=== PATIENT | male | born 1950 | race Caucasian/White ===

== ENCOUNTER → 2017-06-07 09:29 | Outpatient (CLI) | payer MEDICARE, SELFPAY ==
[2017-06-07 11:27] LABS: AST(SGOT) 23 U/L (15-37); Alanine Aminotransfer ALT/SGPT 27 U/L (16-61); Albumin, Serum 4.1 g/dL (3.2-5.0); Alkaline Phosphatase 59 U/L (45-117); Bilirubin, Direct 0.15 mg/dL (0.00-0.30); Cholesterol 157 mg/dL (200); Globulin 3.1 g/dL (2.2-4.2); High Density Lipoprotein 59 mg/dL; Protein, Total 7.2 g/dL (6.4-8.2); Triglycerides 84 mg/dL; Very Low Density Lipoprotein 17 mg/dL (5-40)
== END ==
PROVIDERS: Family Provider Family Medicine; PCP Family Medicine; Visit Provider Internal Medicine Cardiovascular Disease
DX: E78.5 Hyperlipidemia, unspecified (principal); Z79.899 Other long term (current) drug therapy
CPT/HCPCS: 36415; 80061; 80076

== ENCOUNTER 2017-08-05 05:12 | Day surgery (SDC) | payer MEDICARE, SELFPAY ==
--- NOTE | 2017-07-19 11:31 | EKG12_ITS ---
Test Reason : PRE-OP Blood Pressure : / mmHG Vent. Rate : 058 BPM Atrial Rate : 058 BPM P-R Int : 192 ms QRS Dur : 092 ms QT Int : 430 ms P-R-T Axes : 051 -01 036 degrees QTc Int : 422 ms Sinus bradycardia Possible Left atrial enlargement Borderline ECG Confirmed by NAUN SCHAEFFER ([id number]), editorial intern CRISTELA GUAMAN ([id number] on 08/01/2017 4:58:41 PM Referred By: Jason Delatorre Confirmed By:NAUN SCHAEFFER
[2017-07-19 11:38] LABS: Hematocrit 44.6 % (40-54); Hemoglobin 15.2 g/dl (13.0-16.5); Mean Corp Hgb Conc 34.1 g/gl (32-36); Mean Corpuscular Hgb 30.5 pg (27.0-32.0); Mean Corpuscular Volume 89.4 fL (80-94); Mean Platelet Vol. 10.2 fl (6.2-12.0); Platelet Count 236 K/mm3 (150-450); RBC Distribution Width CV 12.9 % (11.6-14.6); RBC Distribution Width SD 41.2 fl (35.1-43.9); Red Blood Count 4.99 M/mm3 (4.6-6.2); White Blood Count 6.8 K/mm3 (4.4-11.0)
[2017-07-19 11:46] LABS: Scan Indicated on CBC? Y/N NO
[2017-07-19 12:04] LABS: Anion Gap 8 (5-15); BUN 14 mg/dL (7-18); BUN/Creat Ratio 16.9 RATIO (10-20); Calcium,Total 9.3 mg/dL (8.5-10.1); Chloride 101 mmol/L (98-107); Creatinine, Serum 0.83 mg/dL (0.70-1.30); EST Glomerular Filtration Rate 98 mL/min (>60); Est Glom Filt Rate - Afr Amer 118 mL/min (>60); Glucose 98 mg/dL (74-106); Potassium 4.4 mmol/L (3.5-5.1); Sodium Level 139 mmol/L (136-145)
[2017-08-05] VITALS (8 sets, daily range): BP systolic 123–146; BP diastolic 67–81; PULSE 61–73; RESP 14–16; TEMP 36.5–36.9; O2SAT 93–100; BMI 22.9
--- NOTE | 2017-08-05 07:13 | DCINST_ITS ---
Discharge Diet: Light diet - advance as tolerated - if you have questions about your diet instructions, please talk to you doctor. Discharge Activity: May Not Drive - for 1 week or while taking narcotic pain medicine. May shower in (days): 1 Lifting Restrictions: 10 pounds Call your doctor if your incision/area has: Continuous Slow Oozing, Sudden Increased Bleeding, Increased Pain/ Swelling, Increased Redness, Foul Smelling Discharge Call your doctor if you observe: Fever of 101 or Higher Suture Line Care: Avoid Pulling/Pushing, Avoid Pinching/Bending Additional Dressing/Incision Instructions:: Change or remove dressing in 4 days. Leave steri-strips in place for 1 week. Allergies/Adverse Reactions: Allergies chlorhexidine Allergy (Verified 07/19/17 12:53) Rash atorvastatin [From Lipitor] Adverse Reaction (Severe, Verified 07/19/17 12:53) Myalgias albuterol Adverse Reaction (Verified 07/19/17 12:53) RAPID HEART BEAT Penicillins Adverse Reaction (Verified 07/19/17 12:53) STRANGE SENSATION IN MOUTH AND TEETH Medications to take at Discharge Cinnamon Bark [Cinnamon] 1,000 mg PO DAILY 08/09/16 Gluc June/Chondro June A/Vit C/Mn [Glucosamine-Chondroitin Cap] 1 ea PO DAILY Lisinopril [Prinivil] 10 mg PO DAILY 08/09/16 Magnesium Chloride [Slow-Mag] 64 mg PO DAILY 08/09/16 Multivitamin [Daily Multiple Vitamin] 1 ea PO DAILY 08/09/16 Pravastatin Sodium [Pravachol] 10 mg PO QHS 08/09/16 aspirin 81 mg tablet,delayed release 81 mg PO QDAY tab 04/29/17 Hydrocodone Bitart/Apap 5-325 [[place] 5MG-325MG] 1 tablet PO Q6H PRN PRN 3 Days # 8 tablet 08/05/17 The following prescriptions were given: Hydrocodone Bitart/Apap 5-325 [[place] 5MG-325MG] 1 tablet PO Q6H PRN PRN 3 Days # 8 tablet PRN Reason: Pain Primary Care Physician: Austen Lara [Primary Care Provider] - Please Follow Up With: Jason Delatorre MD - [phone] When: Call to make an appointment to be seen in about 10 days.
[2017-08-05] MEDS: Bupivacaine Mpf 0.5% 30 ML VIAL (07:27)
--- NOTE | 2017-08-05 08:20 | PCM.OPRPT ---
Problem List (1) Left inguinal hernia Status: Acute Report of Operation Date of Procedure: 08/05/17 Pre-Operative Diagnosis: Symptomatic indirect left internal hernia Post-Operative Diagnosis: Same Surgery/Procedure Performed:: Laparoscopic left inguinal herniorrhaphy Description of Surgical Findings:: Timeout and informed consent was obtained. 67-year-old gentleman was taken the operating room. He was placed supine on the table. He underwent general endotracheal intubation anesthesia. Clindamycin 900 mg given intravenous preoperatively. The abdomen was sterilely prepped and draped. 0.5% right Marcaine was used as a local anesthetic. Throughout the procedure total 30 cc was used. Skin sites were pre-anesthetized. A vertical incision was made in the umbilicus sharp dissection varies needle inserted after holding sutures of 0 Vicryl placed. The abdomen was insufflated with CO2 to pressure of 10 mmHg pressure. Albina trocar inserted. 10 lap scope inserted. The abdomen was inspected. There was evidence of her previous Marlex mesh plug repair of a right inguinal hernia. The plug was clearly visible. There was no adherence of bowel. There is evidence of an indirect defect on the left. The 5 mm trochars were placed in the right left lower quadrant. A ileal inguinal nerve block was performed under left scopic visual. The peritoneum was incised superior and then lateral to the internal ring. The peritoneum was completely dissected free. Actually quite a sizable hernia sac was carefully bluntly dissected free and a cord lipoma was dissected free. at that dissection was quite generous. The direct indirect and femoral artery identified. A 3D max light weight mesh large left was selected reference #[id number] lot number [id number] date of excess expiration 04/20/2021. The mesh was nicely placed so as to cover the defect area. It was secured laterally superiorly and medially with secure strap. Excellent coverage was achieved. The peritoneum was approximated to itself with the secure strap and several Hem-o-cony clips. Good positioning was achieved. The abdomen was allowed to deflate of the CO2. The fascia at the umbilicus was approximated interrupted 0 Vicryl figure 8 suture. Skin edges approximated up to 4 Monocryl subdermal stitches. Steri-Strips Telfa and OpSite dressings applied. Sponge instrument and needle counts were reported to the surgeon to be correct. Blood loss was minimal. Specimens none. Drains none. Blood loss minimal. Jason Delatorre M.D., F.A.C.S. Type of Anesthesia:: General Anesthesiologist: Jamil Piña
[2017-08-05] MEDS: HYDROcodone Bitartrate/Apap 5/325 Tablet PO (10:00)
[2017-08-05] MEDS: Lactated Ringers 1,000 ML 15 ML IV (11:15)
--- NOTE | 2017-08-05 11:32 | SUR.PHASEII ---
AT APPROXIMATELY 11:00, PATIENT AMBULATED WITH ASSISTANCE TO THE BATHROOM. STATES VOIDED VERY LITTLE. BLADDER SCANNED FOR 400 CC.
== END 2017-08-05 12:55 | disposition home or self-care (01) ==
LOC: SDC 05:12 → AC 05:14
PROVIDERS: Family Provider Family Medicine; PCP Family Medicine; Visit Provider Surgery
PROC: (CPT 49650; principal; 2017-08-05 06:55)
DX: K40.90 Unilateral inguinal hernia, without obstruction or gangrene, not specified as recurrent (principal); I10 Essential (primary) hypertension; E78.5 Hyperlipidemia, unspecified; M19.90 Unspecified osteoarthritis, unspecified site; Z79.82 Long term (current) use of aspirin; Z79.899 Other long term (current) drug therapy
CPT/HCPCS: 49650; 36415; 80048; 85027; 93005; J7120; J2405

== ENCOUNTER → 2017-11-22 09:36 | Outpatient (CLI) | payer MEDICARE, SELFPAY ==
[2017-11-22 12:26] LABS: AST(SGOT) 26 U/L (15-37); Alanine Aminotransfer ALT/SGPT 28 U/L (16-61); Albumin, Serum 3.9 g/dL (3.2-5.0); Alkaline Phosphatase 65 U/L (45-117); Bilirubin, Direct 0.19 mg/dL (0.00-0.30); Cholesterol 146 mg/dL (200); Globulin 3.1 g/dL (2.2-4.2); High Density Lipoprotein 62 mg/dL; Triglycerides 42 mg/dL; Very Low Density Lipoprotein 8 mg/dL (5-40)
== END ==
LOC: LAB.FUTURE 09:37 → LAB 09:50
PROVIDERS: Family Provider Family Medicine; PCP Family Medicine; Referring Provider Internal Medicine Cardiovascular Disease; Visit Provider Internal Medicine Cardiovascular Disease
DX: E78.5 Hyperlipidemia, unspecified (principal); Z79.899 Other long term (current) drug therapy; Z12.5 Encounter for screening for malignant neoplasm of prostate
CPT/HCPCS: 36415; 80061; 80076

== ENCOUNTER → 2017-12-01 09:04 | Outpatient (CLI) | payer MEDICARE, SELFPAY ==
[2017-12-01 10:07] LABS: PSA,Total - Annual Screen 1.59 ng/mL (0.00-4.00)
== END ==
PROVIDERS: Family Provider Family Medicine; PCP Family Medicine; Referring Provider Urology; Visit Provider Urology
DX: Z12.5 Encounter for screening for malignant neoplasm of prostate (principal)
CPT/HCPCS: 36415; 84153; G0103

== ENCOUNTER → 2018-06-20 09:52 | Outpatient (CLI) | payer MEDICARE, SELFPAY ==
[2017-12-01 10:00] VITALS: BMI 22.1
--- NOTE | 2018-06-20 10:00 | ECHOD_ITS ---
Reason For Study: MVP Procedure This was a 2D Doppler, Color Flow transthoracic echocardiogram. Exam performed in department. Left Ventricle Normal LV size. Left ventricular systolic function is normal. The estimated ejection fraction is 60 %. No evidence for diastolic dysfunction. No regional wall motion abnormalities noted. Right Ventricle Normal RV size. Normal systolic function. Atria Normal left atrium. Normal right atrium. No doppler evidence for ASD. Mitral Valve There is no mitral annular calcification. Moderate diffuse mitral valve thickening. Myxomatous mitral valve. Moderate mitral valve prolapse. Mild (1+) mitral valve insufficiency. Tricuspid Valve Normal tricuspid valve. Trivial tricuspid valve insufficiency. Aortic Valve Trisinus/trileaflet aortic valve. Normal aortic valve. Pulmonic Valve The pulmonic valve is not well visualized. Trivial eccentric pulmonic valve insufficiency. Great Vessels Normal sized aortic root. Pericardium/Pleural Trivial pericardial effusion. There are no echocardiographic indications of cardiac tamponade. MMode/2D Measurements & Calculations LVIDd: 4.6 cm IVSd: 0.87 cm Ao root diam: 2.9 cm LVIDs: 2.6 cm LVPWd: 1.1 cm RVDd: 3.3 cm FS: 43.7 % LAV(MOD-bp): 50.0 ml EDV(MOD-sp4): 93.8 ml EDV(MOD-sp2): 79.0 ml LAV(MOD-bp) Indexed: 26.7 ml/m2 ESV(MOD-sp4): 44.3 ml EF(MOD-sp2): 62.2 % LAV(MOD-sp2): 62.1 ml EF(MOD-sp4): 52.8 % LAV(MOD-sp4): 35.8 ml SV(MOD-sp4): 49.5 ml SV(MOD-sp2): 49.1 ml LA A4 area: 14.3 cm2 LA dimension(2D): 3.6 cm RA A4 area: 14.1 cm2 Doppler Measurements & Calculations MV E max wilman: 62.1 cm/sec Lat Peak E' Wilman: 5.8 cm/sec Med Peak E' Wilman: 6.3 cm/sec MV A max wilman: 69.7 cm/sec E/E' lat: 10.8 E/E' med: 9.8 MV E/A: 0.89 Ao V2 max: 107.9 cm/sec LV V1 max: 96.3 cm/sec PA V2 max: 141.4 cm/sec Ao max P.7 mmHg LV V1 max P.7 mmHg Interpretation Summary Left ventricular systolic function is normal. The estimated ejection fraction is 60 %. Myxomatous mitral valve. Moderate diffuse mitral valve thickening. Moderate mitral valve prolapse. Mild (1+) mitral valve insufficiency. Trivial tricuspid valve insufficiency. Trivial eccentric pulmonic valve insufficiency. Trivial pericardial effusion. There are no echocardiographic indications of cardiac tamponade. No evidence for diastolic dysfunction. Ordering Physician: Mati Webster Referring Physician: Austen Lara Performed By: Zuleima Stanley [facility] [place]
== END ==
PROVIDERS: Family Provider Family Medicine; PCP Family Medicine; Referring Provider Internal Medicine Cardiovascular Disease; Visit Provider Internal Medicine Cardiovascular Disease
DX: I34.1 Nonrheumatic mitral (valve) prolapse (principal); I10 Essential (primary) hypertension; E78.5 Hyperlipidemia, unspecified; R09.89 Other specified symptoms and signs involving the circulatory and respiratory systems
CPT/HCPCS: 93306

== ENCOUNTER → 2018-06-27 08:04 | Outpatient (CLI) | payer MEDICARE, SELFPAY ==
[2017-12-01 10:00] VITALS: BMI 22.1
[2018-06-27 09:03] LABS: Cholesterol 172 mg/dL (200); High Density Lipoprotein 71 mg/dL; Triglycerides 58 mg/dL; Very Low Density Lipoprotein 12 mg/dL (5-40)
== END ==
PROVIDERS: Family Provider Family Medicine; PCP Family Medicine; Referring Provider Internal Medicine Cardiovascular Disease; Visit Provider Internal Medicine Cardiovascular Disease
DX: E78.5 Hyperlipidemia, unspecified (principal); I10 Essential (primary) hypertension; I34.1 Nonrheumatic mitral (valve) prolapse; R09.89 Other specified symptoms and signs involving the circulatory and respiratory systems
CPT/HCPCS: 36415; 80061

== ENCOUNTER → 2018-07-26 07:42 | Outpatient (CLI) | payer MEDICARE, SELFPAY ==
[2018-07-05 15:49] VITALS: BMI 21.3
--- NOTE | 2018-07-26 08:02 | CDU_ITS ---
Reason For Study: Carotid Artery Disease Rt. Velocities/BP Lt. Velocities/BP Prox CCA 114/19 cm/sec. Prox CCA 133/23 cm/sec. Mid CCA 107/24 cm/sec. Mid CCA 115/25 cm/sec. Dist CCA 87/21 cm/sec. Dist CCA 90/22 cm/sec. Prox ICA 74/14 cm/sec. Prox ICA 81/14 cm/sec. Mid ICA 71/21 cm/sec. Mid ICA 84/20 cm/sec. Dist ICA 86/35 cm/sec. Dist ICA 84/31 cm/sec. Rt. ICA/CCA = 0.8. Lt. ICA/CCA = 0.7. Prox ECA 114/9 cm/sec. Prox ECA 98/14 cm/sec. Rt. Vert. 64/12 cm/sec. Lt. Vert. 62/18 cm/sec. Right Extracranial There is heterogeneous, irregular atherosclerotic plaque noted in the right common carotid artery. There is heterogeneous, irregular atherosclerotic plaque noted in the right internal carotid artery. There is heterogeneous, irregular atherosclerotic plaque noted in the right external carotid artery. Antegrade flow is noted in the right vertebral artery. Pre-steal waveform noted Rt Vert A. Left Extracranial There is intimal thickening but no significant atherosclerotic plaque noted in the left common carotid artery. There is heterogeneous, irregular atherosclerotic plaque noted in the left internal carotid artery. There is heterogeneous, irregular atherosclerotic plaque noted in the left external carotid artery. Antegrade flow is noted in the left vertebral artery. Procedure Carotid Duplex [id number]. Exam performed in department. Interpretation Summary Mild (<50%) stenosis right extracranial internal carotid. Mild (<50%) stenosis left extracranial internal carotid. Flow within the vertebral arteries is antegrade bilaterally. Ordering Physician: Mati Webster Referring Physician: Austen Lara Performed By: Luiza Lanier, HILARY, RVT
== END ==
PROVIDERS: Family Provider Family Medicine; PCP Family Medicine; Referring Provider Internal Medicine Cardiovascular Disease; Visit Provider Internal Medicine Cardiovascular Disease
DX: R09.89 Other specified symptoms and signs involving the circulatory and respiratory systems (principal)
CPT/HCPCS: 93880

== ENCOUNTER → 2018-12-05 08:42 | Outpatient (CLI) | payer MEDICARE, SELFPAY ==
[2018-07-05 15:49] VITALS: BMI 21.3
[2018-12-05 10:54] LABS: PSA,Total - Annual Screen 1.43 ng/mL (0.00-4.00)
== END ==
PROVIDERS: Family Provider Family Medicine; PCP Family Medicine; Referring Provider Urology; Visit Provider Urology
DX: Z12.5 Encounter for screening for malignant neoplasm of prostate (principal)
CPT/HCPCS: 36415; 84153; G0103

== ENCOUNTER → 2018-12-27 07:37 | Outpatient (CLI) | payer MEDICARE, SELFPAY ==
[2018-07-05 15:49] VITALS: BMI 21.3
[2018-12-27 08:15] LABS: AST(SGOT) 23 U/L (15-37); Alanine Aminotransfer ALT/SGPT 32 U/L (16-61); Alkaline Phosphatase 63 U/L (45-117); Bilirubin, Direct 0.15 mg/dL (0.00-0.30); Cholesterol 162 mg/dL (200); High Density Lipoprotein 68 mg/dL; Triglycerides 60 mg/dL; Very Low Density Lipoprotein 12 mg/dL (5-40)
== END ==
PROVIDERS: Family Provider Family Medicine; PCP Family Medicine; Referring Provider Internal Medicine Cardiovascular Disease; Visit Provider Internal Medicine Cardiovascular Disease
DX: E78.5 Hyperlipidemia, unspecified (principal)
CPT/HCPCS: 36415; 80061; 80076

== ENCOUNTER → 2019-07-06 08:39 | Outpatient (CLI) | payer MEDICARE, SELFPAY ==
[2019-01-05 09:23] VITALS: BMI 21.7
[2019-07-06 09:43] LABS: AST(SGOT) 23 U/L (15-37); Alanine Aminotransfer ALT/SGPT 30 U/L (16-61); Alkaline Phosphatase 57 U/L (45-117); Bilirubin, Direct 0.19 mg/dL (0.00-0.30); Cholesterol 156 mg/dL (200); High Density Lipoprotein 67 mg/dL; Triglycerides 61 mg/dL; Very Low Density Lipoprotein 12 mg/dL (5-40)
== END ==
PROVIDERS: PCP Family Medicine; Referring Provider Nurse Practitioner Family; Visit Provider Nurse Practitioner Family
DX: E78.5 Hyperlipidemia, unspecified (principal)
CPT/HCPCS: 36415; 80061; 80076

== ENCOUNTER → 2019-12-13 11:46 | Outpatient (CLI) | payer MEDICARE, SELFPAY ==
[2019-09-26 14:20] VITALS: BMI 20.9
[2019-12-13 13:20] LABS: PSA,Total - Annual Screen 1.51 ng/mL (0.00-4.00)
== END ==
PROVIDERS: PCP Family Medicine; Referring Provider Urology; Visit Provider Urology
DX: Z12.5 Encounter for screening for malignant neoplasm of prostate (principal)
CPT/HCPCS: 36415; 84153; G0103

== ENCOUNTER → 2020-01-24 06:57 | Outpatient (CLI) | payer MEDICARE, SELFPAY ==
[2019-09-26 14:20] VITALS: BMI 20.9
[2020-01-24 07:48] LABS: AST(SGOT) 24 U/L (15-37); Alanine Aminotransfer ALT/SGPT 37 U/L (16-61); Albumin, Serum 3.9 g/dL (3.2-5.0); Alkaline Phosphatase 65 U/L (45-117); Bilirubin, Direct 0.14 mg/dL (0.00-0.30); Cholesterol 158 mg/dL (200); Globulin 3.1 g/dL (2.2-4.2); High Density Lipoprotein 68 mg/dL; Triglycerides 71 mg/dL; Very Low Density Lipoprotein 14 mg/dL (5-40)
== END ==
PROVIDERS: PCP Family Medicine; Referring Provider Internal Medicine Cardiovascular Disease; Visit Provider Internal Medicine Cardiovascular Disease
DX: E78.5 Hyperlipidemia, unspecified (principal)
CPT/HCPCS: 36415; 80061; 80076

== ENCOUNTER → 2020-07-01 07:37 | Outpatient (CLI) | payer MEDICARE, SELFPAY ==
[2019-09-26 14:20] VITALS: BMI 20.9
--- NOTE | 2020-07-01 07:39 | ECHOD_ITS ---
Reason For Study: MVP Procedure This was a 2D Doppler, Color Flow transthoracic echocardiogram. Exam performed in department. Left Ventricle Normal LV size. Left ventricular systolic function is normal. The estimated ejection fraction is 65 %. No evidence for diastolic dysfunction. No regional wall motion abnormalities noted. Right Ventricle Normal RV size. Normal systolic function. Atria Normal left atrium. Normal right atrium. No doppler evidence for ASD. Mitral Valve There is no mitral annular calcification. Moderate diffuse mitral valve thickening. Myxomatous mitral valve. Moderate mitral valve prolapse. Mild (1+) mitral valve insufficiency. Tricuspid Valve Normal tricuspid valve. Trivial tricuspid valve insufficiency. Right ventricular systolic pressure estimated to be 23 mmHg. Aortic Valve Trisinus/trileaflet aortic valve. Normal aortic valve. Pulmonic Valve The pulmonic valve is not well visualized. Trivial pulmonic valve insufficiency. Great Vessels Normal sized aortic root. Pericardium/Pleural Trivial pericardial effusion. There are no echocardiographic indications of cardiac tamponade. MMode/2D Measurements & Calculations LVIDd: 5.3 cm IVSd: 0.89 cm Ao root diam: 3.6 cm LVIDs: 2.7 cm LVPWd: 1.0 cm LA dimension: 3.5 cm RVDd: 3.8 cm FS: 49.0 % LAV(MOD-bp): 48.2 ml LA A4 area: 15.4 cm2 RA A4 area: 17.8 cm2 LAV(MOD-bp) Indexed: 25.8 ml/m2 LAV(MOD-sp2): 44.9 ml LAV(MOD-sp4): 43.5 ml Time Measurements MV dec time: 0.27 sec Doppler Measurements & Calculations MV E max wilman: 62.1 cm/sec Lat Peak E' Wilman: 5.0 cm/sec Med Peak E' Wilman: 5.9 cm/sec MV A max wilman: 80.2 cm/sec E/E' lat: 12.3 E/E' med: 10.5 MV E/A: 0.77 MV V2 max: 96.0 cm/sec MV P1/2t max wilman: 79.3 cm/sec Ao V2 max: 102.5 cm/sec MV max P.7 mmHg MV P1/2t: 87.6 msec Ao max P.2 mmHg MV V2 mean: 50.9 cm/sec MV dec slope: 264.9 cm/sec2 MV mean P.2 mmHg MVA(P1/2t): 2.5 cm2 MV V2 VTI: 29.7 cm LV V1 max: 84.4 cm/sec MR max wilman: 594.6 cm/sec PA V2 max: 169.5 cm/sec LV V1 max P.9 mmHg MR max P.4 mmHg MR mean wilman: 498.7 cm/sec MR mean P.0 mmHg MR VTI: 176.7 cm TR max wilman: 224.6 cm/sec TR max P.2 mmHg ECHO/Echo Complete Interpretation Summary Left ventricular systolic function is normal. The estimated ejection fraction is 65 %. Myxomatous mitral valve. Moderate diffuse mitral valve thickening. Moderate mitral valve prolapse. Mild (1+) mitral valve insufficiency. Trivial tricuspid valve insufficiency. Trivial pulmonic valve insufficiency. Trivial pericardial effusion. There are no echocardiographic indications of cardiac tamponade. Right ventricular systolic pressure estimated to be 23 mmHg. No evidence for diastolic dysfunction. Ordering Physician: Mati Webster Referring Physician: Austen Lara Performed By: Gabriel Landon RCS
== END ==
PROVIDERS: PCP Family Medicine; Referring Provider Internal Medicine Cardiovascular Disease; Visit Provider Internal Medicine Cardiovascular Disease
DX: I34.1 Nonrheumatic mitral (valve) prolapse (principal)
CPT/HCPCS: 93306

== ENCOUNTER → 2020-07-23 09:35 | Outpatient (CLI) | payer MEDICARE, SELFPAY ==
[2020-07-07 10:53] VITALS: BMI 21.2
--- NOTE | 2020-07-23 09:36 | CDU_ITS ---
Reason For Study: Bruit Rt. Velocities/BP Lt. Velocities/BP Prox CCA 130/23 cm/sec. Prox CCA 149/29 cm/sec. Mid CCA 130/19 cm/sec. Mid CCA 126/30 cm/sec. Dist CCA 105/21 cm/sec. Dist CCA 108/21 cm/sec. Prox ICA 75/15 cm/sec. Prox ICA 94/10 cm/sec. Mid ICA 67/19 cm/sec. Mid ICA 93/18 cm/sec. Dist ICA 63/19 cm/sec. Dist ICA 93/30 cm/sec. Rt. ICA/CCA = 0.6. Lt. ICA/CCA = 0.7. Prox ECA 130/19 cm/sec. Prox ECA 86/9 cm/sec. Rt. Vert. 52/12 cm/sec. Lt. Vert. 72/16 cm/sec. Right Extracranial There is intimal thickening but no significant atherosclerotic plaque noted in the right common carotid artery. There is heterogeneous, irregular atherosclerotic plaque noted in the right internal carotid artery. There is heterogeneous, irregular atherosclerotic plaque noted in the right external carotid artery. Antegrade flow is noted in the right vertebral artery. Left Extracranial There is intimal thickening but no significant atherosclerotic plaque noted in the left common carotid artery. There is heterogeneous, irregular atherosclerotic plaque noted in the left internal carotid artery. There is heterogeneous, irregular atherosclerotic plaque noted in the left external carotid artery. Antegrade flow is noted in the left vertebral artery. Procedure Carotid Duplex [id number]. This is a Carotid Duplex examination using B-mode, color flow and specral Doppler. Exam performed in department. VL/Carotid Duplex Ultrasound Interpretation Summary Mild (<50%) stenosis right extracranial internal carotid. Mild (<50%) stenosis left extracranial internal carotid. Flow within the vertebral arteries is antegrade bilaterally. Ordering Physician: Mati Webster Referring Physician: Austen Lara Performed By: Luiza Lanier RVT, RDCS and Student
== END ==
PROVIDERS: PCP Family Medicine; Referring Provider Internal Medicine Cardiovascular Disease; Visit Provider Internal Medicine Cardiovascular Disease
DX: R09.89 Other specified symptoms and signs involving the circulatory and respiratory systems (principal)
CPT/HCPCS: 93880

== ENCOUNTER → 2020-08-21 08:49 | Outpatient (CLI) | payer MEDICARE, SELFPAY ==
[2020-07-07 10:53] VITALS: BMI 21.2
[2020-08-21 10:08] LABS: AST(SGOT) 25 U/L (15-37); Alanine Aminotransfer ALT/SGPT 37 U/L (16-61); Alkaline Phosphatase 58 U/L (45-117); Bilirubin, Direct 0.15 mg/dL (0.00-0.30); Cholesterol 167 mg/dL (200); Globulin 3.1 g/dL (2.2-4.2); High Density Lipoprotein 72 mg/dL; Protein, Total 7.1 g/dL (6.4-8.2); Triglycerides 67 mg/dL; Very Low Density Lipoprotein 13 mg/dL (5-40)
== END ==
PROVIDERS: PCP Family Medicine; Referring Provider Internal Medicine Cardiovascular Disease; Visit Provider Internal Medicine Cardiovascular Disease
DX: E78.5 Hyperlipidemia, unspecified (principal)
CPT/HCPCS: 36415; 80061; 80076

== ENCOUNTER → 2020-10-31 16:13 | Outpatient (CLI) | payer MEDICARE, SELFPAY ==
[2020-10-31 17:45] LABS: Anion Gap 3 (5-15); BUN 10 mg/dL (7-18); BUN/Creat Ratio 13.6 RATIO (10-20); Calcium,Total 8.9 mg/dL (8.5-10.1); Chloride 100 mmol/L (98-107); Creatinine, Serum 0.74 mg/dL (0.70-1.30); EST Glomerular Filtration Rate 111 mL/min (>60); Est Glom Filt Rate - Afr Amer 134 mL/min (>60); Glucose 102 mg/dL (74-106); Magnesium 2.1 mg/dL (1.6-2.6); Potassium 4.1 mmol/L (3.5-5.1); Sodium Level 133 mmol/L (136-145); Thyroid Stim Hormone (TSH) 2.07 uIU/mL (0.358-3.74)
== END ==
PROVIDERS: PCP Family Medicine; Visit Provider Nurse Practitioner Family
DX: I10 Essential (primary) hypertension (principal); R00.0 Tachycardia, unspecified; R00.2 Palpitations; R42 Dizziness and giddiness
CPT/HCPCS: 36415; 80048; 83735; 84439; 84443

== ENCOUNTER 2020-11-21 13:12 | Inpatient (IN) | payer MEDICARE, SELFPAY ==
[2020-11-21] VITALS (13 sets, daily range): BP systolic 114–157; BP diastolic 61–99; PULSE 61–89; RESP 15–20; TEMP 36.7–37.2; O2SAT 98–100; BMI 22.1; BMI 21.5
--- NOTE | 2020-11-21 13:21 | EKG12_ITS ---
Test Reason : TACHYCARDIA Blood Pressure : / mmHG Vent. Rate : 090 BPM Atrial Rate : 090 BPM P-R Int : 180 ms QRS Dur : 092 ms QT Int : 370 ms P-R-T Axes : 068 001 056 degrees QTc Int : 452 ms Normal sinus rhythm Normal ECG Confirmed by PANKAJ RODRIGUEZ, DARIUS ([id number]), film editor supervisor HUGO PAVON ([id number]) on 11/24/2020 1:08:39 PM Referred By: ROGERIO Confirmed By:DARIUS LIRA MD
--- NOTE | 2020-11-21 13:21 | RAD_ITS ---
STUDY: X-RAY CHEST REASON FOR EXAM: Male, 70 years old. Chest pain TECHNIQUE: Single AP portable view of the chest. COMPARISON: None. FINDINGS: EKG electrodes are seen. The lungs are clear and expanded. There is no demonstrated pleural abnormality. Normal size heart. Normal mediastinum and hiro. Normal visualized pulmonary arteries. There is atherosclerotic tortuosity of the aortic arch and descending thoracic aorta. There are diffuse degenerative changes of the visualized thoracic spine. Normal visualized ribs, clavicles, and shoulders. There is no demonstrated abnormality of the visualized soft tissue structures of the upper abdomen. RAD/Chest 1 View (Portable) IMPRESSION: No acute abnormality is seen. Electronically Signed: Logan Allen MD at 14:44 EDT , Service support ,
[2020-11-21 13:27] LABS: Absolute Lymphocyte Count 1.71 X10^3/uL (0.83-4.51); Absolute Neutrophil Count 6.3 X10^3/uL (2.0-7.7); Basophil# 0.11 X10^3/uL; Basophil% 1.2 % (0-1); Eosinophil# 0.21 X10^3/uL; Eosinophils% 2.3 % (0-5); Hematocrit 45.1 % (40-54); Hemoglobin 15.3 g/dL (13.0-16.5); Lymphocyte # 1.71 X10^3/ul (0.83-4.51); Lymphocyte % 18.5 % (19-41); Mean Corp Hgb Conc 33.9 g/dL (32-36); Mean Corpuscular Hgb 30.1 pg (27.0-32.0); Mean Corpuscular Volume 88.6 fL (80-94); Mean Platelet Vol. 9.4 fl (6.2-12.0); Monocyte# 0.93 X10^3/uL; NRBC Flagged by Analyzer 0 % (0-5); Neutrophil # 6.26 X10^3/uL (2.7-7.7); Neutrophil % 67.6 % (47-70); Platelet Count 327 K/mm3 (150-450); RBC Distribution Width CV 12.3 % (11.6-14.6); RBC Distribution Width SD 40.1 fl (35.1-43.9); Red Blood Count 5.09 M/mm3 (4.6-6.2); White Blood Count 9.3 K/mm3 (4.4-11.0)
--- NOTE | 2020-11-21 13:28 | EDS_ITS ---
HPI History of Present Illness Chief Complaint: Palpitations Informant: patient Narrative Narrative: Patient sent in by cardiology secondary to abnormal event monitor. Patient states has been having problems with palpitations for the last 15 years or so. They have been under good control but recently are worsening again. He is currently wearing an event monitor. I received a phone call from the ict support and test engineers stating that it appeared the patient may be having runs of V. tach. They asked that we draw blood work and get an EKG when the patient arrives and notify them. Plan would likely be to take him to the [facility] this afternoon. [facility] Medical History Bruit of right carotid artery Essential hypertension Family history of hypertension Family history of ischemic heart disease Hyperlipidemia Hypertension Lightheadedness Long-term use of high-risk medication Nonrheumatic mitral (valve) prolapse Palpitations Right carotid bruit Syncope and collapse Home Medications cinnamon bark 1,000 mg PO DAILY 08/09/16 [History Last Taken Unknown] [id number] C-Mn 1 ea PO DAILY 08/09/16 [History Last Taken Unknown] multivitamin 1 ea PO DAILY 08/09/16 [History Last Taken Unknown] aspirin 81 mg tablet,delayed release 81 mg PO QDAY tab 04/29/17 [History Last Taken 07/29/17] turmeric root extract 500 mg capsule 500 mg PO DAILY 09/26/19 [History Last Taken Unknown] pravastatin 10 mg tablet 10 mg PO QHS #90 tab 01/24/20 [Rx Last Taken Unknown] lisinopril 10 mg tablet 10 mg PO DAILY #90 tab 10/20/20 [Rx Last Taken Unknown] Allergy/AdvReac Type Severity Reaction Status Date / Time chlorhexidine Allergy Rash Verified 11/21/20 13:15 atorvastatin [From Lipitor] AdvReac Severe Myalgias Verified 11/21/20 13:15 albuterol AdvReac RAPID Verified 11/21/20 13:15 HEART BEAT Penicillins AdvReac STRANGE Verified 11/21/20 13:15 SENSATION IN MOUTH AND TEETH Family History Brother CAD (coronary artery disease) Myocardial infarction Hypertension Surgical History History of arthroplasty of right knee History of arthroscopy of shoulder (~06/2017) History of back surgery History of hemorrhoidectomy History of hernia repair History of tonsillectomy and adenoidectomy History of transurethral resection of prostate S/P inguinal hernia repair (~07/2017) Total knee replacement status Social History Smoking Status: Never smoker alcohol intake: current details: occasional substance use type: does not use ROS ROS ED Constitutional Constitutional ED: Denies chills or fever(s) Eyes Eyes: Denies change in vision ENT ENT ED: Denies sore throat Cardiovascular Cardiovascular: Reports chest pain and palpitations Respiratory/Chest Respiratory/Chest: Denies cough or dyspnea Gastrointestinal Gastrointestinal: Denies abdominal pain, diarrhea, nausea or vomiting Genitourinary Genitourinary ED: Denies dysuria Musculoskeletal Musculoskeletal: Denies back pain Integumentary Denies rash Neurologic Neurologic: Denies headache(s) or weakness Psychiatric Psychiatric: Reports anxiety; Denies depression Allergic/Immunologic Allergic/Immunologic ED: Denies urticaria EXAM Physical Exam Const Vital Signs: 11/21/20 13:13 11/21/20 13:16 11/21/20 13:28 Temperature 98.9 F Temperature Source Oral Pulse Rate 89 86 Respiratory Rate 17 15 Respiratory Effort Normal Non-Labored Blood Pressure 154/90 H 157/79 H Blood Pressure Mean 111 105 Pulse Ox 100 100 Oxygen Delivery Method Room Air Room Air Room Air Positive well nourished and well developed General Appearance ED: well developed HEENT Reports normocephalic and head/scalp atraumatic Eyes PERRL and EOMs intact bilaterally Neck supple Chest Wall inspection of chest normal and palpation of chest normal Resp normal respiratory effort and clear to auscultation bilaterally Cardio regular rate and regular rhythm GI normal to inspection, nondistended, normoactive bowel sounds Palpation: soft Extremity normal to inspection Neuro oriented x3 and no sensory deficits noted Sensorium / Orientation: alert Motor Exam: strength 5/5 throughout Psych mental status grossly normal Skin no rashes or lesions noted MDM MDM MDM Narrative Medical decision making narrative: EKG and labs obtained on arrival. Cardiology paged at the time of patient's arrival. Lab Data Attestation: I reviewed the patient's lab results. Labs: Laboratory Results - last 24 hr 11/21/20 11/21/20 11/21/20 13:15 13:15 13:15 WBC 9.3 RBC 5.09 Hgb 15.3 Hct 45.1 MCV 88.6 MCH 30.1 MCHC 33.9 RDW Std Deviation 40.1 RDW Coeff of Nay 12.3 Plt Count 327 MPV 9.4 Immature Gran % (Auto) 0.400 Neut % (Auto) 67.6 Lymph % (Auto) 18.5 L [place] % (Auto) 10.0 Eos % (Auto) 2.3 Baso % (Auto) 1.2 H Absolute Neuts (auto) 6.3 Absolute Lymphs (auto) 1.71 Nucleated RBC % 0 PT 12.1 INR 1.0 Sodium 131 L Potassium 4.0 Chloride 96 L Carbon Dioxide 31.0 Anion Gap 4 L BUN 12 Creatinine 0.83 Estim Creat Clear Calc 79.77 Est GFR (MDRD) Af Amer 117 Est GFR (MDRD) Non-Af 97 BUN/Creatinine Ratio 14.5 Glucose 107 H Calcium 9.5 Troponin I High Sens 12 EKG Initial EKG: Attestation: I personally reviewed and interpreted this EKG as follows: Interpretation: Sinus Rhythm (Sinus at 90 with no acute ischemia.) Treatment and Re-Evaluation Comments:: Dr. Krueger presented to the emergency room to evaluate the patient. Plan will be to take the patient to the [facility] for evaluation. Depending on what these results show patient may then require transfer for EP study. He did asked we contact the hospitalist for admission. Discharge Plan Triage Chief Complaint: Palpitations ED Provider: Liz Metcalf Dx/Rx/DC Orders Clinical Impression: Ventricular tachycardia Prescriptions: No Action aspirin 81 mg tablet,delayed release (DR/EC) 81 mg PO QDAY RF: 0 turmeric root extract 500 mg capsule 500 mg PO DAILY RF: 0 multivitamin 1 EACH tablet 1 ea PO DAILY RF: 0 [id number]-ley C-Mn 1 EACH capsule 1 ea PO DAILY RF: 0 cinnamon bark 500 MG capsule 1,000 mg PO DAILY RF: 0 pravastatin 10 mg tablet 10 mg PO QHS Qty: 90 RF: 3 lisinopril 10 mg tablet 10 mg PO DAILY Qty: 90 RF: 3 Primary Care Provider: Austen Lara Referrals: Austen Lara MD [Primary Care Provider] - Disposition Disposition: Acute Care [facility]
[2020-11-21 13:35] LABS: Prothrombin Time (Protime)PT. 12.1 SECONDS (11.7-14.9)
[2020-11-21 13:41] LABS: Anion Gap 4 (5-15); BUN 12 mg/dL (7-18); BUN/Creat Ratio 14.5 RATIO (10-20); Calcium,Total 9.5 mg/dL (8.5-10.1); Chloride 96 mmol/L (98-107); Creatinine, Serum 0.83 mg/dL (0.70-1.30); EST Glomerular Filtration Rate 97 mL/min (>60); Est Glom Filt Rate - Afr Amer 117 mL/min (>60); Estimated Creatinine Clearance 79.77 ml/min; Glucose 107 mg/dL (74-106); Sodium Level 131 mmol/L (136-145); Troponin-I HS 12 pg/mL (3.0-78.0)
--- NOTE | 2020-11-21 14:14 | HP.PCM.HOS_ITS ---
HPI - General General Date of Admission: 11/21/20 Date of Service: 11/21/20 Chief Complaint: Abnormal Holter results HPI Narrative YUNIOR YANES, is a 70 M who presents with above. Patient has history of hypertension, mitral valve prolapse, hyperlipidemia, palpitation. She was seen in the office a month ago and put on a 30-day event monitor. Patient was going out with his and daughter. He started having palpitations with shortness of breath and feeling of going to pass out. He pressed his event monitor. The cardiology office was called that he had a 35 beat run of NSVT. According to the patient, this lasted for about 3 minutes. By the reading from the monitor showed I was about 15 minutes. Heart rate was in the 230s. Patient was admitted to the ED and he had an emergent cardiac cath that showed nonobstructive coronaries. His vitals remained stable. His admitting blood work was unremarkable aside for sodium of 131, which is close to previous of 133. His initial troponin was 12 with increased to 128 PFSH Medical History Bruit of right carotid artery Essential hypertension Family history of hypertension Family history of ischemic heart disease Hyperlipidemia Hypertension Lightheadedness Long-term use of high-risk medication Nonrheumatic mitral (valve) prolapse NSVT (nonsustained ventricular tachycardia) Palpitations Right carotid bruit Syncope and collapse Home Medications cinnamon bark 1,000 mg PO DAILY 08/09/16 [History Last Taken Unknown] [id number] C-Mn 1 ea PO DAILY 08/09/16 [History Last Taken Unknown] multivitamin 1 ea PO DAILY 08/09/16 [History Last Taken Unknown] aspirin 81 mg tablet,delayed release 81 mg PO QDAY tab 04/29/17 [History Last Taken 07/29/17] turmeric root extract 500 mg capsule 500 mg PO DAILY 09/26/19 [History Last Taken Unknown] pravastatin 10 mg tablet 10 mg PO QHS #90 tab 01/24/20 [Rx Last Taken Unknown] lisinopril 10 mg tablet 10 mg PO DAILY #90 tab 10/20/20 [Rx Last Taken Unknown] Allergy/AdvReac Type Severity Reaction Status Date / Time chlorhexidine Allergy Rash Verified 11/21/20 13:15 atorvastatin [From Lipitor] AdvReac Severe Myalgias Verified 11/21/20 13:15 albuterol AdvReac RAPID Verified 11/21/20 13:15 HEART BEAT Penicillins AdvReac STRANGE Verified 11/21/20 13:15 SENSATION IN MOUTH AND TEETH Family History Brother CAD (coronary artery disease) Myocardial infarction Hypertension Surgical History History of arthroplasty of right knee History of arthroscopy of shoulder (~06/2017) History of back surgery History of hemorrhoidectomy History of hernia repair History of tonsillectomy and adenoidectomy History of transurethral resection of prostate S/P inguinal hernia repair (~07/2017) Total knee replacement status Social History (Updated 11/21/20 @ 18:[address] Kinsey Sanchez MD) household members: spouse Smoking Status: Never smoker alcohol intake: current details: occasional substance use type: does not use ROS ROS Narrative Constitutional: Reports: Fatigue. Denies: Anorexia, Chills, Fever, Night Swe ats, Weight Change Eyes: Denies: Blurred vision, Cataracts, Conjunctivae Inflammation, Pain, Redness, Vision Change HEENT: Denies: Difficulty Hearing, Difficulty Swallowing, Head Aches, Hearing Changes, Sinus Congestion, Sinus Drainage Cardiovascular: See HPI Respiratory: Denies: Cough, Shortness of breath at rest, Sputum production Gastrointestinal: Denies: Abdominal Pain, Nausea, Vomiting Genitourinary: Denies: Dysuria Musculoskeletal: Denies: Joint Pain, Joint stiffness, Joint swelling, Joint Tenderness Skin: Denies: Rash, Wounds Neurological: Denies: Numbness, Tingling, Focal weakness Vital Signs Vital Signs Vital Signs: 11/21/20 13:13 11/21/20 13:16 11/21/20 13:28 Temperature 98.9 F Temperature Source Oral Pulse Rate 89 86 Respiratory Rate 17 15 Respiratory Effort Normal Non-Labored Blood Pressure 154/90 H 157/79 H Blood Pressure Mean 111 105 Pulse Ox 100 100 Oxygen Delivery Method Room Air Room Air Room Air Weight Weight: 70.1 kg Body Mass Index (BMI) 22.1 Physical Exam Narrative Physical exam: General: Alert, Oriented x3, Cooperative, No apparent distress, Well developed, not on oxygen HEENT: Atraumatic Oral: Moist Mucosa Neck: Supple Lungs: Clear to auscultation Cardiovascular: HS I+II, regular, no murmurs Abdomen: Bowel Sounds Present, Soft, Non Tender Extremities: No edema Results Lab / Micro Data Result Diagrams: 11/21/20 13:15 11/21/20 13:15 Labs: Laboratory Results - last 24 hr 11/21/20 13:15: WBC 9.3, RBC 5.09, Hgb 15.3, Hct 45.1, MCV 88.6, MCH 30.1, MCHC 33.9, RDW Std Deviation 40.1, RDW Coeff of Nay 12.3, Plt Count 327, MPV 9.4, Immature Gran % (Auto) 0.400, Neut % (Auto) 67.6, Lymph % (Auto) 18.5 L, [place] % (Auto) 10.0, Eos % (Auto) 2.3, Baso % (Auto) 1.2 H, Absolute Neuts (auto) 6.3, Absolute Lymphs (auto) 1.71, Nucleated RBC % 0 11/21/20 13:15: PT 12.1, INR 1.0 11/21/20 13:15: Sodium 131 L, Potassium 4.0, Chloride 96 L, Carbon Dioxide 31.0, Anion Gap 4 L, BUN 12, Creatinine 0.83, Estim Creat Clear Calc 79.77, Est GFR (MDRD) Af Amer 117, Est GFR (MDRD) Non-Af 97, BUN/Creatinine Ratio 14.5, Glucose 107 H, Calcium 9.5, Troponin I High Sens 12 Assessment & Plan Assessment/Plan (1) Essential hypertension: (2) NSVT (nonsustained ventricular tachycardia): (3) Nonrheumatic mitral (valve) prolapse: (4) Palpitations: PLAN: 1. Acute nonsustained ventricular tachycardia, noted on 30-day event monitor Status post emergent cardiac cath that showed nonobstructive coronaries Magnesium is 2.2 Cardiology consulted and following Patient will be transferred to [facility] for EP study 2. Hypertension/hyperlipidemia/mitral valve prolapse all remained stable Continue aspirin, lisinopril, pravastatin 3. DVT prophylaxis Lovenox subcu Charges/Coding Visit Charges Inpatient E&M: 13811 Init Hosp L3
--- NOTE | 2020-11-21 14:31 | CON.PCM.CA_ITS ---
Documented by User: Sharon TAPIA PA 11/21/20 15:49 Assessment & Plan Assessment/Plan (1) NSVT (nonsustained ventricular tachycardia): (2) Essential hypertension: (3) Nonrheumatic mitral (valve) prolapse: (4) Hyperlipidemia: QUALIFIERS: Hyperlipidemia type: unspecified Qualified Code(s): E78.5 - Hyperlipidemia, unspecified PLAN: * reviewed rhythm from 30 day monitor. Pt had HR of 230 for approx 15 minutes. He was symptomatic with this. Rhythm differential would be monomorphic VT vs. SVT. Pts MVP could be contributing to Rhythm. * plan is to admit pt until PCU until he can be transferred to [facility] for EP study HPI Consult Data Date of Consult: 11/21/20 HPI Narrative HPI Narrative: YUNIOR YANES, is a 70 M who presented to the ER today for NSVT. Pt does have a hx of palpitations, MVP, hyperlipidemia, hypertension and carotid stenosis. Pt had called our office last month with concerns of lightheadedness/dizziness/tachycardia/near syncope. He was placed on 30 day event monitor. Our office was called that he had at least a 35 beat run of NSVT. He was symptomatic with lightheadedness/dizziness/near syncope. He thought the event lasted 3 minutes He does not have any chest pain. He does not have any SOB. He does have some anxiety issues and does have knee pain. Because of the he came to the ER for further evaluation. Rhythm with 30 day event monitor was approx 15 minutes in length. HRs were approx 230, at the end of the episode he had HR did decrease to approx 115. Rhythm differential would be monomanic VT vs SVT Pt underwent a heart cath, heart cath demonstrated normal coronary arteries and normal EF. Case was discussed with Dr. Levy, plan would be to transfer to [facility] for EP study [facility] Medical History (Updated 11/21/20 @ 14:37 by Sharon TAPIA PA) Bruit of right carotid artery Essential hypertension Family history of hypertension Family history of ischemic heart disease Hyperlipidemia Hypertension Lightheadedness Long-term use of high-risk medication Nonrheumatic mitral (valve) prolapse NSVT (nonsustained ventricular tachycardia) Palpitations Right carotid bruit Syncope and collapse Home Medications cinnamon bark 1,000 mg PO DAILY 08/09/16 [History Last Taken Unknown] [id number] C-Mn 1 ea PO DAILY 08/09/16 [History Last Taken Unknown] multivitamin 1 ea PO DAILY 08/09/16 [History Last Taken Unknown] aspirin 81 mg tablet,delayed release 81 mg PO QDAY tab 04/29/17 [History Last Taken 07/29/17] turmeric root extract 500 mg capsule 500 mg PO DAILY 09/26/19 [History Last Taken Unknown] pravastatin 10 mg tablet 10 mg PO QHS #90 tab 01/24/20 [Rx Last Taken Unknown] lisinopril 10 mg tablet 10 mg PO DAILY #90 tab 10/20/20 [Rx Last Taken Unknown] Allergy/AdvReac Type Severity Reaction Status Date / Time chlorhexidine Allergy Rash Verified 11/21/20 13:15 atorvastatin [From Lipitor] AdvReac Severe Myalgias Verified 11/21/20 13:15 albuterol AdvReac RAPID Verified 11/21/20 13:15 HEART BEAT Penicillins AdvReac STRANGE Verified 11/21/20 13:15 SENSATION IN MOUTH AND TEETH Family History Brother CAD (coronary artery disease) Myocardial infarction Hypertension Surgical History History of arthroplasty of right knee History of arthroscopy of shoulder (~06/2017) History of back surgery History of hemorrhoidectomy History of hernia repair History of tonsillectomy and adenoidectomy History of transurethral resection of prostate S/P inguinal hernia repair (~07/2017) Total knee replacement status Social History Smoking Status: Never smoker alcohol intake: current details: occasional substance use type: does not use ROS Constitutional Constitutional: Reports weakness; Denies fatigue, frequent falls, headache(s) or lethargy Eyes Eyes: Reports systems reviewed and no addt'l complaints, except as documented ENT HEENT: Reports dizziness Cardiovascular Cardiovascular: Reports arrhythmia on telemetry, dizziness, lightheadedness and palpitations; Denies abdominal edema, claudication, diaphoresis, dyspnea at rest, dyspnea on exertion, orthopnea, syncope or tachypnea Respiratory/Chest Respiratory/Chest: Reports systems reviewed and no addt'l complaints, except as documented Gastrointestinal Gastrointestinal: Reports systems reviewed and no addt'l complaints, except as documented Musculoskeletal Musculoskeletal: Reports systems reviewed and no addt'l complaints, except as documented Neurologic Neurologic: Reports systems reviewed and no addt'l complaints, except as documented Physical Exam Const alert, oriented x3, no apparent distress, average body habitus, no limitations, healthy appearing and well nourished HEENT normocephalic, head/scalp atraumatic, hearing grossly normal bilaterally, external ears normal and moist oral mucous membranes Eyes PERRL, EOMs intact bilaterally, conjunctivae normal and no scleral icterus Neck full ROM, no lymphadenopathy and no JVD Chest inspection of chest normal and palpation of chest normal Resp normal respiratory effort Cardio Rate: regular rate Rhythm: regular rhythm Heart Sounds: S1 normal, S2 normal, click mid and murmur systolic II/ soft mid GI normal to inspection, nondistended, normoactive bowel sounds, soft to palpation, non-tender and non-distended Neuro oriented x3, CN's II-XII intact bilaterally, moves all extremities, no focal motor deficits and no sensory deficits noted Charges/Coding Visit Charges Office Visits / Consults: 08230 IP Consult L5 Objective Data Vital Signs: Vital Signs Temp Pulse Resp BP Pulse Ox 98.9 F 86 15 157/79 H 100 11/21/20 13:13 11/21/20 13:16 11/21/20 13:16 11/21/20 13:16 11/21/20 13:16 Oxygen Delivery Method Room Air Weight: 154 lb 8.705 oz Body Mass Index (BMI) 22.1 Lab / Micro Data Result Diagrams: 11/21/20 13:15 11/21/20 13:15 Labs: Laboratory Results - last 24 hr 11/21/20 13:15: WBC 9.3, RBC 5.09, Hgb 15.3, Hct 45.1, MCV 88.6, MCH 30.1, MCHC 33.9, RDW Std Deviation 40.1, RDW Coeff of Nay 12.3, Plt Count 327, MPV 9.4, Immature Gran % (Auto) 0.400, Neut % (Auto) 67.6, Lymph % (Auto) 18.5 L, [place] % (Auto) 10.0, Eos % (Auto) 2.3, Baso % (Auto) 1.2 H, Absolute Neuts (auto) 6.3, Absolute Lymphs (auto) 1.71, Nucleated RBC % 0 11/21/20 13:15: PT 12.1, INR 1.0 11/21/20 13:15: Sodium 131 L, Potassium 4.0, Chloride 96 L, Carbon Dioxide 31.0, Anion Gap 4 L, BUN 12, Creatinine 0.83, Estim Creat Clear Calc 79.77, Est GFR (MDRD) Af Amer 117, Est GFR (MDRD) Non-Af 97, BUN/Creatinine Ratio 14.5, Glucose 107 H, Calcium 9.5, Troponin I High Sens 12 Cardiology Labs/Tests 11/21/20 13:15: WBC 9.3, RBC 5.09, Hgb 15.3, Hct 45.1, MCV 88.6, MCH 30.1, MCHC 33.9, Plt Count 327, MPV 9.4, Immature Gran % (Auto) 0.400, Neut % (Auto) 67.6, Lymph % (Auto) 18.5 L, [place] % (Auto) 10.0, Eos % (Auto) 2.3, Baso % (Auto) 1.2 H , Absolute Neuts (auto) 6.3, Nucleated RBC % 0 11/21/20 13:15: PT 12.1, INR 1.0 11/21/20 13:15: Sodium 131 L, Potassium 4.0, Chloride 96 L, Carbon Dioxide 31.0, Anion Gap 4 L, BUN 12, Creatinine 0.83, Est GFR (MDRD) Af Amer 117, Est GFR (MDRD) Non-Af 97, BUN/Creatinine Ratio 14.5, Glucose 107 H, Calcium 9.5 Rhythm: EKG: ECHO 06/2020: Left ventricular systolic function is normal. The estimated ejection fraction is 65 %. Myxomatous mitral valve. Moderate diffuse mitral valve thickening. Moderate mitral valve prolapse. Mild (1+) mitral valve insufficiency. Trivial tricuspid valve insufficiency. Trivial pulmonic valve insufficiency. Trivial pericardial effusion. There are no echocardiographic indications of cardiac tamponade. Right ventricular systolic pressure estimated to be 23 mmHg. No evidence for diastolic dysfunction. Documented by User: Dr. Ronald Krueger MD 11/21/20 17:01 Assessment & Plan Assessment/Plan (1) NSVT (nonsustained ventricular tachycardia): (2) Nonrheumatic mitral (valve) prolapse: (3) Palpitations: PLAN: , family were at bedside at time of evaluation Patient presented with episode of palpitation to the ER a and has abnormal athletic monitor with the event monitor with neuro QRS complex tachycardia converted last for longer duration and converted spontaneously to normal sinus rhythm some of the rhythm strip also showed evidence of wide QRS complex tachycardia Patient with known mitral valve prolapse underwent cardiac catheterization which showed nonobstructive CAD involving the mid LAD 20-30% at the site of the D1 tortuous vessel, CAD circumflex small vessel and normal angiographically, the RCA large dominant normal angiographically, LV systolic function is preserved Episode of narrow QRS complex tachycardia very likely episode of SVT/some rhythm strip also showed wide QRS complex tachycardia converted to sinus rhythm spontaneously I discussed the case with repairer veneer sheet Dr.Emile Levy at [facility] for EP study. Continue current treatment and we added low-dose of beta-stanton metoprolol Primary head trimmer Dr. Webster will resume care post EP study as an outpatient HPI Consult Data Date of Consult: 11/21/20 [facility] Medical History (Updated 11/21/20 @ 14:37 by Sharon TAPIA, PA) Bruit of right carotid artery Essential hypertension Family history of hypertension Family history of ischemic heart disease Hyperlipidemia Hypertension Lightheadedness Long-term use of high-risk medication Nonrheumatic mitral (valve) prolapse NSVT (nonsustained ventricular tachycardia) Palpitations Right carotid bruit Syncope and collapse Home Medications cinnamon bark 1,000 mg PO DAILY 08/09/16 [History Last Taken Unknown] [id number] C-Mn 1 ea PO DAILY 08/09/16 [History Last Taken Unknown] multivitamin 1 ea PO DAILY 08/09/16 [History Last Taken Unknown] aspirin 81 mg tablet,delayed release 81 mg PO QDAY tab 04/29/17 [History Last Taken 07/29/17] turmeric root extract 500 mg capsule 500 mg PO DAILY 09/26/19 [History Last Taken Unknown] pravastatin 10 mg tablet 10 mg PO QHS #90 tab 01/24/20 [Rx Last Taken Unknown] lisinopril 10 mg tablet 10 mg PO DAILY #90 tab 10/20/20 [Rx Last Taken Unknown] Allergy/AdvReac Type Severity Reaction Status Date / Time chlorhexidine Allergy Rash Verified 11/21/20 13:15 atorvastatin [From Lipitor] AdvReac Severe Myalgias Verified 11/21/20 13:15 albuterol AdvReac RAPID Verified 11/21/20 13:15 HEART BEAT Penicillins AdvReac STRANGE Verified 11/21/20 13:15 SENSATION IN MOUTH AND TEETH Family History Brother CAD (coronary artery disease) Myocardial infarction Hypertension Surgical History History of arthroplasty of right knee History of arthroscopy of shoulder (~06/2017) History of back surgery History of hemorrhoidectomy History of hernia repair History of tonsillectomy and adenoidectomy History of transurethral resection of prostate S/P inguinal hernia repair (~07/2017) Total knee replacement status Social History Smoking Status: Never smoker alcohol intake: current details: occasional substance use type: does not use Lab / Micro Data Result Diagrams: 11/21/20 13:15 11/21/20 13:15
[2020-11-21 14:37] LABS: Magnesium 2.2 mg/dL (1.6-2.6)
--- NOTE | 2020-11-21 16:10 | PRO.PCM_ITS ---
Procedure Report Date of Procedure: 11/21/20 Procedures performed; 1. Left heart catheterization 2. Selective left coronary angiography 3. Selective right cholangiography 4. Measurement of LVEDP and left ventriculogram 5. Moderate sedation 6. Placement of TR band to close the right radial artery arteriotomy site. 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 tach on the event monitor. Patient was episode of narrow QRS complex tachycardia which spontaneously converted to sinus rhythm likely episode of SVT There is no flutter or A. fib noted with lightheadedness and dizziness Evidently he was with his daughter but planning to go for lunch and developed the symptoms of palpitation which lasted longer and brought into the ER at [facility]. Patient symptoms mainly palpitation with atypical chest pain. Consent; Risk and benefits of the procedure explained detail to the patient elected to proceed informed consent obtained Moderate sedation; Patient was given intravenous Versed intravenous fentanyl by the nursing staff in the [employer] Supervisor. Access; Right radial artery approach with a 6 Ethiopian sheath placed in the right radial artery Diagnostic catheter used; 1. 5 Ethiopian JL 3.5 2. 5 Ethiopian JR4 3. 5 Ethiopian pigtail catheter. Procedure in detail; Proceed with 5 Ethiopian JL 3.5 advanced ascending aorta cannulated the left main, multiple views of the left coronary system obtained Following this catheter exchanged for 5 Ethiopian JR4 and selective angiography) system were obtained following this catheter exchanged for 5 Ethiopian pigtail catheter and a left ventriculogram obtained in 30 degree LEONARDO projection. Hemodynamics; LV systolic function is within normal With ejection fraction in the range of 55-60% There is no systolic gradient across the aortic valve. There is no significant mitral regurgitation Coronary angiography; 1. Left main coronary is normal angiographically bifurcating into left anterior descending and the left circumflex 2. Left anterior descending is moderate to large size vessel with abundant septal branches and very tortuous mid to distal LAD Midportion of the LAD had nonobstructive atherosclerosis of around 20 to 30% at the site of the large diagonal branch. 3. Left circumflex small size vessel tortuous and normal angiographically 4. Right coronary artery is large dominant RCA bifurcating into posterolateral and RPDA Conclusion; this patient has nonobstructive CAD as described, medical therapy.. Recommendation 2. Patient will need further evaluation by instant print operator due to symptomatic long episode of narrow QRS complex tachycardia documented by the event monitor Patient will need further evaluation by electrophysiology study and I discussed with the instant print operator at [facility]/ROBERT Krueger MD,FACC,[facility] [place]
--- NOTE | 2020-11-21 16:58 | PCS.PANDOC ---
PANDEMIC DOCUMENTATION INITIATED: Date: 11/21/2020 Time: 3627
[2020-11-21] MEDS: 0.9% Normal Saline 1,000 ML 75 ML IV (17:10)
[2020-11-21 17:48] LABS: AST(SGOT) 18 U/L (15-37); Alanine Aminotransfer ALT/SGPT 30 U/L (16-61); Albumin, Serum 3.6 g/dL (3.2-5.0); Alkaline Phosphatase 64 U/L (45-117); Bilirubin, Direct 0.15 mg/dL (0.00-0.30); Globulin 3.3 g/dL (2.2-4.2); Protein, Total 6.9 g/dL (6.4-8.2); Troponin-I HS 128 pg/mL (3.0-78.0)
[2020-11-21 21:08] LABS: Troponin-I HS 130 pg/mL (3.0-78.0)
[2020-11-21] MEDS: Metoprolol Tartrate 25 MG Tablet 12.5 MG PO (21:57)
[2020-11-21] MEDS: Pravastatin 20 MG Tablet 10 MG PO (21:58)
[2020-11-22] VITALS (11 sets, daily range): BP systolic 118–131; BP diastolic 52–74; PULSE 57–83; RESP 14–18; TEMP 36.4–36.8; O2SAT 98–100
[2020-11-22 05:36] LABS: Absolute Lymphocyte Count 1.54 X10^3/uL (0.83-4.51); Absolute Neutrophil Count 3.9 X10^3/uL (2.0-7.7); Basophil# 0.08 X10^3/uL; Basophil% 1.2 % (0-1); Eosinophil# 0.27 X10^3/uL; Hematocrit 41.8 % (40-54); Hemoglobin 14.1 g/dL (13.0-16.5); Lymphocyte # 1.54 X10^3/ul (0.83-4.51); Lymphocyte % 22.7 % (19-41); Mean Corp Hgb Conc 33.7 g/dL (32-36); Mean Corpuscular Hgb 30.5 pg (27.0-32.0); Mean Corpuscular Volume 90.3 fL (80-94); Mean Platelet Vol. 9.5 fl (6.2-12.0); Monocyte# 0.95 X10^3/uL; NRBC Flagged by Analyzer 0 % (0-5); Neutrophil # 3.91 X10^3/uL (2.7-7.7); Neutrophil % 57.8 % (47-70); Platelet Count 270 K/mm3 (150-450); RBC Distribution Width CV 12.6 % (11.6-14.6); RBC Distribution Width SD 41.4 fl (35.1-43.9); Red Blood Count 4.63 M/mm3 (4.6-6.2); White Blood Count 6.8 K/mm3 (4.4-11.0)
[2020-11-22] MEDS: Enoxaparin 40 MG/0.4 ML Syringe SC (05:42)
[2020-11-22 06:12] LABS: ALB/GLOB Ratio 1.1 RATIO (0.9-2.4); AST(SGOT) 19 U/L (15-37); Alanine Aminotransfer ALT/SGPT 28 U/L (16-61); Albumin, Serum 3.3 g/dL (3.2-5.0); Alkaline Phosphatase 60 U/L (45-117); Anion Gap 5 (5-15); BUN 13 mg/dL (7-18); BUN/Creat Ratio 15.2 RATIO (10-20); Calcium,Total 8.8 mg/dL (8.5-10.1); Chloride 100 mmol/L (98-107); Creatinine, Serum 0.85 mg/dL (0.70-1.30); EST Glomerular Filtration Rate 94 mL/min (>60); Est Glom Filt Rate - Afr Amer 113 mL/min (>60); Globulin 3.1 g/dL (2.2-4.2); Glucose 104 mg/dL (74-106); Potassium 4.5 mmol/L (3.5-5.1); Protein, Total 6.4 g/dL (6.4-8.2); Sodium Level 135 mmol/L (136-145)
[2020-11-22] MEDS: Lisinopril 10 MG Tablet PO (08:46)
[2020-11-22] MEDS: Metoprolol Tartrate 25 MG Tablet 12.5 MG PO ×2 (08:46→21:23)
[2020-11-22] MEDS: Aspirin E.C. 81 MG Tablet PO (08:46)
--- NOTE | 2020-11-22 14:39 | PN.CARD_ITS ---
Subjective Subjective Patient seen and evaluated at bedside today along with the nursing staff at bedside at time of evaluation No symptoms reported Objective Data Vital Signs: Vital Signs Temp Pulse Resp BP Pulse Ox 98.1 F 61 18 122/68 H 98 11/22/20 08:45 11/22/20 11:55 11/22/20 08:45 11/22/20 08:46 11/22/20 08:45 Oxygen Delivery Method Room Air Weight: 151 lb 7.321 oz Body Mass Index (BMI) 21.5 Intake & Output: Intake and Output for Last 24 Hours 11/20/20 11/21/20 11/22/20 23:59 23:59 23:59 Intake Total 1360 / 1360 Balance 1360 / 1360 Lab / Micro Data Result Diagrams: 11/22/20 05:15 11/22/20 05:15 Labs: Laboratory Results - last 24 hr 11/21/20 16:50: Total Bilirubin 0.50, Direct Bilirubin 0.15, AST 18, ALT 30, Alkaline Phosphatase 64, Troponin I High Sens 128 H*, Total Protein 6.9, Albumin 3.6, Globulin 3.3 11/21/20 19:34: Troponin I High Sens 130 H* 11/22/20 05:15: WBC 6.8, RBC 4.63, Hgb 14.1, Hct 41.8, MCV 90.3, MCH 30.5, MCHC 33.7, RDW Std Deviation 41.4, RDW Coeff of Nay 12.6, Plt Count 270, MPV 9.5, Immature Gran % (Auto) 0.300, Neut % (Auto) 57.8, Lymph % (Auto) 22.7, [place] % (Auto) 14.0 H, Eos % (Auto) 4.0, Baso % (Auto) 1.2 H, Absolute Neuts (auto) 3.9, Absolute Lymphs (auto) 1.54, Nucleated RBC % 0 11/22/20 05:15: Sodium 135 L, Potassium 4.5, Chloride 100, Carbon Dioxide 30.0, Anion Gap 5, BUN 13, Creatinine 0.85, Estim Creat Clear Calc 75.60, Est GFR (MDRD) Af Amer 113, Est GFR (MDRD) Non-Af 94, BUN/Creatinine Ratio 15.2, Glucose 104, Calcium 8.8, Total Bilirubin 0.50, AST 19, ALT 28, Alkaline Phosphatase 60, Total Protein 6.4, Albumin 3.3, Globulin 3.1, Albumin/Globulin Ratio 1.1 Cardiology Labs/Tests 11/21/20 16:50: Total Bilirubin 0.50, Direct Bilirubin 0.15 11/22/20 05:15: WBC 6.8, RBC 4.63, Hgb 14.1, Hct 41.8, MCV 90.3, MCH 30.5, MCHC 33.7, Plt Count 270, MPV 9.5, Immature Gran % (Auto) 0.300, Neut % (Auto) 57.8, Lymph % (Auto) 22.7, [place] % (Auto) 14.0 H, Eos % (Auto) 4.0, Baso % (Auto) 1.2 H , Absolute Neuts (auto) 3.9, Nucleated RBC % 0 11/22/20 05:15: Sodium 135 L, Potassium 4.5, Chloride 100, Carbon Dioxide 30.0, Anion Gap 5, BUN 13, Creatinine 0.85, Est GFR (MDRD) Af Amer 113, Est GFR (MDRD) Non-Af 94, BUN/Creatinine Ratio 15.2, Glucose 104, Calcium 8.8, Total Bilirubin 0.50 Rhythm: Normal sinus rhythm EKG: Normal sinus rhythm Cardiac catheterization findings; 1. Preserved systolic function 2. Nonobstructive CAD involving the mid LAD of around 30% Radiography Diagnostic Testing: Radiology Impression Chest X-Ray 11/21/20 13:21 IMPRESSION: No acute abnormality is seen. Electronically Signed: Logan Allen MD at 14:44 EDT , Service support , Assessment & Plan Assessment/Plan (1) Essential hypertension: (2) Nonrheumatic mitral (valve) prolapse: (3) Palpitations: PLAN: 70-year-old patient seen and evaluated for episode of palpitation Has event monitor which showed long. Narrow QRS complex tachycardia converted spontaneously to normal sinus rhythm/also noted some episode of wide-complex tachycardia Possible episode of supraventricular tachycardia. Mild elevation of cardiac biomarkers underwent cardiac catheterization which showed nonobstructive CAD/involving the mid LAD of around 30% Cardiac recommendation plan; 1. Patient will be transferred to [facility]/EP service for electrophysiology study. 2. I reviewed and discussed the current medication which include a statin, aspirin, low-dose beta-stanton. 3. Patient had no further episode of palpitation and a cafeteria monitor showed underlying normal sinus rhythm and awaiting for transfer.
--- NOTE | 2020-11-22 14:52 | PCM.PN.HOSP ---
Documented by User: Austen TAPIA 11/22/20 15:04 Subjective Subjective Patient is a 70-year-old male comfortably resting in bed, alert and orient x3. Patient reports that his heart palpitations from admission are currently controlled and denies development of any new symptoms overnight. Denies chest pain, shortness of breath, hemoptysis, sputum production, fever, chills, N/V/D. Objective Data Objective Data Vital Signs: Vital Signs Temp Pulse Resp BP Pulse Ox 98.1 F 61 18 122/68 H 98 11/22/20 08:45 11/22/20 11:55 11/22/20 08:45 11/22/20 08:46 11/22/20 08:45 Oxygen Delivery Method Room Air Weight: 151 lb 7.321 oz Body Mass Index (BMI) 21.5 Intake & Output: Intake and Output for Last 24 Hours 11/20/20 11/21/20 11/22/20 23:59 23:59 23:59 Intake Total 1360 / 1360 Balance 1360 / 1360 Lab / Micro Data Result Diagrams: 11/22/20 05:15 11/22/20 05:15 Labs: Laboratory Results - last 24 hr 11/21/20 16:50: Total Bilirubin 0.50, Direct Bilirubin 0.15, AST 18, ALT 30, Alkaline Phosphatase 64, Troponin I High Sens 128 H*, Total Protein 6.9, Albumin 3.6, Globulin 3.3 11/21/20 19:34: Troponin I High Sens 130 H* 11/22/20 05:15: WBC 6.8, RBC 4.63, Hgb 14.1, Hct 41.8, MCV 90.3, MCH 30.5, MCHC 33.7, RDW Std Deviation 41.4, RDW Coeff of Nay 12.6, Plt Count 270, MPV 9.5, Immature Gran % (Auto) 0.300, Neut % (Auto) 57.8, Lymph % (Auto) 22.7, [place] % (Auto) 14.0 H, Eos % (Auto) 4.0, Baso % (Auto) 1.2 H, Absolute Neuts (auto) 3.9, Absolute Lymphs (auto) 1.54, Nucleated RBC % 0 11/22/20 05:15: Sodium 135 L, Potassium 4.5, Chloride 100, Carbon Dioxide 30.0, Anion Gap 5, BUN 13, Creatinine 0.85, Estim Creat Clear Calc 75.60, Est GFR (MDRD) Af Amer 113, Est GFR (MDRD) Non-Af 94, BUN/Creatinine Ratio 15.2, Glucose 104, Calcium 8.8, Total Bilirubin 0.50, AST 19, ALT 28, Alkaline Phosphatase 60, Total Protein 6.4, Albumin 3.3, Globulin 3.1, Albumin/Globulin Ratio 1.1 Physical Exam Const alert, oriented x3 and no apparent distress HEENT head/scalp atraumatic and moist oral mucous membranes Head and Scalp: normocephalic Eyes PERRL, EOMs intact bilaterally and conjunctivae normal Neck no lymphadenopathy, supple and no JVD Resp normal respiratory effort, no retractions, no use of accessory muscles and clear to auscultation bilaterally Cardio regular rate, regular rhythm, no murmurs and no JVD GI normal to inspection, nondistended, normoactive bowel sounds, soft to palpation and non-tender Extremity normal to inspection, full ROM and no clubbing, cyanosis or edema Skin no rashes or lesions noted, no wounds, skin turgor normal and no jaundice Neuro CN's II-XII intact bilaterally Psych affect normal Assessment & Plan Assessment/Plan (1) NSVT (nonsustained ventricular tachycardia): (2) Nonrheumatic mitral (valve) prolapse: (3) Palpitations: PLAN: Day 1 Discharge planning: Awaiting transfer to [facility] for electrophysiology study. 1) acute nonsustained V. tach Rate is currently stable. Event noted on 30-day event monitor as patient is status post emergent cardiac cath for nonobstructive coronaries prior to admission. Currently awaiting transfer to [facility] as above. 2) HTN Continue lisinopril. 3) hyperlipidemia Continue pravastatin. 4) CAD Continue aspirin. DVT prophylaxis - Lovenox Patient seen by Austen Ndiaye PA-C, under the supervision of Dr. Conte. Documented by User: Dr. Aaron Conte MD 11/22/20 16:59 Objective Data Lab / Micro Data Result Diagrams: 11/22/20 05:15 11/22/20 05:15
--- NOTE | 2020-11-22 15:29 | NURSING ---
report given to COLLINS English at [facility] for transfer.
--- NOTE | 2020-11-22 15:59 | DS.PCM_ITS ---
Documented by User: Austen TAPIA 11/22/20 16:06 Providers Date of Admission: 11/21/20 Primary Care Physician: Dr. Austen Lara MD Consultations 11/21/20 17:11 Consult: Cardiology Routine Consulting Provider: Ronald Krueger Reason for Consult: heart cath EMERGENT Consult: Yes MD Notified: Yes Date Notified: 11/21/20 Time Notified: 15:00 Method of Notification: Verbal Comments:: was told in ed and did heart cath Reason For Visit: V TACH Diagnosis Discharge Diagnosis (1) NSVT (nonsustained ventricular tachycardia): Status: Acute Code(s): I47.2 - Ventricular tachycardia (2) Nonrheumatic mitral (valve) prolapse: Status: Chronic Code(s): I34.1 - Nonrheumatic mitral (valve) prolapse (3) Palpitations: Status: Chronic Code(s): R00.2 - Palpitations Medications at Discharge Home Medications cinnamon bark 1,000 mg PO DAILY 08/09/16 sbwwhgjybde-zcohkghfx-usm C-Mn 1 ea PO DAILY 08/09/16 multivitamin 1 ea PO DAILY 08/09/16 aspirin 81 mg tablet,delayed release 81 mg PO QDAY tab 04/29/17 turmeric root extract 500 mg capsule 500 mg PO DAILY 09/26/19 pravastatin 10 mg tablet 10 mg PO QHS #90 tab 01/24/20 lisinopril 10 mg tablet 10 mg PO DAILY #90 tab 10/20/20 Hospital Course Summary of Care Provided Minutes Spent on Discharge: 35 Hospital Course: Disposition: Patient will be transferred to [facility] for following electrophysiology study. 1) acute nonsustained V. tach Rate is currently stable. Event noted on 30-day event monitor as patient is status post emergent cardiac cath for nonobstructive coronaries prior to admission. Continue metoprolol. Transferring to [facility] as above. 2) HTN Continue lisinopril. 3) hyperlipidemia Continue pravastatin. 4) CAD Continue aspirin. Patient seen by Austen Ndiaye PA-C, under the supervision of Dr. Conte. Physical Exam Narrative Patient is a 70-year-old male comfortably resting in bed, alert and orient x3. Patient reports that his heart palpitations from admission are currently controlled and denies development of any new symptoms overnight. Denies chest pain, shortness of breath, hemoptysis, sputum production, fever, chills, N/V/D. Const alert, oriented x3 and no apparent distress HEENT normocephalic, head/scalp atraumatic, hearing grossly normal bilaterally and moist oral mucous membranes Eyes PERRL, EOMs intact bilaterally and conjunctivae normal Neck no lymphadenopathy, supple and no JVD Resp normal respiratory effort, no retractions, no use of accessory muscles and clear to auscultation bilaterally Cardio regular rate, regular rhythm, no murmurs and no JVD GI normal to inspection, nondistended, normoactive bowel sounds, soft to palpation and non-tender Extremity normal to inspection, full ROM and no clubbing, cyanosis or edema Skin no rashes or lesions noted, no wounds and skin turgor normal Neuro CN's II-XII intact bilaterally Psych affect normal Weight / BMI Weight Weight: 151 lb 7.321 oz Body Mass Index (BMI) 21.5 ABG / Lab / Microbiology Data Result Diagrams: 11/22/20 05:15 11/22/20 05:15 Laboratory: Laboratory Results - last 24 hr 11/21/20 16:50: Total Bilirubin 0.50, Direct Bilirubin 0.15, AST 18, ALT 30, A lkaline Phosphatase 64, Troponin I High Sens 128 H*, Total Protein 6.9, Albumin 3.6, Globulin 3.3 11/21/20 19:34: Troponin I High Sens 130 H* 11/22/20 05:15: WBC 6.8, RBC 4.63, Hgb 14.1, Hct 41.8, MCV 90.3, MCH 30.5, MCHC 33.7, RDW Std Deviation 41.4, RDW Coeff of Nay 12.6, Plt Count 270, MPV 9.5, Immature Gran % (Auto) 0.300, Neut % (Auto) 57.8, Lymph % (Auto) 22.7, [place] % (Auto) 14.0 H, Eos % (Auto) 4.0, Baso % (Auto) 1.2 H, Absolute Neuts (auto) 3.9, Absolute Lymphs (auto) 1.54, Nucleated RBC % 0 11/22/20 05:15: Sodium 135 L, Potassium 4.5, Chloride 100, Carbon Dioxide 30.0, Anion Gap 5, BUN 13, Creatinine 0.85, Estim Creat Clear Calc 75.60, Est GFR (MDRD) Af Amer 113, Est GFR (MDRD) Non-Af 94, BUN/Creatinine Ratio 15.2, Glucose 104, Calcium 8.8, Total Bilirubin 0.50, AST 19, ALT 28, Alkaline Phosphatase 60, Total Protein 6.4, Albumin 3.3, Globulin 3.1, Albumin/Globulin Ratio 1.1 Meaningful Use Info Meaningful Use Diagnoses (Choose all that apply): None applicable Discharge Plan Admission Admit Date/Time: 11/21/20 14:09 Attending Provider: Aaron Conte Primary Care Provider: Austen Lara Consulting Providers: Ronald Krueger Discharge Orders/Prescriptions Prescriptions: No Action aspirin 81 mg tablet,delayed release (DR/EC) 81 mg PO QDAY RF: 0 turmeric root extract 500 mg capsule 500 mg PO DAILY RF: 0 multivitamin 1 EACH tablet 1 ea PO DAILY RF: 0 mwjrenntfst-ufdhpkhxt-ecr C-Mn 1 EACH capsule 1 ea PO DAILY RF: 0 cinnamon bark 500 MG capsule 1,000 mg PO DAILY RF: 0 pravastatin 10 mg tablet 10 mg PO QHS Qty: 90 RF: 3 lisinopril 10 mg tablet 10 mg PO DAILY Qty: 90 RF: 3 Referrals / Follow Up: Austen Lara MD [Primary Care Provider] - Disposition Disposition (needs filled in before D/C Order can be placed): [facility] Documented by User: Dr. Aaron Conte MD 11/22/20 17:03 Providers Date of Admission: 11/21/20 Reason For Visit: V TACH Medications at Discharge Home Medications cinnamon bark 1,000 mg PO DAILY 08/09/16 zpoyjgrysni-ntadbozda-hye C-Mn 1 ea PO DAILY 08/09/16 multivitamin 1 ea PO DAILY 08/09/16 aspirin 81 mg tablet,delayed release 81 mg PO QDAY tab 04/29/17 turmeric root extract 500 mg capsule 500 mg PO DAILY 09/26/19 pravastatin 10 mg tablet 10 mg PO QHS #90 tab 01/24/20 lisinopril 10 mg tablet 10 mg PO DAILY #90 tab 10/20/20 ABG / Lab / Microbiology Data Result Diagrams: 11/22/20 05:15 11/22/20 05:15 Discharge Plan Admission Admit Date/Time: 11/21/20 14:09 Attending Provider: Aaron Conte Primary Care Provider: Austen Lara Consulting Providers: Ronald Krueger Discharge Orders/Prescriptions Prescriptions: No Action aspirin 81 mg tablet,delayed release (DR/EC) 81 mg PO QDAY RF: 0 turmeric root extract 500 mg capsule 500 mg PO DAILY RF: 0 multivitamin 1 EACH tablet 1 ea PO DAILY RF: 0 nwwhlowubwh-ibshweevb-nnf C-Mn 1 EACH capsule 1 ea PO DAILY RF: 0 cinnamon bark 500 MG capsule 1,000 mg PO DAILY RF: 0 pravastatin 10 mg tablet 10 mg PO QHS Qty: 90 RF: 3 lisinopril 10 mg tablet 10 mg PO DAILY Qty: 90 RF: 3 Referrals / Follow Up: Austen Lara MD [Primary Care Provider] - Disposition Disposition (needs filled in before D/C Order can be placed): Acute Care Hospital Charges/Coding Addendum Addendum: Dr. Conte: I personally reviewed the chart and examined the patient, and agree with the ab ove findings. 70-year-old male who is about a 15-year history with palpitations. Initially he thought that it was A. fib his first had A. fib however he did have an event monitor recently that showed a narrow complex cardia which converted spontaneously to normal sinus however some of the epi sodes were also considered a wide-complex tachycardia, as well as a possible episode of significant tach or tachycardia. He did have a cardiac cath on admission which demonstrated nonobstructive CAD and medical therapy was recommended however cardiology also felt that he needed to be evaluated by e lectrophysiology therefore was discussed with [facility] who did accept him in transfer and he was cleared for transfer today down to [facility] for further evaluation. Since admission he is felt fine and denies any further palpitations. The only medication he was started on clear was metoprolol 12.5 mg twice daily. Visit Charges Inpatient E&M: 91124 Disch Hosp
[2020-11-22] MEDS: Pravastatin 20 MG Tablet 10 MG PO (21:23)
== END 2020-11-22 22:05 | disposition short-term general hospital (02) | DRG 287 ==
LOC: ED 14:33 → ACINP 14:35 → PCU 15:33
PROVIDERS: Admitting Provider Internal Medicine; Emergency Provider Emergency Medicine; PCP Family Medicine; Visit Provider Family Medicine
DX: I47.2 Ventricular tachycardia (principal); I25.10 Atherosclerotic heart disease of native coronary artery without angina pectoris; I34.1 Nonrheumatic mitral (valve) prolapse; I34.0 Nonrheumatic mitral (valve) insufficiency; I10 Essential (primary) hypertension; E78.5 Hyperlipidemia, unspecified; F41.9 Anxiety disorder, unspecified; Z79.82 Long term (current) use of aspirin; Z79.899 Other long term (current) drug therapy; Z96.659 Presence of unspecified artificial knee joint
CPT/HCPCS: 36415; 71045; 80048; 80053; 80076; 83735; 84484; 85025; 85610; 93005; 93458; 97802; 99152; 99153; 99251; 99284; J7030; J7040; Q9967; C1769; C1894; G0463

== ENCOUNTER → 2020-12-17 08:00 | Outpatient (CLI) | payer MEDICARE, SELFPAY ==
[2020-12-17 09:18] LABS: PSA,Total - Annual Screen 1.19 ng/mL (0.00-4.00)
== END ==
PROVIDERS: PCP Family Medicine; Referring Provider Urology; Visit Provider Urology
DX: Z12.5 Encounter for screening for malignant neoplasm of prostate (principal)
CPT/HCPCS: 36415; 84153; G0103

== ENCOUNTER → 2021-06-25 | Outpatient (CLI) | payer MEDICARE, SELFPAY ==
[2021-06-25 15:29] LABS: Absolute Lymphocyte Count 1.55 X10^3/uL (0.83-4.51); Basophil# 0.05 X10^3/uL; Basophil% 0.8 % (0-1); Eosinophil# 0.16 X10^3/uL; Eosinophils% 2.5 % (0-5); Hematocrit 43.4 % (40-54); Hemoglobin 14.5 g/dL (13.0-16.5); Lymphocyte # 1.55 X10^3/ul (0.83-4.51); Lymphocyte % 24.2 % (19-41); Mean Corp Hgb Conc 33.4 g/dL (32-36); Mean Corpuscular Hgb 29.9 pg (27.0-32.0); Mean Corpuscular Volume 89.5 fL (80-94); Mean Platelet Vol. 10.1 fl (6.2-12.0); Monocyte# 0.63 X10^3/uL; Monocyte% 9.8 % (0-10); NRBC Flagged by Analyzer 0 % (0-5); Neutrophil % 62.5 % (47-70); Platelet Count 238 K/mm3 (150-450); RBC Distribution Width CV 12.9 % (11.6-14.6); RBC Distribution Width SD 42.5 fl (35.1-43.9); Red Blood Count 4.85 M/mm3 (4.6-6.2); White Blood Count 6.4 K/mm3 (4.4-11.0)
[2021-06-25 15:35] LABS: Erythrocyte Sedimentation Rate 6 mm/hr (0-20)
[2021-06-25 16:11] LABS: CRP < 2.90 mg/L (0.0-3.0)
== END | disposition home or self-care (01) ==
LOC: LAB 15:02
PROVIDERS: PCP Family Medicine; Visit Provider Orthopaedic Surgery
DX: M25.661 Stiffness of right knee, not elsewhere classified (principal); Z96.651 Presence of right artificial knee joint
CPT/HCPCS: 36415; 85025; 85652; 86140

== ENCOUNTER 2021-07-01 14:18 | Outpatient (CLI) | payer MEDICARE, SELFPAY ==
[2021-07-01 15:09] LABS: Synovial Fld Mononuclear WBC # 0.272 10^3/ul; Synovial Fld Mononuclear WBC % 79.5 %; Synovial Fld Polynuclear WBC % 20.5 %
[2021-07-01 15:35] LABS: RBC /Synovial Fluid 0.016 10^6/uL (0)
[2021-07-01 15:47] LABS: AUTO B FLUID DILUENT BKGD CT WBC <0.1 RBC <0.01 (W<.1,R<.01)
[2021-07-01 15:48] LABS: Appearance /Synovial Fluid Cloudy (CLEAR); Body Fluid QC Type(s) BF1Q; Color / Synovial Fluid Red (Pale Yellow); Source / Synovial Fluid RIGHT KNEE; Viscosity / Synovial Fluid Sl. Viscous (HIGH)
[2021-07-01 16:10] LABS: Lymph 40 %; Monocyte /Synovial Fluid 50 %; Neutrophil 10 % (0-25)
[2021-07-03 09:22] LABS: Pathologist Comment Reviewed
== END 2021-07-01 23:59 | disposition home or self-care (01) ==
LOC: LAB 14:19
PROVIDERS: PCP Family Medicine; Referring Provider Orthopaedic Surgery; Visit Provider Orthopaedic Surgery
DX: M25.461 Effusion, right knee (principal)
CPT/HCPCS: 87015; 87070; 87075; 87101; 87116; 87205; 87206; 89050; 89051

== ENCOUNTER → 2021-07-17 | Outpatient (CLI) | payer MEDICARE, SELFPAY ==
[2021-07-17 10:20] LABS: AST(SGOT) 22 U/L (15-37); Alanine Aminotransfer ALT/SGPT 32 U/L (16-61); Albumin, Serum 3.9 g/dL (3.2-5.0); Alkaline Phosphatase 64 U/L (45-117); Bilirubin, Direct 0.18 mg/dL (0.00-0.30); Cholesterol 132 mg/dL (200); Globulin 2.9 g/dL (2.2-4.2); High Density Lipoprotein 63 mg/dL; Protein, Total 6.8 g/dL (6.4-8.2); Triglycerides 69 mg/dL; Very Low Density Lipoprotein 14 mg/dL (5-40)
== END | disposition home or self-care (01) ==
LOC: LAB 08:45
PROVIDERS: PCP Family Medicine; Visit Provider Internal Medicine Cardiovascular Disease
DX: E78.00 Pure hypercholesterolemia, unspecified (principal)
CPT/HCPCS: 36415; 80061; 80076

== ENCOUNTER → 2021-09-09 | Outpatient (CLI) | payer MEDICARE, SELFPAY ==
--- NOTE | 2021-09-09 09:42 | ECHOD_ITS ---
Reason For Study: MVP Procedure This was a 2D Doppler, Color Flow transthoracic echocardiogram. The exam was of good technical quality. Exam performed in department. Left Ventricle Normal LV size. Left ventricular systolic function is normal. The estimated ejection fraction is 65 %. No evidence for diastolic dysfunction. No regional wall motion abnormalities noted. Right Ventricle Normal RV size. Normal systolic function. Atria Normal left atrium. Normal right atrium. No doppler evidence for ASD. Mitral Valve There is no mitral annular calcification. Mild diffuse mitral valve thickening. Myxomatous mitral valve. Moderate mitral valve prolapse. Mild-Moderate (1-2+) mitral valve insufficiency. Tricuspid Valve Normal tricuspid valve. Mild tricuspid valve insufficiency. Right ventricular systolic pressure estimated to be 22 mmHg. Aortic Valve Trisinus/trileaflet aortic valve. Mild diffuse aortic valve thickening. Pulmonic Valve The pulmonic valve is not well visualized. Trivial eccentric pulmonic valve insufficiency. Great Vessels Normal sized aortic root. Pericardium/Pleural Trivial pericardial effusion. There are no echocardiographic indications of cardiac tamponade. MMode/2D Measurements & Calculations LVIDd: 4.5 cm IVSd: 0.94 cm Ao root diam: 3.0 cm LVIDs: 2.9 cm LVPWd: 1.1 cm RVDd: 3.6 cm FS: 34.7 % LAV(MOD-bp): 28.5 ml LVAd ap4: 26.2 cm2 SV(MOD-sp4): 47.5 ml LAV(MOD-bp) Indexed: 15.2 ml/m2 LVLd ap4: 7.7 cm LAV(MOD-sp2): 44.7 ml EDV(MOD-sp4): 72.7 ml LAV(MOD-sp4): 20.2 ml EDV(sp4-el): 75.5 ml LVAs ap4: 13.9 cm2 LVLs ap4: 6.7 cm ESV(MOD-sp4): 25.2 ml ESV(sp4-el): 24.6 ml EF(MOD-sp4): 65.4 % EF(sp4-el): 67.4 % SV(sp4-el): 50.9 ml LA A4 area: 11.2 cm2 LA dimension(2D): 3.3 cm RA A4 area: 12.3 cm2 Doppler Measurements & Calculations MV E max wilman: 62.9 cm/sec Lat Peak E' Wilman: 7.5 cm/sec Med Peak E' Wilman: 5.4 cm/sec MV A max wilman: 68.7 cm/sec E/E' lat: 8.4 E/E' med: 11.6 MV E/A: 0.92 Ao V2 max: 114.0 cm/sec LV V1 max: 92.4 cm/sec PA V2 max: 169.6 cm/sec Ao max P.2 mmHg LV V1 max P.4 mmHg PA V2 mean: 119.3 cm/sec Ao V2 mean: 70.6 cm/sec PA V2 VTI: 35.4 cm Ao mean P.3 mmHg Ao V2 VTI: 21.6 cm TR max wilman: 218.2 cm/sec TR max P.1 mmHg ECHO/Echo Complete Interpretation Summary Left ventricular systolic function is normal. The estimated ejection fraction is 65 %. Myxomatous mitral valve. Mild diffuse mitral valve thickening. Moderate mitral valve prolapse. Mild-Moderate (1-2+) mitral valve insufficiency. Mild tricuspid valve insufficiency. Mild diffuse aortic valve thickening. Trivial eccentric pulmonic valve insufficiency. Trivial pericardial effusion. There are no echocardiographic indications of cardiac tamponade. Right ventricular systolic pressure estimated to be 22 mmHg. No evidence for diastolic dysfunction. Ordering Physician: Mati Webster Referring Physician: Austen Lara Performed By: Luiza Lanier, HILARY, RVT
== END | disposition home or self-care (01) ==
PROVIDERS: PCP Family Medicine; Referring Provider Internal Medicine Cardiovascular Disease; Visit Provider Internal Medicine Cardiovascular Disease
DX: I34.1 Nonrheumatic mitral (valve) prolapse (principal); Z79.899 Other long term (current) drug therapy
CPT/HCPCS: 93306

== ENCOUNTER → 2021-12-31 | Outpatient (CLI) | payer MEDICARE, SELFPAY ==
[2021-12-31 15:47] LABS: AST(SGOT) 27 U/L (15-37); Alanine Aminotransfer ALT/SGPT 56 U/L (16-61); Albumin, Serum 3.8 g/dL (3.2-5.0); Alkaline Phosphatase 58 U/L (45-117); Cholesterol 143 mg/dL (200); Globulin 2.8 g/dL (2.2-4.2); High Density Lipoprotein 71 mg/dL; Protein, Total 6.6 g/dL (6.4-8.2); Triglycerides 90 mg/dL; Very Low Density Lipoprotein 18 mg/dL (5-40)
== END | disposition home or self-care (01) ==
LOC: LAB 14:57
PROVIDERS: Internal Medicine Cardiovascular Disease; PCP Family Medicine; Visit Provider Urology
DX: E78.00 Pure hypercholesterolemia, unspecified (principal); Z12.5 Encounter for screening for malignant neoplasm of prostate
CPT/HCPCS: 80061; 80076; 84153; G0103

== ENCOUNTER → 2022-06-21 | Outpatient (CLI) | payer MEDICARE, SELFPAY ==
[2022-06-21 08:59] LABS: AST(SGOT) 25 U/L (15-37); Alanine Aminotransfer ALT/SGPT 32 U/L (16-61); Albumin, Serum 4.1 g/dL (3.2-5.0); Alkaline Phosphatase 69 U/L (45-117); Cholesterol 138 mg/dL (200); Globulin 3.2 g/dL (2.2-4.2); High Density Lipoprotein 69 mg/dL; Protein, Total 7.3 g/dL (6.4-8.2); Triglycerides 58 mg/dL; Very Low Density Lipoprotein 12 mg/dL (5-40)
== END | disposition home or self-care (01) ==
LOC: LAB 07:40
PROVIDERS: Internal Medicine Cardiovascular Disease; PCP Family Medicine; Referring Provider Physician Assistant Medical; Visit Provider Physician Assistant Medical
DX: E78.00 Pure hypercholesterolemia, unspecified (principal)
CPT/HCPCS: 36415; 80061; 80076

== ENCOUNTER → 2022-12-24 | Outpatient (CLI) | payer MEDICARE, SELFPAY ==
[2022-12-24 10:56] LABS: AST(SGOT) 22 U/L (15-37); Alanine Aminotransfer ALT/SGPT 31 U/L (16-61); Alkaline Phosphatase 56 U/L (45-117); Bilirubin, Direct 0.21 mg/dL (0.00-0.30); Cholesterol 122 mg/dL (200); Globulin 2.9 g/dL (2.2-4.2); High Density Lipoprotein 60 mg/dL; Protein, Total 6.9 g/dL (6.4-8.2); Triglycerides 62 mg/dL; Very Low Density Lipoprotein 12 mg/dL (5-40)
== END | disposition home or self-care (01) ==
LOC: LAB 08:14
PROVIDERS: PCP Family Medicine; Referring Provider Nurse Practitioner Family; Visit Provider Nurse Practitioner Family
DX: E78.00 Pure hypercholesterolemia, unspecified (principal)
CPT/HCPCS: 36415; 80061; 80076

== ENCOUNTER → 2023-06-10 | Outpatient (CLI) | payer MEDICARE, SELFPAY ==
--- NOTE | 2023-06-10 08:38 | ECHOD_ITS ---
Reason For Study: MVP Procedure This was a 2D Doppler, Color Flow transthoracic echocardiogram. Exam performed in department. Left Ventricle Normal LV size. Left ventricular systolic function is normal. The left ventricular ejection fraction is 60 %. No regional wall motion abnormalities noted. Right Ventricle Normal RV size. Normal systolic function. Atria Normal left atrium. Normal right atrium. Mitral Valve Bileaflet diffuse mitral valve thickening. Mild mitral valve prolapse. Mild-Moderate (1-2+) eccentric mitral valve insufficiency. Tricuspid Valve Normal tricuspid valve. Aortic Valve Trisinus/trileaflet aortic valve. Pulmonic Valve Normal pulmonic valve. Great Vessels Normal aortic root. The pulmonary artery is normal size. Normal inferior vena cava. Pericardium/Pleural No pericardial effusion. MMode/2D Measurements & Calculations LVIDd: 5.0 cm IVSd: 0.97 cm Ao root diam: 3.0 cm LVIDs: 3.2 cm LVPWd: 1.3 cm RVDd: 4.2 cm FS: 35.4 % LAV(MOD-bp): 55.5 ml LVAd ap4: 32.2 cm2 SV(MOD-sp4): 61.0 ml LAV(MOD-bp) Indexed: 29.3 ml/m2 LVLd ap4: 8.4 cm LAV(MOD-sp2): 69.0 ml EDV(MOD-sp4): 104.6 ml LAV(MOD-sp4): 39.7 ml EDV(sp4-el): 104.8 ml LVAs ap4: 19.3 cm2 LVLs ap4: 7.2 cm ESV(MOD-sp4): 43.6 ml ESV(sp4-el): 43.7 ml EF(MOD-sp4): 58.3 % EF(sp4-el): 58.3 % SV(sp4-el): 61.1 ml LA A4 area: 15.0 cm2 LA dimension(2D): 3.8 cm RA A4 area: 21.7 cm2 TAPSE: 2.7 cm Time Measurements MV dec time: 0.22 sec Doppler Measurements & Calculations MV E max wilman: 78.1 cm/sec Lat Peak E' Wilman: 6.3 cm/sec Med Peak E' Wilman: 6.6 cm/sec MV A max wilman: 76.5 cm/sec E/E' lat: 12.5 E/E' med: 11.9 MV E/A: 1.0 MV V2 max: 85.0 cm/sec Ao V2 max: 101.8 cm/sec MV max P.9 mmHg MV dec slope: 360.5 cm/sec2 Ao max P.1 mmHg MV V2 mean: 47.4 cm/sec Ao V2 mean: 72.4 cm/sec MV mean P.1 mmHg Ao mean P.4 mmHg MV V2 VTI: 33.7 cm Ao V2 VTI: 23.6 cm AV (velocity ratio): 0.80 LV V1 max: 75.2 cm/sec PA V2 max: 174.8 cm/sec LV V1 max P.3 mmHg PA V2 mean: 132.7 cm/sec LV V1 mean P.2 mmHg LV V1 mean: 51.4 cm/sec LV V1 VTI: 19.0 cm ECHO/Echo Complete Interpretation Summary Normal LV size. Left ventricular systolic function is normal. The left ventricular ejection fraction is 60 %. Bileaflet diffuse mitral valve thickening. Mild mitral valve prolapse. Mild-Moderate (1-2+) eccentric mitral valve insufficiency. Ordering Physician: Sharon Blanco Referring Physician: Sharon Blanco Performed By: Suzi Coleman RCS
== END | disposition home or self-care (01) ==
LOC: CVS 08:37
PROVIDERS: PCP Family Medicine; Referring Provider Physician Assistant Medical; Visit Provider Physician Assistant Medical
DX: I34.1 Nonrheumatic mitral (valve) prolapse (principal); Z79.899 Other long term (current) drug therapy
CPT/HCPCS: 93306

== ENCOUNTER → 2023-06-27 | Outpatient (CLI) | payer MEDICARE, SELFPAY ==
[2023-06-27 08:42] LABS: AST(SGOT) 21 U/L (15-37); Alanine Aminotransfer ALT/SGPT 26 U/L (16-61); Alkaline Phosphatase 49 U/L (45-117); Anion Gap 4 (5-15); BUN 13 mg/dL (7-18); BUN/Creat Ratio 16.5 RATIO (10-20); Bilirubin, Direct 0.17 mg/dL (0.00-0.30); Calcium,Total 8.8 mg/dL (8.5-10.1); Chloride 102 mmol/L (98-107); Cholesterol 130 mg/dL (200); Creatinine, Serum 0.79 mg/dL (0.70-1.30); EST Glomerular Filtration Rate 102 mL/min (>60); Est Glom Filt Rate - Afr Amer 124 mL/min (>60); Globulin 2.8 g/dL (2.2-4.2); Glucose 102 mg/dL (74-106); High Density Lipoprotein 60 mg/dL; PSA,Total - Annual Screen 2.27 ng/mL (0.00-4.00); Potassium 4.1 mmol/L (3.5-5.1); Protein, Total 6.8 g/dL (6.4-8.2); Sodium Level 135 mmol/L (136-145); Triglycerides 50 mg/dL; Very Low Density Lipoprotein 10 mg/dL (5-40)
== END | disposition home or self-care (01) ==
LOC: LAB 07:02
PROVIDERS: Nurse Practitioner Family; PCP Family Medicine; Referring Provider Urology; Visit Provider Urology
DX: Z12.5 Encounter for screening for malignant neoplasm of prostate (principal); Z13.1 Encounter for screening for diabetes mellitus; E78.00 Pure hypercholesterolemia, unspecified
CPT/HCPCS: 36415; 80048; 80061; 80076; 84153; G0103

== ENCOUNTER → 2023-06-28 | Outpatient (CLI) | payer MEDICARE, SELFPAY ==
--- NOTE | 2023-06-28 13:20 | CDU_ITS ---
Reason For Study: carotid bruit Rt. Velocities/BP Lt. Velocities/BP Prox CCA 128.4/11.5 cm/sec. Prox CCA 120.7/16.3 cm/sec. Mid CCA 132.1/20.6 cm/sec. Mid CCA 117.0/22.5 cm/sec. Dist CCA 109.7/12.6 cm/sec. Dist CCA 108.4/18.8 cm/sec. Prox ICA 75.3/18.8 cm/sec. Prox ICA 55.6/16.3 cm/sec. Mid ICA 76.5/20.0 cm/sec. Mid ICA 77.7/23.7 cm/sec. Dist ICA 71.6/18.8 cm/sec. Dist ICA 83.9/24.9 cm/sec. Rt. ICA/CCA = .6. Lt. ICA/CCA = .7. Prox ECA 104.7/7.7 cm/sec. Prox ECA 115.6/13.3 cm/sec. Rt. Vert. 51.9/11.4 cm/sec. Lt. Vert. 67.9/13.9 cm/sec. Right Extracranial There is intimal thickening but no significant atherosclerotic plaque noted in the right common carotid artery. There is heterogeneous, irregular atherosclerotic plaque noted in the right internal carotid artery. There is heterogeneous, irregular atherosclerotic plaque noted in the right external carotid artery. Antegrade flow is noted in the right vertebral artery. Left Extracranial There is intimal thickening but no significant atherosclerotic plaque noted in the left common carotid artery. There is heterogeneous, irregular atherosclerotic plaque noted in the left internal carotid artery. There is heterogeneous, irregular atherosclerotic plaque noted in the left external carotid artery. Antegrade flow is noted in the left vertebral artery. Procedure Carotid Duplex [id number]. This is a Carotid Duplex examination using B-mode, color flow and specral Doppler. The exam was diagnostic. Exam performed in department. VL/Carotid Duplex Ultrasound Interpretation Summary Mild (<50%) stenosis right extracranial internal carotid. Mild (<50%) stenosis left extracranial internal carotid. Patent and antegrade vertebrals bilaterally. Ordering Physician: Sharon Blanco Referring Physician: Sharon Blanco Performed By: Pasquale Gonzalez RVT
== END | disposition home or self-care (01) ==
LOC: CVS 13:19
PROVIDERS: PCP Family Medicine; Referring Provider Physician Assistant Medical; Visit Provider Physician Assistant Medical
DX: R09.89 Other specified symptoms and signs involving the circulatory and respiratory systems (principal)
CPT/HCPCS: 93880

== ENCOUNTER → 2023-08-12 | Outpatient (CLI) | payer MEDICARE, SELFPAY ==
--- NOTE | 2023-08-12 07:21 | EKG12_ITS ---
Test Reason : PRE OP Blood Pressure : / mmHG Vent. Rate : 061 BPM Atrial Rate : 061 BPM P-R Int : 196 ms QRS Dur : 078 ms QT Int : 406 ms P-R-T Axes : 069 031 058 degrees QTc Int : 408 ms Normal sinus rhythm Normal ECG Confirmed by Erick Ricks ([id number]), supervising editor trailer JAN CARBAJAL ([id number]) on 08/15/2023 9:04:52 AM Referred By: Mihai Salazar Confirmed By:Erick Ricks
--- NOTE | 2023-08-12 07:40 | RAD_ITS ---
EXAM: XR CHEST, 2 VIEWS CLINICAL INDICATION: PRE OP TECHNIQUE: Frontal and lateral views of the chest. COMPARISON: 11/21/2020 FINDINGS: LUNGS AND PLEURAL SPACES: Unremarkable. No consolidation or edema. No pneumothorax. No effusion. HEART: Unremarkable. Cardiac silhouette not enlarged. MEDIASTINUM: Central airways and mediastinal contour are unremarkable. BONES/JOINTS: Unremarkable. No acute fracture. SOFT TISSUES: Unremarkable. RAD/Chest PA and Lateral IMPRESSION: No radiographic evidence of acute cardiopulmonary disease. Electronically Signed: Julien Oviedo MD at 23:54 EDT ,
[2023-08-12 08:16] LABS: Absolute Lymphocyte Count 1.21 X10^3/uL (0.83-4.51); Absolute Neutrophil Count 4.1 X10^3/uL (2.0-7.7); Basophil# 0.06 X10^3/uL; Eosinophil# 0.18 X10^3/uL; Eosinophils% 2.9 % (0-5); Hematocrit 48.3 % (40-54); Hemoglobin 16.1 g/dL (13.0-16.5); Lymphocyte # 1.21 X10^3/ul (0.83-4.51); Lymphocyte % 19.8 % (19-41); Mean Corp Hgb Conc 33.3 g/dL (32-36); Mean Corpuscular Volume 92.9 fL (80-94); Mean Platelet Vol. 10.5 fl (6.2-12.0); Monocyte# 0.58 X10^3/uL; Monocyte% 9.5 % (0-10); NRBC Flagged by Analyzer 0 % (0-5); Neutrophil # 4.07 X10^3/uL (2.7-7.7); Neutrophil % 66.6 % (47-70); Platelet Count 227 K/mm3 (150-450); RBC Distribution Width CV 13.1 % (11.6-14.6); RBC Distribution Width SD 44.4 fl (35.1-43.9); White Blood Count 6.1 K/mm3 (4.4-11.0)
[2023-08-12 08:35] LABS: International Normalized Ratio 1.1; Prothrombin Time (Protime)PT. 14.5 SECONDS (11.7-14.9)
[2023-08-12 08:36] LABS: Anion Gap 4 (5-15); BUN 13 mg/dL (7-18); Calcium,Total 9.1 mg/dL (8.5-10.1); Chloride 101 mmol/L (98-107); Creatinine, Serum 0.76 mg/dL (0.70-1.30); EST Glomerular Filtration Rate 105 mL/min (>60); Est Glom Filt Rate - Afr Amer 128 mL/min (>60); Glucose 100 mg/dL (74-106); Potassium 4.3 mmol/L (3.5-5.1); Sodium Level 134 mmol/L (136-145)
== END | disposition home or self-care (01) ==
PROVIDERS: PCP Family Medicine; Referring Provider Orthopaedic Surgery; Visit Provider Orthopaedic Surgery
DX: Z01.818 Encounter for other preprocedural examination (principal); M48.061 Spinal stenosis, lumbar region without neurogenic claudication; M43.16 Spondylolisthesis, lumbar region; M96.1 Postlaminectomy syndrome, not elsewhere classified; M46.96 Unspecified inflammatory spondylopathy, lumbar region; M46.98 Unspecified inflammatory spondylopathy, sacral and sacrococcygeal region; M51.36 Other intervertebral disc degeneration, lumbar region; M41.86 Other forms of scoliosis, lumbar region; Z79.82 Long term (current) use of aspirin; Z79.899 Other long term (current) drug therapy; I10 Essential (primary) hypertension; K21.9 Gastro-esophageal reflux disease without esophagitis; I34.1 Nonrheumatic mitral (valve) prolapse; Z01.812 Encounter for preprocedural laboratory examination; Z01.810 Encounter for preprocedural cardiovascular examination; Z01.811 Encounter for preprocedural respiratory examination; K75.9 Inflammatory liver disease, unspecified
CPT/HCPCS: 36415; 71046; 80048; 85025; 85610; 85730; 93005

== ENCOUNTER 2023-11-17 07:44 | Observation (INO) | payer MEDICARE, SELFPAY ==
[2023-11-07 15:24] LABS: Absolute Lymphocyte Count 1.82 X10^3/uL (0.83-4.51); Absolute Neutrophil Count 4.1 X10^3/uL (2.0-7.7); Basophil# 0.07 X10^3/uL; Eosinophil# 0.29 X10^3/uL; Eosinophils% 4.1 % (0-5); Hematocrit 45.1 % (40-54); Lymphocyte # 1.82 X10^3/ul (0.83-4.51); Lymphocyte % 25.6 % (19-41); Mean Corp Hgb Conc 33.3 g/dL (32-36); Mean Corpuscular Hgb 30.5 pg (27.0-32.0); Mean Corpuscular Volume 91.7 fL (80-94); Mean Platelet Vol. 10.6 fl (6.2-12.0); Monocyte# 0.83 X10^3/uL; Monocyte% 11.7 % (0-10); NRBC Flagged by Analyzer 0 % (0-5); Neutrophil # 4.08 X10^3/uL (2.7-7.7); Neutrophil % 57.3 % (47-70); Platelet Count 229 K/mm3 (150-450); RBC Distribution Width CV 12.3 % (11.6-14.6); RBC Distribution Width SD 40.6 fl (35.1-43.9); Red Blood Count 4.92 M/mm3 (4.6-6.2); White Blood Count 7.1 K/mm3 (4.4-11.0)
[2023-11-07 15:39] LABS: Anion Gap 7 (5-15); BUN 13 mg/dL (7-18); BUN/Creat Ratio 16.3 RATIO (10-20); Chloride 97 mmol/L (98-107); EST Glomerular Filtration Rate 101 mL/min (>60); Est Glom Filt Rate - Afr Amer 122 mL/min (>60); Glucose 95 mg/dL (74-106); Potassium 4.1 mmol/L (3.5-5.1); Sodium Level 132 mmol/L (136-145)
[2023-11-17] VITALS (11 sets, daily range): BP systolic 102–178; BP diastolic 53–86; PULSE 60–79; RESP 15–18; TEMP 36.1–37.1; O2SAT 96–100; BMI 21.5
--- NOTE | 2023-11-17 07:41 | OP.PCM_ITS ---
Report of Operation Date of Procedure: 11/17/23 Description of Surgical Findings:: REPORT OF OPERATION PREOPERATIVE DIAGNOSES: 1. Lumbar stenosis, spondylosis. 2. Chronic back pain POSTOPERATIVE DIAGNOSES: 1. Lumbar stenosis, spondylosis. 2. Chronic back pain PROCEDURE PERFORMED: 1. T9-10 partial bilateral laminectomies. 2. Dorsal column stimulator paddle lead placement. 3. Subcutaneous placement of dorsal column stimulator generator. 4. Neuromonitoring bilateral upper and bilateral lower extremities 5. One hour of complex programming postoperatively. STATEMENT OF MEDICAL NECESSITY: This patient is a 73-year-old male with intractable back and leg pain. The patient has opted for treatment of operative intervention, understanding the risks to include, damage to nerves, arteries and veins, possibility of continued pain, paralysis, need for additional surgery, pulmonary embolism, heart attack, stroke, or . DESCRIPTION OF PROCEDURE: The patient was identified in the preoperative holding area. There, the patient received the preoperative IV antibotics and then transferred to the operating suite. Once in the operating suite, after general endotracheal anesthesia was established, the patient was transferred to the [place] operating table in the prone position. All bony prominences were padded accordingly. The thoracolumbar spine was prepped and draped in standard surgical fashion. Incision was made over the thoracolumbar spine. An incision was centered over the T9-10 interlaminar space, taken down to the thoracic fascia. It was then divided and subperiosteal dissection was taken down to the level of the facet joints. Deep retractors were placed. Partial bilateral laminectomies were performed at the T9-10 interspace, with part of the inferior lamina of T9, and superior lamina of T10. At this point the paddle lead was placed with the tip at T8. It was then anchored to the fascia using standard anchors with a silk suture. A second incision was made in the right posterior iliolumbar region as a battery pocket. Wires from the stimulator were then passed subcutaneously with a passing device to the battery pocket and then connected to a new generator battery which was implanted in the right posterior iliolumbar incision. Both incisions were then irrigated and closed with #1 vicryl for the fascia, 2-0 vicryl for subcutaneous, and 2-0 nylon for skin. Sterile dressing was applied with 4 x 4, ABD, and tape. Sponge, instrument, and needle counts were correct at the end of the case. Neuromonitoring was maintained at baseline throughout the duration of the case. The patient was extubated, taken to PACU without incident. Then one hour was spent with complex programming when the patient recovered Surgeon: Mihai Salazar Type of Anesthesia: General Estimated Blood Loss (mL): 10cc Fluids Replaced: 1400cc Grafts/Implants Used: [employer] Complications None Admit VTE Documentation VTE Present on Admission: No
--- NOTE | 2023-11-17 07:41 | PCM.PN.ORT ---
Subjective Subjective Seen and examined postop. Resting comfortably. No complaints. Pain controlled Objective Data Lab / Micro Data 11/07/23 14:47 11/17/23 07:29 Physical Exam Const alert, oriented x3 and no apparent distress General Appearance: cooperative, comfortable and well kempt HEENT normocephalic and head/scalp atraumatic Eyes EOMs intact bilaterally and conjunctivae normal Neck full ROM General: normal visual inspection Chest inspection of chest normal and palpation of chest normal Resp normal respiratory effort and normal air movement Cardio regular rate, regular rhythm and peripheral pulses 2+ throughout GI soft to palpation, non-tender and non-distended Back/Spine Back/Spine Narrative: Dressings clean dry and intact Cervical Spine: cervical ROM normal Thoracic Spine / Upper Back: normal to inspection Lumbar Spine / Lower Back: normal to inspection Extremity normal to inspection, full ROM, normal capillary refill, no clubbing, cyanosis or edema and no calf tenderness Skin no rashes or lesions noted General Skin Exam: no breakdown Neuro oriented x3, CN's II-XII intact bilaterally, moves all extremities, no focal motor deficits, no sensory deficits noted and deep tendon reflexes 2+ bilaterally Motor Exam: muscle tone normal throughout Assessment & Plan Assessment/Plan (1) Lumbar spondylosis: PLAN: Okay to admit See orders Discharge planning, likely home tomorrow
--- NOTE | 2023-11-17 07:41 | PCM.DC.SUM ---
Providers Date of Admission: 11/17/23 Primary Care Physician: Dr. Austen Lara MD Reason For Visit: THORACIC 9 - THORACIC 10 LAMINECTOM Medications at Discharge Home Medications cinnamon bark 500 mg capsule 1,000 mg PO DAILY 08/09/16 gmumumpkhps-ugzumgvso-caw C-Mn 500 mg-400 mg capsule 1 ea PO DAILY 08/09/16 multivitamin 1 ea PO DAILY 08/09/16 turmeric root extract 500 mg capsule 500 mg PO DAILY 09/26/19 magnesium chloride 64 mg (magnesium chloride) tablet,delayed release 128 mg PO DAILY 12/29/20 rosuvastatin 5 mg tablet 5 mg PO DAILY #90 tabs 03/07/23 lisinopril 10 mg tablet 10 mg PO DAILY #90 tabs 09/01/23 hydrocodone-acetaminophen 5-325mg 5mg-325mg 1 tab PO Q6H 7 days #28 tabs 11/17/23 Hospital Course Operations - (T9-10 laminectomy with implantation of permanent spinal cord stimulator lead and generator) Summary of Care Provided Minutes Spent on Discharge: 15 Hospital Course: The patient is a 73-year-old male who underwent implantation of permanent spinal cord stimulator lead and generator on 11/17/2023. He was subsequently admitted. The hospitalist was consulted for medical management. The patient progressed well. His pain was controlled and he was mobilizing well. No significant medical issues were reported. He was subsequently discharged home on 11/18/2023 to follow-up with Dr. Salazar in 3 weeks Physical Exam Const alert, oriented x3 and no apparent distress General Appearance: cooperative, comfortable and well kempt Neck full ROM General: normal visual inspection Resp normal respiratory effort and normal air movement Effort and Inspection: able to speak in complete sentences Cardio regular rate and peripheral pulses 2+ throughout GI soft to palpation, non-tender and non-distended Back/Spine Back/Spine Narrative: Dressings clean dry and intact. Incisions well-approximated with interrupted sutures in place Cervical Spine: cervical ROM normal Thoracic Spine / Upper Back: normal to inspection Lumbar Spine / Lower Back: normal to inspection Extremity normal to inspection, full ROM, normal capillary refill, no clubbing, cyanosis or edema and no calf tenderness Skin no rashes or lesions noted General Skin Exam: no breakdown Neuro oriented x3, CN's II-XII intact bilaterally, moves all extremities, no focal motor deficits, no sensory deficits noted and deep tendon reflexes 2+ bilaterally Motor Exam: strength 5/5 throughout and muscle tone normal throughout ABG / Lab / Microbiology Data 11/07/23 14:47 11/17/23 07:29 D/C Instructions Discharge Diet: No restrictions Additional Activity Instructions: No repetitive bending twisting or lifting greater than 5 pounds Call your doctor if your incision/area has: Continuous Slow Oozing, Sudden Increased Bleeding, Increased Pain/ Swelling, Increased Redness, Foul Smelling Discharge and Swelling at the incision site Call your doctor if you observe: Fever of 101 or Higher, Coldness, Increased Pain, Numbness or Tingling, Change in Color, Inability to urinate, Inability to have a bowel movement, Using more than 1 pad per hour, Shortness of breath, Dizziness, Fainting spells, Swelling in the ankles, Chest pain, Prolonged hiccupping, Increased palpitations (irregular heartbeat), Calf discomfort and Uncontrolled pain Additional Dressing/Incision Instructions: Change dressings daily with gauze and tape Additional Instructions: 1. During your procedure, you received sedation through your IV. Please follow these instructions for the next 24 hours: Do not drive a motor vehicle, do not drink any alcoholic beverages, and do not sign any legal documents or make personal or business decisions. A responsible adult should stay with you at least 6 hours after the procedure. 2. Keep your surgical site/incision clean and the dressing dry and intact. You may sponge bathe, but no showering or sitting in a bathtub during your trial or for one week after the permanent implant. You may use an ice pack at the surgical site to reduce any swelling or discomfort. 3. Monitor the incision site for any signs or symptoms of infection. Watch for redness, excessive swelling or drainage, or continued pain at the incision site after 3 days. Contact your physician immediately for a fever, chills or a temperature of 101.5? F or greater. 4. Take your medication exactly as prescribed by your physician. Do not attempt to wean yourself off any of your medications even though your pain is improving. This process needs to be carefully monitored by your doctor. Take any antibiotics prescribed exactly as directed and until they are gone. 5. Avoid stretching, bending, pulling, twisting or any sudden movements. Do not bend or twist at the waist. Do not raise your arms above your head; however, you may brush your hair or scratch your head, but nothing higher than that. Any movements higher than that could cause your electrode wires to move from their current position. No not lie on your stomach. Do not bend at the waist to put your shoes on; you must lift your legs up to do this. 6. No lifting greater than 5 pounds. A gallon of milk weighs more than 5 pounds, so you may not lift this. Try to be careful. Any falls could dislodge the leads. 7. Do not operate a motor vehicle, equipment or a power tool while your stimulator is on. If you need to use any equipment, you must turn your stimulator off first. As a passenger in a motor vehicle, you may use your stimulator. 8. Do not have any manipulation done by a chiropractor or any other physician without first consulting with the physician who placed your spinal cord stimulator. 9. Without movement, you may note changes in the intensity of the stimulator. For example, you may notice a different stimulation when you are standing than when you are sitting or lying down. This is normal the first few weeks following the implant and will stabilize over time. 10. Please contact our office if you are even scheduled for a CT scan or an MRI. 11. Please call us if you have any questions, problems or concerns. Please Follow Up With: Mihai Salazar DO When: 3 weeks Meaningful Use Info Meaningful Use Meaningful Use Diagnoses (Choose all that apply): None applicable Ischemic Stroke Statin Dosing Therapy Reference: STATIN DOSE THERAPY REFERENCE: * Patients > 75 years receive moderate or high dose statin therapy. * Patients 75 years or YOUNGER should receive HIGH intensity statin dose unless contraindicated. You will be required to document reason for non-treatment if statin daily dose does not meet guidelines. HIGH DOSE STATIN THERAPY DAILY Atorvastatin > than or = to 40 mg Rosuvastatin > than or = to 20 mg Amlodipine + Atorvastatin > than or = to 2.5/40 mg Ezetimibe + Simvastatin 10/80 mg Simvastatin 80mg Discharge Plan Admission Admit Date/Time: 11/17/23 07:44 Attending Provider: Mihai Salazar Primary Care Provider: Austen Lara Providers: Aaron Conte Discharge Orders/Prescriptions Prescriptions: New hydrocodone-acetaminophen 5-325 mg tablet 1 tab PO Q6H 7 Days Qty: 28 0RF Continued turmeric root extract 500 mg capsule 500 mg PO DAILY magnesium chloride 64 mg tablet,delayed release (DR/EC) 128 mg PO DAILY multivitamin 1 EACH tablet 1 ea PO DAILY fvqvumbjzrm-mljhaglyz-erq C-Mn 1 EACH capsule 1 ea PO DAILY cinnamon bark 500 MG capsule 1,000 mg PO DAILY rosuvastatin 5 mg tablet 5 mg PO DAILY Qty: 90 4RF lisinopril 10 mg tablet 10 mg PO DAILY Qty: 90 3RF Discontinued aspirin 81 mg tablet,delayed release (DR/EC) 81 mg PO QDAY Referrals / Follow Up: Austen Lara MD [Primary Care Provider] - Mihai Salazar DO [Med Staff - Active Staff] - Disposition Disposition (needs filled in before D/C Order can be placed): Home, Self Care
[2023-11-17 08:00] LABS: Anion Gap 4 (5-15); BUN 13 mg/dL (7-18); BUN/Creat Ratio 14.7 RATIO (10-20); Calcium,Total 9.2 mg/dL (8.5-10.1); Chloride 105 mmol/L (98-107); Creatinine, Serum 0.89 mg/dL (0.70-1.30); EST Glomerular Filtration Rate 89 mL/min (>60); Est Glom Filt Rate - Afr Amer 108 mL/min (>60); Glucose 87 mg/dL (74-106); Potassium 4.1 mmol/L (3.5-5.1); Sodium Level 139 mmol/L (136-145)
--- NOTE | 2023-11-17 08:13 | PRE.ANES_ITS ---
ASA Classification* ASA Classification ASA Classification: 3 Assessment & Plan Anesthesia* Anesthesia Assessment Anesthesia Assessment: Discussed sedation and/or anesthesia options, risks, benefits, and alternatives with patient/parents/legal guardian/POA. Questions invited. The patient/parents/legal guardian/POA seems to understand and agrees to proceed with anesthesia plan. Reviewed the physical assessment, medical history, allergy history and patient home medications list prior to surgery/procedure/anesthetic and documented any changes. Performed airway and anesthesia risk assessments. Anesthesia Type Anesthesia Type: General (see written pre anesthesia record for full assessment) Anesthesia Focused Assessment* Airway Assessment Mouth opens: >3 cm Mallampati Score: II Focused Labs Anesthesia Preop lab: CBC WBC 7.1 K/mm3 (4.4-11.0) 11/07/23 14:47 RBC 4.92 M/mm3 (4.6-6.2) 11/07/23 14:47 Hgb 15.0 g/dL (13.0-16.5) 11/07/23 14:47 Hct 45.1 % (40-54) 11/07/23 14:47 Plt Count 229 K/mm3 (150-450) 11/07/23 14:47 CHEMISTRY Potassium 4.1 mmol/L (3.5-5.1) 11/17/23 07:29 Sodium 139 mmol/L (136-145) 11/17/23 07:29 Magnesium 2.2 mg/dL (1.6-2.6) 11/21/20 13:15 BUN 13 mg/dL (7-18) 11/17/23 07:29 Creatinine 0.89 mg/dL (0.70-1.30) 11/17/23 07:29 Glucose 87 mg/dL (74-106) 11/17/23 07:29 TSH 2.07 uIU/mL (0.358-3.74) 10/31/20 16:17 COAG PT 14.5 SECONDS (11.7-14.9) 08/12/23 07:21 Pre-Assessment Diagnosis/Proposed Procedure Planned Operative Procedure(s): THORACIC 9 - THORACIC 10 LAMINECTOMY, IMPLANTATION OF PERMANENT SPINAL CORD STIMULATOR LEAD AND GENERATOR Anesthesia History 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 When Was Last Pacemaker Check QUESTION #4 FULL TEXT: You/Your Family Experience fever (hyperthermia) with Anesthesia Last Oral Intake Last Oral intake: Last Oral Intake NPO since Meds taken in AM with sips of water? Meds patient instructed to take am of surgery PONV PONV - finish production manager: PONV - finish production manager Female No 11/08/23 14:06 HX of Motion Sickness Yes 11/08/23 14:06 HX of N/V After Surgery Yes 11/08/23 14:06 Non-Smoker Yes 11/08/23 14:06 Duration of Surgery greater Yes 11/08/23 14:06 than 60 minutes Number of Risk Factors 4 11/08/23 14:06 PONV Score Severe Risk 11/08/23 14:06 Height & Weight Height & Weight: Anesthesia: Height & Weight Height 5 ft 11 in 06/21/23 08:10 Respiratory Assessment Respiratory Assessment - finish production manager: Respiratory Tract Infection Hx - finish production manager Hx Respiratory Tract Infection No 11/08/23 14:06 STOP Sleep Apnea STOP Sleep Apnea - finish production manager: STOP Sleep Apnea - finish production manager Hx Hypertension Yes: CONTROLLED WITH MED 11/08/23 14:06 Hx Sleep Apnea No 11/08/23 14:06 CPAP BIPAP Do you snore loudly (louder No 11/08/23 14:06 than talking or can be heard Do you often feel tired/ No 11/08/23 14:06 fatigued/ sleepy during daytime? Has anyone observed you stop No 11/08/23 14:06 breathing during sleep? STOP Results Negative 11/08/23 14:06 QUESTION #5 FULL TEXT : Do you snore loudly (louder than talking or can be heard through closed doors)? 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 Specify any problems Hx of Preganancy in last 3 N/A 11/08/23 14:06 Months Nurse Filling Out Transfusion NBUCHER 11/08/23 14:06 & Questions: Date: 11/08/23 11/08/23 14:06 Time: 14:08 11/08/23 14:06 Patient unable to answer at this time (ie. confused, unrespo /Reproduction History /Reproductive History - finish production manager: /Reproductive Hx- finish production manager Hx Now No 11/08/23 14:06 Gestational Age (in weeks): EDC: Hx Hx Para Hx Section SAB No 11/08/23 14:06 Active Medications Active Medications: Current Medications Generic Name Dose Route Start Last Admin Trade Name Freq PRN Reason Stop Dose Admin Acetaminophen 1,000 mg 11/17/23 14:00 Acetaminophen 500 Mg Tablet PO Q8 CALLUM Enteral Nutritional Formula 237 ml 11/17/23 08:00 Ensure Surgery 237 Ml Liquid PO TIDCM [facility] Lactated Ringer's 1,000 mls @ 15 mls/hr 11/17/23 07:45 IV .Q48H CALLUM Lactated Ringer's 1,000 mls @ 100 mls/hr 11/17/23 07:45 IV .Q10H CALLUM Cefazolin Sodium 1 gm in 50 mls @ 100 mls/hr 11/17/23 07:45 IV Q8H [facility] Lisinopril 10 mg 11/17/23 10:00 Lisinopril 10 Mg Tablet PO DAILY [facility] Protocol Magnesium Chloride 128 mg 11/17/23 10:00 Magnesium Chloride 64 Mg Delay Rel.Tablet PO DAILY [facility] Morphine Sulfate 2 - 4 mg 11/17/23 07:41 Morphine 4 Mg/Ml Syringe IV Q2H PRN PRN Pain Score 6-10 Non-Formulary Medication 1,000 mg 11/17/23 10:00 Cinnamon Bark PO DAILY CALLUM Non-Formulary Medication 5 mg 11/17/23 10:00 Rosuvastatin PO DAILY [facility] Oxycodone HCl 2.5 - 5 mg 11/17/23 07:41 Oxycodone 5 Mg Tablet PO Q4H PRN PRN Pain Score 6-10 PFSH Medical History PONV (postoperative nausea and vomiting) Wears glasses Arthritis Prostate disease High cholesterol Heartburn Non-smoker History of echocardiogram Cardiology follow-up encounter SVT (supraventricular tachycardia) NSVT (nonsustained ventricular tachycardia) Lightheadedness Essential hypertension Bruit of right carotid artery Family history of hypertension Family history of ischemic heart disease Syncope and collapse Hyperlipidemia Hypertension Nonrheumatic mitral (valve) prolapse Palpitations Long-term use of high-risk medication Right carotid bruit Home Medications ?Medication ?Instructions ?Recorded ?Last Taken ?Type cinnamon bark 500 mg capsule 1,000 mg PO DAILY 08/09/16 Unknown History fqbxqktmdlf-oukdfmaat-mnz C-Mn 500 1 ea PO DAILY 08/09/16 Unknown History mg-400 mg capsule multivitamin 1 ea PO DAILY 08/09/16 Unknown History aspirin 81 mg tablet,delayed 81 mg PO QDAY 04/29/17 07/29/17 History release turmeric root extract 500 mg 500 mg PO DAILY 09/26/19 Unknown History capsule magnesium chloride 64 mg 128 mg PO DAILY 12/29/20 Unknown History (magnesium chloride) tablet,delayed release rosuvastatin 5 mg tablet 5 mg PO DAILY #90 tabs 03/07/23 Unknown Rx lisinopril 10 mg tablet 10 mg PO DAILY #90 tabs 09/01/23 Unknown Rx Allergy/AdvReac Type Severity Reaction Status Date / Time chlorhexidine Allergy Rash Verified 11/08/23 14:04 Penicillins Allergy STRANGE Verified 11/17/23 08:04 SENSATION IN MOUTH AND TEETH atorvastatin (From Lipitor) AdvReac Severe Myalgias Verified 11/08/23 14:04 albuterol AdvReac RAPID Verified 11/08/23 14:04 HEART BEAT Family History Brother CAD (coronary artery disease) Myocardial infarction Hypertension Surgical History History of radiofrequency ablation (RFA) procedure for cardiac arrhythmia History of total right knee replacement (~08/2020) History of radiofrequency ablation procedure for cardiac arrhythmia (11/26/20) Total knee replacement status History of arthroscopy of shoulder (~06/2017) S/P inguinal hernia repair (~07/2017) History of transurethral resection of prostate History of hemorrhoidectomy History of hernia repair History of tonsillectomy and adenoidectomy History of arthroplasty of right knee History of back surgery Social History household members: spouse Smoking Status: Never smoker alcohol intake: current details: occasional substance use type: does not use Review of Systems (Anesthesia) ROS Narrative System reviewed and no additional complaints, except as documented.
[2023-11-17 08:30] LABS: International Normalized Ratio 1.1; Prothrombin Time (Protime)PT. 14.1 SECONDS (11.7-14.9)
[2023-11-17 08:31] LABS: Partial Thromboplast Time 28.7 Seconds (24.1-36.2)
[2023-11-17] MEDS: Lactated Ringers 1,000 ML 15 ML IV (08:40)
[2023-11-17] MEDS: Clindamycin 600 MG/50 ML BAG 100 MG IV (10:30)
--- NOTE | 2023-11-17 10:40 | RAD_ITS ---
PROCEDURE: Neurostimulator implantation. DATE OF EXAMINATION: November 17, 2023. INDICATION: Male, 73 years old. Back pain. FLUOROSCOPY TIME (if supplied): (12.9 seconds) minutes/seconds. 2.1 mGy.. 4 images were submitted. RAD/Thoracic Spine 2 Views IMPRESSION: Intraoperative fluoroscopic services provided for neurostimulator placement. The tip of the electrodes is at the T7-T8 level. Electronically Signed: Logan Allen MD at 12:58 EDT ,
[2023-11-17] MEDS: THROMBIN (RECOMBINANT) 20,000 UNIT VIAL 20000 UNIT TOPICAL (11:02)
[2023-11-17] MEDS: Bupivacaine 0.25% 30 ML Vial (11:52)
--- NOTE | 2023-11-17 12:45 | PCM.POST.ANE ---
Anesthesia: Postop Eval I Current Vital Signs Temperature: 97 F Pulse Rate: 60 Blood Pressure: 128/72 Respiratory Rate: 16 Pulse Ox: 100 Oxygen Delivery Method: Simple Mask Oxygen Flow Rate (L/min): 6 Assessment Airway patent: Yes Spontaneous unlabored respirations: Yes Mental status: Asleep nausea: No Vomiting: No Anesthesia Complication: No Fluid Hydration Crystalloid volume administer (ml): 1,400 Total IV fluid infused: 1,400 Progress Note Anesthesia document: Postop Eval 1 completed: Yes
--- NOTE | 2023-11-17 14:38 | POSTOPAN2_ITS ---
Anesthesia Postop Eval I Sum Postop Eval Completion status Anesthesia document: Postop Eval 1 completed: Yes Anesthesia Postop Eval I Summary Anesthesia Postop Eval I Summary: Anesthesia Postop Eval I: Assessment Summary Airway patent Yes 11/17/23 12:46 GROVE SUPERINTENDENT.EZIOOBY Spontaneous unlabored Yes 11/17/23 12:46 GROVE SUPERINTENDENT.LISA respirations Mental status Asleep 11/17/23 12:46 GROVE SUPERINTENDENT.EZIOOBLyndsey nausea No 11/17/23 12:46 GROVE SUPERINTENDENT.EZIOOBLyndsey Vomiting No 11/17/23 12:46 GROVE SUPERINTENDENT.EZIOOBLyndsey Anesthesia Postop Eval I: Fluid Summary Crystalloid volume administer 1,400 11/17/23 12:46 GROVE SUPERINTENDENT.EZIOOBY (ml) Colloids volume administered ( ml) Blood Product volume administered (ml) Total IV fluid infused 1,400 11/17/23 12:46 GROVE SUPERINTENDENT.LISA Anesthesia Postop Eval I: Summary Notes Anesthesia Complication No 11/17/23 12:46 GROVE SUPERINTENDENT.LISA Anesthesia Complication Comment: Post-operative progress note Anesthesia: Postop Eval II Evaluation Mental status: Awake and Calm Pain Level: 1 nausea: No Vomiting: No Complications Anesthesia Complication: No
--- NOTE | 2023-11-17 14:38 | PCM.POSTANE2 ---
Anesthesia Postop Eval I Sum Postop Eval Completion status Anesthesia document: Postop Eval 1 completed: Yes Anesthesia Postop Eval I Summary Anesthesia Postop Eval I Summary: Anesthesia Postop Eval I: Assessment Summary Airway patent Yes 11/17/23 12:46 SECURITY SYSTEMS TECHNICIAN.EZIOOBY Spontaneous unlabored Yes 11/17/23 12:46 SECURITY SYSTEMS TECHNICIAN.LISA respirations Mental status Asleep 11/17/23 12:46 SECURITY SYSTEMS TECHNICIAN.EZIOOBLyndsey nausea No 11/17/23 12:46 SECURITY SYSTEMS TECHNICIAN.EZIOOBLyndsey Vomiting No 11/17/23 12:46 SECURITY SYSTEMS TECHNICIAN.EZIOOBLyndsey Anesthesia Postop Eval I: Fluid Summary Crystalloid volume administer 1,400 11/17/23 12:46 SECURITY SYSTEMS TECHNICIAN.ZEIOOBY (ml) Colloids volume administered ( ml) Blood Product volume administered (ml) Total IV fluid infused 1,400 11/17/23 12:46 SECURITY SYSTEMS TECHNICIAN.LISA Anesthesia Postop Eval I: Summary Notes Anesthesia Complication No 11/17/23 12:46 SECURITY SYSTEMS TECHNICIAN.LISA Anesthesia Complication Comment: Post-operative progress note Anesthesia: Postop Eval II Evaluation Mental status: Awake and Calm Pain Level: 1 nausea: No Vomiting: No Complications Anesthesia Complication: No
[2023-11-17] MEDS: Magnesium Chloride 64 MG Delay Rel.Tablet 128 MG PO (15:35)
[2023-11-17] MEDS: Acetaminophen 500 MG Tablet 1000 MG PO ×2 (15:35→22:06)
[2023-11-17] MEDS: oxyCODONE 5 MG Tablet PO ×2 (15:36→22:06)
[2023-11-17] MEDS: Lactated Ringers 1,000 ML 100 ML IV (15:41)
[2023-11-17] MEDS: Cefazolin 1 GM/50 ML BAG IV (18:08)
[2023-11-18] MEDS: 0.9% Saline Lock 10 ML Syringe IV (02:35)
[2023-11-18] MEDS: Cefazolin 1 GM/50 ML BAG IV (02:35)
[2023-11-18 02:42] VITALS: BP 118/61; PULSE 53; RESP 16; TEMP 36.6; O2SAT 100
[2023-11-18] MEDS: Acetaminophen 500 MG Tablet 1000 MG PO (04:43)
[2023-11-18 06:12] VITALS: BP 114/59; PULSE 59; RESP 18; TEMP 36.7; O2SAT 95
[2023-11-18 08:23] LABS: Absolute Lymphocyte Count 0.68 X10^3/uL (0.83-4.51); Absolute Neutrophil Count 12.2 X10^3/uL (2.0-7.7); Basophil# 0.02 X10^3/uL; Basophil% 0.1 % (0-1); Hematocrit 43.1 % (40-54); Hemoglobin 14.5 g/dL (13.0-16.5); Lymphocyte # 0.68 X10^3/ul (0.83-4.51); Lymphocyte % 4.9 % (19-41); Mean Corp Hgb Conc 33.6 g/dL (32-36); Mean Corpuscular Hgb 31.3 pg (27.0-32.0); Mean Corpuscular Volume 92.9 fL (80-94); Mean Platelet Vol. 10.4 fl (6.2-12.0); Monocyte# 1.06 X10^3/uL; Monocyte% 7.6 % (0-10); NRBC Flagged by Analyzer 0 % (0-5); Neutrophil # 12.17 X10^3/uL (2.7-7.7); Neutrophil % 87.1 % (47-70); Platelet Count 199 K/mm3 (150-450); RBC Distribution Width SD 43.9 fl (35.1-43.9); Red Blood Count 4.64 M/mm3 (4.6-6.2)
[2023-11-18 08:46] LABS: Anion Gap 4 (5-15); BUN 11 mg/dL (7-18); BUN/Creat Ratio 13.5 RATIO (10-20); Calcium,Total 9.1 mg/dL (8.5-10.1); Chloride 102 mmol/L (98-107); Creatinine, Serum 0.81 mg/dL (0.70-1.30); EST Glomerular Filtration Rate 98 mL/min (>60); Est Glom Filt Rate - Afr Amer 119 mL/min (>60); Estimated Creatinine Clearance 78.16 ml/min; Glucose 123 mg/dL (74-106); Potassium 4.2 mmol/L (3.5-5.1); Sodium Level 136 mmol/L (136-145)
--- NOTE | 2023-11-18 09:06 | PCM.PN.HOSP ---
Subjective Subjective No issues overnight Objective Data Objective Data Vital Signs: Vital Signs Temp Pulse Resp BP Pulse Ox O2 Del Method O2 Flow Rate 98.0 F 59 L 18 114/59 L 95 Room Air 6 11/18/23 06:12 11/18/23 06:12 11/18/23 06:12 11/18/23 06:12 11/18/23 06:12 11/18/23 06:12 11/17/23 12:46 Oxygen Flow Rate (L/min) 6 Oxygen Delivery Method Room Air Weight: 154 lb 9.6 oz Body Mass Index (BMI) 21.5 Intake & Output: Intake and Output for Last 24 Hours 11/17/23 11/18/23 11/19/23 03:59 03:59 03:59 Intake Total 806.5 / 806.5 . / . Output Total 325 / 325 Balance 481.5 / 481.5 . / Lab / Micro Data 11/18/23 08:13 11/18/23 08:13 Labs: Laboratory Results - last 24 hr 11/18/23 08:13: WBC 14.0 H, RBC 4.64, Hgb 14.5, Hct 43.1, MCV 92.9, MCH 31.3, MCHC 33.6, RDW Std Deviation 43.9, RDW Coeff of Nay 13.0, Plt Count 199, MPV 10.4, Immature Gran % (Auto) 0.300, Neut % (Auto) 87.1 H, Lymph % (Auto) 4.9 L, Roosevelt % (Auto) 7.6, Eos % (Auto) 0.0, Baso % (Auto) 0.1, Absolute Neuts (auto) 12.2 H, Absolute Lymphs (auto) 0.68 L, Nucleated RBC % 0, Sodium 136, Potassium 4.2, Chloride 102, Carbon Dioxide 30.0, Anion Gap 4 L, BUN 11, Creatinine 0.81, Estim Creat Clear Calc 78.16, Est GFR (MDRD) Af Amer 119, Est GFR (MDRD) Non-Af 98, BUN/Creatinine Ratio 13.5, Glucose 123 H, Calcium 9.1 Radiography Diagnostic Testing: Radiology Impression Thoracic Spine X-Ray 11/17/23 10:40 IMPRESSION: Intraoperative fluoroscopic services provided for neurostimulator placement. The tip of the electrodes is at the T7-T8 level. Electronically Signed: Logan Allen MD at 12:58 EDT , Assessment & Plan Assessment/Plan (1) Lumbar spondylosis: PLAN: Plan 1. Lumbar stenosis with spondylosis status post T9-10 bilateral laminectomies with placement of a dorsal column stimulator ? PT/OT ? Pain management per primary ? Appears medically stable for discharge, lab work is unremarkable, he does have a reactive leukocytosis to surgery though no fevers 2. Essential HTN/HLD ? Blood pressures are stable ? Renal function is stable so can he can resume his lisinopril on discharge Will sign off 25 minutes spent reviewing the chart and discussing with nursing staff and reviewing lab work Charges/Coding Visit Charges Inpatient E&M: 65081 Subs Hosp L1
--- NOTE | 2023-11-18 09:11 | CASEMGMT ---
COLLINS TURNER Assessment: Face to Face with pt for initial transition planning/care coordination assessment. COLLINS TURNER introduced self and role at [facility], pt voices understanding and consents to assessment. Pt is A&O x4 and answers all questions appropriately at this time. Pt sitting up in bed in no distress. sitting at bedside, pt agreeable to discussing DC plan with present. Care providers, pharmacy, and demographics verified/updated. Strata: 1 Admitting Dx: Thoracic 9 - Thoracic 10 laminectomy. PCP: Jane Specialists: [facility]; Marie, Orthopedic; Virgil, Urology. Preferred Pharmacy: [facility] Insurance: [facility] Prescription Benefit: yes LNOK: , Rosy; Daughter, Cyn. Living Arrangements: Pt lives with in a bi-level home with 7 steps to enter. ADLs: Pt reports I with ADLs and IADLs. Transportation: Pt drives self and denies concerns with transportation. DME: Walker, Cane, Shower bench. HHC/SNF: Denies Hx of. Pt states no concerns with going home at time of dc. Pt states no further concerns/needs. CM to follow. Advised pt to ask CM if any further question/concerns/needs arise, voices understanding. Pt Goal: Home Plan: Home, Follow plan of care. Sonia GUADALUPE CM
[2023-11-18 10:03] VITALS: BP 117/60; PULSE 64; RESP 16; TEMP 37; O2SAT 100
[2023-11-18] MEDS: oxyCODONE 5 MG Tablet PO (10:51)
--- NOTE | 2023-11-18 11:04 | CPS ---
Pt was given DC instructions for continuing home use
== END 2023-11-18 12:20 | disposition home or self-care (01) ==
LOC: SDC 13:07 → MS3 13:07
PROVIDERS: Family Medicine; Admitting Provider Orthopaedic Surgery; PCP Family Medicine; Referring Provider Orthopaedic Surgery; Visit Provider Orthopaedic Surgery
PROC: (CPT 63655; principal; 2023-11-17 09:30)
DX: Z45.42 Encounter for adjustment and management of neurostimulator (principal); M48.061 Spinal stenosis, lumbar region without neurogenic claudication; M47.816 Spondylosis without myelopathy or radiculopathy, lumbar region; G89.29 Other chronic pain; I10 Essential (primary) hypertension; Z86.19 Personal history of other infectious and parasitic diseases; K21.9 Gastro-esophageal reflux disease without esophagitis; Z79.899 Other long term (current) drug therapy; Z79.82 Long term (current) use of aspirin; R09.89 Other specified symptoms and signs involving the circulatory and respiratory systems; R00.2 Palpitations; E78.5 Hyperlipidemia, unspecified; I47.10 Supraventricular tachycardia, unspecified; Z86.79 Personal history of other diseases of the circulatory system
CPT/HCPCS: 63685; 63655; 00400; 36415; 72070; 76000; 80048; 85025; 85610; 85730; 94668; 96365; 96366; 97116; 97162; 97530; 99221; C1713; C1778; C1820; J7120; A4216; G0378; J2405

== ENCOUNTER → 2024-06-18 | Outpatient (CLI) | payer MEDICARE, SELFPAY ==
[2024-06-18 09:16] LABS: PSA,Total - Annual Screen 1.87 ng/mL (0.02-4.00)
[2024-06-18 09:59] LABS: AST(SGOT) 29 U/L (<=37); Alanine Aminotransfer ALT/SGPT 25 U/L (<=46); Albumin, Serum 4.5 g/dL (3.4-4.8); Alkaline Phosphatase 50 U/L (40-129); Bilirubin, Direct 0.21 mg/dL (0.00-0.30); Cholesterol 139 mg/dL (<=200); Globulin 2.3 g/dL (2.2-4.2); High Density Lipoprotein 58 mg/dL; Low Density Lipoprotein Calc. 69 mg/dL; Protein, Total 6.8 g/dL (5.9-8.4); Total Bilirubin 0.46 mg/dL (0.00-1.30); Triglycerides 64 mg/dL; Very Low Density Lipoprotein 13 mg/dL (5-40); cholesterol:hdl ratio screen 2.41
== END | disposition home or self-care (01) ==
LOC: LAB 07:34
PROVIDERS: Nurse Practitioner Family; PCP Family Medicine; Referring Provider Urology; Visit Provider Urology
DX: Z12.5 Encounter for screening for malignant neoplasm of prostate (principal); E78.00 Pure hypercholesterolemia, unspecified
CPT/HCPCS: 36415; 80061; 80076; 84153; G0103

== ENCOUNTER 2024-12-25 04:46 | Emergency (ER) | payer MEDICARE, SELFPAY ==
[2024-12-25 04:46] VITALS: PULSE 92; RESP 18
[2024-12-25 04:48] VITALS: BP 196/79; PULSE 67; RESP 16; TEMP 36; O2SAT 100; BMI 19.3
--- NOTE | 2024-12-25 05:03 | CT_ITS ---
PROCEDURE: CT/Abdomen/Pelvis W IV Cont ONLY
--- NOTE | 2024-12-25 05:05 | CT_ITS ---
PROCEDURE: CT/Spine Lumbar without Contrast
[2024-12-25] MEDS: 0.9% Normal Saline (500mL Bag) 500 ML 999 ML IV (05:19)
[2024-12-25 05:24] LABS: Hematocrit 41.7 % (40-54); Hemoglobin 14.3 g/dL (13.0-16.5); Immature Granulocytes Count 0.020 X10^3/uL (0.0-0.0); Mean Corp Hgb Conc 34.3 g/dL (32-36); Mean Corpuscular Volume 91.4 fL (80-94); Mean Platelet Vol. 10.0 fl (6.2-12.0); NRBC Flagged by Analyzer 0 % (0-5); Platelet Count 199 K/mm3 (150-450); RBC Distribution Width CV 12.8 % (11.6-14.6); RBC Distribution Width SD 42.7 fl (35.1-43.9); Red Blood Count 4.56 M/mm3 (4.6-6.2); White Blood Count 5.4 K/mm3 (4.4-11.0)
[2024-12-25 05:37] LABS: Prothrombin Time (Protime)PT. 13.8 SECONDS (11.7-14.9)
[2024-12-25 05:38] LABS: Partial Thromboplast Time 26.4 Seconds (24.1-36.2)
--- NOTE | 2024-12-25 05:40 | RAD_ITS ---
PROCEDURE: RAD/Ribs Uni Min 3V w/PA Chest
[2024-12-25 05:45] LABS: BUN 13 mg/dL (4-19); BUN/Creat Ratio 17.3 RATIO (10-20); Calcium,Total 8.9 mg/dL (7.6-11.0); Carbon Dioxide 26.3 mmol/L (21.0-32.0); Chloride 99 mmol/L (98-108); Estimated Creatinine Clearance 69.89 ml/min (50-250); Glucose 111 mg/dL (70-99); Potassium 4.5 mmol/L (3.3-5.1)
[2024-12-25 05:46] LABS: Anion Gap 8 (5-15)
--- NOTE | 2024-12-25 05:46 | EX.ED.DYSGE1 ---
HPI History of Present Illness Chief Complaint: Fall Informant: patient and spouse/S.O. Narrative Narrative: Patient is a 74-year-old male with past medical Struve hypertension and hyperlipidemia. He states roughly 24 hours ago he slipped on the outdoor steps and fell landing on his left side. He denies striking his head or any loss of consciousness. He states he does not take blood thinners nor have a history of bleeding disorder. He states he has had significant pain along the left low back ever since the fall that seems to worsen with motion and will cause spasms. He states he has not noticed any blood in his urine or stool. He reports that he has been taking [id number] medication but the pain has been persistent and severe and secondary to this comes in for evaluation. [facility] Medical History PONV (postoperative nausea and vomiting) Wears glasses Arthritis Prostate disease High cholesterol Heartburn Non-smoker History of echocardiogram Cardiology follow-up encounter SVT (supraventricular tachycardia) NSVT (nonsustained ventricular tachycardia) Lightheadedness Essential hypertension Bruit of right carotid artery Family history of hypertension Family history of ischemic heart disease Syncope and collapse Hyperlipidemia Hypertension Nonrheumatic mitral (valve) prolapse Palpitations Long-term use of high-risk medication Right carotid bruit Home Medications ?Medication ?Instructions ?Recorded ?Last Taken ?Type cinnamon bark 500 mg capsule 1,000 mg PO DAILY 08/09/16 11/10/23 History vynmphleytg-[id number]-fax C-Mn 500 1 ea PO DAILY 08/09/16 11/10/23 History mg-400 mg capsule multivitamin 1 ea PO DAILY 08/09/16 11/10/23 History turmeric root extract 500 mg 500 mg PO DAILY 09/26/19 11/10/23 History capsule magnesium chloride 64 mg 128 mg PO DAILY 12/29/20 11/10/23 History (magnesium chloride) tablet,delayed release rosuvastatin 5 mg tablet 5 mg PO DAILY #90 tabs 04/17/24 Unknown Rx lisinopril 10 mg tablet 10 mg PO DAILY #90 tabs 08/20/24 Unknown Rx Dim BioPerine PO 09/03/24 Unknown History aspirin 81 mg tablet,delayed 81 mg PO QDAY 09/03/24 Unknown History release (Adult Low Dose Aspirin) calcium carb-ergocalciferol (vit 1 tab PO DAILY 12/25/24 Unknown History D2) 600 mg calcium-200 unit tablet diazepam 5 mg tablet (Valium) 5 mg PO TID PRN Muscle pain/spasm 12/25/24 Unknown Rx 5 days #15 tabs meloxicam 7.5 mg tablet 7.5 mg PO BID 12/25/24 Unknown History oxycodone 5 mg tablet 5 mg PO Q6H PRN pain 5 days #20 12/25/24 Unknown Rx tabs Allergy/AdvReac Type Severity Reaction Status Date / Time chlorhexidine Allergy Rash Verified 12/25/24 04:47 Penicillins Allergy STRANGE Verified 12/25/24 04:47 SENSATION IN MOUTH AND TEETH atorvastatin (From Lipitor) AdvReac Severe Myalgias Verified 12/25/24 04:47 albuterol AdvReac RAPID Verified 12/25/24 04:47 HEART BEAT Family History Brother CAD (coronary artery disease) Myocardial infarction Hypertension Surgical History History of radiofrequency ablation (RFA) procedure for cardiac arrhythmia History of total right knee replacement (~08/2020) History of radiofrequency ablation procedure for cardiac arrhythmia (11/26/20) Total knee replacement status History of arthroscopy of shoulder (~06/2017) S/P inguinal hernia repair (~07/2017) History of transurethral resection of prostate History of hemorrhoidectomy History of hernia repair History of tonsillectomy and adenoidectomy History of arthroplasty of right knee History of back surgery Social History household members: spouse Smoking Status: Never smoker alcohol intake: current details: occasional substance use type: does not use ROS ROS ED Constitutional Constitutional ED: Denies chills or fever(s) Eyes Eyes: Denies blurry vision or change in vision ENT ENT ED: Denies sore throat Cardiovascular Cardiovascular: Reports other Details: Negative syncope ; Denies chest pain Respiratory/Chest Respiratory/Chest: Denies cough or dyspnea Gastrointestinal Gastrointestinal: Denies abdominal pain, diarrhea, nausea or vomiting Genitourinary Genitourinary ED: Denies dysuria or hematuria Musculoskeletal Musculoskeletal: Reports back pain and other Details: Positive left posterior rib/low back pain Integumentary Reports other Details: Positive bruising low back Neurologic Neurologic: Denies headache(s), paresthesias or weakness Hematologic/Lymphatic Hematologic/Lymphatic: Denies easy bleeding or easy bruising EXAM Physical Exam Const Vital Signs: 12/25/24 04:46 12/25/24 04:48 12/25/24 04:50 Temperature 96.8 F L Temperature Source Oral Pulse Rate 92 67 Respiratory Rate 18 16 Blood Pressure 196/79 H Blood Pressure Mean 118 Pulse Ox 100 Oxygen Delivery Method Room Air Room Air 12/25/24 07:46 12/25/24 08:31 Temperature 97.8 F Temperature Source Pulse Rate 63 63 Respiratory Rate 16 16 Blood Pressure 152/67 H 152/67 H Blood Pressure Mean 95 95 Pulse Ox 100 100 Oxygen Delivery Method Room Air Positive well nourished and well developed General Appearance ED: well developed HEENT HEENT Narrative: Normocephalic atraumatic No signs of depressed or basilar skull fracture Eyes PERRL and EOMs intact bilaterally General Eye ED: Negative for scleral icterus Neck supple Neck Narrative: No bony deformity or step-off of the cervical spine No midline tenderness to palpation Chest Wall Chest Narrative: There is pain with palpation along the left posterior ribs regions 10-12 without bony deformity or crepitance Resp normal respiratory effort and clear to auscultation bilaterally Cardio regular rate and regular rhythm GI normal to inspection, nondistended, normoactive bowel sounds, non-tender, non-distended and no masses GI Narrative: No voluntary guarding or rigidity or pulsatile mass No overlying abrasions or ecchymosis to the abdominal wall Auscultation: normoactive bowel sounds Palpation: soft Back/Spine Back/Spine Narrative: No bony deformity or step-off of the thoracic or lumbar spine No midline tenderness to palpation There is left paralumbar tenderness and spasm noted as well as ecchymosis along the site Pain worsens with motion Extremity normal to inspection Extremity Narrative: Pelvis is stable there is no shortening or external rotation of either lower extremity No signs of long bone injury such as bony deformity or joint effusion Neuro oriented x3, CN's II-XII intact bilaterally and no sensory deficits noted Sensorium / Orientation: alert Motor Exam: strength 5/5 throughout Psych mental status grossly normal Skin Skin Narrative: Ecchymosis noted along the left low back region as documented above MDM MDM MDM Narrative Medical decision making narrative: Patient presented to the ER hypertensive but has a past medical history of this and is in pain. Other vitals are stable. He reported a mechanical fall and therefore I felt no need for cardiac or syncope workup. He did not strike his head nor does he report blood thinner use or history of bleeding disorder so I have low concern for skull fracture or traumatic subarachnoid or subdural hemorrhage and feel no need for head CT. With bruising along the left low back patient could have potential kidney laceration or intestinal laceration or even splenic laceration and therefore I do feel appropriate ordering a CT scan of the abdomen and pelvis to assess for this. There is no obvious pain along the midline of the lumbar spine but patient could have a potential lumbar compression fracture or spondylolisthesis so a lumbar CT was ordered as well. With pain along the left posterior ribs he could have a potential rib fracture or pneumothorax though rib series was obtained. CT of the abdomen and pelvis as well as lumbar spine did not reveal any acute signs of trauma or active bleeding. The x-ray of the ribs show a left 10th 11th and punctate fracture off the 12th rib which correlates with pain and history. However there is no hemothorax or pneumothorax. Patient also is not hypoxic or in respiratory distress. After provided medication in the ER he has had significant improvement of his pain. Therefore at this time as pain is controlled he does not have a pneumothorax and vitals are stable and there is no findings of internal bleeding there is no need for further intervention and he is otherwise safe for discharge. History & Record Review Discussion w/independent historian: Patient and Significant other Lab Data Attestation: I reviewed the patient's lab results. Labs: Laboratory Results - last 24 hr 12/25/24 05:12 WBC 5.4 RBC 4.56 L Hgb 14.3 Hct 41.7 MCV 91.4 MCH 31.4 MCHC 34.3 RDW Std Deviation 42.7 RDW Coeff of Nay 12.8 Plt Count 199 MPV 10.0 Immature Gran % (Auto) 0.400 Neut % (Auto) 62.6 Lymph % (Auto) 22.1 [place] % (Auto) 10.3 H Eos % (Auto) 3.5 Baso % (Auto) 1.1 H Absolute Neuts (auto) 3.4 Absolute Lymphs (auto) 1.20 Nucleated RBC % 0 PT 13.8 INR 1.0 APTT 26.4 Sodium 133 Potassium 4.5 Chloride 99 Carbon Dioxide 26.3 Anion Gap 8 BUN 13 Creatinine 0.74 Estim Creat Clear Calc 69.89 Est GFR (MDRD) Non-Af 94 BUN/Creatinine Ratio 17.3 Glucose 111 H Calcium 8.9 Radiography Diagnostic Testing: Clinical Impression(s) from Imaging Studies Abdomen/Pelvis CT 12/25/24 05:03 IMPRESSION: Pancreatic duct appears enlarged, measuring 0.5 cm in the head, 0.5 cm in the proximal body. There is no visible pancreatic mass or cyst. Follow-up is recommended. Nondisplaced fractures of the angle of the left 10th and 11th ribs are visible. [facility] 12/25/24 05:05 IMPRESSION: Lumbar levoscoliosis. Mild 12, L1 and L2 retrolisthesis. 1st degree anterolisthesis of L3, L4 and L5 No acute fractures. Lumbar spondylosis with multilevel facet arthropathy and diffuse posterior disc bulges inducing encroachment upon the neural exit foramina. Degenerative changes of the sacroiliac joints. Diffuse reduced bone density. [facility] Ribs w/Chest X-Ray 12/25/24 05:40 IMPRESSION: There is nondisplaced fracture of the proximal aspect of the left 12th rib, with a nondisplaced fracture of the angle of the 10th and 11th ribs. Reading Location: [facility] Left rib series with 1 view chest as interpreted by the emergency medicine physician reveals fractures of the left 10th, 11th and 12th rib without associated hemothorax or pneumothorax. Discharge Plan Triage Chief Complaint: Fall ED Provider: Henry Sharp Dx/Rx/DC Orders Clinical Impression: Fracture of left tenth rib, Fracture of left eleventh rib, Fracture of left twelfth rib, Essential hypertension, Hyperlipidemia, Accidental fall Instructions: ED Rib Fracture Prescriptions: New oxycodone 5 mg tablet 5 mg PO Q6H PRN (Reason: pain) 5 Days Qty: 20 0RF diazepam [Valium] 5 mg tablet 5 mg PO TID PRN (Reason: Muscle pain/spasm) 5 Days Qty: 15 0RF No Action turmeric root extract 500 mg capsule 500 mg PO DAILY magnesium chloride 64 mg tablet,delayed release (DR/EC) 128 mg PO DAILY aspirin [Adult Low Dose Aspirin] 81 mg tablet,delayed release (DR/EC) 81 mg PO QDAY Dim BioPerine PO multivitamin 1 EACH tablet 1 ea PO DAILY [id number]-trqqlhmpk-mzk C-Mn 1 EACH capsule 1 ea PO DAILY cinnamon bark 500 MG capsule 1,000 mg PO DAILY meloxicam 7.5 mg tablet 7.5 mg PO BID calcium carbonate-vitamin D2 600 mg calcium- 200 unit tablet 1 tab PO DAILY rosuvastatin 5 mg tablet 5 mg PO DAILY Qty: 90 4RF lisinopril 10 mg tablet 10 mg PO DAILY Qty: 90 3RF Primary Care Provider: Austen Lara Referrals: Austen Lara MD [Primary Care Provider, Family Practice] Activity Restrictions/Additional Instructions: Your imaging study showed you to have a fracture to the left 10th and 11th rib and a fracture off the tip of the 12th rib. This correlates with your pain and bruising from the fall. However there is no obvious hole in your lung or bleeding. Take the prescribed medications as directed to help control your symptoms. Return to the ER should you have any further concerns. You may also try to help control pain by continuing Tylenol and/or Motrin and using [id number] topical treatments such as lidocaine patches or IcyHot Print Language: Chinese Disposition Disposition: Home, Self Care Discharge Date/Time: 12/25/24 08:32
[2024-12-25 07:46] VITALS: BP 152/67; PULSE 63; RESP 16; O2SAT 100
[2024-12-25 08:31] VITALS: BP 152/67; PULSE 63; RESP 16; TEMP 36.6; O2SAT 100
== END 2024-12-25 08:32 | disposition home or self-care (01) ==
PROVIDERS: Emergency Provider Emergency Medicine; PCP Family Medicine; Visit Provider Emergency Medicine
DX: S22.42XA Multiple fractures of ribs, left side, initial encounter for closed fracture (principal); S30.0XXA Contusion of lower back and pelvis, initial encounter; W10.9XXA Fall (on) (from) unspecified stairs and steps, initial encounter; I10 Essential (primary) hypertension; E78.00 Pure hypercholesterolemia, unspecified; Z79.82 Long term (current) use of aspirin; Z79.899 Other long term (current) drug therapy
CPT/HCPCS: 71101; 72131; 74177; 80048; 85025; 85610; 85730; 96361; 96374; 96375; 99284; Q9967; A4216; J2405

== ENCOUNTER 2024-12-29 10:58 | Emergency (ER) | payer MEDICARE, SELFPAY ==
[2024-12-29 10:59] VITALS: BP 182/76; PULSE 79; RESP 18; TEMP 37.1; O2SAT 98
--- NOTE | 2024-12-29 11:27 | VDLE_ITS ---
Reason For Study Reason For Study: Swelling RIGHT LEFT CFV is compressible, spontaneous, phasic, competent GSV is normal. and demonstrates normal augmentation. CFV is compressible, spontaneous, phasic, competent, Procedure and demonstrates normal augmentation. This is a venous duplex using B-mode, color flow and FV is compressible, spontaneous, phasic, competent spectral Doppler. and demonstrates normal augmentation. Exam performed portable in ED. POP V is compressible, spontaneous, phasic, competent A preliminary report was called and/or faxed to and demonstrates normal augmentation. COLLINS Aranda. T/P Trunk is compressible. PTV is compressible. LT PerV is compressible. VL/Venous Duplex US, Unilateral Interpretation Summary Deep veins of the left lower extremity are patent and compressible segmentally. There is no evidence of left lower extremity deep vein thrombosis. The left great saphenous vein appears patent an d compressible segmentally. Ordering Physician: Bob Parker Referring Physician: Austen Lara MD Performed By: Sherrell Dawson RVT
--- NOTE | 2024-12-29 11:27 | RAD_ITS ---
PROCEDURE: FOOT MIN 3 VIEWS 12/29/2024 REASON FOR EXAM: PAIN 4TH TOE, FOOT SWELLING TECHNIQUE: Procedure Code: RADFO Modality: DX Procedure: FOOT MIN 3 VIEWS Laterality: Left COMPARISON: None. FINDINGS: BONES: No acute fracture or focal osseous lesion. Small achilles tendon insertional enthesophyte. JOINTS: No dislocation. Mild arthritic changes of the 1st metatarsophalangeal joint. SOFT TISSUES: Diffuse swelling of the 4th toe. RAD/Foot min 3 Views IMPRESSION: SOFT TISSUE SWELLING. NO FRACTURE IDENTIFIED. Reading Location: [id number]
--- NOTE | 2024-12-29 11:31 | ED.VIS.LOWEX ---
HPI History of Present Illness Chief Complaint: Lower Extremity Injury Informant: patient and spouse/S.O. Narrative Narrative: Patient is a 74-year-old male presenting with acute onset of left foot swelling and pain. - Noticed swelling in the left foot and ankle today, described as fat foot compared to the right skinny foot. - Reports pain upon palpation of the foot on exam (did not complain of any pain prior to ED arrival). - Denies any previous episodes of similar swelling or pain in the foot. Has not experienced any discoloration or swelling in the toes this week until today; previously noted tightness in the toes along with dark discoloration due to cold response after freezing injury to that foot. - Denies any recent trauma to the foot other than a fall earlier this week, and denies known injury to the foot. - No recent long trips, hospitalizations, or surgeries in the past 1-2 months. No history of blood clots; currently taking baby aspirin for cardiac health. - Denies fevers, chest pain, dyspnea, or syncope in the past few days. - No pain in the groin or calf. - Sustained a fall earlier this week, resulting in three rib fractures; currently on pain medication as needed. - History of frostbite on two left toes, requiring surgery on the left little toe; typically takes medication for this condition in the winter but has not started it yet this year. [facility] Medical History PONV (postoperative nausea and vomiting) Wears glasses Arthritis Prostate disease High cholesterol Heartburn Non-smoker History of echocardiogram Cardiology follow-up encounter SVT (supraventricular tachycardia) NSVT (nonsustained ventricular tachycardia) Lightheadedness Essential hypertension Bruit of right carotid artery Family history of hypertension Family history of ischemic heart disease Syncope and collapse Hyperlipidemia Hypertension Nonrheumatic mitral (valve) prolapse Palpitations Long-term use of high-risk medication Right carotid bruit Home Medications ?Medication ?Instructions ?Recorded ?Last Taken ?Type cinnamon bark 500 mg capsule 1,000 mg PO DAILY 08/09/16 11/10/23 History aucbznamqdz-ilkfxfdeb-hyb C-Mn 500 1 ea PO DAILY 08/09/16 11/10/23 History mg-400 mg capsule multivitamin 1 ea PO DAILY 08/09/16 11/10/23 History turmeric root extract 500 mg 500 mg PO DAILY 09/26/19 11/10/23 History capsule magnesium chloride 64 mg 128 mg PO DAILY 12/29/20 11/10/23 History (magnesium chloride) tablet,delayed release rosuvastatin 5 mg tablet 5 mg PO DAILY #90 tabs 04/17/24 Unknown Rx lisinopril 10 mg tablet 10 mg PO DAILY #90 tabs 08/20/24 Unknown Rx Dim BioPerine PO 09/03/24 Unknown History aspirin 81 mg tablet,delayed 81 mg PO QDAY 09/03/24 Unknown History release (Adult Low Dose Aspirin) calcium carb-ergocalciferol (vit 1 tab PO DAILY 12/25/24 Unknown History D2) 600 mg calcium-200 unit tablet diazepam 5 mg tablet (Valium) 5 mg PO TID PRN Muscle pain/spasm 12/25/24 Unknown Rx 5 days #15 tabs meloxicam 7.5 mg tablet 7.5 mg PO BID 12/25/24 Unknown History oxycodone 5 mg tablet 5 mg PO Q6H PRN pain 5 days #20 12/25/24 Unknown Rx tabs cephalexin 500 mg capsule 500 mg PO Q6 #28 CAPSULES 12/29/24 Unknown Rx Allergy/AdvReac Type Severity Reaction Status Date / Time chlorhexidine Allergy Rash Verified 12/29/24 10:59 Penicillins Allergy STRANGE Verified 12/29/24 10:59 SENSATION IN MOUTH AND TEETH atorvastatin (From Lipitor) AdvReac Severe Myalgias Verified 12/29/24 10:59 albuterol AdvReac RAPID Verified 12/29/24 10:59 HEART BEAT Family History Brother CAD (coronary artery disease) Myocardial infarction Hypertension Surgical History History of radiofrequency ablation (RFA) procedure for cardiac arrhythmia History of total right knee replacement (~08/2020) History of radiofrequency ablation procedure for cardiac arrhythmia (11/26/20) Total knee replacement status History of arthroscopy of shoulder (~06/2017) S/P inguinal hernia repair (~07/2017) History of transurethral resection of prostate History of hemorrhoidectomy History of hernia repair History of tonsillectomy and adenoidectomy History of arthroplasty of right knee History of back surgery Social History household members: spouse Smoking Status: Never smoker alcohol intake: current details: occasional substance use type: does not use ROS ROS ED Constitutional Constitutional ED: Denies chills or fever(s) Cardiovascular Cardiovascular: Reports as per HPI and leg edema; Denies chest pain, dyspnea or syncope Musculoskeletal Musculoskeletal: Reports extremity pain; Denies neck pain Integumentary Denies Abrasions, rash or wounds Neurologic Neurologic: Denies paresthesias or weakness EXAM Physical Exam Const Vital Signs: 12/29/24 10:59 Temperature 98.7 F Temperature Source Oral Pulse Rate 79 Respiratory Rate 18 Blood Pressure 182/76 H Blood Pressure Mean 111 Pulse Ox 98 Oxygen Delivery Method Room Air Positive well nourished and well developed General Appearance ED: well developed and NAD Neck full ROM and supple Back/Spine normal ROM and normal to inspection Extremity Extremity Narrative: Edema mild throughout the left foot and into the distal third of the lower leg but not proximal to that. No calf tenderness no palpable cords. All compartments the lower leg and thigh are soft and nondistended he has full range of motion of the hip knee and ankle without difficulty or limitation. There is no palpable or tender inguinal lymphadenopathy of the left lower extremity. With regards to the toes, there is tenderness at the distal phalanx of the fourth toe and there are several nonruptured, nontense bullae in this area. There appears to possibly be a small amount of ecchymosis at the tip of the toe just distal to the nail, I do not see any abscess or focal areas of cellulitis the plantar aspect of the foot and toes are normal. On the dorsum of all the toes they are hyperemic. The third toe there is a small red papular area at the base of the nail that is nontender but without a bulla. There is no lymphangitis. The rest of the foot is nontender and with a trace amount of edema. Cap refill is 3 seconds pulses are difficult to palpate bilaterally. Right foot is more normal-appearing without any hyperemia or edema. Neuro oriented x3, no focal motor deficits and no sensory deficits noted Sensorium / Orientation: alert Psych mental status grossly normal and thought process normal Skin no wounds Rashes: no rashes MDM MDM MDM Narrative Medical decision making narrative: Assessment: The patient is a 74-year-old male with PMH of remote frostbite injury to the left toes and recent three rib fractures, presenting for acute onset swelling of the left foot and ankle noted today with focal tenderness and bulla formation over the distal phalanx of the left fourth toe. Differential considerations include early cellulitis or friction-related blistering versus recurrent cold-induced injury; deep venous thrombosis is considered but felt unlikely given absence of prior DVT, immobility, recent surgery, or other provoking factors. No systemic signs of infection or venous thromboembolism were elicited. Given the localized pain, edema extending into the lower leg, and cutaneous bullae, early cellulitis of the left fourth toe with secondary lower-extremity edema is the most likely diagnosis. Plan: - Empiric oral antibiotic therapy initiated to cover potential soft-tissue infection. - Provided wound care instructions and advised protective off-loading of left foot. - Discussed low but non-zero DVT risk and rationale for imaging; patient and family verbalized understanding. Three-view x-ray series of the left foot on Maitra rotation are normal radiology in agreement no acute bony abnormality preliminary report from tissue recovery technician indicates that the duplex Doppler is negative for DVT therefore to cover him against possibility of infection as I discussed with him and his and placing him on prescription for Keflex and arranging reevaluation by podiatry in the near future they are to call for appointment, we are treating empirically for possible cellulitis that could be causing this edema as well they are comfortable with that plan. Discharged home with strict return precautions and plan to follow up with primary care physician after weekend or sooner for worsening symptoms. Radiography Diagnostic Testing: Clinical Impression(s) from Imaging Studies Foot X-Ray 12/29/24 11:27 IMPRESSION: SOFT TISSUE SWELLING. NO FRACTURE IDENTIFIED. Reading Location: [facility] Discharge Plan Triage Chief Complaint: Lower Extremity Injury ED Provider: Bob Parker Dx/Rx/DC Orders Clinical Impression: Cellulitis of fourth toe, left, Leg edema, left Instructions: ED Cellulitis Prescriptions: New cephalexin 500 mg capsule 500 mg PO Q6 Qty: 28 0RF No Action turmeric root extract 500 mg capsule 500 mg PO DAILY magnesium chloride 64 mg tablet,delayed release (DR/EC) 128 mg PO DAILY aspirin [Adult Low Dose Aspirin] 81 mg tablet,delayed release (DR/EC) 81 mg PO QDAY Dim BioPerine PO multivitamin 1 EACH tablet 1 ea PO DAILY ncaavumqwbs-iyebqljui-lxi C-Mn 1 EACH capsule 1 ea PO DAILY cinnamon bark 500 MG capsule 1,000 mg PO DAILY meloxicam 7.5 mg tablet 7.5 mg PO BID calcium carbonate-vitamin D2 600 mg calcium- 200 unit tablet 1 tab PO DAILY oxycodone 5 mg tablet 5 mg PO Q6H PRN (Reason: pain) 5 Days Qty: 20 0RF diazepam [Valium] 5 mg tablet 5 mg PO TID PRN (Reason: Muscle pain/spasm) 5 Days Qty: 15 0RF rosuvastatin 5 mg tablet 5 mg PO DAILY Qty: 90 4RF lisinopril 10 mg tablet 10 mg PO DAILY Qty: 90 3RF Primary Care Provider: Austen Lara Referrals: Austen Lara MD [Primary Care Provider, Family Practice] Mihai Odell DPM [Med Staff - Active Staff, Podiatry] - As soon as possible Activity Restrictions/Additional Instructions: - An X-ray of your foot was done today to check for any break, swhich was negative. - A duplex venous ultrasound was performed this morning to rule out a blood clot, which was negative. - You were started on an antibiotic to cover a possible infection?take it as directed and finish the full course. - Follow up with your doctor and/or podiatry as referred after the weekend to reexamine your foot and plan any further care. Print Language: Serbian Disposition Disposition: Home, Self Care
--- OUTSIDE RECORDS SUMMARY | 2024-12-29 11:47 | XMS RPT_ITS | CCD ---
Author Organization [facility] Care Team Providers Care Customer Service Clerk Name Role Phone Mati Webster MD Unavailable Dari Meier Unavailable Unavailable oYon Lyle Unavailable Unavailable WISAM LARA Referring Unavailable WISAM LARA Primary Care Unavailable AIDEN BARON Attending Unavailable REINA RAVI Admitting Unavailable MATI WEBSTER Referring Unavailable JOSE M ESQUIVEL Attending Unavailable CONSULT, CARDIOLOGY - EP Consulting Unavail able Dr. Wisam Lara Primary Care Provider Dr. Wisam Lara Referring Provider Dr. Mati Webster Attending Provider Dr. Wisam Lara Primary Care Provider Dr. Wisam Lara Referring Provider Dr. Mati Webster Attending Provider Wisam Lara MD Unavailable [facility] Unavailable Dr. Everton Carrera MD Unavailable Dr. Redd Cason MD Unavailable Dr. Emiliano Barfield MD ([facility]) Unavailable [phone] Dr. Real Agee MD Unavailable Dr. Luis Delatorre MD Unavailable Reji PENA, Andra Unavailable Dara Sainz LPN Unavailable Unavailable Maude Santos MA Unavailable Unavailable Lisa ECHOLSC, Luambrose E Unavailable Lisa, Concha Ventura Unavailable Unavailable Lars MIRN, Sharon Unavailable Unavailable King VERONICA-C, Tin Phelan Unavailable Yury RN, Naomi Cailin Unavailable Unavaila ble Prince AZEVEDO, Monica Unavailable Unavailable Rudy RN, Francie Y Unavailable Unavailable [place] LABORER MINE, Diana K Unavailable Unavai florian Lee PA-C, Jaci J Unavailable Nielsen, Mable L Unavailable Donnell LABORER MINE, Beronica M Unavailable Unavailab le [place] LABORER MINE, Renée Addison Unavailable Unavailab le Vess LABORER MINE, Nelaxmie L Unavailable Unavailable [place] LABORER MINE, Liz Unavailable Unavailabl e Unavailable Unavailable Dr. Wisam Lara Primary Care Provider Dr. Eleazar Vann Attending Provider Dr. Wisam Lara Referring Provider WILLIE Hopkins Attending Provider Dr. Raymundo Bentley Attending Provider Kristian PENA, Roxanne Unavailable Unavailkym e WISAM LARA Consulting Unavailable SIMIN DELGADO DO Admitting Unavailable SIMIN DELGADO DO Primary Care Unavailable SIMIN DELGADO DO Attending Unavailable PROVIDER, UNKNOWN Consulting Unavailable PROVIDER, UNKNOWN Consulting Unavailable PROVIDER, UNKNOWN Consulting Unavailable Dr. Wisam Lara MD Primary Care Provider Dr. Emiliano Barfield MD Attending Provider Dr. Emiliano Barfield MD Referring Provider [phone] Wisam Anthony Other Provider Dr. Wisam Lara MD Referring Provider Dr. Erick Ricks MD Attending Provider Dr. Wisam Lara MD Referring Provider iWsam Anthony Attending Provider Wisam Lnaier Attending Unavailable Wisam Lara Primary Care Unavailable Wisam Lara Referring Unavailable Emiliano Barfield Referring Unavailable Wisam Lanier Consulting Unavailable Wisam Lara Primary Care Unavailable Emiliano Barfield Attending Unavailable Wisam Lara Primary Care Unavailable [facility] Attending Unavailable Allergies Allergy Classification Reported Allergen(s) Allergy Type Date of Onset Reaction(s) Facility Ch[facility] (2 sources) [facility]; [facility] Penicillin V (2 sources) Penicillin V Drug [facility] (18 sources) albuterol; Translations: [ALBUTEROL] Drug Allergy 07-21-19 13 triggered A-fib, RAPID HEART BEAT [facility] Work Phone: (7 sources) atorvastatin; Translations: [LIPITOR] Drug Allergy 10-03-19 13 myalgias [facility] Work Phone: (20 sources) penicillin Drug Allergy 08-11-19 11 [facility] Work Phone: (10 sources) atorvastatin Drug Allergy 12-30-19 21 Myalgias [facility] (20 sources) Chlorhexidine Drug Allergy 12-30-19 21 Rash [facility] (11 sources) Penicillins; Translations: [Penicillins] Propensity to adverse reactions 12-30-19 21 STRANGE SENSATION IN MOUTH AND TEETH [facility] (20 sources) Albuterol *ANTIASTHMATIC AND BRONCHODILATOR AGENTS* [facility]; [facility] (1 source) Chlorhexidine Drug Allergy [facility] (1 source) Penicillin Drug Allergy [facility] (1 source) atorvastatin Drug Allergy 12-26-19 [facility] (1 source) Chlorhexidine Drug Allergy 12-26-19 [facility] Medications Current Medications Medication Drug Class(es) Dates Sig (Normalized) Sig (Original) aspirin 81 mg delayed release oral tablet (20 sources) Platelet Aggregation Inhibitor, Nonsteroidal Anti-inflammatory Drug Start: 09-03-2024 Aspirin (Adult Low Dose Aspirin) 81 mg tablet,delayed release (DR/EC) Active 81 mg PO daily September 03, 2024 12:00am Start: 04-29-2017 End: 11-17-2023 take 1 tablet by mouth once daily Aspirin 81 mg tablet,delayed release (DR/EC) Discontinued 81 mg PO daily 0 April 29, 2017 1:00am November 17, 2023 10:16am Start: 08-09-2016 End: 08-14-2016 take 1 tablet by mouth once daily Aspirin 81 MG Tab.Chew Discontinued 81 mg PO DAILY@0800 August 09, 2016 12:00am August 14, 2016 8:20am Start: 08-10-2010 take 1 tablet by hortencia th once daily ASPIRIN 81 MG TABS One tablet by mouth daily ASPIRIN [id number] [place] Dewitt Start: 08-10-2010 take 1 tablet by hortencia th once daily ASPIRIN EC 81 MG TBEC One tablet by mouth daily ASPIRIN [id number] Emily Sarmiento RN cinnamon bark 500 mg oral capsule (20 sources) Start: 08-09-2016 take 1000 mg by mouth once daily Cinnamon Bark Active 1000 MG PO DAILY August 09, 2016 12:00am Start: 07-03-2014 take 1 capsule by mo uth once daily Cinnamon Bark 500 MG capsule Active 1000 mg PO DAILY August 09, 2016 12:00am clindamycin 300 mg oral capsule (20 sources) Lincosamide Antibacterial Start: 01-02-2024 clindamycin HCL 300 mg capsule ; 2 (two) Capsule one hour pre dental procedure for 0 days Quantity: 12 {Capsule} Refills: 0 Ordered: 02-Jan-2024 MD Wisam Lara Start: 02-Jan-2024 Start: 01-09-2020 End: 10-15-2020 take 2 capsules by mouth every hour Clindamycin HCl 300 MG Oral Capsule ; 2 (two) Capsule one hour pre dental procedure for 0 days Quantity: 12 {Capsule} Refills: 0 Ordered: 15-Oct-2020 JEAN Mendoza Start: 09-Jan-2020 End: 15-Oct-2020 Status: Inactive Start: 07-05-2018 End: 07-05-2018 take 2 capsules by mouth every hour Clindamycin Hcl 300 mg capsule Discontinued 600 mg PO .COMPLEX July 05, 2018 12:00am July 05, 2018 4:41pm 600 mg PO take 2 caps 1 HR prior to dental procedure; Start: 07-05-2018 End: 07-05-2018 take 2 capsules by mouth every hour Clindamycin Hcl Discontinued 600 MG PO .COMPLEX July 05, 2018 12:00am July 05, 2018 4:41pm 600 mg PO take 2 caps 1 HR prior to dental procedure; Start: 07-20-2012 CLINDAMYCIN HC L 300 MG CAPS Please take 2 pills prior to dental procedures. CLINDAMYCIN HCL [id number] Sharon Blanco PA-C Dim BioPerine (2 sources) Start: 09-03-2024 Dim BioPerine Active PO September 03, 2024 12:00am Glucosamine (20 sources) Glucosamine Rtwoopplfsc-Eofqjzojq-Nhe C- Mn (8 sources) Start: 08-09-2016 Glucosamine-Ch ondroit-Vit C-Mn Active 1 EACH PO DAILY August 09, 2016 10:56am Start: 08-09-2016 Glucosamine-Ch ondroit-Vit C-Mn Active 1 EACH PO DAILY August 08, 2016 11:00pm Start: 08-09-2016 Glucosamine-Ch ondroit-Vit C-Mn Active 1 EACH PO DAILY August 09, 2016 12:00am Dmkwktfymjq-Lgkusqmga-Uec C-Mn 1 EACH capsule (2 sources) Start: 08-09-2016 take 1 capsule by mouth once daily Sihohhrrgcy-Wguutaeee-Qyy C-Mn 1 EACH capsule Active 1 NMA PO DAILY August 09, 2016 12:00am magnesium chloride 535 mg delayed release oral tablet (20 sources) Start: 12-29-2020 take 2 tablets by mouth once daily Magnesium Chloride 64 mg tablet,delayed release (DR/EC) Active 128 mg PO DAILY December 29, 2020 1:00am Start: 12-29-2020 take 128 mg by mouth once daily Magnesium Chloride Active 128 MG PO DAILY December 29, 2020 1:00am Start: 08-09-2016 End: 09-26-2019 Magnesium Chloride 71.5 MG tablet,delayed release (DR/EC) Discontinued 64 mg PO DAILY August 09, 2016 12:00am September 26, 2019 2:24pm Start: 08-09-2016 End: 09-26-2019 take 64 mg by mouth once daily Magnesium Chloride Disc ontinued 64 MG PO DAILY August 09, 2016 12:00am September 26, 2019 2:24pm MAGNESIUM CHLORI DE ER, 535 (64 Mg)MG (Oral Tablet Extended Release) ; (535 (64 Mg) MG) End: 07-06-2024 Mag-Delay End: 06-Jul-2024 S tatus: Inactive Mag-Delay meloxicam 7.5 mg oral tablet (6 sources) Nonsteroidal Anti-inflammatory Drug meloxicam 7.5 mg tablet ; 1 two times daily (7.5 mg) Multivitamin 1 EACH tablet (2 sources) Start: 08-09-2016 Multivitamin 1 EACH tablet Active 1 NMA PO DAILY August 09, 2016 12:00am Multivitamin preparation (8 sources) Start: 08-09-2016 Multivitamin Active 1 EACH PO DAILY August 09, 2016 10:56am Start: 08-09-2016 Multivitamin A ctive 1 EACH PO DAILY August 08, 2016 11:00pm Start: 08-09-2016 Multivitamin A ctive 1 EACH PO DAILY August 09, 2016 12:00am MULTIVITAMINS (Oral Tablet) (20 sources) take 1 tablet by mouth once daily MULTIVITAMINS (Oral Tablet) ; 1 daily Turmeric Curcumin (10 sources) Turmeric Curcumi n Turmeric Root Extract (20 sources) Start: 09-26-2019 take 500 mg by mouth once daily Turmeric Root Extract Active 500 MG PO DAILY September 26, 2019 2:24pm Start: 09-26-2019 take 1 capsule by mo ut once daily Turmeric Root Extract 500 mg capsule Active 500 mg PO DAILY September 26, 2019 12:00am Start: 09-26-2019 take 500 mg by mouth once solomon y Turmeric Root Extract Active 500 MG PO DAILY September 25, 2019 11:00pm Start: 09-26-2019 take 500 mg by mouth once solomon y Turmeric Root Extract Active 500 MG PO DAILY September 26, 2019 12:00am Turmeric Curcumi n Completed/Discontinued Medications Medication Drug Class(es) Dates Sig (Normalized) Sig (Original) acetaminophen 325 mg / HYDROcodone bitartrate 5 mg oral tablet (12 sources) Opioid Agonist Start: 11-17-2023 End: 09-03-2024 Hydrocodone-Acetami nophen 5-325 mg tablet Discontinued 1 {tbl} PO EVERY 6 HOURS 28 7 0 November 17, 2023 September 03, 2024 10:44am 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, lumbar region Start: 08-05-2017 End: 12-01-2017 Hydrocodone-Acetaminophen 1 TABLET tablet Discontinued 1 {tbl} PO EVERY 6 HOURS NEEDED as needed for Pain 8 3 0 August 05, 2017 12:00am December 01, 2017 10:03am Postoperative pain Other acute postprocedural pain Start: 08-05-2017 End: 12-01-2017 take 1 tablet by mouth every six hours as needed Hydrocodone-Acetaminophen Discontinued 1 TABLET PO EVERY 6 HOURS NEEDED 8 3 August 05, 2017 12:00am December 01, 2017 10:03am [id number] 200 actuat albuterol 0.09 mg/actuat metered dose inhaler (20 sources) beta2-Adrenergic Agonist Start: 01-19-2012 End: 06-21-2013 take 2 puff(s) by inhalation every four hours as needed PROAIR HFA, 108 (90 Base)MCG/ACT (Inhalation Aerosol Solution) ; 2 (two) puffs q4hrs, prn for 0 days Quantity: 1 {inhaler} Refills: 0 Ordered: 21-Jun-2013 JEAN Vera Start: 19-Jan-2012 End: 21-Jun-2013 Status: Inactive 24 hr alfuzosin hydrochloride 10 mg extended release oral tablet (20 sources) alpha-Adrenergic Marjan Start: 08-09-2016 End: 06-13-2017 take 1 tablet by mouth every twenty-four hours at bedtime Alfuzosin 10 MG tablet extended release 24 hr Discontinued 10 mg PO AT BEDTIME August 09, 2016 12:00am June 13, 2017 10:41am Start: 01-01-2015 End: 12-08-2016 take 1 tablet by mouth once daily ALFUZOSIN HCL ER 10 MG [id number] One tablet by mouth daily ALFUZOSIN HCL [id number] Sharon Blanco PA-C atorvastatin 20 mg oral tablet (18 sources) HMG-CoA Reductase Inhibitor Start: 07-20-2012 End: 10-02-2012 take 1 tablet by mouth once daily LIPITOR 20 MG TABS One tablet by mouth daily ATORVASTATIN CALCIUM [id number] Mati Webster MD Start: 07-20-2012 [facility] 10 MG TABS One tablet by mouth daily ATORVASTATIN CALCIUM [id number] Sharon Blanco PA-C atropine sulfate 0.025 mg / diphenoxylate hydrochloride 2.5 mg oral tablet (20 sources) Anticholinergic, Cholinergic Muscarinic Antagonist, Antidiarrheal Start: 10-05-2011 End: 06-21-2013 take 1 tablet by mouth every eight hours LOMOTIL, 2.5-0.025MG (Oral Tablet) ; 1 Tablet every eight hours for 0 days Quantity: 20 {Tablet} Refills: 0 Ordered: 21-Jun-2013 JEAN Vera Start: 05-Oct-2011 End: 21-Jun-2013 Status: Inactive azithromycin 250 mg oral tablet (20 sources) Macrolide Antimicrobial Start: 11-22-2022 End: 05-25-2023 azithromycin 250 mg tablet ; 2 (two) Tablet on day one, then one daily until gone for 0 days Quantity: 6 {Tablet} Refills: 0 Ordered: 25-May-2023 JEAN Mendoza Start: 22-Nov-2022 End: 25-May-2023 Status: Inactive Calcium Carbonate / Vitamin D (12 sources) Start: 08-10-2010 take 1 tablet by mouth once daily CALCIUM CARBONATE-VITAMIN D 600-125 MG-UNIT TABS One tablet by mouth daily CALCIUM CARBONATE-VITAMIN D [id number] [place] M Esdras Start: 08-10-2010 End: 01-01-2015 take 1 tablet by mouth once daily CALCIUM CARBONATE-VITAMIN D 600-125 MG-UNIT TABS One tablet by mouth daily CALCIUM CARBONATE-VITAMIN D [id number] Mati Webster MD cefdinir 300 mg oral capsule (20 sources) Cephalosporin Antibacterial Start: 01-13-2022 End: 01-20-2022 take 1 capsule by mouth twice daily Cefdinir 300 MG Oral Capsule ; 1 (one) Capsule twice a day for 7 days Quantity: 14 {Capsule} Refills: 0 Ordered: 13-Jan-2022 CYNTHIA Gonzalez Start: 13-Jan-2022 End: 30-Nov-2022 Status: Inactive celecoxib 200 mg oral capsule (6 sources) Nonsteroidal Anti-inflammatory Drug Start: 12-31-2021 End: 06-21-2023 take 1 capsule by mouth once daily Celecoxib (Celebrex) 200 mg capsule Discontinued 200 mg PO DAILY December 31, 2021 1:00am June 21, 2023 8:22am GLUCOSAMINE-CHONDRO ITIN CAPS (6 sources) Start: 08-10-2010 take 1 tablet by mouth once daily GLUCOSAMINE-CHONDR OITIN CAPS One tablet by mouth daily GLUCOSAMINE-CHONDR OITIN CAPS [id number] [place] Dewitt ciprofloxacin 500 mg oral tablet (20 sources) Quinolone Antimicrobial Start: 08-14-2016 End: 04-29-2017 take 1 tablet by mouth twice daily Ciprofloxacin Hcl 500 MG tablet Discontinued 500 mg PO TWICE A DAY 14 August 14, 2016 12:00am April 29, 2017 1:02pm Start: 01-19-2012 End: 06-21-2013 take 1 tablet by mouth twice daily CIPROFLOXACIN HCL, 500MG (Oral Tablet) ; 1 Tablet two times daily for 0 days Quantity: 20 {Tablet} Refills: 1 Ordered: 21-Jun-2013 JEAN Vera Start: 19-Jan-2012 End: 21-Jun-2013 Status: Inactive diazePAM 5 mg oral tablet (20 sources) Benzodiazepine Start: 01-29-2019 End: 06-29-2021 diazePAM 5 MG Oral Tablet ; 1 (one) Tablet Tablet prn spasm for 0 days Quantity: 90 {Tablet} Refills: 0 Ordered: 29-Jun-2021 JEAN Mendoza Start: 29-Jan-2019 End: 29-Jun-2021 Status: Inactive Comments: Mail order. JAN Comment on above: Mail order. JAN finasteride 5 mg oral tablet (20 sources) 5-alpha Reductase Inhibitor Start: 12-18-2014 End: 10-16-2015 take 1 tablet by mouth once daily Finasteride 5 MG Oral Tablet ; 1 (one) Tablet Tablet daily for 0 days Quantity: 30 {Tablet} Refills: 0 Ordered: 16-Oct-2015 COLLINS Cotton Start: 18-Dec-2014 End: 16-Oct-2015 Status: Inactive Comment on above: Mail order. hydrocortisone acetate 25 mg rectal suppository (20 sources) Corticosteroid Start: 12-27-2013 End: 12-05-2014 ANUSOL-HC, 25MG (Rectal Suppository) ; 1 (one) Suppository two times daily for 0 days Quantity: 30 {Suppository} Refills: 0 Ordered: 05-Dec-2014 JEAN Vera Start: 27-Dec-2013 End: 05-Dec-2014 Status: Inactive lisinopril 10 mg oral tablet (20 sources) Angiotensin Converting Enzyme Inhibitor Start: 08-10-2010 End: 08-20-2024 take 1 tablet by mouth once daily Lisinopril 10 mg tablet Discontinued 10 mg PO DAILY September 01, 2023 12:33pm August 20, 2024 9:43am Comment on above: per cardiology Magnesium (6 sources) Start: 01-01-2015 take 1 tablet by mouth once daily MAGNESIUM CAPS One tablet by mouth daily MAGNESIUM CAPS [id number] Mati Webster MD mefloquine hydrochloride 250 mg oral tablet (20 sources) Antimalarial Start: 10-05-2011 End: 06-21-2013 MEFLOQUINE HCL, 250MG (Oral Tablet) ; 1 Tablet weekly starting one week prior to travel and continuing 4 weeks after return for 0 days Quantity: 8 {Tablet} Refills: 0 Ordered: 21-Jun-2013 JEAN Vera Start: 05-Oct-2011 End: 21-Jun-2013 Status: Inactive MULTIPLE VITAMIN (6 sources) Start: 08-10-2010 take 1 tablet by mouth once daily MULTIVITAMINS TABS One tablet by mouth daily MULTIPLE VITAMIN [id number] [place] Dewitt nirmatrelvir 300 mg (150 mg x2)-ritonavir 100 mg tablet,dose pack (20 sources) Start: 09-23-2023 End: 01-02-2024 nirmatrelvir 300 mg (150 mg x2)-ritonavir 100 mg tablet,dose pack ; 3 (three) tablet bid for 0 days Quantity: 30 {Tablet} Refills: 0 Ordered: 02-Jan-2024 JEAN Mendoza Start: 23-Sep-2023 End: 02-Jan-2024 Status: Inactive Start: 09-23-2023 nirmatrelvir 3 00 mg (150 mg x2)-ritonavir 100 mg tablet,dose pack ; 3 (three) tablet bid for 0 days Quantity: 30 {Tablet} Refills: 0 Ordered: 23-Sep-2023 MD Wisam Lara Start: 23-Sep-2023 Start: 10-16-2022 End: 05-25-2023 nirmatrelvir 300 mg (150 mg x2)-ritonavir 100 mg tablet,dose pack ; 1 (one) tablet take as directed for 0 days Quantity: 1 {Each} Refills: 0 Ordered: 25-May-2023 JEAN Mendoza Start: 16-Oct-2022 End: 25-May-2023 Status: Inactive Comments: 1 dose pack Comment on above: 1 dose pack nystatin [id number] unt/ml oral suspension (9 sources) Polyene Antifungal Start: 01-03-20 End: 01-17-20 24 take 4 mL by mouth four times daily nystatin 100,000 unit/mL oral suspension ; 4 Milliliter four times daily for 14 days Quantity: 224 {Milliliter} Refills: 0 Ordered: 03-Jan-2024 CYNTHIA Gonzalez Start: 03-Jan-2024 End: 17-Jan-2024 Status: Inactive OMEGA-3 FATTY ACIDS CPDR (6 sources) Start: 08-11-19 take 2 tablets by mouth once daily OMEGA 3 CPDR Two tablets by mouth daily OMEGA-3 FATTY ACIDS CPDR [id number] [place] Dewitt Paxlovid 300 mg (150 mg x 2)-100 mg tablets in a dose pack (20 sources) Start: 01-05-20 End: 11-23-19 Paxlovid 300 mg (150 mg x 2)-100 mg tablets in a dose pack ; use as directed per instructions in pack for 0 days Quantity: 1 {Packet} Refills: 0 Ordered: 22-Nov-2022 JEAN Sousa Start: 04-Jan-2022 End: 22-Nov-2022 Status: Inactive pentoxifylline 400 mg extended release oral tablet (20 sources) Blood Viscosity Engine Buildup Mechanic Start: 01-24-20 End: 06-30-19 22 take 1 tablet by mouth three times daily Pentoxifylline ER 400 MG Oral Tablet Extended Release ; 1 (one) Tablet three times daily for 0 days Quantity: 270 {Tablet} Refills: 1 Ordered: 29-Jun-2021 JEAN Mendoza Start: 24-Jan-2020 End: 29-Jun-2021 Status: Inactive Comments: Mail order. Comment on above: Mail order. pravastatin sodium 10 mg oral tablet (20 sources) HMG-CoA Reductase Inhibitor Start: 10-03-19 13 End: 11-28-19 21 take 1 tablet by mouth at bedtime Pravastatin 10 mg tablet Discontinued 10 mg PO AT BEDTIME 90 January 24, 2020 10:41am November 27, 2020 4:46pm red yeast rice 600 mg oral tablet (18 sources) Start: 06-17-19 12 End: 01-27-20 12 take 1 tablet by mouth once daily RED YEAST RICE 600 MG TABS 1 tablet by mouth every day RED YEAST RICE EXTRACT [id number] Mati Webster MD Start: 08-10-2010 take 1 tablet by hortencia th every other day RED YEAST RICE 600 MG TABS 1 tablet by mouth every other day RED YEAST RICE EXTRACT [id number] [place] Dewitt rosuvastatin calcium 5 mg oral tablet (20 sources) HMG-CoA Reductase Inhibitor Start: 11-27-2020 End: 04-17-2024 take 1 tablet by mouth once daily Rosuvastatin 5 mg tablet Discontinued 5 mg PO DAILY 90 March 07, 2023 3:07pm April 17, 2024 4:37pm SAW PALMETTO (SERENOA REPENS) (12 sources) Start: 08-10-2010 End: 07-03-2014 take 1 g by mouth once daily SAW PALMETTO 1000 MG CAPS 1 gm - One tablet by mouth daily SAW PALMETTO (SERENOA REPENS) [id number] Sharon Blanco PA-C Start: 08-10-2010 take 1 g by mouth once daily S AW PALMETTO 1000 MG CAPS 1 gm - One tablet by mouth daily SAW PALMETTO (SERENOA REPENS) [id number] [place] Dewitt tamsulosin hydrochloride 0.4 mg oral capsule (20 sources) alpha-Adrenergic Marjan Start: 07-09-2013 End: 10-16-2015 take 1 capsule by mouth once daily Tamsulosin HCl 0.4 MG Oral Capsule ; 1 (one) Capsule Capsule daily for 0 days Quantity: 90 {Capsule} Refills: 3 Ordered: 16-Oct-2015 COLLINS Cotton Start: 29-Apr-2014 End: 16-Oct-2015 Status: Inactive Comment on above: Mail order. Problems Active Problems Problem Classification Problem Date Documented Da te Episodic/Chronic Abdominal hernia (20 sources) Left inguinal hernia ; Translations: [Unilateral inguinal hernia, without obstruction or gangrene, not specified as recurrent] 08-05-2017 Episodic Abdominal pain (20 sources) Abdominal pain; Translations: [Unspecified abdominal pain] 09-15-2017 Episodic Administrative/social admission (20 sources) Patient encounter status; Translations: [Encounter for health counseling related to travel] 09-26-2013 Episodic Anal and rectal conditions (20 sources) Rectum finding; Translations: [Anal spasm] 01-29-2019 Episodic Cardiac dysrhythmias (20 sources) Supraventricular tachycardia; Translations: [Supraventricular tachycardia] Onset: Chronic Conditions associated with dizziness or vertigo (10 sources) Lightheadedness; Translations: [Dizziness and giddiness] 10-31-2020 Episodic Disorders of lipid metabolism (20 sources) Hyperlipidemia; Translations: [Hyperlipidemia, unspecified] Onset: 08-10-2010 Chronic Comment on above: cardiology rosuvasta tin Essential hypertension (20 sources) Hypertensive disorder; Translations: [Essential hypertension] Onset: 08-10-2010 Chronic Comment on above: cardiology lisinopri l Heart valve disorders (20 sources) Mitral valve prolapse; Translations: [Nonrheumatic mitral (valve) prolapse] Onset: 08-10-2010 Chronic Hemorrhoids (20 sources) Hemorrhoids; Translations: [Unspecified hemorrhoids] 11-22-2022 Episodic Hyperplasia of prostate (20 sources) Benign prostatic hyperplasia; Translations: [Benign prostatic hyperplasia without lower urinary tract symptoms] 11-22-2022 Chronic Immunizations and screening for infectious disease (20 sources) Needs influenza immunization; Translations: [Encounter for immunization] 12-08-2015 Episodic Mycoses (18 sources) Candidiasis of mouth; Translations: [Candidal stomatitis] 01-03-2024 Episodic Nutritional deficiencies (20 sources) Deficiency of macronutrients; Translations: [Unspecified protein-calorie malnutrition] 06-17-2015 Chronic Osteoarthritis (10 sources) Osteoarthrosis of the carpometacarpal joint of the thumb; Translations: [Osteoarthritis of first carpometacarpal joint, unspecified] 07-06-2024 Chronic Other aftercare (10 sources) H/O: high risk medication; Translations: [Other termite inspector (current) drug therapy] 08-05-2017 Episodic Other and unspecified benign neoplasm (20 sources) Lipoma of upper limb; Translations: [Benign lipomatous neoplasm of skin and subcutaneous tissue of unspecified limb] 06-21-2013 Episodic Other circulatory disease (20 sources) Carotid bruit; Translations: [Other specified symptoms and signs involving the circulatory and respiratory systems] Onset: 12-08-2016 Episodic Other circulatory disease (3 sources) Other specified symptoms and signs involving the circulatory and respiratory systems; Translations: [Other symptoms involving cardiovascular system] Episodic Other ear and sense organ disorders (20 sources) Impacted cerumen of bilateral ears; Translations: [Impacted cerumen, bilateral] 11-22-2022 Episodic Other ear and sense organ disorders (20 sources) Impacted cerumen in left ear; Translations: [Impacted cerumen, left ear] 11-22-2022 Episodic Other fractures (1 source) Fracture of one rib, left side, initial encounter for closed fracture; Translations: [Fracture of one rib, left side, initial encounter for closed fracture] Onset: Episodic Other gastrointestinal disorders (20 sources) History of hemorrhoid; Translations: [Personal history of other diseases of the digestive system] 11-22-2022 Episodic Other nervous system disorders (10 sources) Moderate cognitive impairment; Translations: [Other symptoms and signs involving cognitive functions and awareness] 07-06-2024 Episodic Other nutritional; endocrine; and metabolic disorders (20 sources) Weight loss; Translations: [Abnormal weight loss] 06-17-2015 Episodic Other nutritional; endocrine; and metabolic disorders (8 sources) Weight decreased; Translations: [Abnormal weight loss] 06-17-2015 Episodic Other upper respiratory infections (20 sources) Sinusitis; Translations: [Chronic sinusitis, unspecified] 01-19-2012 Chronic Otitis media and related conditions (20 sources) Otitis media; Translations: [Otitis media, unspecified, unspecified ear] 11-22-2022 Episodic Residual codes; unclassified (20 sources) Family history of ischemic heart disease; Translations: [FH: Hypertension] Onset: 1 08-10-2010 Episodic Residual codes; unclassified (20 sources) Body mass index 20-24 - normal; Translations: [Body mass index (BMI) 22.0-22.9, adult] 12-09-2016 Episodic Residual codes; unclassified (20 sources) History of vaccination; Translations: [Personal history of other drug therapy] 11-22-2022 Episodic Residual codes; unclassified (20 sources) H/O: injury; Translations: [Other specified personal risk factors, not elsewhere classified] Onset: 0 11-22-2022 Episodic Residual codes; unclassified (20 sources) Up-to-date with immunizations; Translations: [Personal history of other drug therapy] 11-22-2022 Episodic Residual codes; unclassified (20 sources) Other specified conditions influencing health status 11-23-2011 Episodic Residual codes; unclassified (20 sources) Social and personal history finding; Translations: [Other specified health status] 09-23-2023 Episodic Spondylosis; intervertebral disc disorders; other back problems (2 sources) Lumbar spondylosis; Translations: [Spondylosis without myelopathy or radiculopathy, lumbar region] 11-17-2023 Chronic Spondylosis; intervertebral disc disorders; other back problems (20 sources) Neck pain; Translations: [Cervicalgia] 12-24-2009 Episodic Comment on above: ortho Superficial injury; contusion (20 sources) Foreign body - finger; Translations: [Superficial foreign body of unspecified finger, initial encounter] 09-01-2019 Episodic Unclassified (6 sources) Long-term drug therapy; Translations: [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 06-22-2023 Unclassified (20 sources) Pre-operative clearance - Note for Pre-operative clearance: -Getting stimulator in back by Dr Delgado. n He was already cleared by cardiology. The surgery date is pending. 06-22-2023 Unclassified (20 sources) MCR Well Adult - In general the patient feels well with no complaints, has good energy level and is sleeping poorly. The patient has a balanced diet and takes supplemental vitamins. The patient exercises 3 - 4 times per week and sleeps 7 hours per night. The patient denies having trouble with bathing, dressing/grooming, toileting, preparing meals and ambulating. The patient denies having trouble with grocery shopping, driving, use of telephone, housework, laundry, preparing/taking medications and finances. The patient has a Healthcare Power of Qa Lead. Note for [facility] Well Adult: -Specialists: Cardiology in May 2023, urology and ortho both June 2023.Is awaiting neurostimulator implant surgery. 07-13-2023 Unclassified (20 sources) [ADDITIONAL REASON] Well adult male - The patient feels well with no complaints, has good energy level and is sleeping well. The patient takes no supplemental vitamins & iron. The patient exercises 3 - 4 times per week. The patient sleeps 7 hours per night. 07-13-2023 Unclassified (3 sources) Well adult male - The patient feels well with no complaints, has good energy level and is sleeping well. The patient takes no supplemental vitamins & iron. The patient exercises 3 - 4 times per week. The patient sleeps 7 hours per night. 07-13-2023 Unclassified (3 sources) [ADDITIONAL REASON] MCR Well Adult - In general the patient feels well with no complaints, has good energy level and is sleeping poorly. The patient has a balanced diet and takes supplemental vitamins. The patient exercises 3 - 4 times per week and sleeps 7 hours per night. The patient denies having trouble with bathing, dressing/grooming, toileting, preparing meals and ambulating. The patient denies having trouble with grocery shopping, driving, use of telephone, housework, laundry, preparing/taking medications and finances. The patient has a Healthcare Power of Qa Lead. Note for [facility] Well Adult: -Specialists: Cardiology in May 2023, urology and ortho both June 2023.Is awaiting neurostimulator implant surgery. 07-13-2023 Viral infection (20 sources) Disease caused by 2019-nCoV; Translations: [COVID-19] 11-22-2022 Episodic Past or Other Problems Problem Classification Problem Date Documented Date Episodic/Chronic Cardiac dysrhythmias (20 sources) Palpitations; Translations: [Palpitations] Onset: 08-10-2010 08-10-2010 Episodic Malaise and fatigue (6 sources) Fatigue; Translations: [Other fatigue] Onset: 07-20-2012 07-20-2012 Episodic Other screening for suspected conditions (not mental disorders or infectious disease) (20 sources) Electrocardiogram abnormal; Translations: [Patient encounter status] Onset: 08-10-2010 08-10-2010 Episodic Residual codes; unclassified (3 sources) Family history of ischemic heart disease and other diseases of the circulatory system; Translations: [Family history of ischemic heart disease and other diseases of the circulatory system] 07-09-2013 Episodic Residual codes; unclassified (3 sources) FH: Hypertension; Translations: [Family history of ischemic heart disease and other diseases of the circulatory system] 07-09-2013 Episodic Residual codes; unclassified (10 sources) History of radiofrequency ablation operation for arrhythmia; Translations: [Other specified postprocedural states] Onset: 11-21-2020 11-27-2020 Episodic Residual codes; unclassified (2 sources) Other specified postprocedural states; Translations: [Personal history of surgery to heart and great vessels, presenting hazards to health] Onset: 11-21-2020 Episodic Syncope (6 sources) Syncope and collapse; Translations: [Syncope and collapse] Onset: 08-10-2010 08-10-2010 Episodic Unclassified (20 sources) Ear pain - The onset of the pain has been gradual and has been occurring in a persistent pattern for 3 weeks. The course has been constant. The pain is described as a mild plugged. The pain is described as being located in the inner ear. The pain is felt in the right ear. The symptoms have been associated with decreased hearing, inability to 'pop' ear drum and tinnitus. 11-22-2022 Unclassified (20 sources) Ear pain - The onset of the pain has been sudden and has been occurring in an intermittent pattern for 2 weeks. The course has been recurrent. The pain is described as a moderate plugged. The pain is described as being located in the inner ear. The pain is felt in the right ear. The symptoms have been associated with inability to 'pop' ear drum and tinnitus, while the symptoms have not been associated with decreased hearing, fever, purulent discharge from ear, sore throat, runny nose or cough. Medical History does not include ear infections, seasonal allergies or recurrent sinusitis. Note for Ear pain: Pt. had covid 12 days ago 01-13-2022 Unclassified (20 sources) [facility] Well Adult - In general the patient feels well with no complaints, has good energy level and is sleeping poorly. The patient has a balanced diet and takes supplemental vitamins. The patient exercises 3 - 4 times per week and sleeps 7 hours per night. The patient denies having trouble with bathing, dressing/grooming, toileting, preparing meals and ambulating. The patient denies having trouble with grocery shopping, driving, use of telephone, housework, laundry, preparing/taking medications and finances. The patient has a Healthcare Power of Qa Lead. 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 06-29-2021 Unclassified (20 sources) MCR Well Adult - In general the patient feels well with no complaints, has good energy level and is sleeping poorly. The patient has a balanced diet and takes supplemental vitamins. The patient exercises 3 - 4 times per week and sleeps 7 hours per night. The patient denies having trouble with bathing, dressing/grooming, toileting, preparing meals and ambulating. The patient denies having trouble with grocery shopping, driving, use of telephone, housework, laundry, preparing/taking medications and finances. The patient has a Healthcare Power of Qa Lead. 01-09-2020 Unclassified (20 sources) Ear pain - The onset of the pain has been gradual and has been occurring in a persistent pattern for months. The pain is described as a pressure and plugged. The pain is felt in both ears. 10-19-2019 Unclassified (20 sources) Retained thorn - Three weeks ago got a thorn in left thumb and a portion was retained. Continues with tenderness. 09-01-2019 Unclassified (20 sources) Abdominal pain - The onset of the abdominal pain has been gradual and has been occurring in a persistent pattern for 2 weeks. The pain is described as a moderate dull ache, pressure sensation and fullness. The pain is located in the epigastrium. Note for Abdominal pain: -Onset after laproscopic left side inguinal hernia surgery. It is worse in the PM and after activity. His appetite is not affected. 09-06-2017 Unclassified (20 sources) r/o hernia - left groin, occasionally feels a bulge, has a hot, burning sensation with exertion-tennis, walking over 2 miles or vigorous yard work, at rest the burning goes away.He also recently developed burning with urination on occasion. 06-09-2017 Unclassified (20 sources) MCR Well Adult - In general the patient feels well with no complaints, has good energy level and is sleeping poorly (wakes up 3 times a night to urinate). The patient has a balanced diet. The patient exercises 3 - 4 times per week and sleeps 7 hours per night. The patient denies having trouble with bathing, dressing/grooming, toileting, preparing meals and ambulating. The patient denies having trouble with grocery shopping, driving, use of telephone, housework, laundry, preparing/taking medications and finances. The patient has a Healthcare Power of Qa Lead and a Living Will. 12-10-2016 Unclassified (20 sources) [ADDITIONAL REASON] Transition into care - The patient is transitioning into care from another physician and a summary of care was reviewed. Note for Transition into care: Saw 12/08/16 for syncopal episode-had a 30day heart monitor-scheduled for a tilt table test and carotid dopplers 12-10-2016 Unclassified (20 sources) MCR well adult - In general the patient feels well with minor complaints, has good energy level and is sleeping well. The patient takes supplemental vitamins. The patient exercises weekly. Over the past 2 weeks, the patient has not been feeling down, depressed, or hopeless or feeling little interest or pleasure in doing things. The patient denies having trouble with bathing, dressing/grooming, toileting, preparing meals and ambulating. The patient denies having trouble with grocery shopping, driving, use of telephone, housework, laundry, preparing/taking medications and finances. The patient denies falling more than once in the past 12 months. The patient has a Healthcare Power of Qa Lead and a Living Will. 12-08-2015 Unclassified (20 sources) Unspecified Diagnosis 10-16-2015 Unclassified (20 sources) Ears - For the past 2-3 months, has noticed a cracking noise of his right ear. Has occurred in the past, but resolved. Denies having pain or ringing of bilateral ears or have a decreased hearing. Would like to have his ears irrigated today. 10-16-2015 Unclassified (20 sources) Weight loss - The patient has been losing weight for 6 months. The patient's appetite is normal. The patient's dietary intake is normal. The patient has lost 10 pounds. There has been no associated abdominal pain, constipation, diarrhea or melena. 06-17-2015 Unclassified (20 sources) Well Adult, male - The patient feels well with minor complaints, has good energy level and is sleeping well. The patient has a balanced diet. The patient exercises daily. The patient sleeps 7 hours per night. 12-05-2014 Unclassified (20 sources) MCR Well Adult - In general the patient feels well with no complaints, has good energy level and is sleeping well. The patient has a balanced diet and takes supplemental vitamins. The patient exercises daily (tennis, walking, biking, core strengthening exercises) and sleeps 7 hours per night. Over the past 2 weeks, the patient has not been feeling down, depressed, or hopeless. The patient denies having trouble with bathing, dressing/grooming, toileting, preparing meals and ambulating. The patient denies having trouble with grocery shopping, driving, use of telephone, housework, laundry, preparing/taking medications and finances. 06-21-2013 Unclassified (20 sources) hypertension (401.9) (Renamed from Hypertension (high blood pressure)) 01-19-2012 Unclassified (20 sources) Well Adult, male - The patient feels well with minor complaints, has good energy level and is sleeping well. Date of most recent cholesterol screening : (01/17/12 @ production expediter). Date of most recent glucose screening : (drawn today). Date of Zostavax : (01/14/2009). Date of Pneumovax : (02/02/2006). Date of most recent influenza vaccine : (11/23/2011). Last Tetanus booster: Date: (11/23/2011). The patient takes supplemental vitamins. The patient exercises 3 - 4 times per week. The patient sleeps 7 hours per night. Note for Well Adult, male: This note has been reviewed and approved in it's entirety by me. 01-19-2012 Unclassified (20 sources) Well adult male - The patient feels well with minor complaints (urinary hesitancy, back and joint pain, irregular heartbeat). Date of most recent cholesterol screening : (). Date of most recent glucose screening : (). Date of Zostavax : (2008). Date of Pneumovax : (2005). Date of most recent influenza vaccine : (plans to get one this year). Last Tetanus booster: Date: (2005 tD). Note for Well adult male: Saw cardiology this year, they manage lisinopril and moniter his cholesterol labs. 12-30-2010 Unclassified (20 sources) Well adult male - The patient feels well with minor complaints (has some shoulder pain). Date of most recent cholesterol screening : (12/05). Date of most recent glucose screening : (12/05). Patient exercises 3 - 4 times per week. 12-24-2009 Unclassified (14 sources) Transition into care - The patient is transitioning into care from another physician and a summary of care was reviewed. Note for Transition into care: Saw 12/08/16 for syncopal episode-had a 30day heart monitor-scheduled for a tilt table test and carotid dopplers 12-10-2016 Unclassified (14 sources) [ADDITIONAL REASON] MCR Well Adult - In general the patient feels well with no complaints, has good energy level and is sleeping poorly (wakes up 3 times a night to urinate). The patient has a balanced diet. The patient exercises 3 - 4 times per week and sleeps 7 hours per night. The patient denies having trouble with bathing, dressing/grooming, toileting, preparing meals and ambulating. The patient denies having trouble with grocery shopping, driving, use of telephone, housework, laundry, preparing/taking medications and finances. The patient has a Healthcare Power of Qa Lead and a Living Will. 12-10-2016 Unclassified (20 sources) Concern - Patient states he was scratched by a kitten 2 days ago. Shortly after started with a sore throat, states it feels more swollen than anything. Patient states he is concerned the cat scratch may be related but not sure. Patient states he can feel something in the back of his throat. States he has been taking extra precaution around the kittens now and using ppe when changing their litter box. 07-28-2023 Unclassified (9 sources) Mouth pain - Symptoms include pain in palate. Symptoms are located in the palate. Onset was gradual 2 day(s) ago. The symptoms occur constantly. The patient describes this as moderate in severity and unchanged. Note for Mouth pain: Patient thought it was a canker sore but seems to be spreading, now thinks he might have thrush. Patient notes recent stressors including his and him both undergoing surgery, he also states he was on an antibiotic following his spinal surgery for placement of a nerve stimulator. Patient denies other symptoms. 01-03-2024 Unclassified (6 sources) MCR Well Adult - In general the patient feels well with no complaints, has good energy level and is sleeping well. The patient has a balanced diet. The patient exercises weekly (walking and yard work) and sleeps 6 (7) hours per night. The patient denies having trouble with bathing, dressing/grooming, toileting, preparing meals and ambulating. The patient denies having trouble with grocery shopping, driving, use of telephone, housework, laundry, preparing/taking medications and finances. The patient has a Healthcare Power of Qa Lead and a Living Will. 07-06-2024 Results Test Name Value Interpretation Reference Range Facility Abdomen/Pelvis W IV Cont ONL Yon 12-25-2024 Abdomen/Pelvis W IV Cont ONLY [facility] [address] [place] [address] Abdomen/Pelvis W IV Cont ONLY MR#: [id number] Acct: [id number] Name: YUNIOR GORDON Rep #: [id number] : 1950 M 74 From: Earl Garrett MD PCP: Dr. Wisam Lara MD Status: REG ER Study: Abdomen/Pelvis W IV Cont ONLY Date of Exam: Exam# [id number] Ordering Dr: Henry Sharp DO PROCEDURE: ABDOMEN/PELVIS W IV CONT ONLY 12/25/2024 REASON FOR EXAM: PAIN S/P FALL left flank pain, lower abdomen pain TECHNIQUE: Procedure Code: [id number] Modality: CT Procedure: ABDOMEN/PELVIS W IV CONT ONLY Coronal and Sagittal reconstruction series were provided. CONTRAST: 96 cc Isovue 370 One or more dose reduction techniques were used (e.g., Automated exposure control, adjustment of the mA and/or kV according to patient size, use of iterative reconstruction technique. RADIATION DOSE SUMMARY: DLP: 1012 mGycm COMPARISON: None FINDINGS: Lung bases: Clear Liver: Intact. There is a 1 cm simple cyst in the left hepatic lobe. Gallbladder: Unremarkable Spleen: Unremarkable Pancreas: Pancreatic duct appears enlarged, measuring 0.5 cm in the head, 0.5 cm in the proximal body. There is no visible pancreatic mass or cyst. Adrenals: Unremarkable Kidneys: Unremarkable Bladder: Unremarkable Reproductive Organs: Unremarkable Bowel: Gas and stool is noted in the colon with an increased stool load. Small bowel loops are not distended. Appendix: Within normal limits Lymph nodes: There is no pathologic adenopathy by size criteria. Vasculature: Atherosclerotic calcifications are noted. Peritoneum / Retroperitoneum: There is no free air or free fluid. Bones: Degenerative changes are present throughout the lumbar spine. Nondisplaced fractures of the angle of the left 10th and 11th ribs are visible. A stimulator device is noted on the right with wires extending above the field of view of this exam. CT/Abdomen/Pelvis W IV Cont ONLY IMPRESSION: Pancreatic duct appears enlarged, measuring 0.5 cm in the head, 0.5 cm in the proximal body. There is no visible pancreatic mass or cyst. Follow-up is recommended. Nondisplaced fractures of the angle of the left 10th and 11th ribs are visible. Reading Location: [facility] CC: Dr. Wisam Lara MD; Henry Sharp DO Top Precipitator Operator: Signed Normal [facility] Basic Metabolic Profile (BMP )on 12-25-2024 GAP 8 Normal 5-15 [facility] Comment on above: Performed By: #### L 300.4310, L300.3900, L100.0100, L500.2500 #### [facility] [address] [facility] [place], [address] BUN/CRE 17.3 RATIO Normal 10-20 [facility] Comment on above: Performed By: #### L 300.4310, L300.3900, L100.0100, L500.2500 #### [facility] [address] [place], [address] Calcium [Mass/Vol] 8.9 mg/dL Normal 7.6-11.0 [facility] Comment on above: Performed By: #### L 300.4310, L300.3900, L100.0100, L500.2500 #### [facility] [address] [place], [address] Chloride [Moles/Vol] 99 mmol/L Normal 98-108 [facility] Comment on above: Performed By: #### L 300.4310, L300.3900, L100.0100, L500.2500 #### [facility] [address] [place], [address] CO2 [Moles/Vol] 26.3 mmol/L Normal 21.0-32.0 [facility] Comment on above: Performed By: #### L 300.4310, L300.3900, L100.0100, L500.2500 #### [facility] [address] [place], [address] Creatinine [Mass/Vol] 0.74 mg/dL Normal 0.70-1.20 [facility] Comment on above: Performed By: #### L 300.4310, L300.3900, L100.0100, L500.2500 #### [facility] [address] [place], [address] ECRCL 69.89 ml/min Normal 50-250 [facility] Comment on above: Performed By: #### L 300.4310, L300.3900, L100.0100, L500.2500 #### [facility] [address] [place], [address] GFR/1.73 sq M.predicted among non-blacks MDRD (S/P/Bld) [Vol rate/Area] 94 mL/min/{1.73_m2} Normal >60 [facility] Comment on above: Result Comment: mL/m in/1.73m2 CKD-EPI Creatinine Equation (2020) Performed By: #### L 300.4310, L300.3900, L100.0100, L500.2500 #### [facility] [address] [place], [address] Glucose [Mass/Vol] 111 mg/dL High 70-99 [facility] Comment on above: Performed By: #### L 300.4310, L300.3900, L100.0100, L500.2500 #### [facility] [address] [place], [address] Potassium [Moles/Vol] 4.5 mmol/L Normal 3.3-5.1 [facility] Comment on above: Result Comment: Hemo lysis present, Results??could be affected. ?? Performed By: #### L 300.4310, L300.3900, L100.0100, L500.2500 #### [facility] [address] [place], [address] Sodium [Moles/Vol] 133 mmol/L Normal 133-145 [facility] Comment on above: Performed By: #### L 300.4310, L300.3900, L100.0100, L500.2500 #### [facility] [address] [place], [address] Urea nitrogen [Mass/Vol] 13 mg/dL Normal 4-19 [facility] Comment on above: Performed By: #### L 300.4310, L300.3900, L100.0100, L500.2500 #### [facility] [address] [place], [address] CBC W/Diff, Automatedon 11-0 4-2024 Absolute Lymph 1.20 X10 3/uL Normal 0.83-4.51 [facility] Comment on above: Performed By: #### L 300.4310, L300.3900, L100.0100, L500.2500 #### [facility] [address] [place], [address] Absolute Neut 3.4 X10 3/uL Normal 2.0-7.7 [facility] Comment on above: Performed By: #### L 300.4310, L300.3900, L100.0100, L500.2500 #### [facility] [address] [place], [address] Basophils/100 WBC (Bld) 1.1 % High 0-1 [facility] Comment on above: Performed By: #### L 300.4310, L300.3900, L100.0100, L500.2500 #### [facility] [address] [place], [address] Eosinophils/100 WBC (Bld) 3.5 % Normal 0-5 [facility] Comment on above: Performed By: #### L 300.4310, L300.3900, L100.0100, L500.2500 #### [facility] [address] [place], [address] Erythrocyte distribution width (RBC) [Ratio] 12.8 % Normal 11.6-14.6 [facility] [facility] Comment on above: Performed By: #### L 300.4310, L300.3900, L100.0100, L500.2500 #### [facility] [address] [place], [address] Hematocrit (Bld) [Volume fraction] 41.7 % Normal 40-54 [facility] Comment on above: Performed By: #### L 300.4310, L300.3900, L100.0100, L500.2500 #### [facility] [address] [place], [address] Hemoglobin (Bld) [Mass/Vol] 14.3 g/dL Normal 13.0-16.5 [facility] Comment on above: Performed By: #### L 300.4310, L300.3900, L100.0100, L500.2500 #### [facility] [address] [place], [address] IG% 0.400 Normal 0.0-0.9 [facility] Comment on above: Result Comment: IG% - Immature Granulocytes (promyelocytes, myelocytes and metamyelocytes) > 1% indicates that a LEFT SHIFT is Present. Performed By: #### L 300.4310, L300.3900, L100.0100, L500.2500 #### [facility] [address] [place], [address] Lymphocytes/100 WBC (Bld) 22.1 % Normal 19-41 [facility] Comment on above: Performed By: #### L 300.4310, L300.3900, L100.0100, L500.2500 #### [facility] [address] [place], [address] MCH (RBC) [Entitic mass] 31.4 pg Normal 27.0-32.0 [facility] Comment on above: Performed By: #### L 300.4310, L300.3900, L100.0100, L500.2500 #### [facility] [address] [place], [address] MCHC (RBC) [Mass/Vol] 34.3 g/dL Normal 32-36 [facility] Comment on above: Performed By: #### L 300.4310, L300.3900, L100.0100, L500.2500 #### [facility] [address] [place], [address] MCV (RBC) [Entitic vol] 91.4 fL Normal 80-94 [facility] Comment on above: Performed By: #### L 300.4310, L300.3900, L100.0100, L500.2500 #### [facility] [address] [place], [address] Monocytes/100 WBC (Bld) 10.3 % High 0-10 [facility] Comment on above: Performed By: #### L 300.4310, L300.3900, L100.0100, L500.2500 #### [facility] [address] [place], [address] Neutrophils/100 WBC (Bld) 62.6 % Normal 47-70 [facility] Comment on above: Performed By: #### L 300.4310, L300.3900, L100.0100, L500.2500 #### [facility] [address] [place], [address] Nucleated RBC (Bld) [#/Vol] 0 10*3/uL Normal 0-5 [facility] Comment on above: Performed By: #### L 300.4310, L300.3900, L100.0100, L500.2500 #### [facility] [address] [place], [address] Platelet mean volume (Bld) [Entitic vol] 10.0 fL Normal 6.2-12.0 [facility] Comment on above: Performed By: #### L 300.4310, L300.3900, L100.0100, L500.2500 #### [facility] [address] [place], [address] Platelets (Bld) [#/Vol] 199 10*3/uL Normal 150-450 [facility] Comment on above: Performed By: #### L 300.4310, L300.3900, L100.0100, L500.2500 #### [facility] [address] [place], [address] RBC (Bld) [#/Vol] 4.56 10*6/uL Low 4.6-6.2 [facility] Comment on above: Performed By: #### L 300.4310, L300.3900, L100.0100, L500.2500 #### [facility] [address] [place], [address] RDW SD 42.7 fl Normal 35.1-43.9 [facility] Comment on above: Performed By: #### L 300.4310, L300.3900, L100.0100, L500.2500 #### [facility] [address] [place], [address] WBC (Bld) [#/Vol] 5.4 10*3/uL Normal 4.4-11.0 [facility] Comment on above: Performed By: #### L 300.4310, L300.3900, L100.0100, L500.2500 #### [facility] [address] [place], [address] Emergency Department Summary on 12-25-2024 Emergency Department Summary [facility] Medical Records Department [address] [place] [address] Emergency Department Summary 12/25/24 MR#: [id number] Acct: [id number] Name: YUNIOR GORDON Rep #: [id number] : 1950 74 From: Henry Sharp DO PCP: Dr. Wisam Lara MD Status:DEP ER Location: ED HPI History of Present Illness Chief Complaint: Fall Informant: patient and spouse/S.O. Narrative Narrative: Patient is a 74-year-old male with past medical Struve hypertension and hyperlipidemia. He states roughly 24 hours ago he slipped on the outdoor steps and fell landing on his left side. He denies striking his head or any loss of consciousness. He states he does not take blood thinners nor have a history of bleeding disorder. He states he has had significant pain along the left low back ever since the fall that seems to worsen with motion and will cause spasms. He states he has not noticed any blood in his urine or stool. He reports that he has been taking [id number] medication but the pain has been persistent and severe and secondary to this comes in for evaluation. [facility] Medical History PONV (postoperative nausea and vomiting) Wears glasses Arthritis Prostate disease High cholesterol Heartburn Non-smoker History of echocardiogram Cardiology follow-up encounter SVT (supraventricular tachycardia) NSVT (nonsustained ventricular tachycardia) Lightheadedness Essential hypertension Bruit of right carotid artery Family history of hypertension Family history of ischemic heart disease Syncope and collapse Hyperlipidemia Hypertension Nonrheumatic mitral (valve) prolapse Palpitations Long-term use of high-risk medication Right carotid bruit Home Medications ???Medication ???Instructions ???Recorded ???Last Taken ???Type cinnamon bark 500 mg capsule 1,000 mg PO DAILY 08/09/16 4 History glucosamine-chondroi t-vit C-Mn 500 1 ea PO DAILY 08/09/16 11/10/23 History mg-400 mg capsule multivitamin 1 ea PO DAILY 08/09/16 11/10/23 Hi story turmeric root extract 500 mg 500 mg PO DAILY 09/26/19 11/10/23 History capsule magnesium chloride 64 mg 128 mg PO DAILY 12/29/20 11/10/23 History (magnesium chloride) tablet,delayed release rosuvastatin 5 mg tablet 5 mg PO DAILY #90 tabs 04/17/24 Un known Rx lisinopril 10 mg tablet 10 mg PO DAILY #90 tabs 08/20/24 U nknown Rx Dim BioPerine PO 09/03/24 Unknown History aspirin 81 mg tablet,delayed 81 mg PO QDAY 09/03/24 Unknown His tory release (Adult Low Dose Aspirin) calcium carb-ergocalciferol (vit 1 tab PO DAILY 12/25/24 Unknown Hi story D2) 600 mg calcium-200 unit tablet diazepam 5 mg tablet (Valium) 5 mg PO TID PRN Muscle pain/spasm 12/25/24 Unknown Rx 5 days #15 tabs meloxicam 7.5 mg tablet 7.5 mg PO BID 12/25/24 Unknown His tory oxycodone 5 mg tablet 5 mg PO Q6H PRN pain 5 days #20 Unknown Rx tabs Allergy/AdvReac Type Severity Reaction Status Date / Time chlorhexidine Allergy Rash Verified 12/25/24 04:47 Penicillins Allergy STRANGE Verified 12/25/24 04:47 SENSATION IN MOUTH AND TEETH atorvastatin (From Lipitor) AdvReac Severe Myalgias Verified 12/25/24 04:47 albuterol AdvReac RAPID Verified 12/25/24 04:47 HEART BEAT Family History Brother CAD (coronary artery disease) Myocardial infarction Hypertension Surgical History History of radiofrequency ablation (RFA) procedure for cardiac arrhythmia History of total right knee replacement ( 08/2020) History of radiofrequency ablation procedure for cardiac arrhythmia (11/26/20) Total knee replacement status History of arthroscopy of shoulder ( 06/2017) S/P inguinal hernia repair ( 07/2017) History of transurethral resection of prostate History of hemorrhoidectomy History of hernia repair History of tonsillectomy and adenoidectomy History of arthroplasty of right knee History of back surgery Social History household members: spouse Smoking Status: Never smoker alcohol intake: current details: occasional substance use type: does not use ROS ROS ED Constitutional Constitutional ED: Denies chills or fever(s) Eyes Eyes: Denies blurry vision or change in vision ENT ENT ED: Denies sore throat Cardiovascular Cardiovascular: Reports other Details: Negative syncope ; Denies chest pain Respiratory/Chest Respiratory/Chest: Denies cough or dyspnea Gastrointestinal Gastrointestinal: Denies abdominal pain, diarrhea, nausea or vomiting Genitourinary Genitourinary ED: Denies dysuria or hematuria Musculoskeletal Musculoskeletal: Re (more content not included)... Normal [facility] Partial Thromboplast Timeon 12-25-2024 aPTT Coag (Bld) [Time] 26.4 s Normal 24.1-36.2 [facility] Comment on above: Performed By: #### L 300.4310, L300.3900, L100.0100, L500.2500 ####[facility] [address] [place], [address] Prothrombin Time w/INRon INR Coag (PPP) [Relative time] 1.0 {INR} Normal [facility] Comment on above: Performed By: #### L 300.4310, L300.3900, L100.0100, L500.2500 ####[facility] [address] [place], [address] PT Coag (PPP) [Time] 13.8 s Normal 11.7-14.9 [facility] Comment on above: Performed By: #### L 300.4310, L300.3900, L100.0100, L500.2500 ####[facility] [address] [place], [address] Ribs Uni Min 3V w/PA Cheston 12-25-2024 Ribs Uni Min 3V w/PA Chest [facility] [address] [place] [address] Ribs Uni Min 3V w/PA Chest MR#: [id number] Acct: [id number] Name: YUNIOR GORDON Rep #: [id number] : 1950 M 74 From: Earl Garrett MD PCP: Dr. Wisam Lara MD Status: REG ER Study: Ribs Uni Min 3V w/PA Chest Date of Exam: 12/25 Exam# [id number] Ordering Dr: Henry Sharp DO PROCEDURE: RIBS UNI MIN 3V W/PA CHEST 12/25/2024 REASON FOR EXAM: PAIN TECHNIQUE: Procedure Code: RADRIB Modality: DX Procedure: RIBS UNI MIN 3V W/PA CHEST COMPARISON: CT, same date FINDINGS: Frontal view of the chest with four views of the left ribs. There is a stimulator on the right with wires extending to the midthoracic region. Heart size is upper normal. Central vascularity appears within normal limits. There is no focal infiltrate or consolidation. There is no pneumothorax or effusion. There is nondisplaced fracture of the proximal aspect of the left 12th rib, with a nondisplaced fracture of the angle of the 10th and 11th ribs. RAD/Ribs Uni Min 3V w/PA Chest IMPRESSION: There is nondisplaced fracture of the proximal aspect of the left 12th rib, with a nondisplaced fracture of the angle of the 10th and 11th ribs. Reading Location: [facility] CC: Dr. Wisam Lara MD; Henry Sharp DO Top Precipitator Operator: Signed Normal [facility] Spine Lumbar without Contras ton 12-25-2024 Spine Lumbar without Contrast [facility] [address] [place] [address] Spine Lumbar without Contrast MR#: [id number] Acct: [id number] Name: YUNIOR GORDON Rep #: [id number] : 1950 M 74 From: Henrique arrington MD PCP: Dr. Wisam Lara MD Status: REG ER Study: Spine Lumbar without Contrast Date of Exam: Exam# [id number] Ordering Dr: Henry Sharp DO PROCEDURE: SPINE LUMBAR WITHOUT CONTRAST 12/25/2024 REASON FOR EXAM: PAIN S/P FALL TECHNIQUE: Procedure Code: CTSPL Modality: CT Procedure: SPINE LUMBAR WITHOUT CONTRAST Coronal and Sagittal reconstruction series were provided. One or more dose reduction techniques were used (e.g., Automated exposure control, adjustment of the mA and/or kV according to patient size, use of iterative reconstruction technique COMPARISON: none RADIATION DOSE SUMMARY: CTDI Vol 22.99 mGy DLP :785.6 mGycm FINDINGS: Lumbar levoscoliosis. Mild 12, L1 and L2 retrolisthesis. 1st degree anterolisthesis of L3, L4 and L5 with L3-L4, L4-L5 and L5-S1 degenerative facet arthropathy Mild L5 over S1 retrolisthesis. Minimal old ventral wedging of T11 vertebral body with no acute fractures. Normal rest of the vertebral bodies height and alignment. Intact vertebral bodies and neural arches. No definite fractures could be detected. Multilevel marginal lipping, subchondral Schmorl's nodes and sclerosis of the examined vertebral end plates. Multilevel reduced discs height with vacuum phenomenon. Multilevel degenerative facet arthropathy and hypertrophied ligamenta flava with calcifications. L1-multilevel diffuse disc bulges indenting the theca and inducing encroachment upon the neural exit foramina. Degenerative changes of the sacroiliac joints. Diffuse reduced bone density. No paraspinal soft tissue masses. Spinal stimulator is noted. CT/Spine Lumbar without Contrast IMPRESSION: Lumbar levoscoliosis. Mild 12, L1 and L2 retrolisthesis. 1st degree anterolisthesis of L3, L4 and L5 No acute fractures. Lumbar spondylosis with multilevel facet arthropathy and diffuse posterior disc bulges inducing encroachment upon the neural exit foramina. Degenerative changes of the sacroiliac joints. Diffuse reduced bone density. Reading Location: [place] [address] CC: Dr. Wisam Lara MD; Henry Sharp DO Top Precipitator Operator: Signed Normal [facility] Cardiology Visit Reporton Cardiology Visit Report [facility] [address] [place], [place] [address] OFFICE VISIT Date of Service: 09/03/24 MR#: [id number] Acct: [id number] Name: YUNIOR GORDON Rep #: [id number] : 1950 Provider: ASA navarrete Age/Sex: 74/M Location: [facility] Status: Signed HPI HPI History of Present Illness Details: Yunior Gordon is a 72-year-old white male who presents today for outpatient cardiovascular follow- up. 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 He underwent diagnostic cardiac catheterization which did not demonstrate any angiographically significant appearing CAD. He denies chest, arm, jaw, or neck discomfort. He denies palpitations. He denies bilateral lower extremity edema. He denies claudication. He denies shortness of breath with activity, shortness of breath at rest, orthopnea, or PND. He denies chronic cough. He denies significant, sudden weight gain. He denies lightheadedness, dizziness, near-syncope, or syncope. He denies blood in urine, blood in stool, or epistaxis. He denies fever with chills. He denies myalgia. He denies fatigue. His exercise level has remained stable. Intake Vital Signs 11/17/23 14:20 09/03/24 10:42 Height 5 ft 11 in 5 ft 11 in Weight: 149 lb BMI 20.7 BP 117/73 Blood Pressure Location Lt brachial Position Sitting Respiration 16 Pulse 61 Pulse Source Monitor Pulse Oximetry (%) 96 Oxygen Delivery Method room air Intake Visit Reasons: 1 Y FU [employer] Agent Required: No Accompanied by: Is patient in pain?: No Allergies chlorhexidine Allergy (Verified 09/03/24 10:42) Rash Penicillins Allergy (Verified 09/03/24 10:42) STRANGE SENSATION IN MOUTH AND TEETH atorvastatin (From Lipitor) Adverse Reaction (Severe, Verified 09/03/24 10:42) Myalgias albuterol Adverse Reaction (Verified 09/03/24 10:42) RAPID HEART BEAT Medications ???Medication ???Instructions ???Recorded ???Confirmed ???Type cinnamon bark 500 mg capsule 1,000 mg PO DAILY 08/09/16 5 History glucosamine-chondroi t-vit C-Mn 500 1 ea PO DAILY 08/09/16 09/03/24 History mg-400 mg capsule multivitamin 1 ea PO DAILY 08/09/16 09/03/24 Hi story turmeric root extract 500 mg 500 mg PO DAILY 09/26/19 09/03/24 History capsule magnesium chloride 64 mg 128 mg PO DAILY 12/29/20 09/03/24 History (magnesium chloride) tablet,delayed release rosuvastatin 5 mg tablet 5 mg PO DAILY #90 tabs 04/17/24 Rx lisinopril 10 mg tablet 10 mg PO DAILY #90 tabs 08/20/24 0 09/03/24 Rx Dim BioPerine PO 09/03/24 09/03/24 History aspirin 81 mg tablet,delayed 81 mg PO QDAY 09/03/24 09/03/24 Hi story release (Adult Low Dose Aspirin) Have you fallen in the past year?: No PFSH Medical History PONV (postoperative nausea and vomiting) Wears glasses Arthritis Prostate disease High cholesterol Heartburn Non-smoker History of echocardiogram Cardiology follow-up encounter SVT (supraventricular tachycardia) NSVT (nonsustained ventricular tachycardia) Lightheadedness Essential hypertension Bruit of right carotid artery Family history of hypertension Family history of ischemic heart disease Syncope and collapse Hyperlipidemia Hypertension Nonrheumatic mitral (valve) prolapse Palpitations Long-term use of high-risk medication Right carotid bruit Surgical History History of radiofrequency ablation (RFA) procedure for cardiac arrhythmia History of total right knee replacement ( 08/2020) History of radiofrequency ablation procedure for cardiac arrhythmia (11/26/20) Total knee replacement status History of arthroscopy of shoulder ( 06/2017) S/P inguinal hernia repair ( 07/2017) History of transurethral resection of prostate History of hemorrhoidectomy History of hernia repair History of tonsillectomy and adenoidectomy History of arthroplasty of right knee History of back surgery Family History Brother CAD (coronary artery disease) Myocardial infarction Hypertension Social History household members: spouse Smoking Status: Never smoker alcohol intake: current details: occasional substance use type: does not use ROS Const Const: Negative for fatigue or weakness ENT ENT: Negative for dizziness or balance problems Cardio Chest Pain: No Palpitations: No Edema: None Muscle aches with walking: None Resp Respiratory: Negative for SOB with activity, SOB at rest or SOB orthopnea SOB lying down GI (more content not included)... Normal [facility] Bilirubin directOrdered By: Wisam Lanier on 06-18-2024 Bilirubin.direct [Mass/Vol] 0.21 mg/dL 0.00-0.30 [facility] Bilirubin, totalOrdered By: Wisam Lanier on 06-18-2024 Bilirubin [Mass/Vol] 0.46 mg/dL 0.00-1.30 [facility] Calculated very low density lipoprotein (VLDL) cholesterol measurementOrdered By: Wisam Lanier on 06-18-2024 Calculated very low density lipoprotein (VLDL) cholesterol measurement 13 mg/dL 5-40 [facility] LDL calc ser/plasOrdered By: Wisam Lanier on 06-18-2024 Cholesterol in LDL [Mass/Vol] 69 mg/dL [facility] Comment on above: Ytfouoqjmn=448-078 m g/dL & Higher Cpgs=270 mg/dL or greater Laboratory - Chemistry and C hemistry - challengeOrdered By: Wisam Lanier on 06-18-2024 AST [Catalytic activity/Vol] 29 U/L <38 [facility] Lipid Profileon 06-18-2024 CHOL:HDL 2.41 Normal [facility] Comment on above: Result Comment: . Performed By: #### L 500.4100, L500.3400 #### [facility] [address] [place], [address] Cholesterol [Mass/Vol] 139 mg/dL Normal <=200 [facility] Comment on above: Result Comment: Chol esterol level, Desirable <200 mg/dL Borderline high cholesterol 200-239 mg/dL High cholesterol >=240 mg/dL Recommendations of the NCEP Adult Treatment Panel for the following risk-cutoff thresholds for the [place] population. Performed By: #### L 500.4100, L500.3400 #### [facility] [address] [place], [address] Cholesterol in HDL [Mass/Vol] 58 mg/dL Normal [facility] Comment on above: Result Comment: Mouna onal Cholesterol Education Program (NCEP) guidelines: <40 mg/dL: Low HDL-cholesterol (major risk factor for CHD) >= 60 mg/dL: High HDL-cholesterol (negative risk factor for CHD) HDL-cholesterol is affected by a number of factors, e.g. smoking, exercise, hormones, sex and age. Performed By: #### L 500.4100, L500.3400 #### [facility] [address] [place], [address] Cholesterol in LDL [Mass/Vol] 69 mg/dL Normal [facility] Comment on above: Result Comment: Bord makzdk=301-142 mg/dL Higher Xcfj=684 mg/dL or greater Performed By: #### L 500.4100, L500.3400 #### [facility] [address] [place], [address] Cholesterol in VLDL [Mass/Vol] 13 mg/dL Normal 5-40 [facility] Comment on above: Result Comment: . Performed By: #### L 500.4100, L500.3400 #### [facility] [address] [place], [address] Triglyceride [Mass/Vol] 64 mg/dL Normal [facility] Comment on above: Result Comment: The drugs N-Acetylcysteine and Metamizole may falsely depress this assay. Normal range: <150 mg/dL Borderline High: 150-199 mg/dL High: 200-499 mg/dL Very High: >500 mg/dL Performed By: #### L 500.4100, L500.3400 #### [facility] [address] [place], [address] Liver Profileon 06-18-2024 Albumin [Mass/Vol] 4.5 g/dL Normal 3.4-4.8 [facility] Comment on above: Result Comment: . Performed By: #### L 500.4100, L500.3400 #### [facility] [address] [place], [address] ALK PHOS 50 U/L Normal 40-129 [facility] Comment on above: Result Comment: . Performed By: #### L 500.4100, L500.3400 #### [facility] [address] [place], [address] ALT [Catalytic activity/Vol] 25 U/L Normal <=46 [facility] Comment on above: Result Comment: . Performed By: #### L 500.4100, L500.3400 #### [facility] [address] [place], [address] AST [Catalytic activity/Vol] 29 U/L Normal <=37 [facility] Comment on above: Result Comment: . Performed By: #### L 500.4100, L500.3400 #### [facility] [address] [place], [address] Bilirubin [Mass/Vol] 0.46 mg/dL Normal 0.00-1.30 [facility] Comment on above: Result Comment: . Performed By: #### L 500.4100, L500.3400 #### [facility] [address] [place], [address] Bilirubin.direct [Mass/Vol] 0.21 mg/dL Normal 0.00-0.30 [facility] Comment on above: Result Comment: . Performed By: #### L 500.4100, L500.3400 #### [facility] [address] [place], [address] Globulin (S) [Mass/Vol] 2.3 g/dL Normal 2.2-4.2 [facility] Comment on above: Performed By: #### L 500.4100, L500.3400 #### [facility] [address] [place], [address] T PROT 6.8 g/dL Normal 5.9-8.4 [facility] Comment on above: Result Comment: . Performed By: #### L 500.4100, L500.3400 #### [facility] [address] [place], [address] PSA,Total - Annual Screenon 06-18-2024 PSA,TOT SCREEN 1.87 ng/mL Normal 0.02-4.00 [facility] Comment on above: Result Comment: This test was performed using the [employer] tPSA method. Measured values of a patient??sample can vary depending on the testing procedure used. PSA values determined on patient samples by different testing procedures cannot be used interchangeably. If there is a change in PSA assays while monitoring therapy, sequential testing should be performed to confirm baseline values. Performed By: #### L 501.9910 #### [facility] [address] [place], [address] Screening total cholesterol/ high density lipoprotein (HDL) cholesterol ratioOrdered By: Wisam Lanier on 06-18-2024 Cholesterol.total/Chol esterol in HDL [Mass ratio] 2.41 {ratio} [facility] Serum globulin measurementOr dered By: Wisam Lanier on 06-18-2024 Globulin (S) [Mass/Vol] 2.3 g/dL 2.2-4.2 [facility] Serum or plasma alanine james otransferase (ALT) measurementOrdered By: Wisam Lanier on 06-18-2024 ALT [Catalytic activity/Vol] 25 U/L <47 [facility] Serum or plasma albumin britney urement (mass/volume)Ordered By: Wisam Lanier on 06-18-2024 Albumin [Mass/Vol] 4.5 g/dL 3.4-4.8 [facility] Serum or plasma alkaline dimitrios sphatase measurementOrdered By: Wisam Lanier on 06-18-2024 ALP [Catalytic activity/Vol] 50 U/L 40-129 [facility] Serum or plasma cholesterol in HDL measurement (mass/volume)Ordered By: Wisam Lanier on 06-18-2024 Cholesterol in HDL [Mass/Vol] 58 mg/dL >40 [facility] Comment on above: National Cholesterol Education Program (NCEP) guidelines:<40 mg/dL: Low HDL-cholesterol (major risk factor for CHD)>= 60 mg/dL: High HDL-cholesterol (negative risk factor for CHD)HDL-cholesterol is affected by a number of factors, e.g. smoking, exercise, hormones, sex and age. Serum or plasma cholesterol measurement (mass/volume)Ordered By: Wisam Lanier on 06-18-2024 Cholesterol [Mass/Vol] 139 mg/dL <201 [facility] Comment on above: Cholesterol level, D esirable <200 mg/dLBorderline high cholesterol 200-239 mg/dLHigh cholesterol >=240 mg/dLRecommendations of the NCEP Adult Treatment Panel for the following risk-cutoff thresholds for the [place] population. Total proteinOrdered By: Garo Lanier on 06-18-2024 Protein [Mass/Vol] 6.8 g/dL 5.9-8.4 [facility] Triglycerides measurementOrd ered By: Wisam Lanier on 06-18-2024 Triglyceride [Mass/Vol] 64 mg/dL <199 [facility] Comment on above: The drugs N-Acetylcy steine and Metamizole may falsely depress this assay. Normal range: <150 mg/dLBorderline High: 150-199 mg/dLHigh: 200-499 mg/dLVery High: >500 mg/dL Basophil percentageOrdered B y: Wisam Lanier on 06-27-2023 Bilirubin [Mass/Vol] 0.60 mg/dL 0.20-1.00 [facility] Comment on above: For patients on eltr ombopag therapy, use of Dimension [place] TBIL is not recommended. Chloride [Moles/Vol] 102 mmol/L 98-107 [facility] Cholesterol [Mass/Vol] 130 mg/dL <200 [facility] Comment on above: <200 mg/dL Desirable 200-240 mg/dL Borderline >240 mg/dL High Risk Glucose [Mass/Vol] 102 mg/dL 74-106 [facility] Comment on above: Fasting Glucose resu lt from 100 to 125 mg/dL suggests IMPAIRED HOMEOSTASIS per A.D.A. criteria. Potassium [Moles/Vol] 4.1 mmol/L 3.5-5.1 [facility] Protein [Mass/Vol] 6.8 g/dL 6.4-8.2 [facility] Sodium [Moles/Vol] 135 mmol/L 136-145 [facility] Triglyceride [Mass/Vol] 50 mg/dL <199 [facility] Comment on above: The drugs N-Acetylcy steine and Metamizole may falsely depress this assay.Serum Triglycerides Reference Interval Normal <150 mg/dL Borderline high 150 - 199 mg/dL High 200 - 499 mg/dL Very High > or = 500 mg/dL Direct bilirubinOrdered By: Wisam Lanier on 06-27-2023 Bilirubin.direct [Mass/Vol] 0.17 mg/dL 0.00-0.30 [facility] Laboratory - Chemistry and C hemistry - challengeOrdered By: Wisam Lanier on 06-27-2023 ALP [Catalytic activity/Vol] 49 U/L 45-117 [facility] ALT [Catalytic activity/Vol] 26 U/L 16-61 [facility] Cholesterol in HDL [Mass/Vol] 60 mg/dL >40 [facility] Comment on above: The drugs N-Acetylcy steine and Metamizole may falsely depress this assay. Reference Range HDL <40 mg/dL Low HDL Cholesterol HDL >or= 60 mg/dL High HDL Cholesterol Cholesterol in LDL [Mass/Vol] 60 mg/dL 0-130 [facility] CO2 [Moles/Vol] 29.0 mmol/L 21.0-32.0 [facility] Globulin (S) [Mass/Vol] 2.8 g/dL 2.2-4.2 [facility] Urea nitrogen/Creatinine [Mass ratio] 16.5 mg/mg 10-20 [facility] No Panel InformationOrdered By: Wisam Lanier on 06-27-2023 Estimated GFR (MDRD) Amer 124 mL/min >60 [facility] Comment on above: GFR Calc Estimated GFR (MDRD) Non-Af Amer 102 mL/min >60 [facility] Comment on above: Non- GFR Calc Prostate Specific Antigen Screen 2.27 ng/mL 0.00-4.00 [facility] Comment on above: This test was perfor med using the TPSA assay method for the[employer] [place] chemistry system. Values obtained with differentassay methods cannot be used interchangably.When changing PSA assays in the course of monitoring apatient, additional sequential testing should be carriedout to confirm baseline values. VLDL Cholesterol 10 mg/dL 5-40 [facility] Serum or plasma calcium britney urement (mass/volume)Ordered By: Wisam Lanier on 06-27-2023 Calcium [Mass/Vol] 8.8 mg/dL 8.5-10.1 [facility] Serum or plasma creatinine m easurement (mass/volume)Ordered By: Wisam Lanier on 06-27-2023 Creatinine [Mass/Vol] 0.79 mg/dL 0.70-1.30 [facility] Comment on above: The validity of the calculated GFR & GFRAA in patients over 70 years has not been determined. Clinical correlation is essential. Serum or plasma urea nitroge n measurement (mass/volume)Ordered By: Wisam Lanier on 06-27-2023 Urea nitrogen [Mass/Vol] 13 mg/dL 7-18 [facility] Thin prep Papanicolaou smear with manual screeningOrdered By: Wisam Lanier on 06-27-2023 Thin prep Papanicolaou smear with manual screening 4.0 g/dL 3.2-5.0 [facility] Thin prep Papanicolaou smear with manual screening 21 U/L 15-37 [facility] Thin prep Papanicolaou smear with manual screening 4 5-15 [facility] Basophil percentageOrdered B y: Wisam Lanier on 12-24-2022 Bilirubin [Mass/Vol] 0.70 mg/dL 0.20-1.00 [facility] Comment on above: For patients on eltr ombopag therapy, use of Dimension [place] TBIL is not recommended. Cholesterol [Mass/Vol] 122 mg/dL <200 [facility] Comment on above: <200 mg/dL Desirable 200-240 mg/dL Borderline >240 mg/dL High Risk Protein [Mass/Vol] 6.9 g/dL 6.4-8.2 [facility] Triglyceride [Mass/Vol] 62 mg/dL <199 [facility] Comment on above: The drugs N-Acetylcy steine and Metamizole may falsely depress this assay.Serum Triglycerides Reference Interval Normal <150 mg/dL Borderline high 150 - 199 mg/dL High 200 - 499 mg/dL Very High > or = 500 mg/dL Direct bilirubinOrdered By: Wisam Lanier on 12-24-2022 Bilirubin.direct [Mass/Vol] 0.21 mg/dL 0.00-0.30 [facility] Laboratory - Chemistry and C hemistry - challengeOrdered By: Wisam Lanier on 12-24-2022 ALP [Catalytic activity/Vol] 56 U/L 45-117 [facility] ALT [Catalytic activity/Vol] 31 U/L 16-61 [facility] Globulin (S) [Mass/Vol] 2.9 g/dL 2.2-4.2 [facility] Serum or plasma albumin britney urement (mass/volume)Ordered By: Wisam Lanier on 12-24-2022 Albumin [Mass/Vol] 4.0 g/dL 3.2-5.0 [facility] Serum or plasma cholesterol in HDL measurement (mass/volume)Ordered By: Wisam Lanier on 12-24-2022 Cholesterol in HDL [Mass/Vol] 60 mg/dL >40 [facility] Comment on above: The drugs N-Acetylcy steine and Metamizole may falsely depress this assay. Reference Range HDL <40 mg/dL Low HDL Cholesterol HDL >or= 60 mg/dL High HDL Cholesterol Serum or plasma cholesterol in VLDL measurement (mass/volume)Ordered By: Wisam Lanier on 12-24-2022 Cholesterol in VLDL [Mass/Vol] 12 mg/dL 5-40 [facility] Serum or plasma low density lipoprotein (LDL) cholesterol measurement (mass/volume)Ordered By: Wisam Lanier on 12-24-2022 Cholesterol in LDL [Mass/Vol] 50 mg/dL 0-130 [facility] Thin prep Papanicolaou smear with manual screeningOrdered By: Wisam Lanier on 12-24-2022 Thin prep Papanicolaou smear with manual screening 22 U/L 15-37 [facility] Basophil percentageon 2021 Bilirubin [Mass/Vol] 0.50 mg/dL 0.20-1.00 [facility] Work Phone: Comment on above: For patients on eltr ombopag therapy, use of Dimension [place] TBIL is not recommended. Cholesterol [Mass/Vol] 143 mg/dL <200 [facility] Work Phone: Comment on above: <200 mg/dL Desirable 200-240 mg/dL Borderline >240 mg/dL High Risk Protein [Mass/Vol] 6.6 g/dL 6.4-8.2 [facility] Work Phone: Triglyceride [Mass/Vol] 90 mg/dL <199 [facility] Work Phone: Comment on above: The drugs N-Acetylcy steine and Metamizole may falsely depress this assay.Serum Triglycerides Reference Interval Normal <150 mg/dL Borderline high 150 - 199 mg/dL High 200 - 499 mg/dL Very High > or = 500 mg/dL Direct bilirubinon 2 Bilirubin.direct [Mass/Vol] 0.20 mg/dL 0.00-0.30 [facility] Work Phone: Laboratory - Chemistry and C hemistry - challengeon 12-31-2021 ALP [Catalytic activity/Vol] 58 U/L 45-117 [facility] Work Phone: ALT [Catalytic activity/Vol] 56 U/L 16-61 [facility] Work Phone: Globulin (S) [Mass/Vol] 2.8 g/dL 2.2-4.2 [facility] Work Phone: No Panel Informationon 12-31 Prostate Specific Antigen Screen 1.30 ng/mL 0.00-4.00 [facility] Work Phone: Comment on above: This test was perfor med using the TPSA assay method for [employer] chemistry system. Values obtained with differentassay methods cannot be used interchangably.When changing PSA assays in the course of monitoring apatient, additional sequential testing should be carriedout to confirm baseline values. Serum or plasma albumin britney urement (mass/volume)on 12-31-2021 Albumin [Mass/Vol] 3.8 g/dL 3.2-5.0 [facility] Work Phone: Serum or plasma cholesterol in HDL measurement (mass/volume)on 12-31-2021 Cholesterol in HDL [Mass/Vol] 71 mg/dL >40 [facility] Work Phone: Comment on above: The drugs N-Acetylcy steine and Metamizole may falsely depress this assay. Reference Range HDL <40 mg/dL Low HDL Cholesterol HDL >or= 60 mg/dL High HDL Cholesterol Serum or plasma cholesterol in VLDL measurement (mass/volume)on 12-31-2021 Cholesterol in VLDL [Mass/Vol] 18 mg/dL 5-40 [facility] Work Phone: Serum or plasma low density lipoprotein (LDL) cholesterol measurement (mass/volume)on 12-31-2021 Cholesterol in LDL [Mass/Vol] 54 mg/dL 0-130 [facility] Work Phone: Thin prep Papanicolaou smear with manual screeningon 12-31-2021 Thin prep Papanicolaou smear with manual screening 27 U/L 15-37 [facility] Work Phone: Basophil percentageon 2021 Bilirubin [Mass/Vol] 0.60 mg/dL 0.20-1.00 [facility] Work Phone: Comment on above: For patients on eltr ombopag therapy, use of Dimension [place] TBIL is not recommended. Cholesterol [Mass/Vol] 132 mg/dL <200 [facility] Work Phone: Comment on above: <200 mg/dL Desirable 200-240 mg/dL Borderline >240 mg/dL High Risk Protein [Mass/Vol] 6.8 g/dL 6.4-8.2 [facility] Work Phone: Triglyceride [Mass/Vol] 69 mg/dL <199 [facility] Work Phone: Comment on above: The drugs N-Acetylcy steine and Metamizole may falsely depress this assay.Serum Triglycerides Reference Interval Normal <150 mg/dL Borderline high 150 - 199 mg/dL High 200 - 499 mg/dL Very High > or = 500 mg/dL Direct bilirubinon 2 Bilirubin.direct [Mass/Vol] 0.18 mg/dL 0.00-0.30 [facility] Work Phone: Laboratory - Chemistry and C hemistry - challengeon 07-17-2021 ALP [Catalytic activity/Vol] 64 U/L 45-117 [facility] Work Phone: ALT [Catalytic activity/Vol] 32 U/L 16-61 [facility] Work Phone: Globulin (S) [Mass/Vol] 2.9 g/dL 2.2-4.2 [facility] Work Phone: Serum or plasma albumin britney urement (mass/volume)on 07-17-2021 Albumin [Mass/Vol] 3.9 g/dL 3.2-5.0 [facility] Work Phone: Serum or plasma cholesterol in HDL measurement (mass/volume)on 07-17-2021 Cholesterol in HDL [Mass/Vol] 63 mg/dL >40 [facility] Work Phone: Comment on above: The drugs N-Acetylcy steine and Metamizole may falsely depress this assay. Reference Range HDL <40 mg/dL Low HDL Cholesterol HDL >or= 60 mg/dL High HDL Cholesterol Serum or plasma cholesterol in VLDL measurement (mass/volume)on 07-17-2021 Cholesterol in VLDL [Mass/Vol] 14 mg/dL 5-40 [facility] Work Phone: Serum or plasma low density lipoprotein (LDL) cholesterol measurement (mass/volume)on 07-17-2021 Cholesterol in LDL [Mass/Vol] 55 mg/dL 0-130 [facility] Work Phone: Thin prep Papanicolaou smear with manual screeningon 07-17-2021 Thin prep Papanicolaou smear with manual screening 22 U/L 15-37 [facility] Work Phone: Bacteria identified Anaer cx Nom (Unsp spec)on 07-01-2021 Anaerobic microbial culture No anaerobic bacteria isolated. [facility] Work Phone: Blood lymphocytes/100 leukoc yteson 07-01-2021 Lymphocytes/100 WBC (Bld) 40 % [facility] Work Phone: Color of Synovial fluidon Color (Syn fld) Red Pale Yellow [facility] Work Phone: Determination of appearance of synovial fluidon 07-01-2021 Appearance (Syn fld) Cloudy CLEAR [facility] Work Phone: Gram stain for investigation of transfusion reactionon 07-01-2021 Microscopic observation Gram stain Nom (Unsp spec) [facility] Work Phone: No Panel Informationon 07-01 Synovial Fluid Mononuclear WBCs 0.272 10^3/ul [facility] Work Phone: Synovial Fluid Mononuclear WBCs % 79.5 % [facility] Work Phone: Synovial Fluid Polynuclear WBCs 0.070 10^3/uL [facility] Work Phone: Synovial Fluid Polynuclear WBCs % 20.5 % [facility] Work Phone: Synovial Fluid Total Cells Counted 0.3580 10^3/uL 0.000-0.000 [facility] Work Phone: Comment on above: This is the Total Nu mber of Nucleated Cell Types in the Body Fluid. Qualitative synovial fluid v iscosityon 07-01-2021 Viscosity Ql (Syn fld) Sl. Viscous HIGH W [facility] Work Phone: Review by pathologiston 06-21 Pathologist review Marcelo (Unsp spec) [Interp] Reviewed [facility] Work Phone: Comment on above: Previous reported re sult: May follow Edited by: RGOGOLDEN on 07/03/21:921Negative for malignant cells.Bloody specimenSpilar Palacios M.D. 07/03/21 AMENDED REPORT 07/03/21921 PATH COM/SYFL previously reported as: May follow Specimen source identificati on of body fluidon 07-01-2021 Specimen source Nom (Body fld) RIGHT KNEE [facility] Work Phone: Synovial fluid erythrocytes count (number/volume)on 07-01-2021 RBC (Syn fld) [#/Vol] 0.016 10^6/uL 0-0 [facility] Work Phone: Synovial fluid leukocytes co unt (number/volume)on 07-01-2021 WBC (Syn fld) [#/Vol] 0.3420 10^3/uL 0.000-0.00 2 [facility] Work Phone: Synovial fluid monocyte perc entageon 07-01-2021 Monocytes/100 WBC (Syn fld) 50 % [facility] Work Phone: Synovial fluid neutrophil pe rcentageon 07-01-2021 Neutrophils/100 WBC (Syn fld) 10 % 0-25 [facility] Work Phone: Absolute lymphocyte counton 06-25-2021 Lymphocytes Auto (Unsp spec) [#/Vol] 1.55 10*3/uL 0.83-4.51 [facility] Work Phone: Basophil percentageon 2021 Basophils/100 WBC (Bld) 0.8 % 0-1 [facility] Work Phone: Eosinophils/100 WBC (Bld) 2.5 % 0-5 [facility] Work Phone: Neutrophils (Bld) [#/Vol] 4.0 10*3/uL 2.0-7.7 [facility] Work Phone: Neutrophils/100 WBC (Bld) 62.5 % 47-70 [facility] Work Phone: WBC (Bld) [#/Vol] 6.4 10*3/uL 4.4-11.0 [facility] Work Phone: Blood erythrocytes count (nu mber/volume)on 06-25-2021 RBC (Bld) [#/Vol] 4.85 10*6/uL [facility].6-6[facility] Blood hemoglobin measurement (mass/volume)on 06-25-2021 Hemoglobin (Bld) [Mass/Vol] 14.5 g/dL 13.0-16.5 [facility] Work Phone: Blood lymphocytes/100 leukoc yteson 06-25-2021 Lymphocytes/100 WBC (Bld) 24.2 % 19-41 [facility] Work Phone: Blood monocytes/100 leukocyt eson 06-25-2021 Monocytes/100 WBC (Bld) 9.8 % 0-10 [facility] Work Phone: Blood platelet mean volumeon 06-25-2021 Platelet mean volume (Bld) [Entitic vol] 10.1 fL 6.2-12.0 [facility] Work Phone: Determination of erythrocyte mean corpuscular volume (MCV)on 06-25-2021 MCV (RBC) [Entitic vol] 89.5 fL 80-94 [facility] Work Phone: Erythrocyte sedimentation ra nova 06-25-2021 ESR (Bld) [Velocity] 6 mm/h 0-[address] [facility] Work Phone: Hematocrit Auto (Bld) [Volum e fraction]on 06-25-2021 Hematocrit (Bld) [Volume fraction] 43.4 % 40-54 [facility] Work Phone: Laboratory - Hematology and Cell countson 06-25-2021 Erythrocyte distribution width (RBC) [Entitic vol] 42.5 fL 35.1-43.9 [facility] Work Phone: Erythrocyte distribution width (RBC) [Ratio] 12.9 % 11.6-14.6 [facility] Work Phone: Immature granulocytes/100 WBC (Bld) 0.200 % 0.0-0.9 [facility] Work Phone: Comment on above: IG% - Immature Granu locytes (promyelocytes, myelocytes and metamyelocytes) > 1% indicates that a LEFT SHIFT is Present. MCH (RBC) [Entitic mass] 29.9 pg 27.0-32.0 [facility] Work Phone: Nucleated RBC/100 WBC (Bld) [Ratio] 0 % 0-5 [facility] Work Phone: MCHC Auto (RBC) [Mass/Vol]on 06-25-2021 MCHC (RBC) [Mass/Vol] 33.4 g/dL 32-36 [facility] Work Phone: Platelets bldon 06-25-2021 Platelets (Bld) [#/Vol] 238 10*3/uL 150-450 [facility] Work Phone: Serum or plasma C reactive p rotein measurement (mass/volume)on 06-25-2021 CRP [Mass/Vol] mg/L 0.0-3.0 [facility] Work Phone: Comment on above: C-Reactive Protein ( CRP) provides useful information for thediagnosis, therapy and monitoring of inflammatory processesand associated diseases. For the evaluation of Relative Riskfor Cardiovascular Disease, a High Sensitivity CRP (HSCRP)should be ordered. EP PROCEDURE - EPS/ABLATION/ DEVICEon 11-28-2020 EP PROCEDURE - EPS/ABLATION/DEVICE Yunior Gordon is a 70 y.o. male with a history of palpitations who was referred for EPS+/-RFA. Conclusions 1. Baseline rhythm is SR. Comprehensive EP study was performed at baseline state and with isoproterenol infusion. 2. Normal sinus node function (SNRT was normal). 3. Normal AV node function, normal infranodal conduction (HV=48). 4. No evidence of accessory pathway. 5. No evidence of dual AV node physiology 6. VA conduction present 7. SVT TCL 300 ms. Septal VA time < 70 ms. 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 8. Using 3D mapping system, His cloud, CS and CTI anatomically delineated. RFA applied to slow pathway location, resulting in multiple junctional beats. 9. No inducible SVT post ablation. Anterograde conduction intact post RFA. Recommend the followin. Routine sheath management. 2. Bedrest for 2/3 hours 3. F/U with Dr. Levy in 3 months, 4. Ok to discharge home today from EP standpoint Yunior Gordon EP Procedure - EPS/Ablation/Device Ordering Physician: ANGEL IRENE Order #: [id number] Study Date: 11/26/2020 Patient Information Name MRN Description Yunior Gordon [id number] 70 y.o. male Physicians Panel Physicians Referring Physician Case Authorizing Physician Joey Marx MD (Primary) Provider Not In System MD Wisam Ryan MD (Fellow) Procedures SVT Ablation Pre Procedure Diagnosis Sinus tachycardia [R00.0] Post Procedure Diagnosis Sinus tachycardia [R00.0] Indications Sinus tachycardia [R00.0 (ICD-10-CM)] Conclusion Yunior Gordon is a 70 y.o. male with a history of palpitations who was referred for EPS+/-RFA. Conclusions 1. Baseline rhythm is SR. Comprehensive EP study was performed at baseline state and with isoproterenol infusion. 2. Normal sinus node function (SNRT was normal). 3. Normal AV node function, normal infranodal conduction (HV=48). 4. No evidence of accessory pathway. 5. No evidence of dual AV node physiology 6. VA conduction present 7. SVT TCL 300 ms. Septal VA time < 70 ms. 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 8. Using 3D mapping system, His cloud, CS and CTI anatomically delineated. RFA applied to slow pathway location, resulting in multiple junctional beats. 9. No inducible SVT post ablation. Anterograde conduction intact post RFA. Recommend the followin. Routine sheath management. 2. Bedrest for 2/3 hours 3. F/U with Dr. Levy in 3 months, 4. Ok to discharge home today from EP standpoint Consent The procedure was explained including the potential risks of infection, heart perforation, re-operation, and other risks pertinent to procedure. Informed consent and permission to proceed was given. Site Preparation On the day of the procedure, the patient was brought to the operating room and the groin prepped with Betadine. Site prepped by Lila Chiang RN. The patient was draped in the usual sterile manner. Site prepped by Lila Chiang RN. Interval Collection conditions: baseline. Type of rhythm: SVT. H-V: 43 ms. Collection conditions: post RF ablation. Type of rhythm: sinus rhythm. A-H: 90 ms. H-V: 48 ms. Atrial Pacing Atrial site studied: high right atrium. Collection conditions: baseline. Sinus cycle length: 888 ms. AV Wenckebach interval: [address] cycle length: 500 ms. Fast pathway AVERP: 200 ms. Concentric retrograde activation Atrial site studied: high right atrium. Collection conditions: during drug infusion. Drug administered: isoproterenol. Sinus cycle length: 474 ms. AV Wenckebach interval: 210 ms. Ventricular Pacing Site paced: right ventricle apex. Collection conditions: baseline. VA block cycle length: 300 ms. Ablation Ablation Site: AV node slow pathway. Arrhythmia Type: atrioventricular moris reentry tachycardia. System used: Enjoyor (3D). Catheter successful. Energy type: radio frequency. Irrigation method: closed irrigation cool tip. The ablation procedure was successful. Temperature achieved: 53 C. Energy delivered: 23 delgado. Max delgado: 35 delgado. Impedance: 91 ohms. Duration of energy delivered: 160 seconds. Num of energy applications: 7. There were no complications during the procedure. There is junctional rhythm during energy delivery. SVT Arrhythmia Collection conditions: baseline. Initiation method: atrial overdrive pacing. Arrhythmia type: SVT. Cycle length: 311 ms. concentric Collection conditions: baseline. Initiation method: vent overdrive pacing. Arrhythmia type: SVT. Cycle length: 290 ms. Implants No implant documentation for this case. Fluoro Time - EP Fluoro time = 7.1 minutes. Total dose = 17 mGy. Total DAP = 2.44 Gy (more content not included)... Normal [facility] CBC,PLATELETSon 11-26-2020 Hematocrit (Bld) [Volume fraction] 40.3 % Normal 39.6-48.8 [facility] Comment on above: Performed By: #### [facility] #### [facility] (DEFAULT) [address] [address] Hemoglobin (Bld) [Mass/Vol] 13.8 g/dL Normal 13.4-16.8 [facility] Comment on above: Performed By: #### H EMO #### [facility] (DEFAULT) [address] [address] MCV (RBC) [Entitic vol] 88.2 fL Normal 79.0-94.5 [facility] Comment on above: Performed By: #### H EMO #### [facility] (DEFAULT) [address] [address] Mean Cell Hgb 30.2 pg Normal 26.1-33.3 [facility] [facility] Comment on above: Performed By: #### H EMO #### [facility] (DEFAULT) [address] [address] Mean Cell Hgb Conc 34.2 g/dL Normal 31.9-36.5 [facility] Comment on above: Performed By: #### H EMOGC #### [facility] (DEFAULT) [address] [address] Platelet mean volume (Bld) [Entitic vol] 10.0 fL Normal 8.7-12.3 [facility] Comment on above: Performed By: #### H EMOGC #### [facility] (DEFAULT) [address] [place] [address]37 Platelets (Bld) [#/Vol] 260 10*3/uL Normal 146-337 [facility] Comment on above: Performed By: #### H EMO #### [facility] (DEFAULT) [address] [place] [address] 44642 RBC (Bld) [#/Vol] 4.57 10*6/uL Normal 4.38-5.83 [facility] Comment on above: Performed By: #### H EMOGC #### [facility] (DEFAULT) [address] [place] [address] 73837 RBC Distribution 12.5 % Normal 10.9-14.3 [facility] Comment on above: Performed By: #### H EMO #### [facility] (DEFAULT) [address] [place] [address] 37856 WBC (Bld) [#/Vol] 6.41 10*3/uL Normal 3.73-10.10 [facility] Comment on above: Performed By: #### [facility] #### [facility] (DEFAULT) [address] [place] [address] 27045 CHEM 7 (LYTES,BUN,CREA,GLUC) on 11-26-2020 Anion gap [Moles/Vol] 11 mmol/L Normal 7-17 [facility] Comment on above: Performed By: #### LORENZO POON #### [facility] (DEFAULT) [address] [place] [address] 87634 Chloride [Moles/Vol] 96 mmol/L Low 98-108 [facility] Comment on above: Performed By: #### LORENZO POON #### [facility] (DEFAULT) [address] [place] [address] 48718 CO2 [Moles/Vol] 26 mmol/L Normal 22-30 [facility] Comment on above: Performed By: #### LORENZO POON #### [facility] (DEFAULT) [address] [place] [address] 46932 Creatinine [Mass/Vol] 0.67 mg/dL Low 0.70-1.30 [facility] Comment on above: Performed By: #### EZEQUIEL POON7 #### [facility] (DEFAULT) [address] [place] [address] 85918 EST GFR, >=60 Normal >=60 [facility] Comment on above: Performed By: #### EZEQUIEL POON7 #### [facility] (DEFAULT) [address] [place] [address] 71256 EST GFR,Non >=60 Normal >=60 [facility] Comment on above: Performed By: #### EZEQUIEL POON7 #### [facility] (DEFAULT) [address] [place] [address] 93147 Glucose [Mass/Vol] 112 mg/dL High 70-99 [facility] Comment on above: Performed By: #### LORENZO POON #### [facility] (DEFAULT) [address] [place] [address] 41300 Osmolality [Osmolality] 274 mosm/kg Low 278-305 [facility] Comment on above: Performed By: #### EZEQUIEL POON7 #### [facility] (DEFAULT) [address] [place] [address] 32838 Potassium [Moles/Vol] 4.3 mmol/L Normal 3.5-5.0 [facility] Comment on above: Performed By: #### EZEQUIEL POON7 #### [facility] (DEFAULT) [address] [place] [address] 71846 Sodium [Moles/Vol] 129 mmol/L Low 133-143 [facility] Comment on above: Performed By: #### Ally LOGAN CHM7 #### [facility] (DEFAULT) [address] [place] [address] 29522 Urea nitrogen [Mass/Vol] 13 mg/dL Normal 7-22 [facility] Comment on above: Performed By: #### Ally LOGAN CHM7 #### [facility] (DEFAULT) [address] [place] [address] 59762 Urea nitrogen/Creatinine [Mass ratio] 19 mg/mg Normal [facility] Comment on above: Performed By: #### Ally LOGAN CHM7 #### [facility] (DEFAULT) [address] [place] [address] 41096 MAGNESIUMon 11-26-2020 Magnesium [Mass/Vol] 2.0 mg/dL Normal 1.6-2.6 [facility] Comment on above: Performed By: #### EZEQUIEL POON7 #### [facility] (DEFAULT) [address] [place] [address] 89152 PT,INR,PTTon 11-26-2020 aPTT Coag (Bld) [Time] 30.3 s Normal 24.0-34.3 [facility] Comment on above: Performed By: #### P TPTT #### [facility] (DEFAULT) [address] [place] [address] 90258 INR Coag (PPP) [Relative time] 1.0 {INR} Normal 0.9-1.1 [facility] Comment on above: Performed By: #### P TPTT #### [facility] (DEFAULT) [address] [place] [address] 79695 PT Coag (PPP) [Time] 13.1 s Normal 11.9-14.2 [facility] Comment on above: Performed By: #### P TPTT #### [facility] (DEFAULT) [address] [place] [address] 56668 CBC,PLATELETSon 11-25-2020 Hematocrit (Bld) [Volume fraction] 40.5 % Normal 39.6-48.8 [facility] Comment on above: Performed By: #### H EMOGC #### [facility] (DEFAULT) [address] [place] [address] 05344 Hemoglobin (Bld) [Mass/Vol] 13.8 g/dL Normal 13.4-16.8 [facility] Comment on above: Performed By: #### H EMOKONG #### [facility] (DEFAULT) [address] [address] MCV (RBC) [Entitic vol] 87.7 fL Normal 79.0-94.5 [facility] Comment on above: Performed By: #### H EMOGC #### [facility] (DEFAULT) [address] [address] Mean Cell Hgb 29.9 pg Normal 26.1-33.3 [facility] Comment on above: Performed By: #### H EMOKONG #### [facility] (DEFAULT) [address] [address] Mean Cell Hgb Conc 34.1 g/dL Normal 31.9-36.5 [facility] Comment on above: Performed By: #### H EMO #### [facility] (DEFAULT) [address] [address] Platelet mean volume (Bld) [Entitic vol] 9.9 fL Normal 8.7-12.3 [facility] Comment on above: Performed By: #### H EMOKONG #### [facility] (DEFAULT) [address] [address] Platelets (Bld) [#/Vol] 269 10*3/uL Normal 146-337 [facility] Comment on above: Performed By: #### H EMOKONG #### [facility] (DEFAULT) [address] [address] RBC (Bld) [#/Vol] 4.62 10*6/uL Normal 4.38-5.83 [facility] Comment on above: Performed By: #### H EMOGC #### [facility] (DEFAULT) [address] [address] RBC Distribution 12.5 % Normal 10.9-14.3 [facility] Comment on above: Performed By: #### H EMOGC #### [facility] (DEFAULT) [address] [place] [address] 78834 WBC (Bld) [#/Vol] 7.97 10*3/uL Normal 3.73-10.10 [facility] Comment on above: Performed By: #### H [facility] #### [facility] (DEFAULT) [address] [place] [address] 34584 CHEM 7 (LYTES,BUN,CREA,GLUC) on 11-25-2020 Anion gap [Moles/Vol] 10 mmol/L Normal 7-17 [facility] Comment on above: Performed By: #### LORENZO POON #### [facility] (DEFAULT) [address] [place] [address] 05859 Chloride [Moles/Vol] 96 mmol/L Low 98-108 [facility] Comment on above: Performed By: #### LORENZO POON #### [facility] (DEFAULT) [address] [place] [address] 61756 CO2 [Moles/Vol] 29 mmol/L Normal 22-30 [facility] Comment on above: Performed By: #### LORENZO POON #### [facility] (DEFAULT) [address] [place] [address] 60051 Creatinine [Mass/Vol] 0.73 mg/dL Normal 0.70-1.30 [facility] Comment on above: Performed By: #### LORENZO POON #### [facility] (DEFAULT) [address] [place] [address] 27671 EST GFR, >=60 Normal >=60 [facility] Comment on above: Performed By: #### OLRENZO POON #### [facility] (DEFAULT) [address] [place] [address] 30782 EST GFR,Non >=60 Normal >=60 [facility] Comment on above: Performed By: #### EZEQUIEL POON7 #### [facility] (DEFAULT) [address] [place] [address] 72934 Glucose [Mass/Vol] 101 mg/dL High 70-99 [facility] Comment on above: Performed By: #### Ally LOGAN CHM7 #### [facility] (DEFAULT) [address] [place] [address] 70496 Osmolality [Osmolality] 277 mosm/kg Low 278-305 [facility] Comment on above: Performed By: #### Ally LOGAN CHAlly7 #### [facility] (DEFAULT) [address] [place] [address] 27345 Potassium [Moles/Vol] 4.3 mmol/L Normal 3.5-5.0 [facility] Comment on above: Performed By: #### Ally LOGAN CHM7 #### [facility] (DEFAULT) [address] [place] [address] 89190 Sodium [Moles/Vol] 131 mmol/L Low 133-143 [facility] Comment on above: Performed By: #### Ally LOGAN CHM7 #### [facility] (DEFAULT) [address] [place] [address] 17101 Urea nitrogen [Mass/Vol] 14 mg/dL Normal 7-22 [facility] Comment on above: Performed By: #### Ally LOGAN CHM7 #### [facility] (DEFAULT) [address] [place] [address] 90079 Urea nitrogen/Creatinine [Mass ratio] 19 mg/mg Normal [facility] Comment on above: Performed By: #### Ally LOGAN CHM7 #### [facility] (DEFAULT) [address] [place] [address] 70030 LIPID PANEL WITH REFLEX TO M STEPHANIE LDLon 11-25-2020 Calculated LDL Cholesterol 70 mg/dL Normal 0-99 [facility] Comment on above: Result Comment: [<10 0 mg/dL: Optimal] [100-129 mg/dL: Near Optimal] [130-159 mg/dL: Borderline High] [160-189 mg/dL: High] [>189 mg/dL: Very High] Performed By: #### Ally LOGAN CHM7 #### [facility] (DEFAULT) [address] [place] [address] 91198 Cholesterol [Mass/Vol] 134 mg/dL Normal <200 [facility] Comment on above: Result Comment: [<20 0 mg/dL: Desirable] [200-239 mg/dL: Borderline High] [>239 mg/dL: High] Performed By: #### Ally LOGAN CHM7 #### [facility] (DEFAULT) [address] [place] [address] 39681 Cholesterol in HDL [Mass/Vol] 53 mg/dL Normal >=40 [facility] Comment on above: Result Comment: [<40 mg/dL: Low (High Risk)] [>59 mg/dL: High (Low Risk)] Performed By: #### Ally LOGAN CHM7 #### [facility] (DEFAULT) [address] [place] [address] 59900 Non HDL Cholesterol 81 mg/dL Normal <130 [facility] Comment on above: Performed By: #### Ally LOGAN CHM7 #### [facility] (DEFAULT) [address] [place] [address] 66734 Total Cholesterol/HDL Ratio 2.5 Normal <4.5 [facility] Comment on above: Performed By: #### Ally LOGAN CHM7 #### [facility] (DEFAULT) [address] [place] [address] 83884 Triglyceride [Mass/Vol] 57 mg/dL Normal <150 [facility] Comment on above: Result Comment: [<15 0 mg/dL: Desirable] [150-199 mg/dL: Borderline] [200-499 mg/dL: High] [>500 mg/dL: Very High] Performed By: #### Ally LOGAN CHM7 #### [facility] (DEFAULT) [address] [place] [address] 99907 MAGNESIUMon 11-25-2020 Magnesium [Mass/Vol] 2.0 mg/dL Normal 1.6-2.6 [facility] Comment on above: Performed By: #### Ally LOGAN CHM7 #### [facility] (DEFAULT) [address] [place] [address] 35359 PT,INR,PTTon 11-25-2020 aPTT Coag (Bld) [Time] 30.2 s Normal 24.0-34.3 [facility] Comment on above: Performed By: #### Ally LOGAN CHM7 #### [facility] (DEFAULT) [address] [place] [address] 65220 INR Coag (PPP) [Relative time] 1.0 {INR} Normal 0.9-1.1 [facility] Comment on above: Performed By: #### EZEQUIEL POON7 #### [facility] (DEFAULT) [address] [place] [address] 61259 PT Coag (PPP) [Time] 12.9 s Normal 11.9-14.2 [facility] Comment on above: Performed By: #### EZEQUIEL POON7 #### [facility] (DEFAULT) [address] [place] [address] 65627 CBC,PLATELETSon 11-24-2020 Hematocrit (Bld) [Volume fraction] 41.0 % Normal 39.6-48.8 [facility] Comment on above: Performed By: #### EZEQUIEL POON7 #### [facility] (DEFAULT) [address] [place] [address] 67890 Hemoglobin (Bld) [Mass/Vol] 13.6 g/dL Normal 13.4-16.8 [facility] Comment on above: Performed By: #### Ally LOGAN CHM7 #### [facility] (DEFAULT) [address] [place] [address] 05329 MCV (RBC) [Entitic vol] 90.9 fL Normal 79.0-94.5 [facility] Comment on above: Performed By: #### Ally LOGAN CHM7 #### [facility] (DEFAULT) [address] [place] [address] 89736 Mean Cell Hgb 30.2 pg Normal 26.1-33.3 [facility] Comment on above: Performed By: #### Ally LOGAN CHM7 #### [facility] (DEFAULT) [address] [place] [address] 87082 Mean Cell Hgb Conc 33.2 g/dL Normal 31.9-36.5 [facility] Comment on above: Performed By: #### Ally LOGAN CHM7 #### [facility] (DEFAULT) [address] [place] [address] 94821 Platelet mean volume (Bld) [Entitic vol] 9.9 fL Normal 8.7-12.3 [facility] Comment on above: Performed By: #### Ally LOGAN CHM7 #### [facility] (DEFAULT) [address] [place] [address] 86002 Platelets (Bld) [#/Vol] 202 10*3/uL Normal 146-337 [facility] Comment on above: Performed By: #### Ally LOGAN CHM7 #### [facility] (DEFAULT) [address] [place] [address] 22258 RBC (Bld) [#/Vol] 4.51 10*6/uL Normal 4.38-5.83 [facility] Comment on above: Performed By: #### Ally LOGAN CHM7 #### [facility] (DEFAULT) [address] [place] [address] 30826 RBC Distribution 12.4 % Normal 10.9-14.3 [facility] Comment on above: Performed By: #### Ally LOGAN CHM7 #### [facility] (DEFAULT) [address] [place] [address] 13452 WBC (Bld) [#/Vol] 7.10 10*3/uL Normal 3.73-10.10 [facility] Comment on above: Performed By: #### Ally LOGAN, CHM7 #### [facility] (DEFAULT) [address] [place] [address] 98996 CHEM 7 (LYTES,BUN,CREA,GLUC) on 11-24-2020 Anion gap [Moles/Vol] 12 mmol/L Normal 7-17 [facility] Comment on above: Performed By: #### Ally LOGAN CHM7 #### [facility] (DEFAULT) [address] [place] [address] 62949 Chloride [Moles/Vol] 99 mmol/L Normal 98-108 [facility] Comment on above: Performed By: #### Ally LOGAN CHM7 #### [facility] (DEFAULT) [address] [place] [address] 63107 CO2 [Moles/Vol] 22 mmol/L Normal 22-30 [facility] Comment on above: Performed By: #### Ally LOGAN CHM7 #### [facility] (DEFAULT) [address] [place] [address] 01976 Creatinine [Mass/Vol] 0.68 mg/dL Low 0.70-1.30 [facility] Comment on above: Performed By: #### Ally LOGAN CHM7 #### [facility] (DEFAULT) [address] [place] [address] 40586 EST GFR, >=60 Normal >=60 [facility] Comment on above: Performed By: #### Ally LOGAN CHM7 #### [facility] (DEFAULT) [address] [place] [address] 36335 EST GFR,Non >=60 Normal >=60 [facility] Comment on above: Performed By: #### Ally LOGAN CHM7 #### [facility] (DEFAULT) [address] [place] [address] 02473 Glucose [Mass/Vol] 105 mg/dL High 70-99 [facility] Comment on above: Performed By: #### Ally LOGAN CHM7 #### [facility] (DEFAULT) [address] [place] [address] 39944 Osmolality [Osmolality] 271 mosm/kg Low 278-305 [facility] Comment on above: Performed By: #### Ally LOGAN CHM7 #### [facility] (DEFAULT) [address] [place] [address] 35427 Potassium [Moles/Vol] 4.1 mmol/L Normal 3.5-5.0 [facility] Comment on above: Performed By: #### Ally LOGAN CHM7 #### [facility] (DEFAULT) [address] [place] [address] 07001 Sodium [Moles/Vol] 129 mmol/L Low 133-143 [facility] Comment on above: Performed By: #### Ally LOGAN CHM7 #### [facility] (DEFAULT) [address] [place] [address] 26901 Urea nitrogen [Mass/Vol] 9 mg/dL Normal 7-22 [facility] Comment on above: Performed By: #### Ally LOGAN CHM7 #### [facility] (DEFAULT) [address] [place] [address] 84327 Urea nitrogen/Creatinine [Mass ratio] 13 mg/mg Normal [facility] Comment on above: Performed By: #### Ally LOGAN CHM7 #### [facility] (DEFAULT) [address] [place] [address] 48481 ECHOCARDIOGRAMon 11-24-2020 Echocardiography - Normal left ventricular size and function. Ejection fraction 55-60%. - Normal diastolic function. - Right ventricle is mildly enlarged with normal systolic function. - Normal atrial size. - Mitral valve: mild leaflet prolapse with mild, late-systolic regurgitation. - RVSP estimated 23 mmHg. - No prior study for comparison. Facility [facility] Patient Information Patient Name Yunior Gordon Legal Sex Male Indication for Exam Priority: Routine Dx: Cardiac arrhythmia, unspecified cardiac arrhythmia type [I49.9 (ICD-10-CM)] Order Question Reason for Exam hx of mitral prolapse, sustained VT Interpretation Summary - Normal left ventricular size and function. Ejection fraction 55-60%. - Normal diastolic function. - Right ventricle is mildly enlarged with normal systolic function. - Normal atrial size. - Mitral valve: mild leaflet prolapse with mild, late-systolic regurgitation. - RVSP estimated 23 mmHg. - No prior study for comparison. Findings Left Ventricle Chamber size is normal. Normal wall thickness. Normal global wall motion. Regional wall motion is normal. Ejection fraction is normal (55 - 60%). Diastolic function is normal. Right Ventricle Chamber size is mildly enlarged. Systolic function is normal. Left Atrium Chamber size is normal. Right Atrium Chamber size is normal. Septum The atrial septum is normal. Mitral Valve Normal appearing leaflets. Leaflet mobility is normal. Mild leaflet prolapse. Mild regurgitation. No valve stenosis. Aortic Valve Aortic valve not well visualized. Leaflet mobility is normal. No regurgitation. No stenosis. Tricuspid Valve Normal leaflets. Leaflet mobility is normal. Trace regurgitation. No stenosis. Estimated right ventricular systolic pressure is 23 mmHg. Pulmonic Valve Normal structure. No regurgitation. No stenosis. Aorta No dilation to extent seen. Pericardium Appears normal. Trivial pericardial effusion. IVC/SVC The inferior vena cava structure has a diameter <21 mm and decreases >50% during inspiration. 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, [place] 11/24/2020 Left Heart Measurements LV - Systole LVIDD 3.66 cm IVS 1.25 cm LVIDS 2.29 cm PW 1.68 cm LV RWT 0.92 LV Mass Index 105.3 g/m2 LV EDV BP 68 mL LV ESV BP 30 mL BP EF 56 % LV stroke volume BP (ml) 38 mL LV stroke volume index BP 20.21 mL/m2 LV - Diastole MV pk E mattie 0.64 m/s MV pk A mattie 0.77 m/s E/A ratio 0.83 e' septal pk mattie 0.05 m/s e' lateral pk mattie 0.07 m/s Avg e' pk mattie 0.06 m/s E/e' septal ratio 11.94 E/e' lateral ratio 9.05 Avg E/e' ratio 10.5 LV - HCM AV LVOT peak gradient 3 mmHg Left Atrium LA ESV SP 4CH (MOD) 48 mL LA ESV SP 2CH (MOD) 51 mL LA ESV BP (MOD) index 26 mL/m2 Right Heart Measurements RV - 2D RV basal diam 5.72 cm RV mid diam 4.37 cm RV long diam 8.52 cm RV Area diastolic 31.69 cm2 RV Area systolic 20.97 cm2 RV Fractional area change 33.8 % RV - Doppler TAPSE 2.42 RV S' 12.66 cm/s Right Atrium RA vol index 4CH (MOD) 28.19 mL/m2 EST RAP 3 mmHg Great Vessels Aortic Root - End Diastolic Sinus 3.65 cm STJ 3.24 cm Ascending aorta 2.96 cm Inferior Vena Cava IVC ostium 1.01 cm Doppler Measurements - Aortic Valve Stenosis LVOT diameter 2.07 cm LVOT area 3.36 cm2 LVOT peak mattie 0.82 m/s LVOT peak VTI 18.94 cm Stroke Volume 64 cm/mL Stroke volume index 34 Ao peak mattie 1.03 m/s Ao VTI 20.3 cm AV peak gradient 4 mmHG AV mean gradient 2 mmHg DI (VTI) 0.93 m/2 DI (Vmax) 0.8 JAROD (continuity Vmax) 2.68 cm2 JAROD index (continuity Vmax) 1.42 m/s JAROD (continuity VTI) 3.14 cm2 JAROD index (continuity VTI) 1.67 cm2/m2 LVOT stroke volume 64 cm3 LVOT stroke volume index 33.89 ml/m2 Doppler Measurements - Mitral Valve Stenosis MV pk E mattie 0.64 m/s MV pk A mattie 0.77 m/s E/A ratio 0.83 MV stenosis pressure 1/2 time 64.89 ms MV valve area p 1/2 method 3.39 cm2 PISA-MS MV pk E mattie 0.64 m/s PISA-MR Mr max mattie 5.49 m/s MR VTI 196.31 cm Doppler Measurements - Tricuspid Valve Stenosis IVC ostium 1.01 cm Regurgitation TR pk mattie 2.24 m/s TR pk grad 20 mmHg EST RAP 3 mmHg EST RVSP 23 mmHg Doppler Measurements - Pulmonic Valve Stenosis PV PK MATTIE 0.64 m/s PV VTI 12.17 cm2 PV peak gradient 2 mmHg PV mean gradient 1 mmHg RVOT peak mattie 0.38 m/s RVOT peak VTI 9.34 cm RVOT peak gradient 1 mmHg Performing Staff Terra Goodson RDCS Study Details Study(s) performed: complete. Imaging system used: [employer]. Indications for study: other - sustained VT. Exam Details Performed Procedure Technologist Supporting Staff Performing Physician RI ECHOCARDIOGRAM W/O 3D Terra (more content not included)... Normal [facility] MAGNESIUMon 11-24-2020 Magnesium [Mass/Vol] 2.0 mg/dL Normal 1.6-2.6 [facility] Comment on above: Performed By: #### MIMI POON #### [facility] (DEFAULT) [address] [place] [address] 51513 Magnesium [Mass/Vol] 1.8 mg/dL Normal 1.6-2.6 [facility] Comment on above: Performed By: #### Ally LOGAN CHM7 #### [facility] (DEFAULT) [address] [place] [address] 33374 POTASSIUMon 11-24-2020 Potassium [Moles/Vol] 4.3 mmol/L Normal 3.5-5.0 [facility] Comment on above: Performed By: #### MIMI POON #### [facility] (DEFAULT) [address] [place] [address]19 PT,INR,PTTon 11-24-2020 aPTT Coag (Bld) [Time] 27.3 s Normal 24.0-34.3 [facility] Comment on above: Performed By: #### P TPTT #### [facility] (DEFAULT) [address] [place] [address] 13581 INR Coag (PPP) [Relative time] 1.0 {INR} Normal 0.9-1.1 [facility] Comment on above: Performed By: #### P TPTT #### [facility] (DEFAULT) [address] [place] [address] 49197 PT Coag (PPP) [Time] 13.0 s Normal 11.9-14.2 [facility] Comment on above: Performed By: #### P TPTT #### [facility] (DEFAULT) [address] [place] [address] 12298 CALCIUMon 11-23-2020 Calcium [Mass/Vol] 9.3 mg/dL Normal 8.6-10.5 [facility] Comment on above: Performed By: #### P TPTT #### [facility] (DEFAULT) [address] [place] [address] 77457 CBC,PLATELETSon 11-23-2020 Hematocrit (Bld) [Volume fraction] 41.4 % Normal 39.6-48.8 [facility] Comment on above: Performed By: #### P TPTT #### [facility] (DEFAULT) [address] [address] Hemoglobin (Bld) [Mass/Vol] 13.9 g/dL Normal 13.4-16.8 [facility] Comment on above: Performed By: #### P TPTT #### [facility] (DEFAULT) [address] [address] MCV (RBC) [Entitic vol] 87.9 fL Normal 79.0-94.5 [facility] Comment on above: Performed By: #### P TPTT #### [facility] (DEFAULT) [address] [address] Mean Cell Hgb 29.5 pg Normal 26.1-33.3 [facility] Comment on above: Performed By: #### P TPTT #### [facility] (DEFAULT) [address] [address] Mean Cell Hgb Conc 33.6 g/dL Normal 31.9-36.5 [facility] Comment on above: Performed By: #### P TPTT #### [facility] (DEFAULT) [address] [address] Platelet mean volume (Bld) [Entitic vol] 10.0 fL Normal 8.7-12.3 [facility] Comment on above: Performed By: #### P TPTT #### [facility] (DEFAULT) [address] [address] Platelets (Bld) [#/Vol] 280 10*3/uL Normal 146-337 [facility] Comment on above: Performed By: #### P TPTT #### [facility] (DEFAULT) [address] [place] [address] 26090 RBC (Bld) [#/Vol] 4.71 10*6/uL Normal 4.38-5.83 [facility] Comment on above: Performed By: #### P TPTT #### [facility] (DEFAULT) [address] [place] [address] 68073 RBC Distribution 12.5 % Normal 10.9-14.3 [facility] Comment on above: Performed By: #### P TPTT #### [facility] (DEFAULT) [address] [place] [address] 90005 WBC (Bld) [#/Vol] 10.88 10*3/uL High 3.73-10.10 [facility] Comment on above: Performed By: #### P TPTT #### [facility] (DEFAULT) [address] [place] [address]80 CHEM 7 (LYTES,BUN,CREA,GLUC) on 11-23-2020 Anion gap [Moles/Vol] 12 mmol/L Normal 7-17 [facility] Comment on above: Performed By: #### P TPTT #### [facility] (DEFAULT) [address] [place] [address]1959 Chloride [Moles/Vol] 97 mmol/L Low 98-108 [facility] Comment on above: Performed By: #### P TPTT #### [facility] (DEFAULT) [address] [place] [address] 97936 CO2 [Moles/Vol] 27 mmol/L Normal 22-30 [facility] Comment on above: Performed By: #### P TPTT #### [facility] (DEFAULT) [address] [place] [address] 42341 Creatinine [Mass/Vol] 0.82 mg/dL Normal 0.70-1.30 [facility] Comment on above: Performed By: #### P TPTT #### [facility] (DEFAULT) [address] [place] [address] 51892 EST GFR, >=60 Normal >=60 [facility] Comment on above: Performed By: #### P TPTT #### [facility] (DEFAULT) [address] [place] [address] 65875 EST GFR,Non >=60 Normal >=60 [facility] Comment on above: Performed By: #### P TPTT #### [facility] (DEFAULT) [address] [place] [address] 48491 Glucose [Mass/Vol] 103 mg/dL High 70-99 [facility] Comment on above: Performed By: #### P TPTT #### [facility] (DEFAULT) [address] [place] [address] 78725 Osmolality [Osmolality] 280 mosm/kg Normal 278-305 [facility] Comment on above: Performed By: #### P TPTT #### [facility] (DEFAULT) [address] [place] [address] 47338 Potassium [Moles/Vol] 4.4 mmol/L Normal 3.5-5.0 [facility] Comment on above: Performed By: #### P TPTT #### [facility] (DEFAULT) [address] [place] [address] 09279 Sodium [Moles/Vol] 132 mmol/L Low 133-143 [facility] Comment on above: Performed By: #### P TPTT #### [facility] (DEFAULT) [address] [place] [address] 95581 Urea nitrogen [Mass/Vol] 15 mg/dL Normal 7-22 [facility] Comment on above: Performed By: #### P TPTT #### [facility] (DEFAULT) [address] [place] [address] 05927 Urea nitrogen/Creatinine [Mass ratio] 18 mg/mg Normal [facility] Comment on above: Performed By: #### P TPTT #### [facility] (DEFAULT) [address] [place] [address] 03133 HEPATIC FUNCTION PANELon Albumin [Mass/Vol] 4.3 g/dL Normal 3.5-5.0 [facility] Comment on above: Performed By: #### P TPTT #### [facility] (DEFAULT) [address] [address] ALP [Catalytic activity/Vol] 57 U/L Normal 32-126 [facility] Comment on above: Performed By: #### P TPTT #### [facility] (DEFAULT) [address] [address] ALT [Catalytic activity/Vol] 19 U/L Normal 10-52 [facility] Comment on above: Performed By: #### P TPTT #### [facility] (DEFAULT) [address] [address] AST [Catalytic activity/Vol] 26 U/L Normal 14-40 [facility] Comment on above: Performed By: #### P TPTT #### [facility] (DEFAULT) [address] [address] Bilirubin [Mass/Vol] 0.5 mg/dL Normal <1.5 [facility] Comment on above: Performed By: #### P TPTT #### [facility] (DEFAULT) [address] [address] Bilirubin.indirect [Mass/Vol] 0.1 mg/dL Normal <0.3 [facility] Comment on above: Performed By: #### P TPTT #### [facility] (DEFAULT) [address] [address] Protein [Mass/Vol] 6.8 g/dL Normal 6.4-8.3 [facility] Comment on above: Performed By: #### P TPTT #### [facility] (DEFAULT) [address] [address] MAGNESIUMon 11-23-2020 Magnesium [Mass/Vol] 2.1 mg/dL Normal 1.6-2.6 [facility] Comment on above: Result Comment: Slig htly hemolyzed Performed By: #### M GO, KKO #### [facility] (DEFAULT) [address] [place] [address]82 Magnesium [Mass/Vol] 2.0 mg/dL Normal 1.6-2.6 [facility] Comment on above: Performed By: #### P TPTT #### [facility] (DEFAULT) [address] [place] [address] 16353 NOVEL CORONAVIRUS PCRon 10- SARS-CoV-2 (COVID-19) RNA OLIVIA+probe Ql (Unsp spec) Not detected Normal NOT DETECTED [facility] Comment on above: Order Comment: Viral transport media or BAL specimen - Collection must be done while wearing N-95 mask, eye protection, gown and gloves. Please label ALL specimens as 2019-nCoV rule out and deliver by hand. This test was performed using real time PCR and has been approved for the qualitative detection of SARS-CoV-2 nucleic acid. The test has been authorized by the FDA under an emergency use authorization for use by authorized laboratories. Result Comment: [facility] Negative results do not preclude SARS-CoV-2 infection and should not be used as the sole basis for treatment or other patient management decisions. Optimum specimen types and timing for peak viral levels during infections caused by SARS-CoV-2 has not been determined. The possibility of a false negative result should especially be considered if the patient's recent exposures or clinical presentation suggest that SARS-CoV-2 infection is probable, and diagnostic tests for other causes of illness (e.g., other respiratory illness) are negative. Collection of a new specimen and re-testing may be necessary if the patient is critically ill or clinically deteriorating. Performed By: #### L [id number] #### [facility] (DEFAULT) [address] [place] [address] 19351 PHOSPHATE, INORGANICon 11-23 Phosphorous 3.9 mg/dL Normal 2.2-4.6 [facility] Comment on above: Performed By: #### P TPTT #### [facility] (DEFAULT) [address] [place] [address] 21143 POTASSIUMon 11-23-2020 Potassium [Moles/Vol] 4.1 mmol/L Normal 3.5-5.0 [facility] Comment on above: Result Comment: Slig htly hemolyzed Performed By: #### M GO, KKO #### [facility] (DEFAULT) [address] [place] [address] 69913 PT,INR,PTTon 11-23-2020 aPTT Coag (Bld) [Time] 29.5 s Normal 24.0-34.3 [facility] Comment on above: Performed By: #### P TPTT #### [facility] (DEFAULT) [address] [place] [address] 91276 INR Coag (PPP) [Relative time] 1.0 {INR} Normal 0.9-1.1 [facility] Comment on above: Performed By: #### P TPTT #### [facility] (DEFAULT) [address] [place] [address] 13828 PT Coag (PPP) [Time] 13.3 s Normal 11.9-14.2 [facility] Comment on above: Performed By: #### P TPTT #### [facility] (DEFAULT) [address] [place] [address] 91658 Final Surgical Pathology Rep [facility] 09-03-2020 Final Surgical Pathology Report . Pathology Reports Accession: Collected Date/Time: Received Date/Time: Pathologist: [id number] 09/01/2020 07:30 EDT 09/01/2020 15:01 EDT FRANCK ASCENCIO MD Final Surgical Pathology Report DIAGNOSIS: RIGHT KNEE BONE - DEGENERATIVE CHANGES IN ARTICULAR CARTILAGE. UNREMARKABLE UNDERLYING BONE. NEGATIVE FOR MALIGNANCY. COMMENT: [facility] [id number] CLINICAL INFORMATION: RIGHT KNEE ARTHRITIS SPECIMEN: A RIGHT KNEE BONE GROSS DESCRIPTION: A. Received in formalin, labeled with the patients name, Case #[id number], and right knee bone Description/dimensio ns - multiple convex and concave fragmented portions of ricardo-yellow bone/ soft tissue aggregating 8 x 8 x 4.5 cm, articular surfaces are focally eburnated, cartilage is focally nodular, underlying bone is yellow/dense to trabecular RS-1 following decalcification Dictated by LUIS SAM MICROSCOPIC DESCRIPTION: Slides reviewed. Electronically Signed by Pathology Report verified by [facility] Electronically signed by FRANCK SACENCIO Sign out Date: 09/03/2020 14:09 Performing Lab: [facility], [address] [place] [address] ([place]) Comment on above: Performed By: #### S PFR #### [place] [id number] BASIC METABOLIC PANEL 11- Calcium [Mass/Vol] 9.8 mg/dL Normal 8.6-10.3 [facility] Comment on above: Performed By: #### 1 0165 #### [facility]-[address], [address] [place] [address] Hydrographic Engineer: Nicolas Graf MD Chloride [Moles/Vol] 102 mmol/L Normal 98-110 [facility] Comment on above: Performed By: #### 1 0165 #### [facility]-[address], [address] [place] [address] Hydrographic Engineer: Nicolas Graf MD CO2 [Moles/Vol] 33 mmol/L High 20-32 [facility] Comment on above: Performed By: #### 1 0165 #### [facility]-[address], [address] [place] [address] Hydrographic Engineer: Nicolas Graf MD Creatinine [Mass/Vol] 0.82 mg/dL Normal 0.70-1.18 [facility] Comment on above: Result Comment: For patients >49 years of age, the reference limit for Creatinine is approximately 13% higher for people identified as -Bol[place]ian. Performed By: #### 1 0165 #### [facility]-[address], [address] [place] [address] Hydrographic Engineer: Nicolas Graf MD eGFR NON-AFR. TOGOLESE 89 mL/min/1.73m2 Normal > OR = 60 [facility] Comment on above: Performed By: #### 1 0165 #### [facility]-[address], [address] [place] [address] Hydrographic Engineer: Nicolas Graf MD GFR/1.73 sq M predicted among blacks MDRD (S/P/Bld) [Vol rate/Area] 103 mL/min/{1.73_m2} Normal > OR = 60 [facility] Comment on above: Performed By: #### 1 0165 #### [facility]-[address], [address] [place] [address] Hydrographic Engineer: Nicolas Graf MD Glucose [Mass/Vol] 94 mg/dL Normal 65-99 [facility] Comment on above: Result Comment: Fasting reference interval Performed By: #### 1 0165 #### [facility]-[address], [address] [place] [address] Hydrographic Engineer: Nicolas Graf MD Potassium [Moles/Vol] 4.3 mmol/L Normal 3.5-5.3 [facility] Comment on above: Performed By: #### 1 0165 #### [facility] [address] Hydrographic Engineer: Nicolas Graf MD Sodium [Moles/Vol] 137 mmol/L Normal 135-146 [facility] Comment on above: Performed By: #### 1 0165 #### [facility] [address] Hydrographic Engineer: Nicolas Graf MD Urea nitrogen [Mass/Vol] 17 mg/dL Normal 7-25 [facility] Comment on above: Performed By: #### 1 0165 #### [facility] [address] Hydrographic Engineer: Nicolas Graf MD Urea nitrogen/Creatinine [Mass ratio] NOT APPLICABLE Normal 6-22 [facility] Comment on above: Performed By: #### 1 0165 #### [facility] [address] Hydrographic Engineer: Nicolas Graf MD Laboratory - Chemistry and C hemistry - challengeon 01-01-2020 Calcium [Mass/Vol] 9.8 mg/dL Normal 8.6 - 10. 3 mg/dL [facility], [facility]. Chloride [Moles/Vol] 102 mmol/L Normal 98 - 11 0 mmol/L [facility], [facility]. CO2 [Moles/Vol] 33 mmol/L Abnormal 20 - 32 mmol/L [facility].; [place] [employer] [facility], [facility]. Creatinine [Mass/Vol] 0.82 mg/dL Normal 0.70 - 1.18 mg/dL [facility].; [facility], [facility]. GFR/1.73 sq M.predicted among blacks MDRD (S/P/Bld) [Vol rate/Area] 103 mL/min/{1.73_m2} Normal [facility]; [facility], [facility] Glucose [Mass/Vol] 94 mg/dL Normal 65 - 99 mg/dL [facility].; [place] [employer] [facility], [facility]. Potassium [Moles/Vol] 4.3 mmol/L Normal 3.5 - 5.3 mmol/L [facility].; [place] [employer] Sodium [Moles/Vol] 137 mmol/L Normal 135 - 146 mmol/L [facility].; [place] [employer], [employer]. Urea nitrogen [Mass/Vol] 17 mg/dL Normal 7 - 25 mg/dL [facility].; [place] [employer] [facility], [facility]. No Panel Informationon 12-31 BUN/CREATININE RATIO NOT APPLICABLE Normal 6 - 22 [facility].; [place] [employer], [facility]. eGFR NON-AFR. TOGOLESE 89 Normal [facility].; [place] [employer] [facility]. Laboratory - Chemistry and C hemistry - challengeon 09-07-2018 Calcium [Mass/Vol] 9.8 mg/dL Normal 8.6 - 10. 3 mg/dL [facility].; [employer] Chloride [Moles/Vol] 99 mmol/L Normal 98 - 11 0 mmol/L [facility].; [employer] CO2 [Moles/Vol] 30 mmol/L Normal 20 - 32 mmol/L [facility].; [place] [employer] Creatinine [Mass/Vol] 0.83 mg/dL Normal 0.70 - 1.18 mg/dL [facility].; [facility]. GFR/1.73 sq M.predicted among blacks MDRD (S/P/Bld) [Vol rate/Area] 103 {ML/MIN/1.73M2} Normal [facility], [facility].; [facility], [facility]. GFR/1.73 sq M.predicted MDRD (S/P/Bld) [Vol rate/Area] 89 {ML/MIN/1.73M2} Normal [facility].; [place] [employer] [facility]. Glucose [Mass/Vol] 101 mg/dL Abnormal 65 - 99 mg/dL [facility].; [facility], [facility]. Potassium [Moles/Vol] 4.2 mmol/L Normal 3.5 - 5.3 mmol/L [facility].; [facility], [facility]. Sodium [Moles/Vol] 135 mmol/L Normal 135 - 146 mmol/L [facility].; [place] [employer] [facility]. Urea nitrogen [Mass/Vol] 17 mg/dL Normal 7 - 25 mg/dL [facility].; [place] [employer] [facility]. Urea nitrogen/Creatinine [Mass ratio] 21.0 mg/mg Normal 6 - 22 [facility]; [place] [employer] [facility] [employer]. Laboratory - Chemistry and C hemistry - challengeon 06-09-2017 Bilirubin Ql (U) Negative Normal [facility].; [place] [employer] [facility], [employer]. Ketones Ql (U) Negative Normal [facility], [facility].; [place] [employer], [employer]. pH (U) 6.0 [pH] Normal [facility].; [place] [employer]. Specific gravity (U) [Rel density] 1.015 Normal [facility].; [place] [employer]. Urobilinogen Qn (U) 3.5 mg/dL Normal [facility].; [place] [employer], [employer]. Laboratory - Hematology and Cell countson 06-09-2017 Hemoglobin Ql (U) Negative Normal [facility].; [place] [employer], [employer]. Laboratory - Specimen inform ationon 06-09-2017 Appearance (U) Clear Normal [employer]. Color (U) Yellow Normal [employer].; [employer]. Laboratory - Urinalysison Glucose Test strip (U) [Mass/Vol] Negative Normal [employer].; [employer]. Leukocyte esterase Test strip Ql (U) Negative Normal [employer].; [employer]. Nitrite Ql (U) Negative Normal [employer].; [employer]. Protein Ql (U) Negative Normal [employer].; [employer]. Lab Report: Basic Metabolic Profile (BMP)on 12-30-2016 Anion gap 8 mmol/L Invalid Interpretation Code 5-15 [email or web address] Work Phone: BUN/Creatinine Ratio 20.5 RATIO High 10-20 [facility] [employer] Work Phone: Calcium 9.1 mg/dL Invalid Interpretation Code 8.5-10.1 [email or web address] Work Phone: Chloride 104 mmol/L Invalid Interpretation Code 98-107 [email or web address] Work Phone: CO2 29.0 mmol/L Invalid Interpretation Code 21.0-32.0 [email or web address] Work Phone: Creatinine 0.78 mg/dL Invalid Interpretation Code 0.70-1.30 [email or web address] Work Phone: eGFR (non-black) 127 mL/min/{1.73_m2} Invalid Interpretation Code >60 [email or web address] Work Phone: eGFR (non-black) 105 mL/min/{1.73_m2} Invalid Interpretation Code >60 [email or web address] Work Phone: Glucose mass conc 99 mg/dL Invalid Interpretation Code 70-110 [email or web address] Work Phone: Potassium molar conc 4.2 mmol/L Invalid Interpretation Code 3.5-5.1 [email or web address] Work Phone: Sodium 141 mmol/L Invalid Interpretation Code 136-145 [email or web address] Work Phone: Urea nitrogen 16 mg/dL Invalid Interpretation Code 7-18 [email or web address] Work Phone: Lab Report: CBC-Complete Blo od Cnt No Diffon 12-30-2016 Erythrocyte distribution width Auto Ratio (RBC) 13.1 % Invalid Interpretation Code 11.6-14.6 [email or web address] Work Phone: Erythrocytes (RBC) 4.87 10*6/uL Invalid Interpretation Code 4.6-6.2 [email or web address] Work Phone: Hematocrit (HCT) 45.1 % Invalid Interpretation Code 40-54 [email or web address] Work Phone: Hemoglobin mass conc (Bld) 15.0 g/dL Invalid Interpretation Code 13.0-16.5 [email or web address] Work Phone: MCH 30.8 pg Invalid Interpretation Code 27.0-32.0 [employer] Phone: MCHC mass conc (RBC) 33.3 G/GL Invalid Interpretation Code 32-36 [employer] Phone: MCV 92.6 fL Invalid Interpretation Code 80-94 [employer] Phone: Platelets 205 10*3/mm3 Invalid Interpretation Code 150-450 [employer] Phone: PMV by Denys 10.3 fL Invalid Interpretation Code 6.2-12.0 [employer] Phone: RDW SD 44.3 fL High 35.1-43.9 [email or web address] Work Phone: WBC (Leukocytes) 5.0 10*3/uL Invalid Interpretation Code 4.4-11.0 [email or web address] Work Phone: Laboratoryon 12-13-2016 Lower GI hemoglobin IA Ql (Stl) Not detected Normal [facility], [facility].; [facility], [facility]. Office Visiton 12-08-2016 Documentation of current medications (procedure) Done Invalid Interpretation Code [employer] Phone: Fall risk assessment No Invalid Interpretation Code [employer] Phone: Protein mass conc Done Invalid Interpretation Code [email or web address] Work Phone: Lab Report: Lipid Profileon 11-29-2016 Cholesterol in HDL mass conc 77 mg/dL Invalid Interpretation Code [email or web address] Work Phone: Cholesterol in LDL mass conc 85 mg/dL Invalid Interpretation Code 0-130 [email or web address] Work Phone: Cholesterol mass conc 172 mg/dL Invalid Interpretation Code 200 [email or web address] Work Phone: Lipoprotein.pre-beta mass conc 10 mg/dL Invalid Interpretation Code 5-40 [email or web address] Work Phone: Triglyceride mass conc 52 mg/dL Invalid Interpretation Code [email or web address] Work Phone: Lab Report: Liver Profileon 11-29-2016 Albumin mass conc 3.8 g/dL Invalid Interpretation Code 3.4-5.0 [email or web address] Work Phone: Alkaline phosphatase (ALP) 57 U/L Invalid Interpretation Code 45-117 [email or web address] Work Phone: ALP enzyme act/vol (Bld) 57 U/L Invalid Interpretation Code 45-117 [email or web address] Work Phone: ALT enzyme act/vol 35 U/L Invalid Interpretation Code 12-78 [email or web address] Work Phone: AST enzyme act/vol 24 U/L Invalid Interpretation Code 15-37 [email or web address] Work Phone: Bilirubin mass conc 0.40 mg/dL Invalid Interpretation Code 0.20-1.00 [email or web address] Work Phone: Bilirubin.direct mass conc 0.13 mg/dL Invalid Interpretation Code 0.00-0.30 [email or web address] Work Phone: Globulin Calculated mass conc (S) 3.2 g/dL Invalid Interpretation Code 2.3-3.5 [email or web address] Work Phone: Protein mass conc 7.0 g/dL Invalid Interpretation Code 6.4-8.2 [email or web address] Work Phone: Lab Report: PSA,Total - Sabra al Screenon 10-09-2017 PSA,TOT SCREEN 1.43 ng/mL Invalid Interpretation Code 0.00-4.00 [place] Work Phone: Office Visiton 06-14-2016 Protein mass conc Done Invalid Interpretation Code [email or web address] Work Phone: Clinical Lists Update: 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 Laboratory - Chemistry and C hemistry - challengeon 11-27-2015 Prostate specific Ag [Mass/Vol] 1.8 ng/mL Normal [employer].; [employer]. Replaced Document: Dana Ramirez CG Observationson 07-10-2015 EKG QRS axis 30 deg Invalid Interpretation Code [email or web address] Work Phone: Interpretation Sinus Bradycardia WITHIN NORMAL LIMITS Invalid Interpretation Code [email or web address] Work Phone: P [place] 60 deg Invalid Interpretation Code [email or web address] Work Phone: RI Interval 194 ms Invalid Interpretation Code [email or web address] Work Phone: Pulse (Heart Rate) 57 /min Invalid Interpretation Code [email or web address] Work Phone: QRS Duration 94 ms Invalid Interpretation Code [email or web address] Work Phone: QT Interval new path ms Invalid Interpretation Code [email or web address] Work Phone: QTc [place] 419 ms Invalid Interpretation Code [email or web address] Work Phone: T [place] 53 deg Invalid Interpretation Code [email or web address] Work Phone: Lab Report: Basic Metabolic Profile (BMP)on 06-23-2015 Anion gap 6 mmol/L Invalid Interpretation Code 5-15 [email or web address] Work Phone: Anion gap 4 molar conc 6 Invalid Interpretation Code 5-15 [email or web address] Work Phone: Chloride molar conc 103 mmol/L Invalid Interpretation Code 98-107 [email or web address] Work Phone: CO2 31.0 mmol/L Invalid Interpretation Code 21.0-32.0 [email or web address] Work Phone: CO2 ppres (BldV) 31.0 mmol/L Invalid Interpretation Code 21.0-32.0 [email or web address] Work Phone: Potassium molar conc 3.8 mmol/L Invalid Interpretation Code 3.5-5.1 [email or web address] Work Phone: Sodium molar conc 140 mmol/L Invalid Interpretation Code 136-145 [email or web address] Work Phone: Calcium mass conc 9.0 mg/dL Invalid Interpretation Code 8.5-10.1 [email or web address] Work Phone: Creatinine mass conc 0.82 mg/dL Invalid Interpretation Code 0.70-1.30 [email or web address] Work Phone: eGFR (non-black) 121 mL/min/{1.73_m2} Invalid Interpretation Code >60 [email or web address] Work Phone: EST GFR - AA 121 mL/min Invalid Interpretation Code >60 [email or web address] Work Phone: GFR/1.73 sq M predicted among non-blacks MDRD vol rate/area (S/P/Bld) 100 mL/min/{1.73_m2} Invalid Interpretation Code >60 [email or web address] Work Phone: Glucose mass conc 90 mg/dL Invalid Interpretation Code 70-110 [email or web address] Work Phone: Urea nitrogen mass conc 11 mg/dL Invalid Interpretation Code 7-18 [email or web address] Work Phone: Urea nitrogen/Creatinine mass ratio 13.4 RATIO Invalid Interpretation Code 10-20 [email or web address] Work Phone: Lab Report: CBC W/Diff, Auto matedon 06-23-2015 Absolute Neut 3.0 X10 3/UL Invalid Interpretation Code 2.0-7.7 [email or web address] Work Phone: Basophils/100 WBC Auto (Bld) 1.0 % Invalid Interpretation Code 0-1 [email or web address] Work Phone: Eosinophils/100 WBC Auto (Bld) 2.2 % Invalid Interpretation Code 0-5 [email or web address] Work Phone: Erythrocyte distribution width Auto Ratio (RBC) 12.7 % Invalid Interpretation Code 11.6-14.6 [email or web address] Work Phone: Erythrocyte distribution width Auto Ratio (RBC) 41.8 fL Invalid Interpretation Code 35.1-43.9 [email or web address] Work Phone: Hematocrit Auto Volume Fraction (Bld) 43.7 % Invalid Interpretation Code 40-54 [email or web address] Work Phone: Hemoglobin mass conc (Bld) 15.1 g/dL Invalid Interpretation Code 13.0-16.5 [email or web address] Work Phone: Immature granulocytes #/vol (Bld) 0.000 % Invalid Interpretation Code 0.0-0.9 [email or web address] Work Phone: Immature granulocytes/100 WBC (Bld) 0.000 % Invalid Interpretation Code 0.0-0.9 [email or web address] Work Phone: Lymphocytes Auto #/vol (Bld) 1.38 X10 3/UL Invalid Interpretation Code 0.83-4.51 [email or web address] Work Phone: Lymphocytes/100 WBC Auto (Bld) 27.8 % Invalid Interpretation Code 19-41 [email or web address] Work Phone: MCH Auto Entitic mass (RBC) 31.3 pg Invalid Interpretation Code 27.0-32.0 [email or web address] Work Phone: MCHC Auto mass conc (RBC) 34.6 G/GL Invalid Interpretation Code 32-36 [email or web address] Work Phone: MCV Auto Entitic volume (RBC) 90.7 fL Invalid Interpretation Code 80-94 [email or web address] Work Phone: Monocytes/100 WBC Auto (Bld) 9.5 % Invalid Interpretation Code 0-10 [email or web address] Work Phone: Neutrophils Auto #/vol (Bld) 3.0 X10 3/UL Invalid Interpretation Code 2.0-7.7 [email or web address] Work Phone: Neutrophils/100 WBC Auto (Bld) 59.5 % Invalid Interpretation Code 47-70 [email or web address] Work Phone: Platelet mean volume Wally-Gold Entitic volume (Bld) 11.2 fL Invalid Interpretation Code 6.2-12.0 [email or web address] Work Phone: Platelets Auto #/vol (Bld) 181 10*3/mm3 Invalid Interpretation Code 150-450 [email or web address] Work Phone: RBC Auto #/vol (Bld) 4.82 10*6/uL Invalid Interpretation Code 4.6-6.2 [place] Phone: RDW SD 41.8 fL Invalid Interpretation Code 35.1-43.9 [place] Phone: WBC Auto #/vol (Bld) 5.0 10*3/uL Invalid Interpretation Code 4.4-11.0 [employer] Phone: Office Visiton 01-01-2015 General cardiovascular disease 10Y risk [#] [place] Not enough information Invalid Interpretation Code [employer] Phone: Tobacco smoking status NHIS Never smoker Invalid Interpretation Code [employer] Phone: Tobacco use CPHS Never smoker Invalid Interpretation Code [employer] Phone: Laboratory - Chemistry and C hemistry - challengeon 11-28-2014 Calcium [Mass/Vol] 9.6 mg/dL Normal 8.6 - 10. 3 mg/dL [facility], [facility].; [facility], [facility]. Chloride [Moles/Vol] 102 mmol/L Normal 98 - 11 0 mmol/L [facility], [facility].; [facility], [facility]. CO2 [Moles/Vol] 26 mmol/L Normal 19 - 30 mmol/L [facility], [facility].; [facility], [facility]. Creatinine [Mass/Vol] 0.86 mg/dL Normal 0.70 - 1.25 mg/dL [facility]; [facility]. GFR/1.73 sq M.predicted among blacks MDRD (S/P/Bld) [Vol rate/Area] 105 {ML/MIN/1.73M2} Normal [facility].; [facility], [facility]. GFR/1.73 sq M.predicted MDRD (S/P/Bld) [Vol rate/Area] 90 {ML/MIN/1.73M2} Normal [facility].; [facility] Glucose [Mass/Vol] 106 mg/dL Abnormal 65 - 99 mg/dL [facility].; [facility], [facility]. Potassium [Moles/Vol] 3.9 mmol/L Normal 3.5 - 5.3 mmol/L [facility].; [facility]. Prostate specific Ag [Mass/Vol] 1.1 ng/mL Normal 0.0 - 4.0 ng/mL [facility].; [facility]. Sodium [Moles/Vol] 137 mmol/L Normal 135 - 146 mmol/L [facility].; [place] [employer] [facility]. Urea nitrogen [Mass/Vol] 11 mg/dL Normal 7 - 25 mg/dL [facility].; [place] [employer] [facility]. Urea nitrogen/Creatinine [Mass ratio] 13.3 mg/mg Normal 6 - 22 [facility].; [place] [employer] [facility]. Office Visit: [facility] 07-04-19 15 cardiac risk group B Invalid Interpretation Code [email or web address] Work Phone: Tobacco smoking status NHIS Never Invalid Interpretation Code [email or web address] Work Phone: Replaced Document: Dana Ramirez CG Observationson 07-09-2013 Pulse (Heart Rate) 439 ms Invalid Interpretation Code [email or web address] Work Phone: Laboratory - Chemistry and C hemistry - challengeon 06-21-2013 Hemoglobin.gastrointes tinal Ql (Stl) Negative Normal [facility].; [place] [employer]. Laboratory - Chemistry and C hemistry - challengeon 06-12-2013 Calcium [Mass/Vol] 9.8 mg/dL Normal 8.6 - 10. 3 mg/dL [facility], [facility].; [facility], [facility]. Chloride [Moles/Vol] 100 mmol/L Normal 98 - 11 0 mmol/L [facility], [facility].; [facility], [facility]. CO2 [Moles/Vol] 25 mmol/L Normal 19 - 30 mmol/L [facility], [facility].; [facility], [facility]. Creatinine [Mass/Vol] 0.90 mg/dL Normal 0.70 - 1.25 mg/dL [facility], [facility].; [facility], [facility]. GFR/1.73 sq M.predicted among blacks MDRD (S/P/Bld) [Vol rate/Area] 104 {ML/MIN/1.73M2} Normal [facility], [facility].; [facility], [facility]. GFR/1.73 sq M.predicted MDRD (S/P/Bld) [Vol rate/Area] 89 {ML/MIN/1.73M2} Normal [facility], [facility].; [facility], [facility]. Glucose [Mass/Vol] 99 mg/dL Normal 65 - 99 mg/dL [facility], [facility].; [place] [employer] [facility], [facility]. Potassium [Moles/Vol] 4.3 mmol/L Normal 3.5 - 5.3 mmol/L [facility], [facility].; [place] [employer] [facility], [facility]. Prostate specific Ag [Mass/Vol] 1.4 ng/mL Normal 0.0 - 4.0 ng/mL [facility], [facility].; [facility] Sodium [Moles/Vol] 137 mmol/L Normal 135 - 146 mmol/L [facility], [facility].; [place] [employer] Urea nitrogen [Mass/Vol] 11 mg/dL Normal 7 - 25 mg/dL [facility], [facility].; [place] [employer], [facility]. Urea nitrogen/Creatinine [Mass ratio] 12.4 mg/mg Normal 6 - 22 [facility], [facility].; [place] [employer] Laboratory - Hematology and Cell countson 06-12-2013 Basophils (Bld) [#/Vol] 40 {Cells}/uL Normal 0 - 200 {Cells}/uL [facility].; [place] [facility] Basophils/100 WBC (Bld) 1 % Normal [facility].; [facility], [facility] Eosinophils (Bld) [#/Vol] 190 {Cells}/uL Normal 15 - 500 {Cells}/uL [facility].; [facility], [facility] Eosinophils/100 WBC (Bld) 4 % Normal [facility].; [facility], [facility] Erythrocyte distribution width (RBC) [Ratio] 13.1 % Normal 11.0 - 15.0 % [facility].; [facility], [facility] Hematocrit (Bld) [Volume fraction] 46.0 % Normal 38.5 - 50.0 % [facility].; [facility], [facility] Hemoglobin (Bld) [Mass/Vol] 15.6 g/dL Normal 13.2 - 17.1 g/dL [facility].; [facility], [facility] Lymphocytes (Bld) [#/Vol] 1800 {Cells}/uL Normal 850 - 3900 {Cells}/uL [facility].; [facility], [facility]. Lymphocytes/100 WBC (Bld) 35 % Normal [facility].; [facility], [facility]. MCH (RBC) [Entitic mass] 31.0 pg Normal 27.0 - 33.0 PG [facility].; [facility], [facility]. MCHC (RBC) [Mass/Vol] 33.9 g/dL Normal 32.0 - 36.0 g/dL [facility].; [facility], [facility]. MCV (RBC) [Entitic vol] 91.4 fL Normal 80.0 - 100.0 fL [facility].; [facility] Monocytes (Bld) [#/Vol] 530 {Cells}/uL Normal 200 - 950 {Cells}/uL [facility].; [facility], [facility]. Monocytes/100 WBC (Bld) 10 % Normal [facility].; [facility], [facility]. Neutrophils (Bld) [#/Vol] 2570 {Cells}/uL Normal 1500 - 7800 {Cells}/uL [facility].; [facility] Neutrophils/100 WBC (Bld) 50 % Normal [facility].; [facility], [facility]. Platelets (Bld) [#/Vol] 191 10*3/uL Normal 140 - 400 10*3/uL [facility].; [facility], [facility]. RBC (Bld) [#/Vol] 5.03 10*6/uL Normal 4.20 - 5.8 0 10*6/uL [facility].; [facility], [facility]. WBC (Bld) [#/Vol] 5.1 10*3/uL Normal 3.8 - 10.8 10*3/uL [facility], [facility].; [place] [employer], [facility]. Lab Report: T4on 07-20-2012 T4 mass conc 8.1 ug/dL Normal 4.5-12.1 [employer] Work Phone: Lab Report: TSHon 07-20-2012 Thyrotropin Qn 2.47 u[iU]/mL Normal 0.358-3.74 [facility] Work Phone: Laboratory - Chemistry and C hemistry - challengeon 01-19-2012 Bilirubin Ql (U) Negative Normal [facility], [facility].; [facility], [facility]. Calcium [Mass/Vol] 9.7 mg/dL Normal 8.6 - 10. 3 mg/dL [facility], [facility].; [place] [employer] Chloride [Moles/Vol] 103 mmol/L Normal 98 - 11 0 mmol/L [facility].; [facility] [employer] CO2 [Moles/Vol] 27 mmol/L Normal 21 - 33 mmol/L [facility], [facility].; [facility], [facility]. Creatinine [Mass/Vol] 0.90 mg/dL Normal 0.70 - 1.25 mg/dL [facility], [facility].; [facility] [employer], [facility]. GFR/1.73 sq M.predicted among blacks MDRD (S/P/Bld) [Vol rate/Area] 105 {ML/MIN/1.73M2} Normal [facility], [facility].; [place] [employer] GFR/1.73 sq M.predicted MDRD (S/P/Bld) [Vol rate/Area] 91 {ML/MIN/1.73M2} Normal [facility].; [employer] [facility] Glucose [Mass/Vol] 91 mg/dL Normal 65 - 99 mg/dL [facility].; [place] [employer] Hemoglobin.gastrointes tinal Ql (Stl) Negative Normal [facility].; [employer], [employer]. Ketones Ql (U) Negative Normal [facility].; [place] [employer], [employer]. pH (U) 5.5 [pH] Normal 4.6 - 8.0 [facility].; [employer], [employer]. Potassium [Moles/Vol] 4.1 mmol/L Normal 3.5 - 5.3 mmol/L [facility].; [employer], [employer]. Prostate specific Ag [Mass/Vol] 1.1 ng/mL Normal 0.0 - 4.0 ng/mL [facility].; [employer], [employer]. Sodium [Moles/Vol] 141 mmol/L Normal 135 - 146 mmol/L [place] [employer] [facility].; [employer], [employer]. Specific gravity (U) [Rel density] 1.010 Normal 1.001 - 1.025 [facility].; [employer], [employer]. Urea nitrogen [Mass/Vol] 17 mg/dL Normal 7 - 25 mg/dL [facility] [employer] [facility].; [employer], [employer]. Urea nitrogen/Creatinine [Mass ratio] 18.6 mg/mg Normal 6 - 22 [place] [employer] [facility].; [employer]. Laboratory - Hematology and Cell countson 01-19-2012 Hemoglobin Ql (U) Negative Normal [place] [employer] [facility].; [employer], [employer]. Laboratory - Specimen inform ationon 01-19-2012 Appearance (U) Clear Normal [facility].; [employer] Color (U) Clear Normal [place] [employer].; [employer], [employer]. Laboratory - Urinalysison Glucose Test strip (U) [Mass/Vol] Negative Normal [place] [employer].; [employer]. Leukocyte esterase Test strip Ql (U) Negative Normal [facility].; [place] [employer] [facility]. Nitrite Ql (U) Negative Normal [facility].; [place] [employer] [facility] Protein Ql (U) Negative Normal [facility].; [place] [employer], [employer]. No Panel Informationon 01-18 UA - UROBILINOGEN 0.2 mg/dL Normal [facility]; [place] [employer] [facility] Laboratory - Chemistry and C hemistry - challengeon 06-23-2011 Albumin [Mass/Vol] 4.3 g/dL Normal 3.4 - 5.0 g/dL [facility]; [facility] Albumin/Globulin [Mass ratio] - Normal [facility]; [place] [employer] [facility], [facility] ALP [Catalytic activity/Vol] 45 U/L Abnormal 50 - 136 U/L [facility].; [facility], [facility]. ALT [Catalytic activity/Vol] 33 mmol/L Normal 12 - 49 mmol/L [facility].; [place] [employer], [employer]. AST [Catalytic activity/Vol] 24 U/L Normal 15 - 37 U/L [facility].; [place] [employer] [facility], [facility]. Bilirubin [Mass/Vol] 0.70 mg/dL Normal 0.0 - 1 .0 mg/dL [facility].; [place] [employer] [facility], [facility]. Bilirubin.conjugated [Mass/Vol] 0.15 mg/dL Normal 0.01 - 0.2 mg/dL [facility].; [facility], [facility]. Cholesterol [Mass/Vol] 202 mg/dL Abnormal 0 - 2 00 mg/dL [facility].; [place] [employer] [facility], [facility]. Cholesterol in HDL [Mass/Vol] 71 mg/dL Abnormal 40 - 60 mg/dL [facility].; [facility], [facility]. Cholesterol in LDL [Mass/Vol] 122 mg/dL Normal 50.0 - 130.0 mg/dL [facility].; [place] [employer], [facility]. Cholesterol in VLDL [Mass/Vol] 9 mg/dL Normal [facility].; [facility], [facility]. Cholesterol.total/Chol esterol in HDL [Mass ratio] - Normal 0 - 5.0 [facility]; [place] [employer] [facility]. Gamma glutamyl transferase [Catalytic activity/Vol] - Normal [facility]; [facility], [facility] Protein [Mass/Vol] 7.4 g/dL Normal 6.4 - 8.2 g/dL [facility].; [place] [employer] [facility], [facility] Triglyceride [Mass/Vol] 46 mg/dL Normal 40 - 150 mg/dL [facility].; [place] [employer], [employer]. No Panel Informationon 06-22 BILIRUBIN, INDIRECT - Normal 0.0 - 0. 7 mg/dL [facility]; [place] [employer] [facility]. Laboratory - Chemistry and C hemistry - challengeon 12-30-2010 Bilirubin Ql (U) Negative Normal [facility].; [place] [employer] [facility] [employer] Hemoglobin.gastrointes tinal Ql (Stl) Negative Normal [facility].; [place] [employer], [employer]. Ketones Ql (U) Negative Normal [facility].; [place] [employer], [employer]. pH (U) 7.0 [pH] Normal 4.6 - 8.0 [facility].; [place] [employer], [employer]. Prostate specific Ag [Mass/Vol] 1.4 ng/mL Normal 0.0 - 4.0 ng/mL [facility].; [place] [employer], [employer]. Specific gravity (U) [Rel density] 1.020 Normal 1.001 - 1.025 [facility].; [employer]. Laboratory - Hematology and Cell countson 12-30-2010 Hemoglobin Ql (U) Negative Normal [facility] [employer] [facility].; [employer]. Laboratory - Specimen inform ationon 12-30-2010 Appearance (U) clear Normal [facility].; [place] [employer]. Color (U) yellow Normal [place] [employer].; [employer]. Laboratory - Urinalysison Glucose Test strip (U) [Mass/Vol] Negative Normal [place] [employer].; [employer]. Leukocyte esterase Test strip Ql (U) Negative Normal [facility] [employer] [facility].; [employer]. Nitrite Ql (U) Negative Normal [facility] [employer].; [employer]. Protein Ql (U) Negative Normal [facility] [employer].; [employer], [employer]. No Panel Informationon 12-30 UA - UROBILINOGEN 0.2 mg/dL Normal [place] [employer].; [employer]. Laboratory - Chemistry and C hemistry - challengeon 12-24-2009 Bilirubin Ql (U) Negative Normal [facility].; [employer]. Hemoglobin.gastrointes tinal Ql (Stl) Negative Normal [facility] [employer] [facility].; [employer], [employer]. Ketones Ql (U) Negative Normal [facility] [employer] [facility].; [employer], [employer]. pH (U) 7.5 [pH] Normal 4.6 - 8.0 [place] [employer].; [employer]. Specific gravity (U) [Rel density] 1.015 Normal 1.001 - 1.025 [place] [employer].; [employer], [employer]. Laboratory - Hematology and Cell countson 12-24-2009 Hemoglobin Ql (U) Negative Normal [facility] [employer], [employer]. Laboratory - Specimen inform ationon 12-24-2009 Appearance (U) clear Normal [facility] [employer].; [employer]. Color (U) yellow Normal [place] [employer].; [employer]. Laboratory - Urinalysison Glucose Test strip (U) [Mass/Vol] Negative Normal [place] [employer].; [employer], [employer]. Leukocyte esterase Test strip Ql (U) Negative Normal [place] [employer].; [employer], [employer]. Nitrite Ql (U) Negative Normal [facility].; [employer] Protein Ql (U) Negative Normal [facility].; [employer], [employer]. No Panel Informationon 12-24 UA - UROBILINOGEN 0.2 mg/dL Normal [place] [employer].; [employer]. Laboratory - Chemistry and C hemistry - challengeon 12-05-2009 Calcium [Mass/Vol] 9.1 mg/dL Normal 8.6 - 10. 2 mg/dL [place] [employer] [facility].; [place] [employer], [employer]. Chloride [Moles/Vol] 102 mmol/L Normal 98 - 11 0 mmol/L [facility].; [employer], [employer]. CO2 [Moles/Vol] 25 mmol/L Normal 21 - 33 mmol/L [facility].; [employer]. Creatinine [Mass/Vol] 0.81 mg/dL Normal 0.76 - 1.46 mg/dL [place] [employer], [employer]. GFR/1.73 sq M.predicted among blacks MDRD (S/P/Bld) [Vol rate/Area] mL/min/{1.73_m2} Normal [place] [employer] [facility].; [employer]. Glucose [Mass/Vol] 80 mg/dL Normal 65 - 99 mg/dL [place] [employer] [facility].; [employer], [employer]. Potassium [Moles/Vol] 4.0 mmol/L Normal 3.5 - 5.3 mmol/L [place] [employer].; [employer], [employer]. Prostate specific Ag [Mass/Vol] 0.9 ng/mL Normal 0.0 - 4.0 ng/mL [place] [employer].; [employer], [employer]. Sodium [Moles/Vol] 138 mmol/L Normal 135 - 146 mmol/L [place] [employer] [facility].; [employer], [employer]. Urea nitrogen [Mass/Vol] 12 mg/dL Normal 7 - 25 mg/dL [place] [employer].; [employer], [employer]. Urea nitrogen/Creatinine [Mass ratio] 15.1 mg/mg Normal 6 - 22 [place] [employer].; [employer], [employer]. Laboratory - Hematology and Cell countson 12-05-2009 Basophils (Bld) [#/Vol] 20 {Cells}/uL Normal 0 - 200 {Cells}/uL [place] [employer].; [employer]. Basophils/100 WBC (Bld) 0 % Normal 0 - 2 % [facility].; [facility]. Eosinophils (Bld) [#/Vol] 80 {Cells}/uL Normal 15 - 500 {Cells}/uL [facility].; [facility]. Eosinophils/100 WBC (Bld) 2 % Normal 0 - 8 % [facility].; [facility], [facility]. Erythrocyte distribution width (RBC) [Ratio] 12.8 % Normal 11.0 - 15.0 % [facility].; [facility], [facility] Hematocrit (Bld) [Volume fraction] 41.7 % Normal 38.5 - 50.0 % [facility].; [facility], [facility] Hemoglobin (Bld) [Mass/Vol] 14.6 g/dL Normal 13.2 - 17.1 g/dL [facility].; [facility], [facility] Lymphocytes (Bld) [#/Vol] 1240 {Cells}/uL Normal 850 - 3900 {Cells}/uL [facility].; [facility], [facility]. Lymphocytes/100 WBC (Bld) 30 % Normal 15 - 49 % [facility].; [place] [employer] [facility], [facility]. MCH (RBC) [Entitic mass] 32.1 pg Normal 27.0 - 33.0 PG [facility].; [place] [employer] [facility], [facility]. MCHC (RBC) [Mass/Vol] 35.0 g/dL Normal 32.0 - 36.0 g/dL [facility].; [place] [employer], [facility]. MCV (RBC) [Entitic vol] 91.7 fL Normal 80.0 - 100.0 fL [facility].; [place] [employer] [facility], [facility]. Monocytes (Bld) [#/Vol] 580 {Cells}/uL Normal 200 - 950 {Cells}/uL [place] [employer] [facility].; [place] [employer], [facility]. Monocytes/100 WBC (Bld) 14 % Normal 0 - 13 % [facility].; [place] [employer] [facility], [facility]. Neutrophils (Bld) [#/Vol] 2250 {Cells}/uL Normal 1500 - 7800 {Cells}/uL [facility].; [facility] Neutrophils/100 WBC (Bld) 54 % Normal 38 - 80 % [facility]; [facility] Platelets (Bld) [#/Vol] 169 10*3/uL Normal 140 - 400 10*3/uL [facility]; [facility] Platelets LM Ql (Bld) NORMAL Normal [facility]; [facility] RBC (Bld) [#/Vol] 4.55 10*6/uL Normal 4.20 - 5.8 0 10*6/uL [facility].; [facility] RBC morphology finding Nom (Bld) NORMAL Normal [facility]; [facility] WBC (Bld) [#/Vol] 4.2 10*3/uL Normal 3.8 - 10.8 10*3/uL [facility].; [facility] No Panel Informationon 12-05 EGFR NON-AFR. TOGOLESE >60 Normal [facility]; [facility] Vital Signs Date Time Vital Sign Value Performing Clinician Facility 09-03-2024 10:42-0400 Body height 180.[address] Wisam Lara MD Work Phone: [phone] [place] [address] 09-03-2024 10:42-0400 Body mass index (BMI) [Ratio] 20.7 kg/m2 Dr. Wisam Lara MD Work Phone: [phone] [place] [address] 09-03-2024 10:42-0400 Body weight 67.[address] Wsiam Lara MD Work Phone: [facility] 09-03-2024 10:42-0400 Diastolic blood pressure 73 mm[Hg] Dr. Wisam Lara MD Work Phone: [phone] [place] [address] 09-03-2024 10:42-0400 Heart rate 61 /min Dr. Wisam Lara MD Work Phone: [facility] 09-03-2024 10:42-0400 Respiratory rate 16 /min Dr. Wisam Lara MD Work Phone: [facility] 09-03-2024 10:42-0400 SaO2% (BldA) [Mass fraction] 96 % Dr. Wisam Lara MD Work Phone: [facility] 09-03-2024 10:42-0400 Systolic blood pressure 117 mm[Hg] Dr. Wisam Lara MD Work Phone: [facility] 07-06-2024 10:01-0400 Body height 179.07 cm Sharon Sousa [facility]; [facility] 07-06-2024 10:01-0400 Body mass index (BMI) [Ratio] 21.22 kg/m2 Sharon Sousa [facility].; [facility] 07-06-2024 10:01-0400 Body surface area Derived from formula 1.86 m2 Sharon Sousa LPN [facility].; [facility] 07-06-2024 10:01-0400 Body weight 68.04 kg Sharon Sousa LABORER [employer] [facility].; [facility] 07-06-2024 10:01-0400 Diastolic blood pressure 85 mm[Hg] Sharon Sousa LPN [facility].; [facility]. Comment on above: Patient Position: Sitting; Cuff Location : Left Arm; Cuff Size: Standard 07-06-2024 10:01-0400 Diastolic blood pressure 72 mm[Hg] Wisam Lara MD Work Phone: [facility]; [place] [employer] [facility]. Comment on above: Patient Position: Sitting; Cuff Location : Left Arm; Cuff Size: Standard 07-06-2024 10:01-0400 Heart rate 73 /min Sharon Sousa LPN [facility].; [place] [employer] [facility] Comment on above: Pattern: Regular 07-06-2024 10:01-0400 Systolic blood pressure 161 mm[Hg] Sharon Sousa LPN [facility].; [place] [employer] [facility] [employer] [facility]. Comment on above: Patient Position: Sitting; Cuff Location : Left Arm; Cuff Size: Standard 07-06-2024 10:01-0400 Systolic blood pressure 129 mm[Hg] Wisam Lara MD Work Phone: [facility].; [employer] [facility]. Comment on above: Patient Position: Sitting; Cuff Location : Left Arm; Cuff Size: Standard 01-03-2024 08:47-0500 Body height 179.07 cm Beronica Canales Donnell [facility] [employer]. 01-03-2024 08:47-0500 Body mass index (BMI) [Ratio] 22.35 kg/m2 [facility] [employer] [facility].; [employer]. 01-03-2024 08:47-0500 Body surface area Derived from formula 1.9 m2 Beronica Canales Donnell [facility] [employer] [facility], [employer].; [employer]. 01-03-2024 08:47-0500 Body weight 71.67 kg Beronica Canales Donnell [facility] [employer] [facility].; [employer]. 01-03-2024 08:47-0500 Diastolic blood pressure 80 mm[Hg] Beronica Canales Donnell [facility] [employer] [facility].; [employer]. Comment on above: Patient Position: Sitting; Cuff Location : Left Arm; Cuff Size: Standard 01-03-2024 08:47-0500 Heart rate 71 /min [facility]onica [facility]ales [facility] [employer] [facility], [employer].; [employer]. Comment on above: Pattern: Regular 01-03-2024 08:47-0500 Systolic blood pressure 158 mm[Hg] Beronica Hoangach [facility] [employer] [facility].; [employer]. Comment on above: Patient Position: Sitting; Cuff Location : Left Arm; Cuff Size: Standard 07-28-2023 09:50-0400 Body height 179.07 cm Roxanne Townsend [facility] [employer] [facility], [employer].; [employer]. 07-28-2023 09:50-0400 Body mass index (BMI) [Ratio] 21.93 kg/m2 Roxanne Townsend [facility] [employer] [facility].; [facility]. 07-28-2023 09:50-0400 Body surface area Derived from formula 1.88 m2 [facility].; [facility]. 07-28-2023 09:50-0400 Body temperature 98.1 [degF] [facility].; [place] [employer] [facility], [employer]. Comment on above: Method: Tympanic 07-28-2023 09:50-0400 Body weight 70.31 kg [facility]; [facility]. 07-28-2023 09:50-0400 Diastolic blood pressure 70 mm[Hg] [facility].; [facility]. Comment on above: Patient Position: Sitting; Cuff Location : Left Arm; Cuff Size: Standard 07-28-2023 09:50-0400 Heart rate 68 /min [facility]; [facility]. Comment on above: Pattern: Regular 07-28-2023 09:50-0400 Inhaled oxygen concentration 21 % [facility].; [place] [employer] [facility], [employer]. Comment on above: Room air 07-28-2023 09:50-0400 SaO2% (BldA) [Mass fraction] 98 % [facility].; [place] [employer] [facility]. 07-28-2023 09:50-0400 Systolic blood pressure 132 mm[Hg] [facility].; [place] [employer] [facility]. Comment on above: Patient Position: Sitting; Cuff Location : Left Arm; Cuff Size: Standard 07-13-2023 10:32-0400 Diastolic blood pressure 76 mm[Hg] Wisam Lara MD Work Phone: [facility].; [place] [employer] [facility]. Comment on above: Patient Position: Sitting; Cuff Location : Left Arm; Cuff Size: Standard 07-13-2023 10:32-0400 Systolic blood pressure 130 mm[Hg] Wisam Lara MD Work Phone: [facility] [employer]. Comment on above: Patient Position: Sitting; Cuff Location : Left Arm; Cuff Size: Standard 07-13-2023 09:43-0400 Body height 179.07 cm Andra Reji [employer] Work Phone: [employer].; [employer]. 07-13-2023 09:43-0400 Body mass index (BMI) [Ratio] 21.5 kg/m2 Andra Reji [employer] Work Phone: [place] [employer].; [employer]. 07-13-2023 09:43-0400 Body surface area Derived from formula 1.87 m2 Andra Reji [employer] Work Phone: [employer].; [employer]. 07-13-2023 09:43-0400 Body weight 68.95 kg Andra Reji [employer] Work Phone: [employer].; [employer]. 07-13-2023 09:43-0400 Diastolic blood pressure 79 mm[Hg] Andra Reji [employer] Work Phone: [employer].; [employer]. Comment on above: Patient Position: Sitting; Cuff Location : Left Arm; Cuff Size: Large 07-13-2023 09:43-0400 Heart rate 69 /min Andra Reji [employer] Work Phone: [employer].; [employer]. Comment on above: Pattern: Regular 07-13-2023 09:43-0400 Systolic blood pressure 145 mm[Hg] Andra Reji [employer] Work Phone: [employer].; [employer]. Comment on above: Patient Position: Sitting; Cuff Location : Left Arm; Cuff Size: Large 06-22-2023 13:25-0400 Body height 179.07 cm Andra Reji [employer] Work Phone: [employer].; [employer]. 06-22-2023 13:25-0400 Body mass index (BMI) [Ratio] 21.78 kg/m2 Andra Mendoza LPN Work Phone: [employer]; [employer]. 06-22-2023 13:25-0400 Body surface area Derived from formula 1.88 m2 Andra Mendoza LPN Work Phone: [employer]; [employer]. 06-22-2023 13:25-0400 Body weight 69.85 kg Andra Mendoza LPN Work Phone: [employer]; [employer]. 06-22-2023 13:25-0400 Diastolic blood pressure 76 mm[Hg] Andra Mendoza LPN Work Phone: [employer]; [employer]. Comment on above: Patient Position: Sitting; Cuff Location : Left Arm; Cuff Size: Standard 06-22-2023 13:25-0400 Heart rate 75 /min Andra Mendoza LPN Work Phone: [employer]; [employer]. Comment on above: Pattern: Regular 06-22-2023 13:25-0400 Systolic blood pressure 135 mm[Hg] Andra Mendoza LPN Work Phone: [employer]; [employer]. Comment on above: Patient Position: Sitting; Cuff Location : Left Arm; Cuff Size: Standard 06-21-2023 08:10-0400 Body height 180.[address] Wisam Lara Work Phone: [facility] 06-21-2023 08:10-0400 Body mass index (BMI) [Ratio] 21.4 kg/m2 Dr. Wisam Lara Work Phone: [facility] 06-21-2023 08:10-0400 Body weight 69.[address] Wisam Lara Work Phone: [facility] 06-21-2023 08:10-0400 Diastolic blood pressure 77 mm[Hg] Dr. Wisam Lara Work Phone: [facility] 06-21-2023 08:10-0400 Heart rate 67 /min Dr. Wisam Lara Work Phone: [facility] 06-21-2023 08:10-0400 Respiratory rate 18 /min Dr. Wisam Lara Work Phone: [facility] 06-21-2023 08:10-0400 SaO2% (BldA) [Mass fraction] 98 % Dr. Wisam Lara Work Phone: [facility] 06-21-2023 08:10-0400 Systolic blood pressure 128 mm[Hg] Dr. Wisam Lara Work Phone: [facility] 11-22-2022 14:57-0400 Body height 179.07 cm Sharon Sousa LPN [facility], [facility].; [facility], [facility]. 11-22-2022 14:57-0400 Body mass index (BMI) [Ratio] 22.07 kg/m2 Sharon Sousa LPN [facility], [facility].; [facility], [facility]. 11-22-2022 14:57-0400 Body surface area Derived from formula 1.89 m2 Sharon Sousa LPN [facility], [facility].; [facility] 11-22-2022 14:57-0400 Body temperature 97.5 [degF] [facility], [facility]. Comment on above: Method: Tympanic 11-22-2022 14:57-0400 Body weight 70.76 kg Sharon Sousa LPN [facility].; [facility], [facility]. 11-22-2022 14:57-0400 Diastolic blood pressure 84 mm[Hg] Sharon Sousa LPN [facility], [facility].; [facility] [employer], [facility]. Comment on above: Patient Position: Sitting; Cuff Location : Left Arm; Cuff Size: Standard 11-22-2022 14:57-0400 Heart rate 69 /min Sharon Sousa LPN [facility], [facility].; [facility]. Comment on above: Pattern: Regular 11-22-2022 14:57-0400 Systolic blood pressure 135 mm[Hg] Sharon Sousa LPN [facility].; [facility]. Comment on above: Patient Position: Sitting; Cuff Location : Left Arm; Cuff Size: Standard 01-13-2022 08:27-0500 Body height 179.07 cm Maude Santos MA [facility].; [facility]. 01-13-2022 08:27-0500 Body mass index (BMI) [Ratio] 22.35 kg/m2 Maude Santos MA [facility].; [place] [employer] [facility]. 01-13-2022 08:27-0500 Body surface area Derived from formula 1.9 m2 Maude Santos MA [facility].; [facility]. 01-13-2022 08:27-0500 Body temperature 97.1 [degF] [facility]ude [facility].; [place] [employer]. Comment on above: Method: Tympanic 01-13-2022 08:27-0500 Body weight 71.67 kg Maude Santos MA [facility].; [place] [employer] [facility]. 01-13-2022 08:27-0500 Diastolic blood pressure 69 mm[Hg] Maude Santos MA [facility].; [employer]. Comment on above: Patient Position: Sitting; Cuff Location : Left Arm; Cuff Size: Standard 01-13-2022 08:27-0500 Heart rate 71 /min Maude Santos MA [facility].; [employer]. Comment on above: Pattern: Regular 01-13-2022 08:27-0500 Systolic blood pressure 145 mm[Hg] Maude Santos MA [facility].; [employer]. Comment on above: Patient Position: Sitting; Cuff Location : Left Arm; Cuff Size: Standard 12-31-2021 16:06-0500 Body height 180.[address] Wisam Lara Work Phone: [facility] Work Phone: 12-31-2021 16:06-0500 Body mass index (BMI) [Ratio] 22.6 kg/m2 Dr. Wisam Lara Work Phone: [facility] Work Phone: 12-31-2021 16:06-0500 Body weight 73.[address] Wisam Lara Work Phone: [facility] Work Phone: 12-31-2021 16:06-0500 Diastolic blood pressure 60 mm[Hg] Dr. Wisam Lara Work Phone: [facility] Work Phone: 12-31-2021 16:06-0500 Heart rate 68 /min Dr. Wisam Lara Work Phone: [facility] Work Phone: 12-31-2021 16:06-0500 Respiratory rate 16 /min Dr. Wisam Lara Work Phone: [facility] Work Phone: 12-31-2021 16:06-0500 Systolic blood pressure 106 mm[Hg] Dr. Wisam Lara Work Phone: [facility] Work Phone: 08-07-2021 14:11-0400 Body height 180.[address] Wisam Lara Work Phone: [facility] Work Phone: 08-07-2021 14:11-0400 Body mass index (BMI) [Ratio] 21.3 kg/m2 Dr. Wisam Lara Work Phone: [facility] Work Phone: 08-07-2021 14:11-0400 Body weight 69.[address] Wisam Lara Work Phone: [facility] Work Phone: 08-07-2021 14:11-0400 Diastolic blood pressure 70 mm[Hg] Dr. Wisam Lara Work Phone: [facility] Work Phone: 08-07-2021 14:11-0400 Heart rate 60 /min Dr. Wisam Lara Work Phone: [facility] Work Phone: 08-07-2021 14:11-0400 Respiratory rate 16 /min Dr. Wisam Lara Work Phone: [facility] Work Phone: 08-07-2021 14:11-0400 Systolic blood pressure 124 mm[Hg] Dr. Wisam Lara Work Phone: [facility] Work Phone: 06-29-2021 09:43-0400 Body height 179.07 cm [facility] Work Phone: [employer]; [employer]. 06-29-2021 09:43-0400 Body mass index (BMI) [Ratio] 22.35 kg/m2 [facility] Work Phone: [employer]; [employer]. 06-29-2021 09:43-0400 Body surface area Derived from formula 1.9 m2 [facility] Work Phone: [employer]; [employer]. 06-29-2021 09:43-0400 Body weight 71.67 kg [facility] Work Phone: [employer]; [employer]. 06-29-2021 09:43-0400 Diastolic blood pressure 79 mm[Hg] [facility] Work Phone: [employer]; [employer]. Comment on above: Patient Position: Sitting; Cuff Location : Left Arm; Cuff Size: Large 06-29-2021 09:43-0400 Heart rate 76 /min [facility] Work Phone: [employer]; [facility] [facility] Comment on above: Pattern: Regular 06-29-2021 09:43-0400 Systolic blood pressure 153 mm[Hg] Andra Mendoza LPN Work Phone: [place] [employer] [facility], [employer].; [employer]. Comment on above: Patient Position: Sitting; Cuff Location : Left Arm; Cuff Size: Large 09-01-2019 09:09-0400 Body height 179.07 cm Renée Crawford JEAN [facility], [facility] [employer], [employer]. 09-01-2019 09:09-0400 Body mass index (BMI) [Ratio] 21.64 kg/m2 Renée Crawford [facility] [employer] [facility] [employer], [employer]. 09-01-2019 09:09-0400 Body surface area Derived from formula 1.87 m2 Renée Crawford [employer] [facility], [facility], [employer]. 09-01-2019 09:09-0400 Body weight 69.4 kg Renée Crawford JEAN [place] [employer] [facility], [employer].; [employer], [employer]. 09-01-2019 09:09-0400 Diastolic blood pressure 107 mm[Hg] Renée Crawford LAB[employer]ER M[employer] [facility], [employer].; [employer], [employer]. Comment on above: Patient Position: Sitting; Cuff Location : Left Arm; Cuff Size: Large 09-01-2019 09:09-0400 Heart rate 65 /min Renée Crawford JEAN [employer] [facility], [employer].; [employer]. Comment on above: Pattern: Regular 09-01-2019 09:09-0400 Systolic blood pressure 163 mm[Hg] Renée Crawford JEAN [employer] [facility], [facility] [employer]. Comment on above: Patient Position: Sitting; Cuff Location : Left Arm; Cuff Size: Large 09-18-2018 09:28-0400 Body height 179.07 cm Karthikeyan Vera LPN [employer] [facility], [facility], [employer]. 09-18-2018 09:28-0400 Body mass index (BMI) [Ratio] 21.36 kg/m2 Karthikeyan Vera [employer].; [employer]. 09-18-2018 09:28-0400 Body surface area Derived from formula 1.86 m2 Neilee L Vess [email or web address] 09-18-2018 09:28-0400 Body weight 68.49 kg Neilee L Vess [employer]OR[employer]. 09-18-2018 09:28-0400 Diastolic blood pressure 66 mm[Hg] Neilee L Vess LABORER MINE [employer]. Comment on above: Patient Position: Sitting; Cuff Location : Right Arm; Cuff Size: Standard 09-18-2018 09:28-0400 Heart rate 68 /min Spangleilee L Vess [employer]ORER [employer], [employer].; [employer]. Comment on above: Pattern: Regular 09-18-2018 09:28-0400 Systolic blood pressure 119 mm[Hg] Kaylieilee L Vess [employer]ER [employer]. Comment on above: Patient Position: Sitting; Cuff Location : Right Arm; Cuff Size: Standard 09-06-2017 10:020400 Body height 179.07 cm Andra Mendoza LPN Work Phone: [employer].; [employer] 09-06-2017 10:02-0400 Body mass index (BMI) [Ratio] 22.35 kg/m2 Andra Reji [employer] Work Phone: [employer].; [employer]. 09-06-2017 10:02-0400 Body surface area Derived from formula 1.9 m2 Andra Mendoza LABORER M[employer] Work Phone: [employer].; [employer]. 09-06-2017 10:02-0400 Body temperature 97.5 [degF] Andra Mendoza LABORER MINE Work Phone: [employer].; [employer]. Comment on above: Method: Tympanic 09-06-2017 10:020400 Body weight 71.67 kg Andra Mendoza LPN Work Phone: [employer], [employer]. 09-06-2017 10:02-0400 Diastolic blood pressure 78 mm[Hg] Andra Mendoza LPN Work Phone: [employer], [employer].; [employer]. Comment on above: Patient Position: Sitting; Cuff Location : Left Arm; Cuff Size: Large 09-06-2017 10:02-0400 Heart rate 67 /min Andra Mendoza LPN Work Phone: [employer], [employer].; [employer]. Comment on above: Pattern: Regular 09-06-2017 10:02-0400 Systolic blood pressure 143 mm[Hg] Andra Mendoza LPN Work Phone: [employer], [employer].; [employer]. Comment on above: Patient Position: Sitting; Cuff Location : Left Arm; Cuff Size: Large 06-09-2017 09:06-0400 Body height 179.07 cm Neilee L Vess LABORER MINE [employer] 06-09-2017 09:06-0400 Body mass index (BMI) [Ratio] 22.63 kg/m2 Neilee L Vess LABORER MINE [employer] 06-09-2017 09:06-0400 Body surface area Derived from formula 1.91 m2 Neilee L Vess LABORER MINE [employer] 06-09-2017 09:06-0400 Body weight 72.58 kg Neilee L Vess LABORER MINE [employer], [employer]. 06-09-2017 09:06-0400 Diastolic blood pressure 72 mm[Hg] Neilee L Vess LABORER MINE [employer]. Comment on above: Patient Position: Sitting; Cuff Location : Right Arm; Cuff Size: Standard 06-09-2017 09:06-0400 Heart rate 67 /min Neilee L Vess LABORER MINE [employer]. Comment on above: Pattern: Regular 06-09-2017 09:06-0400 Systolic blood pressure 133 mm[Hg] Neilee L Vess LABORER MINE [employer]. Comment on above: Patient Position: Sitting; Cuff Location : Right Arm; Cuff Size: Standard 12-09-2016 16:08-0400 Body height 179.07 cm Neilee L Vess LABORER MINE [employer], [employer]. 12-09-2016 16:08-0400 Body mass index (BMI) [Ratio] 22.63 kg/m2 Neilee L Vess LABORER MINE [employer]. 12-09-2016 16:08-0400 Body surface area Derived from formula 1.91 m2 Neilee L Vess LABORER MINE [employer], [employer], [employer]. 12-09-2016 16:08-0400 Body weight 72.58 kg Neilee L Vess LABORER MINE [employer], [employer].; [employer]. 12-09-2016 16:08-0400 Diastolic blood pressure 67 mm[Hg] Neilee L Vess LABORER MINE [employer]. Comment on above: Patient Position: Sitting; Cuff Location : Right Arm; Cuff Size: Standard 12-09-2016 16:08-0400 Heart rate 54 /min Neilee L Vess LABORER MINE [employer], [employer]. Comment on above: Pattern: Regular 12-09-2016 16:08-0400 Systolic blood pressure 127 mm[Hg] Neilee L Vess LABORER MINE [employer]. Comment on above: Patient Position: Sitting; Cuff Location : Right Arm; Cuff Size: Standard 12-08-2016 13:10-0400 BMI (Body Mass Index) 21.43 kg/m2 Mati Franksoster [employer] Work Phone: 12-08-2016 13:10-0400 BP Diastolic 66 mm[Hg] Mati Kumar [employer] Work Phone: 12-08-2016 13:10-0400 BP Systolic 130 mm[Hg] Mati Moodispaw MD [facility] Work Phone: 12-08-2016 13:100400 Height 182.88 cm Mati Webster MD [facility] Work Phone: 12-08-2016 13:10-0400 Pulse (Heart Rate) 64 /min Mati Kumar [facility] Work Phone: 12-08-2016 13:10-0400 Respiratory Rate 20 /min Mati Webster MD [facility] Work Phone: 12-08-2016 13:10-0400 Weight 71.67 kg Mati Webster MD [facility] Work Phone: 06-14-2016 14:31-0400 BMI (Body Mass Index) 21.29 kg/m2 Mati Webster MD [facility] Work Phone: 06-14-2016 14:31-0400 BP Diastolic 56 mm[Hg] Mati Webster MD [facility] Work Phone: 06-14-2016 14:31-0400 BP Systolic 122 mm[Hg] Mati Webster MD [facility] Work Phone: 06-14-2016 14:31-0400 Pulse (Heart Rate) 64 /min Mati [facility] Work Phone: 06-14-2016 14:31-0400 Respiratory Rate 16 /min Mati Webster MD [facility] Work Phone: 06-14-2016 14:31-0400 Weight 71.22 kg Mati Webster MD [facility] Work Phone: 12-08-2015 09:46-0400 Body height 179.07 cm [facility] Work Phone: [facility].; [employer] [facility], [employer]. 12-08-2015 09:46-0400 Body mass index (BMI) [Ratio] 22.07 kg/m2 [facility] Work Phone: [employer]. 12-08-2015 09:46-0400 Body surface area Derived from formula 1.89 m2 Andra Mendoza LPN Work Phone: [employer].; [employer]. 12-08-2015 09:46-0400 Body weight 70.76 kg Andra Mendoza LPN Work Phone: [employer].; [employer]. 12-08-2015 09:46-0400 Diastolic blood pressure 78 mm[Hg] Andra Mendoza LPN Work Phone: [employer].; [employer]. Comment on above: Patient Position: Sitting; Cuff Location : Left Arm; Cuff Size: Standard 12-08-2015 09:46-0400 Heart rate 71 /min Andra Reji LABORER MINE Work Phone: [employer]; [employer]. Comment on above: Pattern: Regular 12-08-2015 09:46-0400 Systolic blood pressure 132 mm[Hg] Andra Menodza LPN Work Phone: [employer]; [employer]. Comment on above: Patient Position: Sitting; Cuff Location : Left Arm; Cuff Size: Standard 10-16-2015 07:54-0400 Body height 179.07 cm Naomi Cotton RN [employer].; [employer]. 10-16-2015 07:54-0400 Body mass index (BMI) [Ratio] 21.08 kg/m2 Naomi Cotton RN [employer].; [employer]. 10-16-2015 07:54-0400 Body surface area Derived from formula 1.85 m2 Naomi Cotton RN [employer].; [employer]. 10-16-2015 07:54-0400 Body temperature 97.8 [degF] Naomi Cotton RN [employer].; [employer]. Comment on above: Method: Tympanic 10-16-2015 07:54-0400 Body weight 67.59 kg Naomi Cotton [facility].; [employer]. 10-16-2015 07:54-0400 Diastolic blood pressure 79 mm[Hg] Naoim Cotton RN [facility].; [place] [employer]. Comment on above: Patient Position: Sitting; Cuff Location : Left Arm; Cuff Size: Standard 10-16-2015 07:54-0400 Heart rate 68 /min Naomi Cotton RN [facility].; [employer]. Comment on above: Pattern: Regular 10-16-2015 07:54-0400 Systolic blood pressure 143 mm[Hg] Naomi Cotton RN [place] [employer]. Comment on above: Patient Position: Sitting; Cuff Location : Left Arm; Cuff Size: Standard 07-10-2015 09:02-0400 Heart rate 57 /min Mati Franksoster [employer] Work Phone: 07-10-2015 08:54-0400 BSA (Body Surface Area) 1.88 m2 Mati Webster MD [facility] Work Phone: 06-16-2015 10:42-0400 Body height 179.07 cm [facility] Work Phone: [place] [employer].; [employer]. 06-16-2015 10:42-0400 Body mass index (BMI) [Ratio] 20.65 kg/m2 [facility] Work Phone: [place] [employer].; [employer]. 06-16-2015 10:42-0400 Body surface area Derived from formula 1.84 m2 [facility] Work Phone: [place] [employer].; [place] [employer]. 06-16-2015 10:42-0400 Body weight 66.23 kg [facility] Work Phone: [place] [employer].; [place] [employer]. 06-16-2015 10:42-0400 Diastolic blood pressure 84 mm[Hg] Andra Mendoza LABORER MINE Work Phone: [employer], [employer].; [employer]. Comment on above: Patient Position: Sitting; Cuff Location : Left Arm; Cuff Size: Standard 06-16-2015 10:42-0400 Heart rate 68 /min Andra Mendoza LABORER MINE Work Phone: [employer], [employer].; [employer]. Comment on above: Pattern: Regular 06-16-2015 10:42-0400 Systolic blood pressure 138 mm[Hg] Andra Verdugoy LABORER MINE Work Phone: [employer], [employer].; [employer]. Comment on above: Patient Position: Sitting; Cuff Location : Left Arm; Cuff Size: Standard 12-05-2014 13:47-0400 Body height 179.07 cm Neilee L Vess LABORER MINE [employer], [employer]. 12-05-2014 13:47-0400 Body mass index (BMI) [Ratio] 21.78 kg/m2 Neilee L Vess LABORER MINE [employer], [employer]. 12-05-2014 13:47-0400 Body surface area Derived from formula 1.88 m2 Neilee L Vess LABORER MINE [employer], [employer]. 12-05-2014 13:47-0400 Body weight 69.85 kg Spangleilee L Vess LABORER MINE [employer]. 12-05-2014 13:47-0400 Diastolic blood pressure 75 mm[Hg] Neilee L Vess LABORER MINE [employer]. Comment on above: Patient Position: Sitting; Cuff Location : Left Arm; Cuff Size: Standard 12-05-2014 13:47-0400 Heart rate 70 /min Spangleilee L Vess LABORER MINE [employer]. Comment on above: Pattern: Regular 12-05-2014 13:47-0400 Systolic blood pressure 147 mm[Hg] Neilee L Vess LABORER MINE [employer], [employer].; [employer]. Comment on above: Patient Position: Sitting; Cuff Location : Left Arm; Cuff Size: Standard 07-09-2013 08:32-0400 Heart rate 439 ms Mati Webster MD [facility] Work Phone: 06-21-2013 09:44-0400 Body height 179.07 cm Neilee L Vess LABORER MINE [employer], [employer]. 06-21-2013 09:44-0400 Body mass index (BMI) [Ratio] 22.07 kg/m2 Neilee L Vess LABORER MINE [employer], [employer].; [employer]. 06-21-2013 09:44-0400 Body surface area Derived from formula 1.89 m2 Neilee L Vess LABORER MINE [employer], [employer].; [employer]. 06-21-2013 09:44-0400 Body weight 70.76 kg Neilee L Vess LABORER MINE [employer], [employer].; [employer]. 06-21-2013 09:44-0400 Diastolic blood pressure 73 mm[Hg] Neilee L Vess LABORER MINE [employer], [employer].; [employer]. Comment on above: Patient Position: Sitting; Cuff Location : Right Arm; Cuff Size: Standard 06-21-2013 09:44-0400 Heart rate 57 /min Neilee L Vess LABORER MINE [employer], [employer].; [employer]. Comment on above: Pattern: Regular 06-21-2013 09:44-0400 Systolic blood pressure 126 mm[Hg] Neilee L Vess LABORER MINE [employer], [employer].; [employer]. Comment on above: Patient Position: Sitting; Cuff Location : Right Arm; Cuff Size: Standard 01-19-2012 10:22-0500 Body height 177.8 cm Neilee L Vess LABORER MINE [employer], [employer].; [employer]. 01-19-2012 10:22-0500 Body mass index (BMI) [Ratio] 22.1 kg/m2 Neilee L Vess LABORER MINE [employer], [employer].; [employer]. 01-19-2012 10:22-0500 Body surface area Derived from formula 1.87 m2 Neilee L Vess LABORER MINE [facility], [facility].; [employer]. 01-19-2012 10:22-0500 Body weight 69.85 kg Nelaxmie L Vess LABORER MINE [facility].; [place] [employer] [facility]. 01-19-2012 10:22-0500 Diastolic blood pressure 90 mm[Hg] Neilee L Vess LABORER MINE [facility], Inc.; [employer], [employer]. Comment on above: Patient Position: Sitting; Cuff Location : Right Arm; Cuff Size: Standard 01-19-2012 10:22-0500 Heart rate 64 /min Neilee L Vess LABORER MINE [facility], Inc.; [employer] Comment on above: Pattern: Regular 01-19-2012 10:22-0500 Systolic blood pressure 145 mm[Hg] Neilee L Vess LABORER MINE [facility], [facility].; [employer], [employer]. Comment on above: Patient Position: Sitting; Cuff Location : Right Arm; Cuff Size: Standard 06-17-2011 10:02-0400 Height 182.88 cm Mati Webster MD [facility] Work Phone: 12-30-2010 13:48-0500 Body height 180.34 cm [facility] LAB[facility]ER MINE Work Phone: [facility].; [employer], [employer]. 12-30-2010 13:48-0500 Body mass index (BMI) [Ratio] 21.76 kg/m2 [facility]INE Work Phone: [place] [employer] [facility].; [employer] [facility]. 12-30-2010 13:48-0500 Body surface area Derived from formula 1.9 m2 Andra Reji LABORER MINE Work Phone: [employer] [facility].; [place] [employer]. 12-30-2010 13:48-0500 Body weight 70.76 kg Andra Reji LABORER MINE Work Phone: [place] [employer] [facility].; [employer]. 12-30-2010 13:48-0500 Diastolic blood pressure 83 mm[Hg] Andra Reji LABORER MINE Work Phone: [employer].; [employer]. Comment on above: Patient Position: Sitting; Cuff Location : Left Arm; Cuff Size: Standard 12-30-2010 13:48-0500 Heart rate 65 /min Andra Reji LABORER MINE Work Phone: [employer].; [employer]. Comment on above: Pattern: Regular 12-30-2010 13:48-0500 Systolic blood pressure 139 mm[Hg] Andra Reji LABORER MINE Work Phone: [employer].; [employer]. Comment on above: Patient Position: Sitting; Cuff Location : Left Arm; Cuff Size: Standard 12-24-2009 14:48-0400 Body height 180.34 cm Andra Reji LABORER MINE Work Phone: [employer].; [employer]. 12-24-2009 14:48-0400 Body mass index (BMI) [Ratio] 21.76 kg/m2 Andra Reji LABORER MINE Work Phone: [employer].; [employer]. 12-24-2009 14:48-0400 Body surface area Derived from formula 1.9 m2 Andra Verdugoy LABORER MINE Work Phone: [employer].; [employer]. 12-24-2009 14:48-0400 Body weight 70.76 kg Andra Verdugoy LABORER MINE Work Phone: [employer].; [employer]. 12-24-2009 14:48-0400 Diastolic blood pressure 70 mm[Hg] Andra Reji LABORER MINE Work Phone: [employer].; [employer]. Comment on above: Patient Position: Sitting; Cuff Location : Left Arm; Cuff Size: Standard 12-24-2009 14:48-0400 Heart rate 62 /min Andra Reji LABORER MINE Work Phone: [employer].; [employer]. Comment on above: Pattern: Regular 12-24-2009 14:48-0400 Systolic blood pressure 113 mm[Hg] Andra Mendoza LPN Work Phone: [employer] [facility]; [employer] [facility]. Comment on above: Patient Position: Sitting; Cuff Location : Left Arm; Cuff Size: Standard Encounters Encounter Date Encounter Type Care Provider Facility Start: 12-25-2024 End: 12-25-2024 Emergency department patient visit Wisam Lara Facility:[facility] Start: 09-03-2024 End: 09-03-[address] Wisam Lara MD Work Phone: -[facility] Start: 09-03-2024 End: 09-03-[address] Erick Ricks MD -[facility] Work Phone: Start: 08-11-2024 ambulatory WISAM LARA [facility] Start: 07-06-2024 End: 07-06-2024 Patient encounter procedure Wisam Lara MD Work Phone: [employer] [facility] Start: 06-18-2024 End: 06-18-[address] Emiliano Barfield MD -Laboratory Work Phone: Start: 06-18-2024 End: 06-18-2024 ambulatory Emiliano Barfield Facility:[facility] Start: 01-03-2024 End: 01-03-2024 Office outpatient visit 15 minutes Wisam Lara MD Work Phone: [employer] Start: 09-23-2023 End: 09-23-2023 Phone Encounter Wisam Lara MD Work Phone: [employer] Start: 07-28-2023 End: 07-28-2023 Patient encounter procedure Wisam Lara MD Work Phone: [employer] [facility] Start: 07-13-2023 End: 07-13-2023 Patient encounter procedure Wisam Lara MD Work Phone: [employer] Start: 06-29-2023 End: 06-29-2023 Historical Summary Wisam Lara MD Work Phone: [employer] Start: 06-28-2023 Non-patient / Non-visit Dr. Amanda Lara Work Phone: [facility] Start: 06-28-[address] Wisam Lara Work Phone: [facility] Work Phone: Start: 06-27-2023 End: 06-27-[address] Wisam Lara Work Phone: [facility] Work Phone: Start: 06-27-2023 End: 06-27-[address] Wisam Lara Work Phone: [facility]-Laboratory Work Phone: Start: 06-22-2023 End: 06-22-2023 Office outpatient visit 15 minutes Wisam Lara MD Work Phone: [employer] [facility] Start: 06-22-2023 End: 06-22-2023 Preprocedural examination done Wisam Lara MD Work Phone: [place] [employer] [facility]; [employer]. Start: 06-22-2023 Preprocedural examination done Andra Mendoza LPN Work Phone: [facility].; [employer]. Start: 06-22-2023 Review Wisam barone MD Work Phone: [employer] Start: 06-21-2023 End: 06-21-[address] Wisam Lara Work Phone: [facility] Work Phone: Start: 06-14-2023 Review Wisam barone MD Work Phone: [employer] Start: 06-10-2023 End: 06-10-2023 Historical Summary Wisam Lara MD Work Phone: [employer] Start: 06-10-2023 Non-patient / Non-visit Dr. Amanda Lara Work Phone: [facility] Start: 06-10-2023 End: 06-10-[address] Wisam Lara Work Phone: [facility] Work Phone: Start: 06-10-2023 End: 06-10-[address] iWsam Lara Work Phone: [facility]Cardi[facility] Work Phone: Start: 12-24-2022 End: 12-24-2022 ambulatory [facility] Work Phone: Start: 12-24-2022 End: 12-24-2022 Patient encounter procedure [facility]Laboratory Work Phone: Start: 11-22-2022 End: 11-22-2022 Patient encounter procedure Wisam Lara MD Work Phone: [employer] Start: 10-16-2022 End: 10-16-2022 Phone Encounter Wisam Lara MD Work Phone: [employer] Start: 01-13-2022 End: 01-13-2022 Office outpatient visit 15 minutes Wisam Lara MD Work Phone: [employer] Start: 01-04-2022 End: 01-04-2022 Orders Wisam Lara MD Work Phone: [employer]. Start: 12-31-2021 End: 12-31-[address] Wisam Lara Work Phone: [facility] Work Phone: Start: 12-31-2021 End: 12-31-[address] Wisam Lara Work Phone: [facility] Start: 09-09-2021 Non-patient / Non-visit Dr. Amanda Lara Work Phone: [place] Start: 09-09-2021 End: 09-09-[address] Wisam Lara Work Phone: [facility]-Cardi[facility] Start: 08-07-2021 End: 08-07-[address] Wisam Lara Work Phone: [facility] Start: 07-17-2021 End: 07-17-2021 Patient encounter procedure [facility]-Laboratory Start: 07-01-2021 End: 07-01-2021 Patient encounter procedure [facility]Labor[facility] Start: 06-29-2021 End: 06-29-2021 Patient encounter procedure Andra Mendoza LPN Work Phone: [employer] Start: 06-25-2021 End: 06-25-2021 Patient encounter procedure [facility]-Laboratory Start: 02-19-2021 ambulatory WISAM Pierce lity:[facility] Start: 11-28-2020 End: 11-28-2020 Telephone follow-up Wisam Lara MD Work Phone: [employer] Start: 11-23-2020 End: 11-26-2020 Evaluation and management of inpatient [facility] Facility:[facility] Start: 01-24-2020 End: 01-24-2020 Orders Wisam Lara MD Work Phone: [employer] Start: 01-09-2020 End: 01-09-2020 Patient encounter procedure Wisam Lara MD Work Phone: [employer] Start: 01-01-2020 End: 01-02-2020 Orders Wisam Lara MD Work Phone: [employer] Start: 12-06-2019 End: 12-06-2019 Orders Wisam Lara MD Work Phone: [employer] Start: 10-19-2019 End: 10-19-2019 Nursing evaluation of patient and report Wisam Lara MD Work Phone: [employer] Start: 09-01-2019 End: 09-01-2019 Patient encounter procedure Wisam Lara MD Work Phone: [employer] Start: 01-29-2019 End: 01-29-2019 Orders Wisam Lara MD Work Phone: [employer] Start: 09-18-2018 End: 09-18-2018 Patient encounter procedure Wisam Lara MD Work Phone: [employer] Start: 09-07-2018 End: 09-07-2018 Orders Wisam Lara MD Work Phone: [employer] Start: 08-14-2018 End: 08-14-2018 Orders Wisam Lara MD Work Phone: [employer] Start: 09-07-2017 End: 09-15-2017 Phone Encounter Wisam Lara MD Work Phone: [employer] Start: 09-06-2017 End: 09-06-2017 Office outpatient visit 15 minutes Wisam Lara MD Work Phone: [employer] Start: 08-12-2017 End: 08-12-2017 Historical Summary Wisam Lara MD Work Phone: [employer] Start: 06-09-2017 End: 06-09-2017 Patient encounter procedure Wisam Lara MD Work Phone: [employer] Start: 01-03-2017 End: 01-03-2017 Historical Summary Wisam Lara MD Work Phone: [employer] Start: 12-09-2016 End: 12-10-2016 Patient encounter procedure Wisam Lara MD Work Phone: [employer] Start: 11-19-2016 End: 11-19-2016 Orders Wisam Lara MD Work Phone: [employer] Start: 10-15-2016 End: 10-15-2016 Orders Wisam Lara MD Work Phone: [employer]. Start: 01-22-2016 End: 01-22-2016 Orders Wisam Lara MD Work Phone: [employer] Start: 12-08-2015 End: 12-08-2015 Patient encounter procedure Andra Mendoza JEAN Work Phone: [employer] Start: 11-27-2015 End: 11-27-2015 Orders Wisam Lara MD Work Phone: [employer]. Start: 10-30-2015 End: 10-30-2015 Orders Wisam Lara MD Work Phone: [employer] Start: 10-16-2015 End: 10-16-2015 Patient encounter procedure Wisam Lara MD Work Phone: [employer] Start: 09-05-2015 End: 09-05-2015 Historical Summary Wisam Lara MD Work Phone: [employer] Start: 06-16-2015 End: 06-17-2015 Patient encounter procedure Wisam Lara MD Work Phone: [employer] Start: 12-18-2014 End: 12-18-2014 Orders Wisam Lara MD Work Phone: [employer] Start: 12-05-2014 End: 12-05-2014 Patient encounter procedure Wisam Lara MD Work Phone: [employer] Start: 11-28-2014 End: 11-28-2014 Orders Wisam Lara MD Work Phone: [employer] Start: 11-06-2014 End: 11-06-2014 Orders Wisam Lara MD Work Phone: [employer] Start: 12-27-2013 End: 12-27-2013 Medication Wisam Lara MD Work Phone: [employer] Start: 12-27-2013 End: 12-27-2013 Nursing evaluation of patient and report Wisam Lara MD Work Phone: [employer] Start: 09-26-2013 End: 09-26-2013 Orders Wisam Lara MD Work Phone: [employer] Start: 06-21-2013 End: 06-21-2013 Patient encounter procedure Wisam Lara MD Work Phone: [employer] Start: 06-21-2013 End: 06-21-2013 Routine general medical examination at a health care facility Wisam Lara MD Work Phone: [employer]; [employer] Start: 06-12-2013 End: 06-13-2013 Medication Wisam Lara MD Work Phone: [employer]. Start: 05-29-2013 End: 05-30-2013 Orders Wisam Lara MD Work Phone: [employer] Start: 12-21-2012 End: 12-21-2012 Nursing evaluation of patient and report Wisam Lara MD Work Phone: [employer] Start: 01-19-2012 End: 01-19-2012 Patient encounter procedure Wisam Lara MD Work Phone: [employer] Start: 01-19-2012 End: 01-19-2012 Routine general medical examination at a health care facility Wisam Lara MD Work Phone: [employer]; [employer] Start: 12-09-2011 End: 12-09-2011 Orders Wisam Lara MD Work Phone: [employer] Start: 11-23-2011 End: 11-23-2011 Orders Wisam Lara MD Work Phone: [employer] Start: 11-02-2011 End: 11-02-2011 Laboratory examination ordered as part of a routine general medical examination Wisam Lara MD Work Phone: [employer]; [employer]. Start: 11-02-2011 End: 11-02-2011 Orders Wisam Lara MD Work Phone: [employer] Start: 10-05-2011 End: 10-05-2011 Medication Wisam Lara MD Work Phone: [employer]. Start: 12-30-2010 End: 12-30-2010 Patient encounter procedure Wisam Lara MD Work Phone: [employer] Start: 12-30-2010 End: 12-30-2010 Routine general medical examination at a health care facility Wisam Lara MD Work Phone: [employer]; [employer]. Start: 12-24-2009 End: 12-24-2009 Patient encounter procedure Wisam Lara MD Work Phone: [employer] Start: 12-24-2009 End: 12-24-2009 Routine general medical examination at a health care facility Wisam Lara MD Work Phone: [employer].; [employer] Start: 11-24-2009 End: 11-24-2009 Historical Summary Wisam Lara MD Work Phone: [employer] Start: 11-20-2009 End: 11-20-2009 Orders Wisam Lara MD Work Phone: [employer] Start: 11-20-2009 End: 11-20-2009 Routine general medical examination at a health care facility Wisam Lara MD Work Phone: [employer] Start: 11-20-2009 End: 11-20-2009 Historical Summary Wisam Lara MD Work Phone: [employer] Patient encounter procedure Andra Mendoza LPN Work Phone: [employer]; [facility] Patient encounter procedure Sharon Sousa JEAN [facility] Procedures Date Procedure Procedure Detail Performing Clinician Start: 07-06-2024 End: 07-05-2024 Adv care pln/ no alt dcsn mkr docd or refusal Wisam Lara MD Work Phone: Start: 07-06-2024 End: 07-06-2024 Current tobacco non-user cad cap copd pv dm Wisam Lara MD Work Phone: Start: 07-06-2024 End: 07-05-2024 Depression screening Wisam Lara MD Work Phone: Start: 07-06-2024 End: 07-05-2024 Falls risk assessment documented Wisam Lara MD Work Phone: Start: 07-06-2024 End: 07-05-2024 Pos clin depres scrn f/u doc Wisam knapp MD Work Phone: Start: 07-06-2024 End: 07-05-2024 PPPS, subseq visit Wisam Ferreira Work Phone: Start: 07-06-2024 End: 07-05-2024 Pt falls assess docd 2/> falls/fall w/injury/yr Wisam Lara MD Work Phone: Start: 07-06-2024 End: 07-05-2024 Scr dep neg, no plan reqd Wisam freed MD Work Phone: Start: 07-06-2024 End: 07-10-2024 Standardized cognitive performance testing Wisam Lara MD Work Phone: Comment on above: Start: 06-18-2024 Prostate specific an tigen measurement Dr. Wisam Lara MD Work Phone: Comment on above: This test was perfor med using the [employer] tPSA method. Measured values of a patient sample can vary depending on the testing procedure used. PSA values determined on patient samples by different testing procedures cannot be used interchangeably. If there is a change in PSA assays while monitoring therapy, sequential testing should be performed to confirm baseline values. Start: 05-22-2024 End: 05-22-2024 Lipid panel results documented & reviewed Sharon Sousa LPN Comment on above: TC 139 HDL 58 TRI 64 Start: 05-22-2024 End: 05-22-2024 Prostate specific antigen measurement Sharon Sousa LPN Comment on above: 1.87 Start: 10-23-2023 End: 10-23-2023 spinal cord stimulator implant Sharon Sousa LPN Comment on above: [facility] Dr. Delgado Start: 07-13-2023 End: 07-13-2023 Adv care pln/ no alt dcsn mkr docd or refusal Wisam Lara MD Work Phone: Start: 07-13-2023 End: 07-13-2023 Body mass index documented Wisam sparrow MD Work Phone: Start: 07-13-2023 End: 07-13-2023 Depression screening Wisam Lara MD Work Phone: Start: 07-13-2023 End: 07-13-2023 Docrev cur meds by lavinia knpap MD Work Phone: Start: 07-13-2023 End: 07-13-2023 Falls risk assessment documented Wisam Lara MD Work Phone: Comment on above: score of 4, reviewed the positives and seems related to sciatica mainly. did trip in tennis back pedaling for a high lob shot Start: 07-13-2023 End: 07-13-2023 Most recent diastolic blood pressure < 80 mm hg Wisam Lara MD Work Phone: Start: 07-13-2023 End: 07-13-2023 Most recent systolic blood pres>/equal 140 mm hg Wisam Lara MD Work Phone: Start: 07-13-2023 End: 07-13-2023 PPPS, subseq visit Wisam Ferreira Work Phone: Start: 07-13-2023 End: 07-13-2023 Pt falls assess docd 2/> falls/fall w/injury/yr Wisam Lara MD Work Phone: Start: 07-13-2023 End: 07-13-2023 Scr dep neg, no plan reqd Wisam freed MD Work Phone: Start: 06-28-2023 End: 06-28-2023 carotid dopplers Wisam Ferreira Work Phone: Comment on above: 01/01/17 bilat carot id dopplers <50% narrowing (moodispaw), 06/28/2023 unchanged Start: 06-28-2023 End: 06-28-2023 event monitor Wisam Ferreira Work Phone: Comment on above: entered in error Start: 06-27-2023 End: 06-27-2023 Lipid panel results documented & reviewed Andra Mendoza LPN Work Phone: Comment on above: Normal. 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 same, 09/09/21 same, 06/10/2023 mild insufficiency mitral Start: 12-24-2022 End: 12-24-2022 Lipid panel results documented & reviewed Andra Mendoza LPN Work Phone: Comment on above: Normal. tc 122 hdl 6 0 ldl 50 trig 62 on atorvastatin, ordered by cardio Start: 11-22-2022 End: 03-07-2023 Removal impacted cerumen instrumentation unilat Wisam Lara MD Work Phone: Start: 08-21-2022 End: 08-21-2022 Lab findings surveillance Andra INFANTE Work Phone: Comment on above: Normal. 96 Start: 01-13-2022 End: 01-13-2022 Removal impacted cerumen instrumentation lorrie Gonzalez PA-C Work Phone: Start: 09-17-2021 End: 09-17-2021 Screening colonoscopy Wisam Lara MD Work Phone: Comment on above: Within Normal Limits . 2004 (hemorrhoids Luis Fernandogavino) 2010 (hemorrhoids L Carrera), 09/17/2021 jaour neg Start: 07-01-2021 Anaerobic microbial culture Start: 07-01-2021 End: 07-01-2021 Bacterial culture Start: 07-01-2021 Investigation of tra nsfusion reaction Start: 06-29-2021 End: 06-29-2021 Adv care pln/ no alt dcsn mkr docd or refusal Wisam Lara MD Work Phone: Start: 06-29-2021 End: 06-29-2021 Depression screening Wisam Lara MD Work Phone: Start: 06-29-2021 End: 06-29-2021 Falls risk assessment documented Wisam Lara MD Work Phone: Start: 06-29-2021 End: 06-29-2021 PPPS, subseq visit Wisam Ferreira Work Phone: Start: 06-29-2021 End: 06-29-2021 Pt falls assess docd w/o fall/injury past year Wisam Lara MD Work Phone: Start: 06-29-2021 End: 06-29-2021 Scr dep neg, no plan reqd Wisam freed MD Work Phone: Start: 02-21-2021 End: 02-21-2021 Prostate specific antigen measurement Andra Reji PENA Work Phone: Comment on above: 1.3 ordered by urolo gy Start: 01-09-2020 End: 01-09-2020 Depression screening Wisam Lara MD Work Phone: Start: 01-09-2020 End: 01-09-2020 Docrev cur meds by lavinia knapp MD Work Phone: Start: 01-09-2020 End: 01-09-2020 Falls risk assessment documented Wisam Lara MD Work Phone: Start: 01-09-2020 End: 01-09-2020 Flu immunize order/admin Wisam monson MD Work Phone: Start: 01-09-2020 End: 01-09-2020 Most recent diastolic blood pressure 80-89 mm hg Wisam Lara MD Work Phone: Start: 01-09-2020 End: 01-09-2020 Most recent systolic blood pres>/equal 140 mm hg Wisam Lara MD Work Phone: Start: 01-09-2020 End: 01-09-2020 Pneumococcal vaccine admin rcvd prior Wisam Lara MD Work Phone: Start: 01-09-2020 End: 01-09-2020 PPPS, subseq visit Wisam Ferreira Work Phone: Start: 01-09-2020 End: 01-09-2020 Pt falls assess docd w/o fall/injury past year Wisam Lara MD Work Phone: Start: 01-09-2020 End: 01-09-2020 Scr dep neg, no plan reqd Wisam freed MD Work Phone: Start: 12-27-2019 End: 12-27-2019 Lab findings surveillance Andra Mendoza L PN Work Phone: Comment on above: Normal. 94 Start: 12-13-2019 End: 12-13-2019 Prostate specific antigen measurement Andra Mendoza LPN Work Phone: Comment on above: 1.51 Start: 10-19-2019 End: 10-19-2019 Removal impacted cerumen instrumentation unilat Wisam Lara MD Work Phone: Start: 07-06-2019 End: 07-06-2019 Lipid panel results documented & reviewed Andra Mendoza LPN Work Phone: Comment on above: Normal. cardiology m anages tc 154 trig 61 hdl 67 ldl 77 Start: 09-18-2018 End: 09-18-2018 Depression screening Wisam Lara MD Work Phone: Start: 09-18-2018 End: 09-18-2018 Falls risk assessment documented Wisam Lara MD Work Phone: Start: 09-18-2018 End: 09-18-2018 PPPS, subseq visit Wisam Ferreira Work Phone: Start: 09-18-2018 End: 09-18-2018 Pt falls assess docd w/o fall/injury past year Wisam Lara MD Work Phone: Start: 09-18-2018 End: 09-18-2018 Scr dep neg, no plan reqd Wisam freed MD Work Phone: Start: 09-06-2017 End: 09-12-2017 Radiologic exam abdomen 1 view Wisam Lara MD Work Phone: Start: 08-04-2017 End: 08-04-2017 Unilateral repair of inguinal hernia Andra Mendoza [facility] Work Phone: Comment on above: 08/04/17 left inguina l hernioraphy-danny Start: 06-09-2017 End: 06-09-2017 Body mass index documented Wisam sparrow MD Work Phone: Start: 01-01-2017 End: 01-01-2017 carotid dopplers Andra Mendoza [employer] Work Phone: Comment on above: 01/01/17 bilat carot id dopplers <50% narrowing (sharon) Start: 12-29-2016 End: 12-30-2016 *BMP Mati Webster MD Start: 12-29-2016 End: 12-30-2016 CBC W Auto Differential panel - Blood Mati Webster MD Start: 12-13-2016 End: 12-13-2016 Screening for malignant neoplasm of large intestine Andra Mendoza [employer] Work Phone: Comment on above: 06/2013 stool occult blood-neg, 12/13/16 stool neg, Start: 12-09-2016 End: 12-10-2016 Falls risk assessment documented Wisam Lara MD Work Phone: Start: 12-09-2016 End: 12-10-2016 Depression screen annual Wisam monson MD Work Phone: Start: 12-09-2016 End: 12-10-2016 Body mass index documented Wisam sprarow MD Work Phone: Start: 12-09-2016 End: 12-09-2016 PPPS, subseq visit Wisam Ferreira Work Phone: Start: 12-09-2016 End: 12-09-2016 Pt falls assess docd w/o fall/injury past year Wisam Lara MD Work Phone: Start: 12-09-2016 End: 12-09-2016 Scr dep neg, no plan reqd Wisam freed MD Work Phone: Start: 12-08-2016 End: 12-31-2016 Cardiovascular function eval w/tilt table w/mntr Mati Webster MD Start: 12-08-2016 End: 12-08-2016 Follow Up Appt 6 months Mati Webster MD Start: 12-08-2016 End: 12-08-2016 PFM Mati Webster MD Start: 06-14-2016 End: 11-29-2016 *Hepatic Function Panel Mati Webster MD Start: 06-14-2016 End: 06-14-2016 Follow Up Appt 1 year Mati Ferreira Start: 06-14-2016 End: 11-29-2016 Lipid 1996 panel - Serum or Plasma Mati Webster MD Start: 06-14-2016 End: 06-14-2016 PFM Mati Webster MD Start: 12-24-2015 End: 06-10-2016 *Hepatic Function Panel Mati Webster MD Start: 12-24-2015 End: 06-10-2016 Lipid 1996 panel - Serum or Plasma Mati Webster MD Start: 10-16-2015 End: 10-16-2015 Removal impacted cerumen instrumentation unilat Tin Dunaway [employer] Work Phone: Start: 07-10-2015 End: 07-10-2015 Ecg routine ecg w/least 12 lds w/i&r Sharon Blanco PA-C Work Phone: Start: 07-10-2015 End: 07-10-2015 Follow Up Appt 6 months Sharon rios PA-C Work Phone: Start: 07-10-2015 End: 07-10-2015 PFM Sharon Blanco PA-C Work Phone: Start: 06-09-2015 End: 06-23-2015 *Hepatic Function Panel Mati Webster MD Start: 06-09-2015 End: 06-23-2015 Lipid 1996 panel - Serum or Plasma Mati Webster MD Start: 01-01-2015 End: 01-02-2015 Documentation of current medications Mati Webster MD Start: 01-01-2015 End: 07-10-2015 Echocardiography Mati Webster MD Start: 01-01-2015 End: 06-25-2015 Follow Up Appt 6 months Mati Webster MD Start: 01-01-2015 End: 06-25-2015 MMM Mati Webster MD Start: 12-05-2014 End: 12-05-2014 PPPS, subseq visit Wisam Ferreira Work Phone: Start: 11-21-2014 End: 12-06-2014 *Hepatic Function Panel Mati Webster MD Start: 11-21-2014 End: 12-06-2014 Lipid 1996 panel - Serum or Plasma Mati Webster MD Start: 07-03-2014 End: 07-04-2014 Documentation of current medications Sharon Blanco PA-C Work Phone: Start: 07-03-2014 End: 07-03-2014 Follow Up Appt 6 months Sharon iros PA-C Work Phone: Start: 07-03-2014 End: 07-03-2014 PFM Sharon Blanco PA-C Work Phone: Start: 06-21-2014 End: 06-26-2014 *Hepatic Function Panel Mati Webster MD Start: 06-21-2014 End: 06-26-2014 Lipid 1996 panel - Serum or Plasma Mati Webster MD Start: 01-07-2014 End: 06-25-2014 *Hepatic Function Panel Mati Webster MD Start: 01-07-2014 End: 01-07-2014 Follow Up Appt 6 months Mati Webster MD Start: 01-07-2014 End: 06-25-2014 Lipid 1996 panel - Serum or Plasma Mati Webster MD Start: 01-07-2014 End: 01-07-2014 MMM Mati Webster MD Start: 12-22-2013 End: 12-31-2013 *Hepatic Function Panel Mati Webster MD Start: 12-22-2013 End: 12-31-2013 Lipid 1996 panel - Serum or Plasma Mati Webster MD Start: 07-09-2013 End: 07-09-2013 Ecg routine ecg w/least 12 lds w/i&r Sharon Blanco PA-C Work Phone: Start: 07-09-2013 End: 07-09-2013 Follow Up Appt 6 months Sharon rios PA-C Work Phone: Start: 07-09-2013 End: 07-09-2013 PFM Sharon Blanco PA-C Work Phone: Start: 06-21-2013 End: 07-02-2013 *Hepatic Function Panel Sharon rios PA-C Work Phone: Start: 06-21-2013 End: 06-21-2013 Initial preventive exam Wisam barone MD Work Phone: Start: 06-21-2013 End: 07-02-2013 Lipid 1996 panel - Serum or Plasma Sharon Blanco PA-C Work Phone: Start: 06-21-2013 End: 06-21-2013 Screening test visual acuity quantitative bilat Wisam Lara MD Work Phone: Start: 01-05-2013 End: 06-26-2013 Follow Up Appt 6 months Mati Webster MD Start: 01-05-2013 End: 06-26-2013 MMM Mati Webster MD Start: 12-22-2012 End: 12-29-2012 *Hepatic Function Panel Sharon rios PA-C Work Phone: Start: 12-22-2012 End: 12-29-2012 Lipid 1996 panel - Serum or Plasma Sharon Blanco PA-C Work Phone: Start: 09-21-2012 End: 09-21-2012 *Hepatic Function Panel Sharon rios PA-C Work Phone: Start: 09-21-2012 End: 09-21-2012 Lipid 1996 panel - Serum or Plasma Sharon Blanco PA-C Work Phone: Start: 09-07-2012 End: 09-21-2012 *Hepatic Function Panel Sharon rios PA-C Work Phone: Start: 09-06-2012 End: 09-21-2012 Lipid 1996 panel - Serum or Plasma Sharon Blanco PA-C Work Phone: Start: 07-20-2012 End: 12-29-2012 *BMP Sharon Blanco PA-C Work Phone: Start: 07-20-2012 End: 12-29-2012 *CBC with Differential Sharon ann PA-C Work Phone: Start: 07-20-2012 End: 06-26-2013 Echocardiography Sharon Blanco PA-C Work Phone: Start: 07-20-2012 End: 06-26-2013 Follow Up Appt 6 months Sharon rios PA-C Work Phone: Start: 07-20-2012 End: 06-26-2013 Nuclear stress test -exercise Sharon Blanco PA-C Work Phone: Start: 07-20-2012 End: 06-26-2013 PFM Sharon Blanco PA-C Work Phone: Start: 07-20-2012 End: 12-29-2012 Thyrotropin [Units/volume] in Serum or Plasma Sharon Blanco PA-C Work Phone: Start: 07-20-2012 End: 12-29-2012 Thyroxine (T4) [Mass/volume] in Serum or Plasma Sharon Blanco PA-C Work Phone: Start: 07-11-2012 End: 09-14-2012 *Hepatic Function Panel Mati Webster MD Start: 07-11-2012 End: 09-14-2012 Lipid 1996 panel - Serum or Plasma Mati Webster MD Start: 01-27-2012 End: 01-27-2012 Ecg routine ecg w/least 12 lds w/i&r Mati Webster MD Start: 01-27-2012 End: 07-10-2012 Follow Up Appt 6 months Mati Webster MD Start: 12-23-2011 End: 07-10-2012 *Hepatic Function Panel Mati Webster MD Start: 12-23-2011 End: 07-10-2012 Lipid 1996 panel - Serum or Plasma Mati Webster MD Start: 06-17-2011 End: 06-30-2011 *Hepatic Function Panel Mati Webster MD Start: 06-17-2011 End: 06-17-2011 Ecg routine ecg w/least 12 lds w/i&r Mati Webster MD Start: 06-17-2011 End: 07-10-2012 Follow Up Appt 6 months Mati Webster MD Start: 06-17-2011 End: 06-30-2011 Lipid 1996 panel - Serum or Plasma Mati Webster MD Start: 02-21-2010 End: 02-21-2010 Colonoscopy Andra Reji [employer] Work Phone: Acid fast bacilli culture Dr Kristin Lara Work Phone: Cytopathology proced ure, preparation of smear, genital source Dr. Wisam Lara Work Phone: Hemorrhoidectomy Andra Beach y [employer] Work Phone: Hemorrhoidectomy Andra Beach y [employer] Work Phone: Hemorrhoidectomy Andra Beach y [employer] Work Phone: Hemorrhoidectomy Sharon steiner [employer] knee surgery 2002 Andra Beac hy [employer] Work Phone: Comment on above: right knee 1995left knee 2013 knee surgery 2002 Andra Beac hy [employer] Work Phone: Comment on above: right knee 1995left knee 2012 knee surgery 2003 Andra Beac hy [employer] Work Phone: Comment on above: right knee 1995left knee 2012 knee surgery 2002 Sharon K elsa [employer] Comment on above: right knee 1995left knee [address] Wisam bond Work Phone: Operation on vertebra Andra Reji [employer] Work Phone: Comment on above: 2003 Operation on vertebra Andra Reji [employer] Work Phone: Comment on above: 2003 Operation on vertebra Andra Reji [employer] Work Phone: Comment on above: 2003 Operation on vertebra Jayjay Coppola [employer] Comment on above: 2003 Plan of Treatment Date Care Activity Detail Author Start: 09-03-2024 Evaluation of diagno stic study results [facility] Start: 07-06-2024 Standardized cogniti ve performance testing ASSESSMENT USING HANS COGNITIVE ASSESSMENT TOOL (99414) Start: 06-Jul-2024 [facility] [employer] [facility]. Comment on above: Start: 07-06-2024 Patient encounter procedure Medical; [facility]YS[facility] - [facility] Start: 06-Jul-2024 09:40-04:00 MD Wisam Lara [facility] Start: 07-13-2023 Patient encounter procedure Medical; PHYSICAL - Medicare Wellness [facility] Start: 13-Jul-2023 09:40-04:00 MD Wisam Lara [facility] Start: 06-22-2023 Patient encounter procedure Medical; EXTENDED RTN - pre-op back stimulator Dr Delgado (has awv 07/14) [facility] Start: 22-Jun-2023 13:40-04:00 MD Wisam Lara [facility] Start: 07-01-2021 Bacterial culture Body Fluid Culture [facility] Work Phone: Start: 06-13-2017 End: 06-13-2017 Appointment [facility] Work Phone: Start: 05-30-2017 End: 11-30-2016 *Hepatic Function Panel *Hepatic Function Panel [employer] Work Phone: Start: 05-30-2017 End: 11-30-2016 Lipid panel [AGGREGATE] *Lipid Profile CC PCP [email or web address] Work Phone: Start: 12-29-2016 End: 12-30-2016 *BMP *BMP [email or web address] Work Phone: Start: 12-29-2016 End: 12-30-2016 CBC W Auto Differential panel - Blood *CBC without Diff [email or web address] Work Phone: Start: 12-08-2016 End: 12-23-2016 Cardiovascular function eval w/tilt table w/mntr Tilt Table Test [email or web address] Work Phone: Start: 12-08-2016 End: 12-09-2016 Carotid duplex Carotid duplex [email or web address] Work Phone: Start: 12-08-2016 End: 12-08-2016 Follow Up Appt 6 months Follow Up Appt 6 months [employer] Work Phone: Start: 12-08-2016 End: 12-08-2016 PFM PFM [email or web address] Work Phone: Start: 12-08-2016 End: 12-08-2016 Appointment Appointment [facility] Phone: Start: 11-01-2016 End: 11-04-2016 Xtr mobile cv telemetry w/i&report 30 days 30 Day Holter Monitor [email or web address] Work Phone: Start: 06-14-2016 End: 11-29-2016 *Hepatic Function Panel *Hepatic Function Panel [employer] Work Phone: Start: 06-14-2016 End: 06-14-2016 Follow Up Appt 1 year Follow Up Appt 1 year [facility] Phone: Start: 06-14-2016 End: 06-14-2016 Follow Up Appt Other Follow Up Appt Other [email or web address] Work Phone: Start: 06-14-2016 End: 11-29-2016 Lipid panel [AGGREGATE] *Lipid Profile CC PCP [facility] Work Phone: Start: 06-14-2016 End: 06-14-2016 PFM PFM [facility] Work Phone: Start: 12-24-2015 End: 06-10-2016 *Hepatic Function Panel *Hepatic Function Panel [facility] Work Phone: Start: 12-24-2015 End: 06-10-2016 Lipid panel [AGGREGATE] *Lipid Profile CC PCP [facility] Work Phone: Start: 07-10-2015 End: 07-10-2015 Ecg routine ecg w/least 12 lds w/i&r EKG (In office) [facility] Work Phone: Start: 07-10-2015 End: 07-10-2015 Follow Up Appt 6 months Follow Up Appt 6 months [facility] Work Phone: Start: 07-10-2015 End: 07-10-2015 PFM PFM [facility] Work Phone: Start: 06-09-2015 End: 06-23-2015 *Hepatic Function Panel *Hepatic Function Panel [facility] Work Phone: Start: 06-09-2015 End: 06-23-2015 Lipid panel [AGGREGATE] *Lipid Profile CC PCP [facility] Work Phone: Start: 01-01-2015 End: 01-01-2015 Echocardiography Echocardiogram (complete) [facility] Work Phone: Start: 01-01-2015 End: 06-25-2015 Follow Up Appt 6 months Follow Up Appt 6 months [facility] Work Phone: Start: 01-01-2015 End: 06-25-2015 MMM MMM [facility] Work Phone: Start: 11-21-2014 End: 12-06-2014 *Hepatic Function Panel *Hepatic Function Panel [facility] Work Phone: Start: 11-21-2014 End: 12-06-2014 Lipid panel [AGGREGATE] *Lipid Profile CC PCP [facility] Work Phone: Start: 07-03-2014 End: 07-03-2014 Follow Up Appt 6 months Follow Up Appt 6 months [facility] Work Phone: Start: 07-03-2014 End: 07-03-2014 PFM PFM [facility] Work Phone: Start: 06-21-2014 End: 06-26-2014 *Hepatic Function Panel *Hepatic Function Panel [facility] Work Phone: Start: 06-21-2014 End: 06-26-2014 Lipid panel [AGGREGATE] *Lipid Profile CC PCP [facility] Work Phone: Start: 01-07-2014 End: 06-25-2014 *Hepatic Function Panel *Hepatic Function Panel [facility] Work Phone: Start: 01-07-2014 End: 01-07-2014 Follow Up Appt 6 months Follow Up Appt 6 months [facility] Work Phone: Start: 01-07-2014 End: 06-25-2014 Lipid panel [AGGREGATE] *Lipid Profile CC PCP [facility] Work Phone: Start: 01-07-2014 End: 01-07-2014 MMM MMM [facility] Work Phone: Start: 12-22-2013 End: 12-31-2013 *Hepatic Function Panel *Hepatic Function Panel [facility] Work Phone: Start: 12-22-2013 End: 12-31-2013 Lipid panel [AGGREGATE] *Lipid Profile CC PCP [facility] Work Phone: Start: 07-09-2013 End: 07-09-2013 Ecg routine ecg w/least 12 lds w/i&r EKG (In office) [facility] Work Phone: Start: 07-09-2013 End: 07-09-2013 Follow Up Appt 6 months Follow Up Appt 6 months [facility] Work Phone: Start: 07-09-2013 End: 07-09-2013 PFM PFM [facility] Work Phone: Start: 06-21-2013 End: 07-02-2013 *Hepatic Function Panel *Hepatic Function Panel [facility] Work Phone: Start: 06-21-2013 End: 07-02-2013 Lipid panel [AGGREGATE] *Lipid Profile CC PCP [facility] Work Phone: Start: 01-05-2013 End: 06-26-2013 Follow Up Appt 6 months Follow Up Appt 6 months [facility] Work Phone: Start: 01-05-2013 End: 06-26-2013 MMM MMM [facility] Work Phone: Start: 12-22-2012 End: 12-29-2012 *Hepatic Function Panel *Hepatic Function Panel [facility] Work Phone: Start: 12-22-2012 End: 12-29-2012 Lipid panel [AGGREGATE] *Lipid Profile CC PCP [facility] Work Phone: Start: 09-21-2012 End: 09-21-2012 *Hepatic Function Panel *Hepatic Function Panel [facility] Work Phone: Start: 09-21-2012 End: 09-21-2012 Lipid panel [AGGREGATE] *Lipid Profile CC PCP [facility] Work Phone: Start: 09-07-2012 End: 09-21-2012 *Hepatic Function Panel *Hepatic Function Panel [facility] Work Phone: Start: 09-06-2012 End: 09-21-2012 Lipid panel [AGGREGATE] *Lipid Profile CC PCP [facility] Work Phone: Start: 07-20-2012 End: 12-29-2012 *BMP *BMP [facility] Work Phone: Start: 07-20-2012 End: 12-29-2012 *CBC with Differential *CBC with Differential [facility] Work Phone: Start: 07-20-2012 End: 07-21-2012 Echocardiography Echocardiogram (complete) [email or web address] Work Phone: Start: 07-20-2012 End: 07-20-2012 Follow Up Appt 6 months Follow Up Appt 6 months [facility] Work Phone: Start: 07-20-2012 End: 07-20-2012 Nuclear stress test -exercise Nuclear stress test -exercise [facility] Work Phone: Start: 07-20-2012 End: 06-26-2013 PFM PFM [email or web address] Work Phone: Start: 07-20-2012 End: 12-29-2012 Thyroid stimulating hormone (TSH) *TSH [email or web address] Work Phone: Start: 07-20-2012 End: 12-29-2012 Thyroxine (T4) *T4 (Total) [email or web address] Work Phone: Start: 07-11-2012 End: 09-14-2012 *Hepatic Function Panel *Hepatic Function Panel [facility] Work Phone: Start: 07-11-2012 End: 09-14-2012 Lipid panel [AGGREGATE] *Lipid Profile CC PCP [email or web address] Work Phone: Start: 01-27-2012 End: 01-27-2012 Ecg routine ecg w/least 12 lds w/i&r EKG (In office) [facility] Work Phone: Start: 01-27-2012 End: 07-10-2012 Follow Up Appt 6 months Follow Up Appt 6 months [facility] Work Phone: Start: 12-23-2011 End: 07-10-2012 *Hepatic Function Panel *Hepatic Function Panel [facility] Work Phone: Start: 12-23-2011 End: 07-10-2012 Lipid panel [AGGREGATE] *Lipid Profile [facility] Phone: Start: 06-17-2011 End: 06-30-2011 *Hepatic Function Panel *Hepatic Function Panel [facility] Work Phone: Start: 06-17-2011 End: 06-17-2011 Ecg routine ecg w/least 12 lds w/i&r EKG (In office) [facility] Work Phone: Start: 06-17-2011 End: 07-10-2012 Follow Up Appt 6 months Follow Up Appt 6 months [facility] Work Phone: Start: 06-17-2011 End: 06-30-2011 Lipid panel [AGGREGATE] *Lipid Profile [facility] Work Phone: Lipid 1996 panel - S av or Plasma [facility] Work Phone: Patient Education [facility] Work Phone: Immunizations Immunization Date Immunization Notes Care Provider [facility] 01-15-2023 RSV, recombinant, protein subunit RSVpreF, 0.5 mL Wisam Lara MD Work Phone: [employer]; [employer] 12-03-2020 influenza, high dose seasonal, preservative-free Wisam Lara MD Work Phone: [employer]; [employer] 11-10-2020 Covid (Moderna) [facility] 04[facility]04[facility] 03-04-2020 [facility] 10-28-2019 influenza virus vaccine, unspecified formulation Wisam Lara MD Work Phone: [employer]; [employer] 10-28-2019 influenza, high dose seasonal, preservative-free Wisam Lara MD Work Phone: [employer]; [employer]. 09-18-2018 Shingrix 50 MCG/0.5M L Intramuscular Suspension Reconstituted Wisam Lara MD Work Phone: [employer]; [employer] Comment on above: 2 dose series 12-09-2016 influenza, injectabl e, quadrivalent, contains preservative Wisam Lara MD Work Phone: [employer]; [employer] 12-09-2016 influenza, injectabl e, quadrivalent, contains preservative Wisam Lara MD Work Phone: [employer]; [employer] Comment on above: Site: Deltoid (Right )VIS Given: * Influenza - Inactivated (09/27/14) 01-22-2016 pneumococcal conjuga te vaccine, 13 valent Wisam Lara MD Work Phone: [employer]; [employer] Comment on above: Site: Deltoid (Left) VIS Given: * Pneumococcal Conjugate (PCV13) (12/26/14) 12-08-2015 unknown vaccine or immune globulin Wisam Lara MD Work Phone: [employer]; [employer] 12-08-2015 influenza, injectabl e, quadrivalent, contains preservative Wisam Lara MD Work Phone: [employer]; [employer]. Comment on above: Site: Deltoid (Left) VIS Given: * Influenza - Inactivated (09/27/14) 12-05-2014 ADMINISTRATION OF INFLUENZA VIRUS VACCINE (G0008) Wisam Lara MD Work Phone: [employer]; [employer]. 12-05-2014 influenza, seasonal, injectable Wisam Lara MD Work Phone: [employer]; [employer] Comment on above: Site: Deltoid (Left) VIS Given: * Inactivated Influenza (09/27/2014) 12-27-2013 ADMINISTRATION OF INFLUENZA VIRUS VACCINE (G0008) Wisam Lara MD Work Phone: [employer]; [employer]. 12-27-2013 influenza, seasonal, injectable Wisam Lara MD Work Phone: [employer]; [employer] Comment on above: Site: Deltoid (Left) VIS Given: * Influenza, Inactivated () 12-21-2012 influenza, seasonal, injectable Wisam Lara MD Work Phone: [employer]; [employer] Comment on above: Site: Deltoid (Right )VIS Given: * Inactivated Influenza Vaccine (10/01/08) * Inactivated Influenza Vaccine (09/15/10) * Influenza vaccine , inactivated (08/23/2011) * VIS Given (Unspecified) 12-21-2012 IMMUNIZATION ADMIN ([id number]) Wisam Lara MD Work Phone: [employer]; [employer] 11-23-2011 hepatitis A vaccine, adult dosage Wisam Lara MD Work Phone: [employer]; [employer] Comment on above: Site: Deltoid (Left) VIS Given: * Hepatitis A Vaccine (12/15/10) 11-23-2011 influenza, seasonal, injectable Wisam Lara MD Work Phone: [employer]; [employer] Comment on above: Site: Deltoid (Left) VIS Given: * Inactivated Influenza Vaccine (10/01/08) * Inactivated Influenza Vaccine (09/15/10) * Influenza vaccine , inactivated (08/23/2011) * VIS Given (Unspecified) 11-23-2011 tetanus toxoid, redu fabrice diphtheria toxoid, and acellular pertussis vaccine, adsorbed Wisam Lara MD Work Phone: [employer]; [employer] Comment on above: Site: Deltoid (Right )VIS Given: * Tetanus/Diphtheria/(Pertussis) (Td/Tdap) (01/09/08) * Tetanus/Diptheria/Pertussis (Tdap/Td) 03/16/11 11-23-2011 IMMUNIZATION ADMIN ([id number]) Wisam Lara MD Work Phone: [employer]; [employer] 10-05-2011 typhoid vaccine, unspecified formulation Wisam Lara MD Work Phone: [employer]; [facility] 12-30-2010 influenza, seasonal, injectable Wisam Lara MD Work Phone: [facility]. Comment on above: Site: Deltoid (Left) VIS Given: * Inactivated Influenza Vaccine (10/01/08) * Inactivated Influenza Vaccine (09/15/10) * Inactivated Influenza Vaccine (09/15/10) * Inactivated Influenza Vaccine (09/15/10) * Inactivated Influenza Vaccine (09/15/10) * Inactivated Influenza Vaccine (09/15/10) * Inactivated Influenza Vaccine (09/15/10) * VIS Given (Unspecified) * VIS Given (Unspecified) 12-30-2010 IMMUNIZATION ADMIN ([id number]) Wisam Lara MD Work Phone: [facility]; [facility] 01-14-2009 zoster vaccine, live Wisam bond MD Work Phone: [facility]; [facility] 02-02-2006 pneumococcal polysaccharide vaccine, 23 valent Wisam Lara MD Work Phone: [facility] 05-12-2005 tetanus and diphther ia toxoids, adsorbed, preservative free, for adult use (2 Lf of tetanus toxoid and 2 Lf of diphtheria toxoid) Wisam Lara MD Work Phone: [facility]; [facility]. Comment on above: at [facility] Payers Date Payer Category Payer Self-pay [id number] 2020 Medicare [id number] 2013 Private Health Insurance 101 [id number] 1950 Unknown [id number] [id number] 1950 Unknown [id number] [id number]. [id number] 1950 Unknown [id number] Unknown [id number] Unknown [id number] [id number] Unknown [id number] Social History Date Type Detail Facility Start: 12-29-2020 End: 08-25-2022 Tobacco smoking status IDIS Unknown if ever smoked [facility] Start: 1950 Sex Assigned At Male [facility] Alcohol Use: Alcohol Use: ; Occasional alcohol use. [employer]; [employer] Caffeine Use Caffeine Use [employer]; [employer] Current Work/Study Status: Current Work/Study Status: ; Retired. [employer]; [employer] Exercise History: Exercise Histo ry: ; Moderate. [employer]; [employer] Tobacco Use: Tobacco Use: ; N ever smoker. [employer]; [employer] Moderate [employer]; [employer] Work Phone: Occasional alcohol use [facility] [employer]; [employer] Work Phone: Start: 11-08-2023 Never smoked tobacco [facility] Retired [employer]; [employer] Work Phone: Medical Equipment Procedure Code Equipment Code Equipment Origin al Text Equipment Identifier Dates Laminectomy, spine, lumbar, with spinal cord stimulator insertion Injex Bi-wing [place]son FDA Start: 11-17-2023 Laminectomy, spine, lumbar, with spinal cord stimulator insertion Medtronic - Intellis AdaptiveStim FDA Start: 11-17-2023 Laminectomy, spine, lumbar, with spinal cord stimulator insertion InSeT Systemstronic Specify SureScan MRI 5-6-5 FDA Start: 11-17-2023 Laminectomy, spine, lumbar, with spinal cord stimulator insertion Gelatin haemostatic agent [id number] FDA Start: 11-17-2023 Laminectomy, spine, lumbar, with spinal cord stimulator insertion Injex Bi-wing Dodson FDA Start: 11-17-2023 Laminectomy, spine, lumbar, with spinal cord stimulator insertion Medtronic - Intellis AdaptiveStim FDA Start: 11-17-2023 Laminectomy, spine, lumbar, with spinal cord stimulator insertion Medtronic Specify SureScan MRI FDA Start: 11-17-2023 ARMIN FENG FDA Start: 08-05-2017 ARMIN FENG FDA Start: 08-05-2017 MESH,LIGHT 3D LE FT LG FDA Start: 08-05-2017 TACKER,SECURE STRAP FDA Start : 08-05-2017 ARMIN FENG FDA Start: 08-05-2017 ARMIN FENG FDA Start: 08-05-2017 MESH,LIGHT 3D LE FT LG FDA Start: 08-05-2017 TACKER,SECURE STRAP FDA Start : 08-05-2017 ARMIN FENG FDA Start: 08-05-2017 ARMIN FENG FDA Start: 08-05-2017 MESH,LIGHT 3D LE FT LG FDA Start: 08-05-2017 TACKER,SECURE STRAP FDA Start : 08-05-2017 ARMIN FENG FDA Start: 08-05-2017 ARMIN FENG FDA Start: 08-05-2017 MESH,LIGHT 3D LE FT LG FDA Start: 08-05-2017 TACKER,SECURE STRAP FDA Start : 08-05-2017 ARMIN FENG FDA Start: 08-05-2017 ARMIN FENG FDA Start: 08-05-2017 MESH,LIGHT 3D LE FT LG FDA Start: 08-05-2017 TACKER,SECURE STRAP FDA Start : 08-05-2017 ARMIN FENG FDA Start: 08-05-2017 ARMIN FENG FDA Start: 08-05-2017 MESH,LIGHT 3D LE FT LG FDA Start: 08-05-2017 TACKER,SECURE STRAP FDA Start : 08-05-2017 CLIPARMIN FDA Start: 08-05-2017 CLIPARMIN FDA Start: 08-05-2017 MESH,LIGHT 3D LE FT LG FDA Start: 08-05-2017 TACKER,SECURE STRAP FDA Start : 08-05-2017 CLIPARMIN FDA Start: 08-05-2017 CLIPARMIN FDA Start: 08-05-2017 MESH,LIGHT 3D LE FT LG FDA Start: 08-05-2017 TACKER,SECURE STRAP FDA Start : 08-05-2017 CLIPARMIN FDA Start: 08-05-2017 CLIPARMIN FDA Start: 08-05-2017 MESH,LIGHT 3D LE FT LG FDA Start: 08-05-2017 TACKER,SECURE STRAP FDA Start : 08-05-2017 ARMIN FENG FDA Start: 08-05-2017 CLIPARMIN FDA Start: 08-05-2017 MESH,LIGHT 3D LE FT LG FDA Start: 08-05-2017 TACKER,SECURE STRAP FDA Start : 08-05-2017 Evaluation note 11-21-2020 Note Date & Type Note Facility 11-21-2020 Evaluation note Diagnosis Onset Date History of radiofrequency ablation procedure for cardiac arrhythmia November, acute SVT (supraventricular tachycardia) acute Bruit of right carotid artery chronic Essential hypertension chron ic Hyperlipidemia chronic Nonrheumatic mitral (valve) prolapse chronic [facility] Work Phone: Chief complaint+Reason for visit Narrative Note Date & Type Note Facility Chief complaint+Reason for visit Narrative Reason for Visit History of radiofreq uency ablation procedure for cardiac arrhythmia SVT (supraventricular tachycardia) Bruit of right carotid artery Essential hypertension Hyperlipidemia Nonrheumatic mitral (valve) prolapse [facility] Work Phone: Chief complaint+Reason for visit Narrative Note Date & Type Note Facility Chief complaint+Reason for v isit Narrative Reason for Visit History of radiofreq uency ablation procedure for cardiac arrhythmia SVT (supraventricular tachycardia) Bruit of right carotid artery Essential hypertension Hyperlipidemia Nonrheumatic mitral (valve) prolapse [facility] Work Phone: Evaluation note Note Date & Type Note Facility Evaluation note No assessment information availa ble [facility] Work Phone: Evaluation note Note Date & Type Note Facility Evaluation note Diagnosis Onset Date SVT (supraventricular tachycardia) acute Bruit of right carotid artery chronic Essential hypertension chron ic Hyperlipidemia chronic Nonrheumatic mitral (valve) prolapse chronic [facility] Work Phone: Evaluation note Note Date & Type Note Facility Evaluation note Diagnosis Onset Date Resolution SVT (supraventricular tachycardia) acute September 03, 2024 10:29am Bruit of right carotid artery chronic September 03, 2024 10:29am Essential hypertension chronic [facility] 2024 10:29am Hyperlipidemia chronic September 03, 2024 10:29am Nonrheumatic mitral (valve) prolapse chronic September 03, 2024 10:29am [facility] Work Phone: Evaluation note Note Date & Type Note Facility Evaluation note Diagnosis Onset Date Resolution SVT (supraventricular tachycardia) acute September 03, 2024 11:28am Bruit of right carotid artery chronic September 03, 2024 11:28am Essential hypertension chronic [place] 2024 11:28am Hyperlipidemia chronic September 03, 2024 11:28am Nonrheumatic mitral (valve) prolapse chronic September 03, 2024 11:28am [facility] Work Phone: Reason for referral (narrative) Note Date & Type Note Facility Reason for referral (narrative) No reason for referral information available [facility] Work Phone: Summary Purpose Family History No Family History Records Found Relationship Condition Age at Onset Recorded Date/T sana brother Coronary artery disease Unknown Myocardial infarction Unknown Hypertension Unknown Arthritis Status:Active Comments:Mother. brain tumor Status:Active Comments:Mother. Cerebrovascular Accident Status:Active Comment s:Mother. Coronary Artery Disease Status:Active Comments :Brother. uncle Hypertension Status:Active Comments:Father. Brother. Arthritis Status:Active Comments:Mother. brain tumor Status:Active Comments:Mother. Cerebrovascular Accident Status:Active Comment s:Mother. Coronary Artery Disease Status:Active Comments :Brother. uncle Hypertension Status:Active Comments:Father. Brother. Arthritis Status:Active Comments:Mother. brain tumor Status:Active Comments:Mother. Cerebrovascular Accident Status:Active Comment s:Mother. Coronary Artery Disease Status:Active Comments :Brother. uncle Hypertension Status:Active Comments:Father. Brother. Arthritis Status:Active Comments:Mother. brain tumor Status:Active Comments:Mother. Cerebrovascular Accident Status:Active Comment s:Mother. Coronary Artery Disease Status:Active Comments :Brother. uncle Hypertension Status:Active Comments:Father. Brother. Arthritis Status:Active Comments:Mother. brain tumor Status:Active Comments:Mother. Cerebrovascular Accident Status:Active Comment s:Mother. Coronary Artery Disease Status:Active Comments :Brother. uncle Hypertension Status:Active Comments:Father. Brother. Arthritis Status:Active Comments:Mother. brain tumor Status:Active Comments:Mother. Cerebrovascular Accident Status:Active Comment s:Mother. Coronary Artery Disease Status:Active Comments :Brother. uncle Hypertension Status:Active Comments:Father. Brother. Arthritis Status:Active Comments:Mother. brain tumor Status:Active Comments:Mother. Cerebrovascular Accident Status:Active Comment s:Mother. Coronary Artery Disease Status:Active Comments :Brother. uncle Hypertension Status:Active Comments:Father. Brother. Arthritis Status:Active Comments:Mother. brain tumor Status:Active Comments:Mother. Cerebrovascular Accident Status:Active Comment s:Mother. Coronary Artery Disease Status:Active Comments :Brother. uncle Hypertension Status:Active Comments:Father. Brother. Arthritis Status:Active Comments:Mother. brain tumor Status:Active Comments:Mother. Cerebrovascular Accident Status:Active Comment s:Mother. Coronary Artery Disease Status:Active Comments :Brother. uncle Hypertension Status:Active Comments:Father. Brother. Arthritis Status:Active Comments:Mother. brain tumor Status:Active Comments:Mother. Cerebrovascular Accident Status:Active Comment s:Mother. Coronary Artery Disease Status:Active Comments :Brother. uncle Hypertension Status:Active Comments:Father. Brother. Arthritis Status:Active Comments:Mother. brain tumor Status:Active Comments:Mother. Cerebrovascular Accident Status:Active Comment s:Mother. Coronary Artery Disease Status:Active Comments :Brother. uncle Hypertension Status:Active Comments:Father. Brother. Arthritis Status:Active Comments:Mother. brain tumor Status:Active Comments:Mother. Cerebrovascular Accident Status:Active Comment s:Mother. Coronary Artery Disease Status:Active Comments :Brother. uncle Hypertension Status:Active Comments:Father. Brother. Arthritis Status:Active Comments:Mother. brain tumor Status:Active Comments:Mother. Cerebrovascular Accident Status:Active Comment s:Mother. Coronary Artery Disease Status:Active Comments :Brother. uncle Hypertension Status:Active Comments:Father. Brother. Arthritis Status:Active Comments:Mother. brain tumor Status:Active Comments:Mother. Cerebrovascular Accident Status:Active Comment s:Mother. Coronary Artery Disease Status:Active Comments :Brother. uncle Hypertension Status:Active Comments:Father. Brother. Arthritis Status:Active Comments:Mother. brain tumor Status:Active Comments:Mother. Cerebrovascular Accident Status:Active Comment s:Mother. Coronary Artery Disease Status:Active Comments :Brother. uncle Hypertension Status:Active Comments:Father. Brother. Arthritis Status:Active Comments:Mother. brain tumor Status:Active Comments:Mother. Cerebrovascular Accident Status:Active Comment s:Mother. Coronary Artery Disease Status:Active Comments :Brother. uncle Hypertension Status:Active Comments:Father. Brother. Arthritis Status:Active Comments:Mother. brain tumor Status:Active Comments:Mother. Cerebrovascular Accident Status:Active Comment s:Mother. Coronary Artery Disease Status:Active Comments :Brother. uncle Hypertension Status:Active Comments:Father. Brother. Arthritis Status:Active Comments:Mother. brain tumor Status:Active Comments:Mother. Cerebrovascular Accident Status:Active Comment s:Mother. Coronary Artery Disease Status:Active Comments :Brother. uncle Hypertension Status:Active Comments:Father. Brother. Arthritis Status:Active Comments:Mother. brain tumor Status:Active Comments:Mother. Cerebrovascular Accident Status:Active Comment s:Mother. Coronary Artery Disease Status:Active Comments :Brother. uncle Hypertension Status:Active Comments:Father. Brother. Arthritis Status:Active Comments:Mother. brain tumor Status:Active Comments:Mother. Cerebrovascular Accident Status:Active Comment s:Mother. Coronary Artery Disease Status:Active Comments :Brother. uncle Hypertension Status:Active Comments:Father. Brother. Arthritis Status:Active Comments:Mother. brain tumor Status:Active Comments:Mother. Cerebrovascular Accident Status:Active Comment s:Mother. Coronary Artery Disease Status:Active Comments :Brother. uncle Hypertension Status:Active Comments:Father. Brother. Arthritis Status:Active Comments:Mother. brain tumor Status:Active Comments:Mother. Cerebrovascular Accident Status:Active Comment s:Mother. Coronary Artery Disease Status:Active Comments :Brother. uncle Hypertension Status:Active Comments:Father. Brother. Arthritis Status:Active Comments:Mother. brain tumor Status:Active Comments:Mother. Cerebrovascular Accident Status:Active Comment s:Mother. Coronary Artery Disease Status:Active Comments :Brother. uncle Hypertension Status:Active Comments:Father. Brother. Arthritis Status:Active Comments:Mother. brain tumor Status:Active Comments:Mother. Cerebrovascular Accident Status:Active Comment s:Mother. Coronary Artery Disease Status:Active Comments :Brother. uncle Hypertension Status:Active Comments:Father. Brother. Arthritis Status:Active Comments:Mother. brain tumor Status:Active Comments:Mother. Cerebrovascular Accident Status:Active Comment s:Mother. Coronary Artery Disease Status:Active Comments :Brother. uncle Hypertension Status:Active Comments:Father. Brother. Arthritis Status:Active Comments:Mother. brain tumor Status:Active Comments:Mother. Cerebrovascular Accident Status:Active Comment s:Mother. Coronary Artery Disease Status:Active Comments :Brother. uncle Hypertension Status:Active Comments:Father. Brother. Arthritis Status:Active Comments:Mother. brain tumor Status:Active Comments:Mother. Cerebrovascular Accident Status:Active Comment s:Mother. Coronary Artery Disease Status:Active Comments :Brother. uncle Hypertension Status:Active Comments:Father. Brother. Arthritis Status:Active Comments:Mother. brain tumor Status:Active Comments:Mother. Cerebrovascular Accident Status:Active Comment s:Mother. Coronary Artery Disease Status:Active Comments :Brother. uncle Hypertension Status:Active Comments:Father. Brother. Arthritis Status:Active Comments:Mother. brain tumor Status:Active Comments:Mother. Cerebrovascular Accident Status:Active Comment s:Mother. Coronary Artery Disease Status:Active Comments :Brother. uncle Hypertension Status:Active Comments:Father. Brother. Arthritis Status:Active Comments:Mother. brain tumor Status:Active Comments:Mother. Cerebrovascular Accident Status:Active Comment s:Mother. Coronary Artery Disease Status:Active Comments :Brother. uncle Hypertension Status:Active Comments:Father. Brother. Arthritis Status:Active Comments:Mother. brain tumor Status:Active Comments:Mother. Cerebrovascular Accident Status:Active Comment s:Mother. Coronary Artery Disease Status:Active Comments :Brother. uncle Hypertension Status:Active Comments:Father. Brother. Arthritis Status:Active Comments:Mother. brain tumor Status:Active Comments:Mother. Cerebrovascular Accident Status:Active Comment s:Mother. Coronary Artery Disease Status:Active Comments :Brother. uncle Hypertension Status:Active Comments:Father. Brother. Arthritis Status:Active Comments:Mother. brain tumor Status:Active Comments:Mother. Cerebrovascular Accident Status:Active Comment s:Mother. Coronary Artery Disease Status:Active Comments :Brother. uncle Hypertension Status:Active Comments:Father. Brother. Arthritis Status:Active Comments:Mother. brain tumor Status:Active Comments:Mother. Cerebrovascular Accident Status:Active Comment s:Mother. Coronary Artery Disease Status:Active Comments :Brother. uncle Hypertension Status:Active Comments:Father. Brother. Arthritis Status:Active Comments:Mother. brain tumor Status:Active Comments:Mother. Cerebrovascular Accident Status:Active Comment s:Mother. Coronary Artery Disease Status:Active Comments :Brother. uncle Hypertension Status:Active Comments:Father. Brother. Arthritis Status:Active Comments:Mother. brain tumor Status:Active Comments:Mother. Cerebrovascular Accident Status:Active Comment s:Mother. Coronary Artery Disease Status:Active Comments :Brother. uncle Hypertension Status:Active Comments:Father. Brother. Arthritis Status:Active Comments:Mother. brain tumor Status:Active Comments:Mother. Cerebrovascular Accident Status:Active Comment s:Mother. Coronary Artery Disease Status:Active Comments :Brother. uncle Hypertension Status:Active Comments:Father. Brother. Arthritis Status:Active Comments:Mother. brain tumor Status:Active Comments:Mother. Cerebrovascular Accident Status:Active Comment s:Mother. Coronary Artery Disease Status:Active Comments :Brother. uncle Hypertension Status:Active Comments:Father. Brother. Arthritis Status:Active Comments:Mother. brain tumor Status:Active Comments:Mother. Cerebrovascular Accident Status:Active Comment s:Mother. Coronary Artery Disease Status:Active Comments :Brother. uncle Hypertension Status:Active Comments:Father. Brother. Arthritis Status:Active Comments:Mother. brain tumor Status:Active Comments:Mother. Cerebrovascular Accident Status:Active Comment s:Mother. Coronary Artery Disease Status:Active Comments :Brother. uncle Hypertension Status:Active Comments:Father. Brother. Arthritis Status:Active Comments:Mother. brain tumor Status:Active Comments:Mother. Cerebrovascular Accident Status:Active Comment s:Mother. Coronary Artery Disease Status:Active Comments :Brother. uncle Hypertension Status:Active Comments:Father. Brother. Arthritis Status:Active Comments:Mother. brain tumor Status:Active Comments:Mother. Cerebrovascular Accident Status:Active Comment s:Mother. Coronary Artery Disease Status:Active Comments :Brother. uncle Hypertension Status:Active Comments:Father. Brother. Arthritis Status:Active Comments:Mother. brain tumor Status:Active Comments:Mother. Cerebrovascular Accident Status:Active Comment s:Mother. Coronary Artery Disease Status:Active Comments :Brother. uncle Hypertension Status:Active Comments:Father. Brother. Arthritis Status:Active Comments:Mother. brain tumor Status:Active Comments:Mother. Cerebrovascular Accident Status:Active Comment s:Mother. Coronary Artery Disease Status:Active Comments :Brother. uncle Hypertension Status:Active Comments:Father. Brother. Arthritis Status:Active Comments:Mother. brain tumor Status:Active Comments:Mother. Cerebrovascular Accident Status:Active Comment s:Mother. Coronary Artery Disease Status:Active Comments :Brother. uncle Hypertension Status:Active Comments:Father. Brother. Arthritis Status:Active Comments:Mother. brain tumor Status:Active Comments:Mother. Cerebrovascular Accident Status:Active Comment s:Mother. Coronary Artery Disease Status:Active Comments :Brother. uncle Hypertension Status:Active Comments:Father. Brother. Arthritis Status:Active Comments:Mother. brain tumor Status:Active Comments:Mother. Cerebrovascular Accident Status:Active Comment s:Mother. Coronary Artery Disease Status:Active Comments :Brother. uncle Hypertension Status:Active Comments:Father. Brother. Arthritis Status:Active Comments:Mother. brain tumor Status:Active Comments:Mother. Cerebrovascular Accident Status:Active Comment s:Mother. Coronary Artery Disease Status:Active Comments :Brother. uncle Hypertension Status:Active Comments:Father. Brother. Arthritis Status:Active Comments:Mother. brain tumor Status:Active Comments:Mother. Cerebrovascular Accident Status:Active Comment s:Mother. Coronary Artery Disease Status:Active Comments :Brother. uncle Hypertension Status:Active Comments:Father. Brother. Arthritis Status:Active Comments:Mother. brain tumor Status:Active Comments:Mother. Cerebrovascular Accident Status:Active Comment s:Mother. Coronary Artery Disease Status:Active Comments :Brother. uncle Hypertension Status:Active Comments:Father. Brother. Arthritis Status:Active Comments:Mother. brain tumor Status:Active Comments:Mother. Cerebrovascular Accident Status:Active Comment s:Mother. Coronary Artery Disease Status:Active Comments :Brother. uncle Hypertension Status:Active Comments:Father. Brother. Arthritis Status:Active Comments:Mother. brain tumor Status:Active Comments:Mother. Cerebrovascular Accident Status:Active Comment s:Mother. Coronary Artery Disease Status:Active Comments :Brother. uncle Hypertension Status:Active Comments:Father. Brother. Arthritis Status:Active Comments:Mother. brain tumor Status:Active Comments:Mother. Cerebrovascular Accident Status:Active Comment s:Mother. Coronary Artery Disease Status:Active Comments :Brother. uncle Hypertension Status:Active Comments:Father. Brother. Arthritis Status:Active Comments:Mother. brain tumor Status:Active Comments:Mother. Cerebrovascular Accident Status:Active Comment s:Mother. Coronary Artery Disease Status:Active Comments :Brother. uncle Hypertension Status:Active Comments:Father. Brother. Arthritis Status:Active Comments:Mother. brain tumor Status:Active Comments:Mother. Cerebrovascular Accident Status:Active Comment s:Mother. Coronary Artery Disease Status:Active Comments :Brother. uncle Hypertension Status:Active Comments:Father. Brother. Advance Directives No Advanced Directives Records Found Advance Directive Response Recorded Date/ Time Living Will No November 21 4:52pm Power of Qa Lead No November 21 4:52pm Advance Directive Response Recorded Date/ Time Living Will No November 21 3:52pm Power of Qa Lead No November 21 3:52pm Chief Complaint and Reason for Visit Chief Complaint EORDERS Chief Complaint MITRAL VALVE PROLASP E Chief Complaint MITRAL VALVE PROLASP E 9 M FU 3 ORDERING DRS/E ORDER & 2 PAPERS CAROTID BRUIT Reason for Visit SVT (supraventricula r tachycardia) Bruit of right carotid artery Essential hypertension Hyperlipidemia Nonrheumatic mitral (valve) prolapse Chief Complaint Admit Date 2 ORDERING DRS/E ORDER AND PAPER May 232024 7:32am 1 Y FU September 03, 2024 10:2 9am Reason for Visit Admit Date SVT (supraventricular tachycardia) September 03, 2024 10:29am Bruit of right carotid artery September 03, 2024 10:29am Essential hypertension September 03, 2024 1 0:29am Hyperlipidemia September 03, 2024 10:2 9am Nonrheumatic mitral (valve) prolapse Derik 2024 10:29am Chief Complaint Admit Date 2 ORDERING DRS/E ORDER AND PAPER May 232024 7:32am 1 Y FU September 03, 2024 11:2 8am Reason for Visit Admit Date SVT (supraventricular tachycardia) September 03, 2024 11:28am Bruit of right carotid artery September 03, 2024 11:28am Essential hypertension September 03, 2024 1 1:28am Hyperlipidemia September 03, 2024 11:2 8am Nonrheumatic mitral (valve) prolapse Aug 11:28am Additional Source Comments (unrecognized sect ion and content) No Status Records FoundNo Status Records FoundNo Status Records FoundNo Status Records FoundNo Status Records Found INFORMATION SOURCE (unrecogn ized section and content) DATE CREATED AUTHOR 01/02/2020 [facility] DATE CREATED AUTHOR AUTHOR'S ORGANIZ ATION 09/04/2020 [facility] ([place] DATE CREATED AUTHOR AUTHOR'S ORGANIZ ATION 05/13/2021 [facility] DATE CREATED AUTHOR AUTHOR'S ORGANIZ ATION 08/13/2024 [facility] DATE CREATED AUTHOR AUTHOR'S ORGANIZ ATION 12/26/2024 [facility] Goals (unrecognized section and content) Goals may be documented in a n alternate sectionGoals may be documented in an alternate sectionGoals may be documented in an alternate sectionGoals may be documented in an alternate sectionGoals may be documented in an alternate sectionGoals may be documented in an alternate sectionGoals may be documented in an alternate sectionGoals may be documented in an alternate sectionGoals may be documented in an alternate sectionGoals may be documented in an alternate section Care Teams (unrecognized sec tion and content) Team Status: Active Member Role Status Dates Dr. Wisam Lara MD Family Provider Active Dr. Wisam Lara MD Primary Care Provider Active Team Status: Inactive Member Role Status Dates Dr. Wisam Lara MD Primary Care Provider Active Wisam Lanier TRANSITIONAL STUDIES INSTRUCTOR, TRANSITIONAL STUDIES INSTRUCTOR-C Attending Provider, Referring Pro vider Active Team Status: Active Member Role Status Dates Dr. Wisam Lara MD Primary Care Provider Active Dr. Eleazar Vann MD Attending Provider Active Team Status: Inactive Member Role Status Dates Dr. Wisam Lara MD Primary Care Provider Active Sharon TAPIA, PA Attending Provider, Referr ing Provider Active Team Status: Inactive Member Role Status Dates Dr. Wisam Lara MD Primary Care Provider, Refer ring Provider Active Sharon TAPIA PA Attending Provider Active Team Status: Active Member Role Status Dates Dr. Wisam Lara MD Primary Care Provider Active Dr. Raymundo Bentley MD Attending Provider Active Team Status: Inactive Member Role Status Dates Dr. Wisam Lara MD Primary Care Provider Active Dr. Emiliano Barfield MD Attending Provider, Referr ing Provider Active Wisam Lanier NP TRANSITIONAL STUDIES INSTRUCTOR-C Other Provider Active Team Status: Active Member Role Status Dates Dr. Wisam Lara MD Primary Care Provider Active Sharon Blanco PA, PA Attending Provider, Referr ing Provider Active Team Status: Active Member Role/Relationship Status Dates Dr. Wisam Lara MD Primary Care Provider Active Team Status: Inactive Member Role/Relationship Status Dates Dr. Wisam Lara MD Primary Care Provider Active Start: June 18, 2024 End: June 18, 2024 Dr. Emiliano Barfield MD Attending Provider Active Start: June 18, 2024 End: June 18, 2024 Dr. Emiliano Barfield MD Referring Provider Active Start: June 18, 2024 End: June 18, 2024 Wisam Lanier NP TRANSITIONAL STUDIES INSTRUCTOR-C Other Provider Active Start : June 18, 2024 End: June 18, 2024 Team Status: Inactive Member Role/Relationship Status Dates Dr. Wisam Lara MD Primary Care Provider Active Start: September 03, 2024 End: September 03, 2024 Dr. Wisam Lara MD Referring Provider Active Start: September 03, 2024 End: September 03, 2024 Dr. Eirck Ricks MD Attending Provider Active Start: September 03, 2024 End: September 03, 2024 Team Status: Inactive Member Role/Relationship Status Dates Dr. Wisam Lara MD Primary Care Provider Active Start: September 03, 2024 End: September 03, 2024 Dr. Wisam Lara MD Referring Provider Active Start: September 03, 2024 End: September 03, 2024 Wisam Lanier NP, TRANSITIONAL STUDIES INSTRUCTOR-C Attending Provider Active S tart: September 03, 2024 End: September 03, 2024 FOR RECORDS PERTAINING TO PATIENTS WHO ARE OR HAVE BEEN ENROLLED IN A CHEMICAL DEPENDENCY/SUBSTANCEABUSE PROGRAM, SOME INFORMATION MAY BE OMITTED. This clinical summary was aggregated from multiple sources. Caution should be exercised in using it in the provision of clinical care. This summary normalizes information from multiple sources, and as a consequence, information in this document may materially change the coding, format and clinical context of patient data. In addition, data may be omitted in some cases. CLINICAL DECISIONS SHOULD BE BASED ON THE PRIMARY CLINICAL RECORDS. [facility]. provides no warranty or guarantee of the accuracy or completeness of information in this document.
[2024-12-29 14:31] VITALS: BP 182/76; PULSE 79; RESP 18; TEMP 37.1; O2SAT 98
== END 2024-12-29 14:32 | disposition home or self-care (01) ==
PROVIDERS: Emergency Provider Emergency Medicine; PCP Family Medicine; Visit Provider Emergency Medicine
DX: L03.032 Cellulitis of left toe (principal); R60.0 Localized edema; I10 Essential (primary) hypertension; Z79.899 Other long term (current) drug therapy
CPT/HCPCS: 73630; 93971; 99282